=== PATIENT | female | born 1935 | race Caucasian/White ===

== ENCOUNTER → 2017-04-20 | Outpatient (CLI) | payer OTHER, BC ==
[~2017-04-20] MED LIST: ASPI-435 PO; BROM0.07 OPB; CALC500C70 PO; CHOL100027 PO; CYM/30 PO; DULO60CA44 PO; HYDR-5688 PO; IPRA0.06 NAE; LEVO75TA PO; LUTE15CA PO; LUTE20TA PO; MULT-506 PO; OMEG10007 PO; OMEGCAP2 PO; POLY335019 PO; PREG200C PO; PRM625 VAGRING; PRMVC; SIMV20TA5 PO; TAPE1TAB10 PO; TAPE50TA5 PO; ZOLP1TAB PO
--- NOTE | 2017-04-20 16:58 | DIAGNOSTIC IMAGING REPORT ---
SCOLIOSIS AP ONLY CLINICAL HISTORY: SCOLIOSIS COMPARISON STUDY: Lumbar spine 05/15/2016. FINDINGS: Greater than expected density within the right hilum. This could be positional. Posterior decompression and fusion with pedicle screws and rods at L4-S1. The hardware appears intact. L2 vertebroplasty is again noted. Severe levoscoliosis of the lower thoracic and lumbar spine with the apex at the L2-L3 disc space level. This demonstrates a Hernandez angle of approximately 56 degrees measured from the superior endplate of L1 through the super endplate of L5. IMPRESSION: 1. No change in the severe levoscoliosis of the lower thoracic and lumbar spine with a Hernandez angle of 56 degrees. No significant curvature within the majority of the thoracic spine. 2. Greater than expected density within the right hilum which could be positional. Recommend follow-up PA and lateral views the chest to exclude a hilar abnormality. Electronically signed by: Eulogio Nguyễn M.D. 04/20/2017 4:56 PM Dictated Date/Time: 04/20/2017 4:53 PM
== END | disposition home or self-care (01) ==
LOC: C.RADBC 16:23
PROVIDERS: ATTEND Neurological Surgery
DX: M41.9 Scoliosis, unspecified (principal)

== ENCOUNTER → 2017-06-10 | Day surgery (SDC) | payer OTHER, BC ==
[2017-06-05 11:36] VITALS: Ht 154.9 cm; Wt 59.1 kg
[~2017-06-10] VITALS: Ht 154.9 cm; Wt 59.1 kg
[~2017-06-10] MED LIST changes: +LIDOCAINE HCL 1% MPF 5 ML VIAL ONE; -LUTE15CA PO; -MULT-506 PO; -OMEGCAP2 PO; -POLY335019 PO; -PREG200C PO; -PRM625 VAGRING; +SODIUM CHLORIDE 0.9% INJ 10 ML VIAL ONE; -TAPE1TAB10 PO
--- NOTE | 2017-06-10 15:03 | History & Physical Bridge - SC ---
H&P Re-Evaluation Bridge Note: I have examined the patient, reviewed the History & Physical and in the interval since the performance of the History & Physical I have noted the following changes of clinical significance: No changes noted
[2017-06-10 15:31] VITALS: TEMP 36.9
--- NOTE | 2017-06-10 15:33 | Discharge Instructions ---
Discharge Instructions Date of Service Jun 10, 2017. Visit Reason for Visit: Lumbar Radiculopathy Discharge Discharge Diagnosis / Problem: left leg pain Discharge Goals Goal(s): Decrease discomfort, Improve function Activity Recommendations Activity Limitations: resume your previous activity Anesthesia . Post Anesthesia Instructions: If you have had General Anesthesia or IV Sedation: * Do not drive today. * Resume driving when surgeon permits. * Do not make important decisions or sign legal documents today. * Call surgeon for: 1. Temperature elevations greater than 101 degrees F. 2. Uncontrollable pain. 3. Excessive bleeding. 4. Persistent nausea and vomiting. 5. Medication intolerance (nausea, vomiting or rash). * For nausea and vomiting use only clear liquids such as: tea, soda, bouillon until nausea subsides, then gradually increase diet as tolerated. * If you have any concerns or questions, call your surgeon's office. If physician is unavailable and it is an emergency, call 911 or go to the nearest emergency room. . Diet Recommendations Recommended Home Diet: resume previous diet Procedures Procedures Performed: CAUDAL EPIDURAL STEROID INJECTION Pending Studies Studies pending at discharge: no Medical Emergencies . Who to Call and When: Medical Emergencies: If at any time you feel your situation is an emergency, please call 911 immediately. . Non-Emergent Contact Non-Emergency issues call your: Specialist . . "Provider Documentation" section prepared by Dao Borja. .
[2017-06-10 15:45] VITALS: BP 117/82; PULSE 65; O2SAT 98
--- NOTE | 2017-06-10 15:56 | OPERATIVE REPORT ---
DATE OF OPERATION: 06/10/2017 PREOPERATIVE DIAGNOSES: Severe scoliosis, history of fusion, post-laminectomy syndrome with a left L5 radiculopathy. POSTOPERATIVE DIAGNOSIS: Same. PROCEDURE: Caudal epidural steroid injection under fluoroscopic guidance. INDICATIONS: The patient is a 81-year-old white female who has radicular pain following a classic L5 dermatomal distribution, it has not responded to conservative measures, it has not responded to a surgery and the pain is chronic. She presents today for an epidural injection via caudal approach given her prior history of surgery to provide her with some relief of the radicular pain in L5. PHYSICAL EXAMINATION: GENERAL: Pleasant female seated comfortably. MUSCULOSKELETAL: Lumbar paraspinal muscles were palpated. She has decreased subjective sensation in the L5 dermatomal distribution. Negative seated straight leg raises. No focal weakness. CONSENT: Verbal and written consent was obtained from the patient. Risks and benefits were reviewed. Risks include but are not limited to epidural abscess, allergic reaction and dural puncture. The patient wishes to proceed. DESCRIPTION OF PROCEDURE: The patient was taken back into the [facility] special procedures room in which she was maintained in a prone position. Backside was cleansed with Betadine x3 and a dry sterile dressing was applied. Fluoroscope was used to identify the sacral hiatus and the overlying skin was anesthetized with 4 mL of lidocaine 1% with a 25 gauge 1.5-inch needle. A 25 gauge 3.5 inch spinal needle was then directed under lateral fluoroscopic guidance into the sacral canal. It was noted to be about 1 inch into the canal and then injected after negative aspiration with 40 mg of Depo-Medrol and 4 mL of preservative free sodium chloride. Injection was well tolerated. DISPOSITION: 1. The patient is taken out into the discharge recovery area where she will be discharged home once discharge criteria have been met. 2. Follow up in the [facility] office in 2-4 weeks. I attest to the content of the Intraoperative Record and any orders documented therein. Any exception s are noted below.
== END | disposition home or self-care (01) ==
LOC: X.SURG 14:24
PROVIDERS: ATTEND Physical Medicine & Rehabilitation
DX: M41.9 Scoliosis, unspecified (principal); Z98.1 Arthrodesis status; M96.1 Postlaminectomy syndrome, not elsewhere classified; M54.16 Radiculopathy, lumbar region

== ENCOUNTER → 2017-09-09 | Outpatient (CLI) | payer OTHER, BC ==
[~2017-09-09] MED LIST changes: +CARBIDOPA PO; -LIDOCAINE HCL 1% MPF 5 ML VIAL ONE; +PREG200C PO; -SODIUM CHLORIDE 0.9% INJ 10 ML VIAL ONE
--- NOTE | 2017-09-10 12:47 | MAMMOGRAPHY REPORT ---
BILATERAL DIGITAL SCREENING MAMMOGRAM TOMOSYNTHESIS WITH CAD: 09/09/2017 CLINICAL HISTORY: Asymptomatic. Personal history of breast cancer. TECHNIQUE: Breast tomosynthesis in addition to standard 2D mammography was performed. Current study was also evaluated with a Computer Aided Detection (CAD) system. COMPARISON: Comparison is made to exams dated: 02/07/2016 mammogram - [facility] and 12/28/2014 mammogram. BREAST COMPOSITION: There are scattered areas of fibroglandular density in both breasts. FINDINGS: No suspicious masses, calcifications, or areas of architectural distortion are noted in ei ther breast. There has been no significant interval change compared to prior exams. There are stable postsurgical changes in the left upper outer quadrant from prior lumpectomy, including coarse benign dystrophic calcifications at the lumpectomy bed. Other scattered bilateral benign-appearing calcifi cations are again noted. Note that the images are suboptimal due to difficulties with patient positi oning including limited range of motion of her right arm; note that the pectoralis muscles are not we ll visualized on the bilateral MLO views and there is mild motion artifact on the left MLO view. IMPRESSION: ACR BI-RADS CATEGORY 2: BENIGN Limited exam as described above. Within the limitations of the exam, there is no mammographic eviden ce of malignancy. A 1 year screening mammogram is recommended. The patient will receive written noti fication of the results. Approximately 10% of breast cancers are not detected with mammography. A negative mammographic report should not delay biopsy if a clinically suggestive mass is present. Gena Soler M.D. ah/:09/09/2017 15:03:54 Attending Technologist: Brenda Baker RT(R)(M), [facility] Curator Of Collections: Rina Alves RT(R)(M), [facility] letter sent: Normal 1/2 BI-RADS Code: ACR BI-RADS Category 2: Benign
== END | disposition home or self-care (01) ==
LOC: C.MAMM 13:58
PROVIDERS: ATTEND Family Medicine
DX: Z12.31 Encounter for screening mammogram for malignant neoplasm of breast (principal); Z85.3 Personal history of malignant neoplasm of breast; Z08 Encounter for follow-up examination after completed treatment for malignant neoplasm

== ENCOUNTER → 2017-09-28 | Outpatient (CLI) | payer OTHER, BC ==
[~2017-09-28] MED LIST changes: -CARBIDOPA PO; -PREG200C PO
[2017-09-28 14:49] LABS: BLOOD UREA NITROGEN 19 mg/dl (7-18); CALCIUM 9.9 mg/dl (8.5-10.1); CARBON DIOXIDE 29 mmol/L (21-32); CHOLESTEROL 155 mg/dl (0-200); GLUCOSE 90 mg/dl (70-99); SODIUM 137 mmol/L (136-145)
[2017-09-28 14:59] LABS: LDL CHOLESTEROL CALCULATED 54 mg/dl
== END | disposition home or self-care (01) ==
LOC: C.LAB1850 13:00
PROVIDERS: ATTEND Family Medicine
DX: E03.9 Hypothyroidism, unspecified (principal); E78.5 Hyperlipidemia, unspecified

== ENCOUNTER → 2017-10-26 | Outpatient (CLI) | payer OTHER, BC ==
--- NOTE | 2017-10-26 16:30 | DIAGNOSTIC IMAGING REPORT ---
CHEST 2 VIEWS ROUTINE HISTORY: CHEST CONGESTION COMPARISON: Chest 06/04/2016. FINDINGS: Severe levoscoliosis of the thoracolumbar spine. There are low lung volumes. No focal lung consolidations. No evidence for pulmonary edema. The heart remains enlarged. Old, healed right-sided rib fractures. Vertebroplasty at the thoracolumbar junction. Lumbar spine posterior fusion hardware is again noted. IMPRESSION: No acute process within the chest. Mild cardiomegaly, unchanged. Electronically signed by: Eulogio Nguyễn M.D. 10/26/2017 4:28 PM Dictated Date/Time: 10/26/2017 4:26 PM
== END | disposition home or self-care (01) ==
LOC: C.RAD1850 15:56
PROVIDERS: ATTEND Nurse Practitioner Adult Health
DX: R09.89 Other specified symptoms and signs involving the circulatory and respiratory systems (principal); I51.7 Cardiomegaly

== ENCOUNTER → 2018-04-30 | Outpatient (CLI) | payer OTHER, BC ==
[~2018-04-30] MED LIST changes: +CARBIDOPA PO; -CYM/30 PO; +PREG200C PO
[2018-04-30 17:49] LABS: CREATININE 0.59 mg/dl (0.60-1.20)
[2018-04-30 18:04] LABS: BLOOD UREA NITROGEN 21 mg/dl (7-18); CALCIUM 8.9 mg/dl (8.5-10.1); CARBON DIOXIDE 26 mmol/L (21-32); CHOLESTEROL 165 mg/dl (0-200); CREATININE 0.59 mg/dl (0.60-1.20); GLUCOSE 78 mg/dl (70-99); LDL CHOLESTEROL CALCULATED 64 mg/dl; POTASSIUM 4.1 mmol/L (3.5-5.1); SODIUM 137 mmol/L (136-145)
== END | disposition home or self-care (01) ==
LOC: C.LAB1850 16:07
PROVIDERS: ATTEND Physical Medicine & Rehabilitation
DX: E03.9 Hypothyroidism, unspecified (principal); E78.5 Hyperlipidemia, unspecified; M19.90 Unspecified osteoarthritis, unspecified site; M54.16 Radiculopathy, lumbar region

== ENCOUNTER 2020-09-02 20:29 | Inpatient (IN) ==
--- NOTE | 2020-09-02 20:55 | Emergency Department Note ---
History of Present Illness General Chief complaint: Food Bolus Stated complaint: CHOKING ON RICE - Time Seen by Provider: 09/02/20 20:40 Source: patient and family (Son who is at the bedside) Mode of arrival: ambulatory Limitations: no limitations History of Present Illness Maximum Pain Intensity: 2 This patient comes in after choking on some rice about an hour ago. She has a history of Parkinson was in usual state of health. She was eating rice and felt like it got stuck and she like she had saliva. She feels better now can swallow her saliva and is in no distress she had no shortness of breath. She said no recent illness. She has had nothing to suggest Covid recently. No chest pain shortness of breath or GI symptoms prior to all this happening. She had no fall or trauma except on Thursday she fell and hit her head when she was sleepwalking she had a CAT scan here which was negative. She is brought in by her son as they were concerned she could have aspirated. Home Medications Medication Instructions Recorded Confirmed Type aspirin 81 mg PO HS 06/21/18 09/02/20 History cholecalciferol (vitamin D3) 1,000 unit PO DAILY 06/21/18 09/02/20 History [Vitamin D3] levothyroxine 75 mcg tablet 75 mcg PO QAM #90 tab 02/15/20 09/02/20 Rx pregabalin 200 mg capsule 200 mg PO TID #42 cap 07/23/20 09/02/20 Rx simvastatin 20 mg tablet 20 mg PO HS #90 tab 07/24/20 09/02/20 Rx carbidopa-levodopa [Sinemet] 1.5 tab PO QID 08/15/20 09/02/20 History ipratropium bromide 2 sprays INTNAS BID 08/15/20 09/02/20 History lutein 20 mg PO Q2D 08/15/20 09/02/20 History multivitamin [Multiple Vitamins] 1 tab PO DAILY 08/15/20 09/02/20 History omega 2-jgr-hdj-fish oil [Fish Oil] 1 cap PO DAILY 08/15/20 09/02/20 History zolpidem 12.5 mg tablet,extended 12.5 mg PO HS #14 tab 08/16/20 09/02/20 Rx release,multiphase duloxetine 60 mg capsule,delayed 60 mg PO QAM #90 cap 08/28/20 09/02/20 Rx release polyethylene glycol 3350 [Miralax] 8.5 g PO DAILY PRN 08/30/20 09/02/20 History tapentadol [Nucynta ER] 50 mg PO BID 08/30/20 09/02/20 History Allergies Allergy/AdvReac Type Severity Reaction Status Date / Time nut - unspecified Allergy Severe Anaphylaxis Verified 08/30/20 05:42 Penicillins Allergy Intermediate HIVES Verified 08/30/20 05:42 Sulfa (Sulfonamide Allergy Intermediate "jaundiced Verified 08/30/20 05:42 Antibiotics) as child", HIVES codeine Allergy Mild GI SYMPTOMS Verified 08/30/20 05:42 soy Allergy Unknown Unknown Verified 08/30/20 05:42 cat dander AdvReac Severe SHORTNESS Verified 08/30/20 05:42 OF BREATH mold AdvReac Severe SHORTNESS Verified 08/30/20 05:42 OF BREATH Past Med/Surg History Medical History Anxiety Bilateral lumbar radiculopathy Cardiac murmur Chronic back pain Fibromyalgia Hearing deficit Hx of breast cancer RADIATION 2000 Hyperlipidemia Hypothyroidism Lumbar canal stenosis Risk for falls LAST EVENT ARPIL 2019 Scoliosis LUMBAR AND NERVE PAIN Spinal stenosis Surgical History History of colonoscopy History of dilation and curettage History of foot surgery LEFT History of tonsillectomy Hx of appendectomy Hx of bilateral breast reduction surgery DUE TO CANCER 2006 Hx of cataract surgery RIGHT AND LEFT Hx of kyphoplasty L2 Hx of lumpectomy WITH LYMPH NODE REMOVAL (LEFT) Hx of spinal fusion L4-S1 Hx of wisdom tooth extraction S/P epidural steroid injection Family History Sister Alzheimer disease Breast cancer Paget's disease Father Alzheimer disease Grandmother (Paternal) Alzheimer disease Mother Myocardial infarction Stroke syndrome Uncle Prostate cancer Denies family history of Ovarian cancer Adverse anesthesia outcome Bleeding disorder Colorectal cancer Social History Smoking Status: Former smoker Second Hand Exposure: No; Hx Alcohol Use: No Hx Substance Use: No Preferred Language: Estonian Communication Ability: Effective Visual Impairment: No Limitations Hearing Ability: Use of Hearing Aid Two Needle Machine Operator Required: No Beliefs That Will Affect Care: None marital status: Single Current Living Situation: Alone Current Living Situation Comment: [facility]) current occupational status: retired Feels Safe at Home: Yes Physical Activity Frequency: Does not Exercise Assistive Devices: Hearing Aid - Bilateral and Walker Review of Systems A total of 10 systems reviewed and were otherwise negative Physical Exam Vital Signs Vital Signs - 24 hr 09/02/20 20:31 09/02/20 21:24 09/02/20 23:00 Temperature 37.0 C Temperature Source Oral Pulse Rate 69 Pulse Rate [Apical] 66 Respiratory Rate 16 18 Respiratory Effort / Characteristics Non-Labored Respiratory Depth Normal Blood Pressure 127/57 L Blood Pressure [Right Arm] 140/71 Blood Pressure Mean 80 Blood Pressure Mean [Right Arm] 94 Pulse Oximetry 95 95 98 Oxygen Delivery Method Room Air Room Air Room Air Sepsis Recent Fever Within 48 Hours No Sepsis New/Unexplained Change in Mental Status No Sepsis Action Taken by Nursing No Action Required General: Well developed well nourished older female who appears in no acute distress, breathing comfortably on room air. Normal speech, swallowing without any difficulties. No drooling HEENT: Normal cephalic atraumatic with exception of a healing bruise in her forehead and face from a fall on Thursday. Pupils are equal round and reactive to light. Extraocular movements are intact. Oropharynx is pink with moist mucous membranes. No swelling of the mouth lips or tongue. Neck: Supple with a midline trachea. No meningeal signs or stiffness, no JVD or bruits. No Stridor. Chest: Clear to auscultation bilaterally. No wheezes or rhonchi. No increased work of breathing. Heart: Regular rate and rhythm without murmurs or gallops. Abdomen: Soft nontender, nondistended without rebound guarding or rigidity. Extremities: No cyanosis clubbing or edema. No calf tenderness or assymetry Spine/Back. Non tender to palpation. No CVA tenderness Skin: Good turgor without rashes. Neurologic exam: Cranial nerves two through 12 are intact. Motor and sensation are intact and symmetrical throughout. Course Administered Medications Discontinued Medications Hydrocodone Bitart/Acetaminophen (Hydrocodone/Acetamophen 5/325mg Tab) 1 tab PO NOW STA Stop: 09/02/20 22:23 Last Admin: 09/02/20 22:58 Dose: 1 tab Documented by: [id number] Carbidopa/Levodopa (Carbidopa/Levodopa 25/100mg Tab) 1.5 tab PO ONE STA Stop: 09/02/20 22:33 Last Admin: 09/02/20 22:59 Dose: 1.5 tab Documented by: [id number] Ioversol (Ioversol 100ml) 93 ml IV ONCE ONE Stop: 09/02/20 22:50 Last Admin: 09/02/20 22:49 Dose: 1 ml Documented by: [id number] Pregabalin (Pregabalin 100 Mg Cap) 100 mg PO ONE STA Stop: 09/02/20 22:33 Last Admin: 09/02/20 22:58 Dose: 100 mg Documented by: [id number] Medical Decision Making Differential Diagnosis Aspiration, cardiac disease, food bolus, pneumonia, sepsis, CHF, electrolyte or metabolic abdomen Medical Records Attestation: I reviewed the patient's medical records. Home Medications Current Medication List: was personally reviewed by me Laboratory Data Attestation: I reviewed the patient's lab results. Result diagrams: 09/02/20 21:44 09/02/20 21:44 Lab Results 09/02/20 09/02/20 09/02/20 Range/Units 21:44 21:44 21:44 WBC 6.28 (4.8-10.8) K/uL RBC 3.02 L (4.2-5.4) M/uL Hgb 7.5 L (12.0-16.0) g/dL Hct 23.5 L (37-47) % MCV 77.8 L (80-100) fL MCH 24.8 L (25-34) pg MCHC 31.9 L (32-36) g/dL RDW Std Deviation 42.3 (36.4-46.3) fL RDW Coeff of Arnaud 14.7 H (11.5-14.5) % Plt Count 218 (130-400) K/uL MPV 11.5 H (7.4-10.4) fL Immature Gran % (Auto) 0.2 % Neut % (Auto) 57.1 % Lymph % (Auto) 23.1 % [place] % (Auto) 13.4 % Eos % (Auto) 5.9 % Baso % (Auto) 0.3 % Neut # (Auto) 3.59 (1.4-6.5) K/uL Lymph # (Auto) 1.45 (1.2-3.4) K/uL [place] # (Auto) 0.84 H (0.11-0.59) K/uL Eos # (Auto) 0.37 (0-0.5) K/uL Baso # (Auto) 0.02 (0-0.2) K/uL Immature Gran # (Auto) 0.01 (0.00-0.02) K/uL Giant Platelets 1+ Hypochromasia Present Ovalocytes 1+ PT 10.9 (9.0-12.0) Seconds INR 1.0 (0.9-1.1) APTT 26.6 (21.0-31.0) Seconds PTT Ratio 1.0 Sodium 134 L (136-145) mmol/L Potassium 4.4 (3.5-5.1) mmol/L Chloride 101 (98-107) mmol/L Carbon Dioxide 27 (21-32) mmol/L Anion Gap 7.0 (3-11) BUN 20 H (7-18) mg/dl Creatinine 0.67 (0.6-1.2) mg/dl Est Cr Clr Drug Dosing 55.4 ml/min Est GFR ( Amer) 94.2 Est GFR (Non-Af Amer) 81.3 BUN/Creatinine Ratio 29.8 H (10-20) Glucose 115 H (70-99) mg/dl Calcium 8.7 (8.5-10.1) mg/dl Total Bilirubin 0.4 (0.2-1) mg/dl AST 29 (15-37) U/L ALT 11 L (12-78) U/L Alkaline Phosphatase 57 (45-117) U/L Troponin I < 0.015 (0-0.045) ng/ml Total Protein 6.6 (6.4-8.2) gm/dl Albumin 3.5 (3.4-5.0) gm/dl Globulin 3.1 (2.5-4.0) gm/dl Albumin/Globulin Ratio 1.1 (0.9-2) Lipase 89 (73-393) U/L SARS-CoV-2 Ag (Rapid) (Negative) Blood Type Antibody Screen 09/02/20 09/03/20 Range/Units 22:44 00:04 WBC (4.8-10.8) K/uL RBC (4.2-5.4) M/uL Hgb (12.0-16.0) g/dL Hct (37-47) % MCV (80-100) fL MCH (25-34) pg MCHC (32-36) g/dL RDW Std Deviation (36.4-46.3) fL RDW Coeff of Arnaud (11.5-14.5) % Plt Count (130-400) K/uL MPV (7.4-10.4) fL Immature Gran % (Auto) % Neut % (Auto) % Lymph % (Auto) % [place] % (Auto) % Eos % (Auto) % Baso % (Auto) % Neut # (Auto) (1.4-6.5) K/uL Lymph # (Auto) (1.2-3.4) K/uL [place] # (Auto) (0.11-0.59) K/uL Eos # (Auto) (0-0.5) K/uL Baso # (Auto) (0-0.2) K/uL Immature Gran # (Auto) (0.00-0.02) K/uL Giant Platelets Hypochromasia Ovalocytes PT (9.0-12.0) Seconds INR (0.9-1.1) APTT (21.0-31.0) Seconds PTT Ratio Sodium (136-145) mmol/L Potassium (3.5-5.1) mmol/L Chloride (98-107) mmol/L Carbon Dioxide (21-32) mmol/L Anion Gap (3-11) BUN (7-18) mg/dl Creatinine (0.6-1.2) mg/dl Est Cr Clr Drug Dosing ml/min Est GFR ( Amer) Est GFR (Non-Af Amer) BUN/Creatinine Ratio (10-20) Glucose (70-99) mg/dl Calcium (8.5-10.1) mg/dl Total Bilirubin (0.2-1) mg/dl AST (15-37) U/L ALT (12-78) U/L Alkaline Phosphatase (45-117) U/L Troponin I (0-0.045) ng/ml Total Protein (6.4-8.2) gm/dl Albumin (3.4-5.0) gm/dl Globulin (2.5-4.0) gm/dl Albumin/Globulin Ratio (0.9-2) Lipase (73-393) U/L SARS-CoV-2 Ag (Rapid) Negative (Negative) Blood Type A Negative Antibody Screen NEGATIVE Imaging Data My Impression: Chest x-ray: Cardiomegaly. No acute infiltrate, failure, pneumothorax. Mild increased interstitial markings Radiologist's Impression: CT chest with contrast7 cm hiatal hernia. There is gaseous distention of the mid upper esophagus. No foreign body. Calcified thoracic aorta there is no aneurysm or dissection. Heart is mildly enlarged. No pericardial effusion. No mediastinal axillary lymphadenopathy or mass. Lungs are well expanded with coarse interstitial markings throughout the lungs greatest centrally which may represent pulmonary edema versus mild interstitial scarring. No acute appearing airspace infiltrate, pneumothorax, pleural effusion identified. Severe degenerative changes in the right shoulder multilevel d egenerative changes throughout the cervical spine. No acute fracture or bony lesion identified. CT the abdomen pelvis7 cm hiatal hernia. Liver, gallbladder, spleen, pancreas, adrenal glands, kidneys appear unremarkable. Scattered gas fluid levels in nondilated small bowel, right and transverse colon suggest ileus. There is diverticulosis of the right lower proximal sigmoid colon. No acute inflammatory changes are seen involving the bowel. No peritoneal or free fluid. Severe degenerative changes of the lumbar spine. ECG Data Attestation: I personally reviewed and interpreted this ECG as follows: Indication: + SOB/dyspnea Rate (beats per minute): 61 Rhythm: + sinus with SA ECG Intervals/blocks: + Normal QRS, + Normal QT and + Normal RI ECG Danielson: + Normal ECG ST segments: + Normal ST segments ECG Findings: no PACs and no PVCs Comparison ECG Date: from (05/25/18) Change: the following changes noted (Rate has decreased.) MDM Narrative This patient comes in as described above. She was placed on a court recording monitor room B4. She had an episode where she had felt like she was choking on rice she is able to swallow now and looks well she is not hypoxemic. She is in no respiratory distress. She does have Parkinson's and I think likely does have some swallowing issues. IV asked established EKG chest x-ray multiple blood testing was obtained. She was reassessed frequently. Her hemoglobin so is surprisingly low at 7.5. I do not have an old one for comparison except from 2016 when it was 12. She adamantly denies any blood or black colors in her stool. She is fallen 3 times recently which has been attributed to her Parkinson's but it may be that she is also anemia is causing this. She has had some difficulty swallowing at times so it may also be she could have esophagitis or GI bleed. She did fall recently but has no abdominal or chest pain but I did add a CAT scan of the abdomen and pelvis to rule out any trauma and internal bleeding. I did order her meds that she missed. She was typed and screened. CAT scan show a hiatal hernia but no acute abnormalities otherwise. There is no blood seen. Given her low hemoglobin and frequent falls, I do think she needs to be admitted for further evaluation.with her swallowing issues it may be related to that she may have GI blood loss. I will consult Dr. Groves to see her in the ER for these measures. She was Covid tested and was negative. Continuous cardiac monitoring: An order was placed in the EMR for continuous cardiac monitoring. He has a normal sinus rhythm with a pulse of 70. Impression & Plan Dysphagia, Anemia, Falls frequently, Parkinson disease, Lab test negative for COVID-19 virus, Hernia, hiatal Discharge Plan Visit Data Chief Complaint: Food Bolus Stated Complaint: CHOKING ON RICE - ED Provider: Macario Riley Discharge Problem: Dysphagia, Anemia, Falls frequently, Parkinson disease, Lab test negative for COVID-19 virus, Hernia, hiatal Forms Stand Alone Forms: My [facility] Prescriptions Prescriptions: No Action levothyroxine [Synthroid] 75 mcg tablet 75 mcg PO QAM Qty: 90 RF: 1 pregabalin [Lyrica] 200 mg capsule 200 mg PO TID Qty: 42 RF: 0 simvastatin [Zocor] 20 mg tablet 20 mg PO HS Qty: 90 RF: 1 duloxetine [Cymbalta] 60 mg capsule,delayed release(DR/EC) 60 mg PO QAM Qty: 90 RF: 1 zolpidem 12.5 mg tablet,ext release multiphase 12.5 mg PO HS Qty: 14 RF: 0 aspirin 81 mg Tablet,Delayed Release (Dr/Ec) 81 mg PO HS RF: 0 cholecalciferol (vitamin D3) [Vitamin D3] 1,000 unit Capsule 1,000 unit PO DAILY RF: 0 ipratropium bromide 42 mcg (0.06 %) spray,non-aerosol 2 sprays INTNAS BID RF: 0 carbidopa-levodopa [Sinemet] 25-100 mg tablet 1.5 tab PO QID RF: 0 multivitamin [Multiple Vitamins] Tablet 1 tab PO DAILY RF: 0 omega 0-vco-bhu-fish oil [Fish Oil] 1,000 mg (120 mg-180 mg) Capsule 1 cap PO DAILY RF: 0 lutein 20 mg Tablet 20 mg PO Q2D RF: 0 Nucynta ER 50 mg tablet extended release 12 hr 50 mg PO BID RF: 0 polyethylene glycol 3350 [Miralax] 17 gram/dose Powder 8.5 g PO DAILY PRN (Reason: Constipation) RF: 0 Discharge Problem: Dysphagia Qualifiers: Dysphagia type: unspecified Qualified Code(s): R13.10 - Dysphagia, unspecified Anemia Qualifiers: Anemia type: unspecified type Qualified Code(s): D64.9 - Anemia, unspecified
[2020-09-02 21:59] LABS: Basophils # (auto) 0.02 K/uL (0-0.2); Basophils % (auto) 0.3 %; Eosinophils # (auto) 0.37 K/uL (0-0.5); Eosinophils % (auto) 5.9 %; Hematocrit (blood only) 23.5 % (37-47); Hemoglobin 7.5 g/dL (12.0-16.0); Immature Granulocytes # (auto) 0.01 K/uL (0.00-0.02); Immature Granulocytes % (auto) 0.2 %; Lymphocytes # (auto) 1.45 K/uL (1.2-3.4); Lymphocytes % (auto) 23.1 %; Mean Corpuscular Hemoglobin 24.8 pg (25-34); Mean Corpuscular Hgb Conc 31.9 g/dL (32-36); Mean Corpuscular Volume 77.8 fL (80-100); Mean Platelet Volume 11.5 fL (7.4-10.4); Monocytes # (auto) 0.84 K/uL (0.11-0.59); Monocytes % (auto) 13.4 %; Neutrophils # (auto) 3.59 K/uL (1.4-6.5); Neutrophils % (auto) 57.1 %; Platelet Count 218 K/uL (130-400); RDW Coefficient of Variation 14.7 % (11.5-14.5); RDW Standard Deviation 42.3 fL (36.4-46.3); Red Blood Count 3.02 M/uL (4.2-5.4); White Blood Count 6.28 K/uL (4.8-10.8)
[2020-09-02 22:11] LABS: Partial Thromboplastin Time 26.6 Seconds (21.0-31.0); Prothrombin Time 10.9 Seconds (9.0-12.0)
[2020-09-02 22:16] LABS: Giant Platelets 1+; Hypochromasia Present; Ovalocytes 1+
[2020-09-02 22:18] LABS: Alanine Aminotransferase 11 U/L (12-78); Albumin Level 3.5 gm/dl (3.4-5.0); Aspartate Aminotransferase 29 U/L (15-37); BUN Creatinine Ratio 29.8 (10-20); Blood Urea Nitrogen 20 mg/dl (7-18); Calcium 8.7 mg/dl (8.5-10.1); Carbon Dioxide 27 mmol/L (21-32); Chloride 101 mmol/L (98-107); Creatinine Clr Calc Pharmacy 55.4 ml/min; Est GFR (African American) 94.2; Est GFR (Non-African American) 81.3; Glucose 115 mg/dl (70-99); Lipase 89 U/L (73-393); Potassium 4.4 mmol/L (3.5-5.1); Sodium 134 mmol/L (136-145)
[2020-09-02] MEDS ORDERED: HYDROCODONE/ACETAMOPHEN 5/325MG TAB PO STA (22:22)
[2020-09-02 22:23] LABS: Albumin Globulin Ratio 1.1 (0.9-2); Alkaline Phosphatase 57 U/L (45-117); Bilirubin,Total 0.4 mg/dl (0.2-1); Globulin 3.1 gm/dl (2.5-4.0); Total Protein 6.6 gm/dl (6.4-8.2); Troponin I < 0.015 ng/ml (0-0.045)
[2020-09-02] MEDS ORDERED: CARBIDOPA/LEVODOPA 25/100MG TAB PO STA (22:32)
[2020-09-02] MEDS ORDERED: PREGABALIN 100 MG CAP PO STA (22:32)
[2020-09-02] MEDS ORDERED: IOVERSOL 100ml IV ONE (22:49)
--- NOTE | 2020-09-03 01:32 | History & Physical Report ---
Date of Service September 03, 2020 Assessment & Plan (1) Dysphagia: Kwame Falcon is an 85 year old woman with a past medical hsitory significant for Parkinson's who presents with a food bolus episode this evening found to have significant anemia in ED Food Bolus Patient appears to have completely cleared sticky rice she had struggle dwith earlier tonight but tells me this happens relatively frequently though never this bad CT chest and abdomen showing dilated proximal 2/3 of esophagus and large hiatal hernia Repeat symptoms and imaging raises possibility of stricture or mass in this area, given her age and co occuring anemia certainly concern over malignancy Will consult GI to further evaluate patient and will make patient NPO for possible endoscopy Anemia microcytic hypochromic anemia WIll get iron studies and hemoccult stools GI consulted for possible upper endoscopy concern for possible esophageal stricture/mass Will check Hemoglobin again in AM transfuse if <7 or symptomatic Given patient's lack of symptoms and no signs of blood loss this appears to be a gradual phenomenon Holding ASA Repeated mechanical falls Appears to be purely mechanical likely multifactorial Parkinsons is affecting her balance, but also her night time ambien and possible weakness from her anemia also playing a role Will hold ambien for now, primary care prescribed her a wheeled walker would encourage her to use this consistently Parkinsons COntinuing current home regimen of sinemet QID Hypothyroidism Levothyroxine 75 mcg daily Depression and Anxiety Continuing duloxetine 60 mg Hyperlipidemia Continuing home statin therapy Holding off on ASA at this time for possible GI losses DVT PPx: SCD's F/E/N: NPO pending GI evaluation tomorrow Dispo: Admit for further workup of anemia and possible endoscopy Full Code (2) Falls frequently: (3) Parkinson disease: (4) Hernia, hiatal: (5) Bilateral lumbar radiculopathy: (6) Forehead contusion: (7) Insomnia: History of Present Illness Chief Complaint: Inability to swallow food Primary Care Provider: [place] at [facility] Kwame Falcon is an 85 year old woman with a past medical history significant for parkinsons disease, hypertension, scoliosis, Chronic pain from her scoliosis lumbar stenosis and fibromyalgia, and breast cancer in remission who presents to the ED with food bolus tonight. She was eating sticky rice tonight and felt she could not swallow the rice. She choked and coughed and felt the food stuck in her espophagus. She produced a lot of saliva and felt that this saliva eventually started to go down her windpipe. She says that this happens to her from time to time particularly when she is stressed but usually she is able to clear it on her own. IN the ED her vitals were stable and she has returned to her normal state of health. Labwork was significant for anemia with a hemoglobin of 7.5. Patient had had three falls in the past few weeks at home thought to be secondary to imbalance from her parkinson's disease and CT scans of the chest and abdomen were ordered to look for possible internal bleeding. These did not show any bleeds but was significant for a dilated proximal and middle esophagus and a large hiatal hernia. Patient denies any other acute symptoms or changes in health, denies any hematochezia or melena. Tells me her falls have all been mechanical and that she has a hard time keeping her balance with the parkinsons and that ambien also makes her walk less steady. She denies fevers chills, sweats, weight loss, abdominal pain, nausea vomiting, chest pain, shortness of breath, cough, sick contacts, skin rashes or any other concerning symptoms besides the falls and the food bolus. Denies alcohol use, smoking in the last 55 years, drug use. Lives at the [facility], full code Allergies Allergy/AdvReac Type Severity Reaction Status Date / Time nut - unspecified Allergy Severe Anaphylaxis Verified 08/30/20 05:42 Penicillins Allergy Intermediate HIVES Verified 08/30/20 05:42 Sulfa (Sulfonamide Allergy Intermediate "jaundiced Verified 08/30/20 05:42 Antibiotics) as child", HIVES codeine Allergy Mild GI SYMPTOMS Verified 08/30/20 05:42 soy Allergy Unknown Unknown Verified 08/30/20 05:42 cat dander AdvReac Severe SHORTNESS Verified 08/30/20 05:42 OF BREATH mold AdvReac Severe SHORTNESS Verified 08/30/20 05:42 OF BREATH Home Medications Medication Instructions Recorded Confirmed Type aspirin 81 mg PO HS 06/21/18 09/02/20 History cholecalciferol (vitamin D3) 1,000 unit PO DAILY 06/21/18 09/02/20 History [Vitamin D3] levothyroxine 75 mcg tablet 75 mcg PO QAM #90 tab 02/15/20 09/02/20 Rx pregabalin 200 mg capsule 200 mg PO TID #42 cap 07/23/20 09/02/20 Rx simvastatin 20 mg tablet 20 mg PO HS #90 tab 07/24/20 09/02/20 Rx carbidopa-levodopa [Sinemet] 1.5 tab PO QID 08/15/20 09/02/20 History ipratropium bromide 2 sprays INTNAS BID 08/15/20 09/02/20 History lutein 20 mg PO Q2D 08/15/20 09/02/20 History multivitamin [Multiple Vitamins] 1 tab PO DAILY 08/15/20 09/02/20 History omega 9-ise-ntt-fish oil [Fish Oil] 1 cap PO DAILY 08/15/20 09/02/20 History zolpidem 12.5 mg tablet,extended 12.5 mg PO HS #14 tab 08/16/20 09/02/20 Rx release,multiphase duloxetine 60 mg capsule,delayed 60 mg PO QAM #90 cap 08/28/20 09/02/20 Rx release polyethylene glycol 3350 [Miralax] 8.5 g PO DAILY PRN 08/30/20 09/02/20 History tapentadol [Nucynta ER] 50 mg PO BID 08/30/20 09/02/20 History Past Med/Surg History Medical History Anxiety Bilateral lumbar radiculopathy Cardiac murmur Chronic back pain Fibromyalgia Hearing deficit Hx of breast cancer RADIATION 2000 Hyperlipidemia Hypothyroidism Lumbar canal stenosis Risk for falls LAST EVENT ARPIL 2019 Scoliosis LUMBAR AND NERVE PAIN Spinal stenosis Surgical History History of colonoscopy History of dilation and curettage History of foot surgery LEFT History of tonsillectomy Hx of appendectomy Hx of bilateral breast reduction surgery DUE TO CANCER 2006 Hx of cataract surgery RIGHT AND LEFT Hx of kyphoplasty L2 Hx of lumpectomy WITH LYMPH NODE REMOVAL (LEFT) Hx of spinal fusion L4-S1 Hx of wisdom tooth extraction S/P epidural steroid injection Family History Sister Alzheimer disease Breast cancer Paget's disease Father Alzheimer disease Grandmother (Paternal) Alzheimer disease Mother Myocardial infarction Stroke syndrome Uncle Prostate cancer Denies family history of Ovarian cancer Adverse anesthesia outcome Bleeding disorder Colorectal cancer Social History Smoking Status: Never smoker Second Hand Exposure: No; Hx Alcohol Use: No Hx Substance Use: No Preferred Language: Tajik Communication Ability: Effective Visual Impairment: No Limitations Hearing Ability: Use of Hearing Aid Foxer Required: No Beliefs That Will Affect Care: None marital status: / Current Living Situation: Alone Current Living Situation Comment: [facility]) current occupational status: retired Feels Safe at Home: Yes Safety Concerns: Feels Safe At This Time Physical Activity Frequency: Does not Exercise Assistive Devices: Walker Review of Systems Review of Systems: All systems reviewed & are unremarkable except as noted in HPI & below Physical Exam Constitutional: 85 year old woman lying in bed with clearly bruised forehead and right eye swollen shut. Evidence of small laceration on forehead and dried blood in her hair. Resting comfortably but speech is slow and deliberate in pace, content is appropriate and she tells delightful stories Eyes: PERRL, conjunctivae normal, anicteric sclerae Respiratory: normal respiratory effort, lungs clear to auscultation Cardiovascular: RRR, no murmur, no edema Gastrointestinal (Abdomen): Inspection/Auscultation: abdomen normal to inspection; abdomen not distended Percussion/Palpation: abdomen soft; abdomen nontender Skin: no rashes, warm and dry Neurologic: PERRL, EOMI, accommodation nl, no face palsy, no dysarthria normal touch/pain/proprioception and CN's II-XI intact bilaterally Results & Data Results & Data ([facility]) Vital Signs (Past 12 Hours) Vital Signs Temp Pulse Pulse Resp BP BP Pulse Ox 09/02/20 23:00 66 18 140/71 98 09/02/20 21:24 95 09/02/20 20:31 37.0 C 69 16 127/57 L 95 Supervising Physician Co-Signing Physician Notes Attending addendum: I have physically seen this patient, have supervised the medical residents activities, and agree with the H&P unless as otherwise noted. Assessment and Plan: Dysphagia- CT with 7 cm hiatal hernia and gaseous distention in the mid and upper esophagus. NPO NG tube to low intermittent suction Concern regarding mass causing obstruction. Famotidine 20 mg IV every 12 hours Consult gastroenterology Hypochromic microcytic anemia- Check iron TIBC and ferritin levels GI consult to assess for possible EGD Hold aspirin Remainder of orders and notations as noted Resident Activity Tracking Resident Involvement: Resident Care Provided Care Provided: Adult Hospital Medicine (1) Dysphagia Dysphagia type: unspecified Qualified Code(s): R13.10 - Dysphagia, unspecified (2) Forehead contusion Encounter type: initial encounter Qualified Code(s): S00.83XA - Contusion of other part of head, initial encounter
[2020-09-03] MEDS ORDERED: POLYETHYLENE (MIRALAX) 17 GM PACK PO PRN ×2 (02:38)
[2020-09-03] MEDS ORDERED: NON-FORMULARY MEDICATION (Lutein 20 mg Tablet) PO SCH (02:38)
[2020-09-03 02:46] LABS: Reticulocyte % 1.5 % (0.5-2.0); Reticulocytes # 0.05 10^6/uL (0.02-0.10)
[2020-09-03 03:04] LABS: Ferritin 8.1 ng/ml (8-388); Thyroid Stimulating Hormone 4.09 uIu/ml (0.300-4.500)
[2020-09-03] MEDS ORDERED: MELATONIN 3 MG TAB PO ONE (04:08)
[2020-09-03] MEDS: CARBIDOPA/LEVODOPA 25/100MG TAB PO SCH ×5 (04:09→20:24)
[2020-09-03] MEDS: LEVOTHYROXINE SODIUM 75 MCG TABLET PO SCH (06:16)
--- NOTE | 2020-09-03 07:23 | CT Scan Report ---
CHEST CT WITH CONTRAST; CT ABDOMEN AND PELVIS WITH IV CONTRAST ONLY CT DOSE: 680.69 mGy.cm HISTORY: Acute vomiting with globus sensation. Possible food bolus. Acute vomiting with chest pain e melinda for trauma TECHNIQUE: Multiaxial CT images of the chest, abdomen and pelvis were performed following the IV admi nistration of 94 cc of Optiray 320. A dose lowering technique was utilized adhering to the principl es of LEAH. COMPARISON: CT chest 10/18/2019 FINDINGS: CT CHEST: Peripherally calcified 1.2 cm right thyroid nodule. Moderate cardiomegaly. No pericardial effusion. N o thoracic aortic aneurysm or dissection. Mixed plaque of the thoracic aortic arch. Patency of the im aged great vessels. The opacified pulmonary artery is unremarkable. Linear calcified scar of the supe rior lateral left breast. No adenopathy. Trace pleural effusions. Mild subpleural reticular opacities of the lingula are suggestive of scarring. No pneumothorax. Respiratory motion artifact limits evalu ation of the lungs. Mild mosaic attenuation with intermixed groundglass densities. Decreased AP dimen xiomara of the trachea and bronchi suggestive of tracheobronchomalacia. There are no suspicious pulmonar y nodules or masses. Moderate gaseous distention of the esophagus with moderate sized hiatal hernia. Degenerative changes of the spine and shoulders. There is no acute fracture. Healed remote right-sided rib fractures. Mild superior endplate compression at T6 and T8 are unchanged. CT ABDOMEN/PELVIS: Respiratory motion artifact limits the study. There is no pneumatosis or pneumoperitoneum. The spleen , mildly atrophic pancreas, adrenal glands, gallbladder and liver appear unremarkable. Patency of the portal vein. Mild prominence of the common bile duct without obstructing stone or lesion identified. 3 mm calcification involves the superior pole left kidney. 7 mm hypodensity of the interpolar left k idney is too small to characterize, possibly reflective of a cyst. No ureteral calculi or obstructive uropathy. Unremarkable urinary bladder, uterus and adnexa. Phleboliths of the pelvis. Mixed plaque o f the abdominal aorta without aneurysm. No adenopathy. Moderate fecal retention. Colonic diverticulosis without acute diverticulitis. There are a few stool- filled loops of small bowel within the pelvis suggestive of decreased small bowel transit. The append ix is not seen and is reportedly surgically absent. Small fat filled periumbilical hernia. Degenerati ve changes of the spine, pelvis and hips. Remote L2 compression deformity with kyphoplasty. Levoscoli osis of the thoracolumbar spine. Posterior interbody zandra and screw fusion is noted at L4-S1 with disc ectomy changes at L4-L5. No evidence of hardware fracture or loosening. Laminectomy changes at L4-L5. IMPRESSION: 1. No acute posttraumatic intrathoracic, intra-abdominal or intrapelvic abnormality. 2. Moderate hiatal hernia with gaseous distention of the esophagus. 3. No bowel obstruction or bowel wall thickening. 4. Moderate fecal retention with a few stool-filled loops of ileum within the pelvis suggestive of de creased small bowel transit. 5. Colonic diverticulosis without acute diverticulitis. 6. Cardiomegaly with groundglass densities and mosaic attenuation suggestive of atelectasis with air trapping. Pulmonary edema or pneumonitis considered less likely. 7. Trace pleural effusions. 8. Additional findings as above. ACT 112: Negative or not required by law. Electronically signed by: Gen Huang M.D. 09/03/2020 7:22 AM
--- NOTE | 2020-09-03 07:44 | XRay Report ---
XR chest 1V portable HISTORY: Atypical Chest Pain COMPARISON: Chest 09/02/2020. FINDINGS: No pneumothorax. Heart remains mildly enlarged. There is a moderate hiatus hernia, unchange d. A few linear densities in the left lung base favor scarring or atelectasis. No new focal lung cons olidations to suggest pneumonia. No evidence for pulmonary edema. There are old, healed right-sided r ib fractures. IMPRESSION: No significant change compared to the prior study. No acute process. ACT 112: Negative or not required by law. Electronically signed by: Eulogio Nguyễn M.D. 09/03/2020 7:42 AM
[2020-09-03 08:35] LABS: Folate (Folic Acid) 14.9 ng/ml (>5.38)
[2020-09-03 08:54] LABS: Basophils # (auto) 0.02 K/uL (0-0.2); Basophils % (auto) 0.4 %; Eosinophils # (auto) 0.35 K/uL (0-0.5); Eosinophils % (auto) 6.8 %; Hematocrit (blood only) 21.9 % (37-47); Hemoglobin 7.1 g/dL (12.0-16.0); Immature Granulocytes # (auto) 0.01 K/uL (0.00-0.02); Immature Granulocytes % (auto) 0.2 %; Lymphocytes # (auto) 1.55 K/uL (1.2-3.4); Mean Corpuscular Hemoglobin 25.2 pg (25-34); Mean Corpuscular Hgb Conc 32.4 g/dL (32-36); Mean Corpuscular Volume 77.7 fL (80-100); Mean Platelet Volume 12.3 fL (7.4-10.4); Monocytes # (auto) 0.83 K/uL (0.11-0.59); Monocytes % (auto) 16.1 %; Neutrophils # (auto) 2.41 K/uL (1.4-6.5); Neutrophils % (auto) 46.5 %; Platelet Count 225 K/uL (130-400); RDW Coefficient of Variation 14.8 % (11.5-14.5); RDW Standard Deviation 42.7 fL (36.4-46.3); Red Blood Count 2.82 M/uL (4.2-5.4); White Blood Count 5.17 K/uL (4.8-10.8)
[2020-09-03 08:55] LABS: BUN Creatinine Ratio 26.7 (10-20); Calcium 8.9 mg/dl (8.5-10.1); Creatinine Clr Calc Pharmacy 66.1 ml/min; Est GFR (African American) 101.1; Est GFR (Non-African American) 87.3; Potassium 4.1 mmol/L (3.5-5.1)
[2020-09-03] MEDS: IPRATROPIUM BROMIDE NASAL SPRAY 0.06% 15ML SCH ×2 (09:01→22:07)
[2020-09-03] MEDS: OMEGA-3 (PURIFIED FISH OIL) 1 GM CAP PO SCH (09:02)
[2020-09-03] MEDS: MULTIVITAMIN TAB PO SCH (09:03)
[2020-09-03] MEDS: DULoxetine HCL 60 MG CAP PO SCH (09:03)
[2020-09-03] MEDS: PANTOprazole 40 MG in SYRINGE 0 ML IV SCH ×2 (09:03→20:24)
[2020-09-03] MEDS: CHOLECALCIFEROL 1,000 UNITS 25 MCG TAB PO SCH (09:03)
[2020-09-03] MEDS: PREGABALIN 100 MG CAP PO SCH ×3 (09:08→20:27)
[2020-09-03] MEDS: TAPENTADOL HCL ER 50 MG TABCR PO SCH ×2 (09:08→20:27)
[2020-09-03 09:20] LABS: Giant Platelets 3+; Ovalocytes 1+
[2020-09-03] MEDS ORDERED: IRON SUCROSE 200 MG in 0.9 % SODIUM CHLORIDE 100 ML IV ONE (11:00)
--- NOTE | 2020-09-03 11:05 | Gastrointestinal Consultation ---
Date of Consultation September 03, 2020 Assessment & Plan (1) Dysphagia: Patient refuses EGD at present. She reports she would like to leave the hospital as soon as possible. At the time of my visit, she is alert and oriented x 3. Would recommend Pantoprazole 40 mg daily on discharge along with safe swallowing strategies. Should she change her mind as an outpatient, we can facilitate an outpatient EGD. Supervising Physician Co-Signing Physician Notes I personally evaluated the patient and agree with the findings as documented by Brittaney Caldera, DELORIS Exam: abd: soft, nt, nd continue ppi daily, if patient changes her mind/should this recur then can perform EGD. History of Present Illness Reason for Consultation: Dysphagia, anemia Attending Physician: Celestino Graham MD History of Present Illness Patient is an 85 yo female who presents to the hospital with a PMH of Parkinsons Disease, HTN, breast cancer, scoliosis, lumbar stenosis, & fibromyalgia. She presented with complaints of a food bolus (rice). In the ED, her labs indicated anemia with a hemoglobin of 7.5. She reports a history of colonoscopy in 2012 and notes she believes she had an EGD 20 years ago, but cannot recall. She unfortunately has sustained frequent falls at home due to balance issues from her underlying neurologic condition. She did have a CT scan of the abdomen when admitted and that indicated a dilated proximal and middle esophagus and a large hiatal hernia. She reports she has no further issues and is not interested in endoscopic evaluation. She is alert and answers orientation questions x 3 appropriately during the time of my evaluation. Allergies Allergy/AdvReac Type Severity Reaction Status Date / Time nut - unspecified Allergy Severe Anaphylaxis Verified 08/30/20 05:42 Penicillins Allergy Intermediate HIVES Verified 08/30/20 05:42 Sulfa (Sulfonamide Allergy Intermediate "jaundiced Verified 08/30/20 05:42 Antibiotics) as child", HIVES codeine Allergy Mild GI SYMPTOMS Verified 08/30/20 05:42 soy Allergy Unknown Unknown Verified 08/30/20 05:42 cat dander AdvReac Severe SHORTNESS Verified 08/30/20 05:42 OF BREATH mold AdvReac Severe SHORTNESS Verified 08/30/20 05:42 OF BREATH Home Medications Medication Instructions Recorded Confirmed Type aspirin 81 mg PO HS 06/21/18 09/02/20 History cholecalciferol (vitamin D3) 1,000 unit PO DAILY 06/21/18 09/02/20 History [Vitamin D3] levothyroxine 75 mcg tablet 75 mcg PO QAM #90 tab 02/15/20 09/02/20 Rx pregabalin 200 mg capsule 200 mg PO TID #42 cap 07/23/20 09/02/20 Rx simvastatin 20 mg tablet 20 mg PO HS #90 tab 07/24/20 09/02/20 Rx carbidopa-levodopa [Sinemet] 1.5 tab PO QID 08/15/20 09/02/20 History ipratropium bromide 2 sprays INTNAS BID 08/15/20 09/02/20 History lutein 20 mg PO Q2D 08/15/20 09/02/20 History multivitamin [Multiple Vitamins] 1 tab PO DAILY 08/15/20 09/02/20 History omega 4-xkw-rtj-fish oil [Fish Oil] 1 cap PO DAILY 08/15/20 09/02/20 History zolpidem 12.5 mg tablet,extended 12.5 mg PO HS #14 tab 08/16/20 09/02/20 Rx release,multiphase duloxetine 60 mg capsule,delayed 60 mg PO QAM #90 cap 08/28/20 09/02/20 Rx release polyethylene glycol 3350 [Miralax] 8.5 g PO DAILY PRN 08/30/20 09/02/20 History tapentadol [Nucynta ER] 50 mg PO BID 08/30/20 09/02/20 History Patient History Medical History Anxiety Bilateral lumbar radiculopathy Cardiac murmur Chronic back pain Fibromyalgia Hearing deficit Hx of breast cancer RADIATION 2000 Hyperlipidemia Hypothyroidism Lumbar canal stenosis Risk for falls LAST EVENT ARPIL 2019 Scoliosis LUMBAR AND NERVE PAIN Spinal stenosis Surgical History History of colonoscopy History of dilation and curettage History of foot surgery LEFT History of tonsillectomy Hx of appendectomy Hx of bilateral breast reduction surgery DUE TO CANCER 2006 Hx of cataract surgery RIGHT AND LEFT Hx of kyphoplasty L2 Hx of lumpectomy WITH LYMPH NODE REMOVAL (LEFT) Hx of spinal fusion L4-S1 Hx of wisdom tooth extraction S/P epidural steroid injection Family History Sister Alzheimer disease Breast cancer Paget's disease Father Alzheimer disease Grandmother (Paternal) Alzheimer disease Mother Myocardial infarction Stroke syndrome Uncle Prostate cancer Denies family history of Ovarian cancer Adverse anesthesia outcome Bleeding disorder Colorectal cancer Social History Smoking Status: Never smoker Second Hand Exposure: No; Hx Alcohol Use: No Hx Substance Use: No Preferred Language: Polish Communication Ability: Effective Visual Impairment: No Limitations Hearing Ability: Use of Hearing Aid Still Cleaner Tube Required: No Beliefs That Will Affect Care: None marital status: Single Current Living Situation: Alone Current Living Situation Comment: [facility] ([facility]) current occupational status: retired Feels Safe at Home: Yes Safety Concerns: Feels Safe At This Time Physical Activity Frequency: Does not Exercise Assistive Devices: Hearing Aid - Bilateral and Walker Review of Systems Constitutional: no fever and no chills Respiratory: no cough and no dyspnea Cardiovascular: no chest pain Gastrointestinal: + dysphagia; no abdominal pain, no belching, no bloating, no nausea, no diarrhea/loose stools and no blood in stools Musculoskeletal: falls Integumentary: ecchymosis Neurologic: + falls Psychiatric: no problem reported Endocrine: no fatigue Physical Exam Constitutional: WD/WN, vitals as above Neck: normal visual inspection Respiratory: normal respiratory effort Cardiovascular: Extremities: no edema Gastrointestinal (Abdomen): Inspection/Auscultation: abdomen normal to inspection Musculoskeletal: Head/Neck/Chest: normocephalic Skin: no rashes, warm and dry Psychiatric: A+Ox3, euthymic affect Results & Data ([facility]) Vital Signs (Past 12 Hours) Vital Signs Temp Pulse Pulse Pulse Resp BP BP 09/03/20 08:17 36.4 C L 64 16 120/74 09/03/20 03:09 36.3 C L 73 16 161/68 H 09/03/20 02:00 60 18 122/59 L 09/03/20 01:52 60 16 122/59 L 09/02/20 23:00 66 18 140/71 Pulse Ox 09/03/20 08:17 95 09/03/20 03:09 94 09/03/20 02:00 96 09/03/20 01:52 96 09/02/20 23:00 98 (1) Dysphagia Dysphagia type: unspecified Qualified Code(s): R13.10 - Dysphagia, unspecified
--- NOTE | 2020-09-03 14:41 | History & Physical Bridge Note ---
Date of Service September 03, 2020 History & Physical Bridge Note I have examined the patient, reviewed the History & Physical and in the interval since the performance of the History & Physical I have noted the following changes of clinical significance: no changes noted Spoke with patient at length about her wanting to leave/not proceed with EGD/scope and discuss with her PCP. I personally contacted Dr. Bowman to review case and she also agreed inpatient EGD would be best. Discussed with patient that I spoke with Dr. Bowman and patient still requesting to hold off at this time. Evaluated by speech without issue. Slippery diet ordered. Placed on PPI (FOCB +) and ordered IV Venofer. Will repeat again tomorrow for low iron studies/iron deficiency anemia. Should have repeat transfusions/vs oral supplementation moving forward if she would like to hold off on IV transfusions. Will monitor CBC in AM and re-discuss need for possible scope. H/h 7.1 from 7.4 on admission. Unclear baseline and patient not sure what her usual hemoglobin has been. Denies lilliam blood in her stool or hematemesis. If she continues to remain adamant about d/c without intervention but CBC stays stable on PPI, would consider discharge with close outpatient follow-up.
[2020-09-03] MEDS: HYDROCODONE/ACETAMOPHEN 5/325MG TAB PO PRN ×2 (17:10→23:08)
--- NOTE | 2020-09-03 18:29 | Electrocardiogram Report ---
Test Reason : Blood Pressure : / mmHG Vent. Rate : 061 BPM Atrial Rate : 061 BPM P-R Int : 168 ms QRS Dur : 086 ms QT Int : 394 ms P-R-T Axes : 008 -20 -23 degrees QTc Int : 396 ms Normal sinus rhythm with sinus arrhythmia Nonspecific ST abnormality Abnormal ECG When compared with ECG of 04-JUN-2016 16:32, Vent. rate has decreased BY 34 BPM Confirmed by Howard Wyatt ([id number]) on 09/03/2020 6:28:54 PM Referred By: [facility] Confirmed By:Goran Wyatt
[2020-09-03] MEDS: SIMVASTATIN 20 MG TAB PO SCH (20:24)
[2020-09-04] MEDS: MELATONIN 3 MG TAB PO PRN (02:26)
[2020-09-04] MEDS: LEVOTHYROXINE SODIUM 75 MCG TABLET PO SCH (06:01)
[2020-09-04] MEDS ORDERED: IRON SUCROSE 200 MG in 0.9 % SODIUM CHLORIDE 100 ML IV ONE (07:00)
[2020-09-04 08:03] LABS: Hematocrit (blood only) 22.4 % (37-47); Hemoglobin 7.3 g/dL (12.0-16.0); Mean Corpuscular Hemoglobin 24.9 pg (25-34); Mean Corpuscular Hgb Conc 32.6 g/dL (32-36); Mean Corpuscular Volume 76.5 fL (80-100); Mean Platelet Volume 11.6 fL (7.4-10.4); Platelet Count 229 K/uL (130-400); RDW Coefficient of Variation 14.7 % (11.5-14.5); RDW Standard Deviation 42.3 fL (36.4-46.3); Red Blood Count 2.93 M/uL (4.2-5.4)
[2020-09-04 08:44] LABS: Albumin Globulin Ratio 1.2 (0.9-2); Albumin Level 3.3 gm/dl (3.4-5.0); BUN Creatinine Ratio 17.8 (10-20); Bilirubin,Total 0.5 mg/dl (0.2-1); Calcium 8.5 mg/dl (8.5-10.1); Creatinine Clr Calc Pharmacy 66.1 ml/min; Est GFR (African American) 101.1; Est GFR (Non-African American) 87.3; Globulin 2.8 gm/dl (2.5-4.0); Potassium 3.8 mmol/L (3.5-5.1); Total Protein 6.1 gm/dl (6.4-8.2)
[2020-09-04] MEDS: MULTIVITAMIN TAB PO SCH (09:53)
[2020-09-04] MEDS: IPRATROPIUM BROMIDE NASAL SPRAY 0.06% 15ML SCH ×2 (09:53→20:38)
[2020-09-04] MEDS: CARBIDOPA/LEVODOPA 25/100MG TAB PO SCH ×4 (09:54→20:38)
[2020-09-04] MEDS: OMEGA-3 (PURIFIED FISH OIL) 1 GM CAP PO SCH (09:54)
[2020-09-04] MEDS: CHOLECALCIFEROL 1,000 UNITS 25 MCG TAB PO SCH (09:54)
[2020-09-04] MEDS: DULoxetine HCL 60 MG CAP PO SCH (09:54)
[2020-09-04] MEDS: PANTOprazole 40 MG in SYRINGE 0 ML IV SCH ×2 (09:56→20:37)
[2020-09-04] MEDS: TAPENTADOL HCL ER 50 MG TABCR PO SCH ×2 (09:59→20:37)
[2020-09-04] MEDS: PREGABALIN 100 MG CAP PO SCH ×3 (09:59→20:37)
--- NOTE | 2020-09-04 10:19 | Hospitalist Progress Note ---
Date of Service September 04, 2020 Assessment & Plan (1) Dysphagia: 85 year old woman with a past medical history significant for Parkinson's who presents with a food bolus episode this evening found to have significant anemia in ED. Imaging concerning for malignancy causing dysphagia, but swallow study shows mod-marked esophageal dysmotility, likely from her parkinson's, but cannot be ruled out at this time. Food Bolus Patient appears to have completely cleared sticky rice she had struggle with and had difficulty swallowing. Happened with other food items in the past as well CT chest and abdomen showing dilated proximal 2/3 of esophagus and large hiatal hernia Repeat symptoms and imaging raises possibility of stricture or mass in this area, given her age and co occurring anemia certainly concern over malignancy GI consulted -- patient initially did not want EGD but after extensive conversation and ability to have Ms Falcon speak with her PCP Dr. Bowman, patient ultimately agreed to evaluation while inpatient. --I spoke with Dr. Hager who will plan for EGD tomorrow morning Patient did have eval by speech -- passed. Slippery diet ordered. Barium swallow showed mod-marked esophageal dysmotility -- likely secondary to her Parkinsons. May need to consider PEG tube in the future. Appreciate rec's from GI Continue PPI IV BID NPO after midnight for EGD Anemia microcytic hypochromic anemia -- iron studies obtained c/w iron deficiency anemia. + fecal occult blood. Does have family history of bleeding ulcers as well. Denies melena/hematochezia. GI on consult as above Transfused Venofer x 2 -- will order additional tomorrow. Patient had been on iron supplementations in the past and would prefer not to resume these as they causes constipation and worsening of her hemorrhoids. Will need outpt f/u and possible continued Venofer in the future Given patient's lack of symptoms and no signs of blood loss this appears to be a gradual phenomenon Holding ASA H/h 7.1 yesterday, stable at 7.3 CBC in AM EGD in AM for evaluation Repeated mechanical falls Appears to be purely mechanical likely multifactorial Parkinsons is affecting her balance, but also her night time Ambien and possible weakness from her anemia also playing a role Will hold Ambien for now, primary care prescribed her a wheeled walker would encourage her to use this consistently Parkinsons Continuing current home regimen of Sinemet QID Hypothyroidism TSH 4.09 Levothyroxine 75 mcg daily Depression and Anxiety Continuing duloxetine 60 mg Chronic Pain Nucynta BID, Oxycodone prn -- typically takes 1 in afternoon for symptoms and will continue prn Gabapentin 200mg TID Hyperlipidemia Continuing home simvastatin 20mg HS therapy Holding off on ASA at this time for possible GI losses DVT PPx: SCDs Chemoproph contraindicated with bleeding Dispo: Admit for further workup of anemia and possible endoscopy Admission and Anticipated Discharge Date Admission Date: September 03, 2020 Subjective Patient evaluated this morning. Awaiting her swallow study as she did eat today. Extensive conversation had multiple times regarding wanting to pursue EGD. She would like to speak with Dr. Bowman. I contacted and then Dr. Bowman spoke with patient and we will plan to evaluate with EGD tomorrow for bleeding/dysphagia. Discussed stable h/h for now -- she had father with bleeding ulcer and reports "he lost half his blood" before being taken to the ER. She has concerns about EGD possibly causing delay in discharge tomorrow but we discussed high possibility for d/c after EGD once we can evaluate for any possible ulcers/treat and send home after with appropriate treatment. She ate 100% of breakfast and tolerated without difficulty per her report. Will make NPO after midnight for EGD. Will need COVID test prior. No fever, chills, chest pain, shortness of breath, abdominal pain, nausea, vomiting, dysuria at this time. Review of Systems Review of Systems: All systems reviewed & are unremarkable except as noted in HPI & below Physical Exam Constitutional: well developed, well nourished, cooperative and comfortable; no acute distress Eyes: + anicteric sclerae and PERRL ENMT: Ears: + hearing impairment (b/l hearing aides) Neck: normal visual inspection and trachea midline Respiratory: normal respiratory effort, lungs clear to auscultation Cardiovascular: RRR, no murmur, no edema Gastrointestinal (Abdomen): normal bowel sounds, soft, nontender, no hepatosplenomegaly Musculoskeletal: ecchymosis to forehead from recent fall, healing, slightly tender to palpation strength equal throughout gait slow with walker and assistance Skin: cool, dry Neurologic: CN's II-XI intact bilaterally and deep tendon reflexes 2+ bilaterally Psychiatric: Orientation: alert and oriented x 3 Lymphatic: no cervical or axillary lymphadenopathy Results & Data Results & Data ([facility]) Vital Signs (Past 12 Hours) Vital Signs Temp Pulse Resp BP Pulse Ox 09/04/20 08:38 36.5 C 60 16 137/85 91 09/04/20 06:19 36.5 C 67 16 130/71 93 09/03/20 23:30 36.8 C 74 16 109/64 97 Laboratory Results 09/04/20 09/04/20 09/04/20 Range/Units 08:55 08:55 07:51 WBC (4.8-10.8) K/uL RBC (4.2-5.4) M/uL Hgb (12.0-16.0) g/dL Hct (37-47) % MCV (80-100) fL MCH (25-34) pg MCHC (32-36) g/dL RDW Std Deviation (36.4-46.3) fL RDW Coeff of Arnaud (11.5-14.5) % Plt Count (130-400) K/uL MPV (7.4-10.4) fL Sodium 134 L (136-145) mmol/L Potassium 3.8 (3.5-5.1) mmol/L Chloride 100 (98-107) mmol/L Carbon Dioxide 25 (21-32) mmol/L Anion Gap 9.0 (3-11) BUN 10 D (7-18) mg/dl Creatinine 0.54 L (0.6-1.2) mg/dl Est Cr Clr Drug Dosing 66.1 ml/min Est GFR ( Amer) 101.1 Est GFR (Non-Af Amer) 87.3 BUN/Creatinine Ratio 17.8 (10-20) Glucose 87 (70-99) mg/dl Calcium 8.5 (8.5-10.1) mg/dl Total Bilirubin 0.5 (0.2-1) mg/dl AST 21 (15-37) U/L ALT 12 (12-78) U/L Alkaline Phosphatase 50 (45-117) U/L Total Protein 6.1 L (6.4-8.2) gm/dl Albumin 3.3 L (3.4-5.0) gm/dl Globulin 2.8 (2.5-4.0) gm/dl Albumin/Globulin Ratio 1.2 (0.9-2) COVID-19 Eval [facility] SARS-CoV-2, RNA, NAAT NEGATIVE (NEGATIVE) 09/04/20 Range/Units 07:51 WBC 4.20 L (4.8-10.8) K/uL RBC 2.93 L (4.2-5.4) M/uL Hgb 7.3 L (12.0-16.0) g/dL Hct 22.4 L (37-47) % MCV 76.5 L (80-100) fL MCH 24.9 L (25-34) pg MCHC 32.6 (32-36) g/dL RDW Std Deviation 42.3 (36.4-46.3) fL RDW Coeff of Arnaud 14.7 H (11.5-14.5) % Plt Count 229 (130-400) K/uL MPV 11.6 H (7.4-10.4) fL Sodium (136-145) mmol/L Potassium (3.5-5.1) mmol/L Chloride (98-107) mmol/L Carbon Dioxide (21-32) mmol/L Anion Gap (3-11) BUN (7-18) mg/dl Creatinine (0.6-1.2) mg/dl Est Cr Clr Drug Dosing ml/min Est GFR ( Amer) Est GFR (Non-Af Amer) BUN/Creatinine Ratio (10-20) Glucose (70-99) mg/dl Calcium (8.5-10.1) mg/dl Total Bilirubin (0.2-1) mg/dl AST (15-37) U/L ALT (12-78) U/L Alkaline Phosphatase (45-117) U/L Total Protein (6.4-8.2) gm/dl Albumin (3.4-5.0) gm/dl Globulin (2.5-4.0) gm/dl Albumin/Globulin Ratio (0.9-2) COVID-19 Eval Order SARS-CoV-2, RNA, NAAT (NEGATIVE) Diagnostic Findings Barium Swallow IMPRESSION: 1. Technically compromised exam given difficulty positioning. 2. Moderate size sliding hiatal hernia. 3. No esophageal mass or stricture although sensitivity significantly diminished on this exam. 4. Moderate to marked esophageal dysmotility. PG Care Time/CCT Total # of Minutes Spent Total Time Spent with Patient: Total time spent is greater than 50% in coordination of care (as documented) at patient's floor/unit and/or counseling patient: 60 extra minutes spent coordinating care, contacting and coordinating call from PCP to patient regarding need for EGD, consultation with GI for need for add on EGD tomorrow Coding Level of Care Code 41360 Subseq Hosp Care Lvl 2 (25 - SIGNIFICANT, SEPARATELY IDENTIFIABLE ) Diagnoses Dysphagia R13.10
--- NOTE | 2020-09-04 14:11 | Fluoroscopy Report ---
FL barium swallow CLINICAL HISTORY: dysphagia COMPARISON STUDY: Chest CT September 02, 2020. Fluoroscopy time: 1.5 minutes. Number of fluoroscopic images: 11. FINDINGS: The exam is markedly compromised given difficulty positioning. A moderate sized sliding hia brandon hernia is noted. No esophageal mass or stricture is identified although sensitivity is significan tly diminished on this examination. Moderate to marked esophageal dysmotility is noted. No definite a spiration was identified. IMPRESSION: 1. Technically compromised exam given difficulty positioning. 2. Moderate size sliding hiatal hernia. 3. No esophageal mass or stricture although sensitivity significantly diminished on this exam. 4. Moderate to marked esophageal dysmotility. ACT 112: Negative or not required by law. Electronically signed by: Sergey Gunn M.D. 09/04/2020 2:10 PM
[2020-09-04] MEDS: SIMVASTATIN 20 MG TAB PO SCH (20:37)
[2020-09-05] MEDS: MELATONIN 3 MG TAB PO PRN (00:11)
[2020-09-05] MEDS: LEVOTHYROXINE SODIUM 75 MCG TABLET PO SCH (05:57)
[2020-09-05] MEDS ORDERED: IRON SUCROSE 200 MG in 0.9 % SODIUM CHLORIDE 100 ML IV ONE (07:00)
[2020-09-05 07:59] LABS: Hematocrit (blood only) 22.7 % (37-47); Hemoglobin 7.4 g/dL (12.0-16.0); Mean Corpuscular Hemoglobin 25.2 pg (25-34); Mean Corpuscular Hgb Conc 32.6 g/dL (32-36); Mean Corpuscular Volume 77.2 fL (80-100); Mean Platelet Volume 12.5 fL (7.4-10.4); Platelet Count 261 K/uL (130-400); RDW Coefficient of Variation 14.7 % (11.5-14.5); RDW Standard Deviation 41.9 fL (36.4-46.3); Red Blood Count 2.94 M/uL (4.2-5.4)
[2020-09-05 08:23] LABS: BUN Creatinine Ratio 15.2 (10-20); Creatinine Clr Calc Pharmacy 64.9 ml/min; Est GFR (African American) 100.5; Est GFR (Non-African American) 86.7; Potassium 3.7 mmol/L (3.5-5.1)
[2020-09-05] MEDS: IPRATROPIUM BROMIDE NASAL SPRAY 0.06% 15ML SCH (09:15)
[2020-09-05] MEDS: PANTOprazole 40 MG in SYRINGE 0 ML IV SCH (09:17)
[2020-09-05 09:27] LABS: Appearance Urine Cloudy (Clear); Bacteria Urine Automated 4+ (Negative); Bilirubin Urine Negative (Negative); Blood Urine Negative (Negative); Color Urine Yellow; Epithelial Cell Urine Auto 20-30 /lpf (0-5); Glucose Urine UA Negative (Negative); Ketones Urine Negative (Negative); Leukocyte Esterase Urine 2+ (Negative); Nitrite Urine Negative (Negative); Protein Urine Negative (Negative); RBC Urine Automated 0-4 /hpf (0-4); Specific Gravity Urine 1.013 (1.000-1.030); Urobilinogen Urine Negative (Negative)
[2020-09-05] MEDS ORDERED: SODIUM CHLORIDE 0.9% 500 ML IV SCH (09:30)
[2020-09-05] MEDS: MULTIVITAMIN TAB PO SCH (09:35)
[2020-09-05] MEDS: OMEGA-3 (PURIFIED FISH OIL) 1 GM CAP PO SCH (09:35)
[2020-09-05] MEDS: CARBIDOPA/LEVODOPA 25/100MG TAB PO SCH ×2 (09:35→13:32)
[2020-09-05] MEDS: CHOLECALCIFEROL 1,000 UNITS 25 MCG TAB PO SCH (09:36)
[2020-09-05] MEDS: TAPENTADOL HCL ER 50 MG TABCR PO SCH (09:36)
[2020-09-05] MEDS: PREGABALIN 100 MG CAP PO SCH ×2 (09:36→13:31)
[2020-09-05] MEDS: DULoxetine HCL 60 MG CAP PO SCH (09:36)
--- NOTE | 2020-09-05 10:11 | History & Physical Bridge Note ---
Date of Service September 05, 2020 History & Physical Bridge Note I have examined the patient and reviewed the History & Physical and in the interval since the performance of the History & Physical I have noted the following changes of clinical significance: no changes noted Patient is NPO. H/H is 7.4/22.7. Proceed with EGD today.
--- NOTE | 2020-09-05 10:46 | Anesthesiology Consultation ---
Date of Service September 05, 2020 Assessment & Plan (1) Encounter for pre-operative examination: Chart Review Chart Review: Acceptable Risk for Surgery and Patient NOT seen in Pre Admission Testing Consults Requested none Proposed Anesthesia Risk / Benefits Reviewed With: PT / POA / Parent / Guardian, Accepts Plan and Informed Consent Obtained History Surgery Operation Date: 09/03/20 17:45 Proposed Procedures p Esophagogastroduodenoscopy Dr. Madan Hager MD Operation Date: 09/05/20 11:00 Proposed Procedures p Esophagogastroduodenoscopy Dr. Madan Hager MD Height/Weight Height: 5 ft Weight: 64.4 kg Allergies Allergy/AdvReac Type Severity Reaction Status Date / Time nut - unspecified Allergy Severe Anaphylaxis Verified 08/30/20 05:42 Penicillins Allergy Intermediate HIVES Verified 08/30/20 05:42 Sulfa (Sulfonamide Allergy Intermediate "jaundiced Verified 08/30/20 05:42 Antibiotics) as child", HIVES codeine Allergy Mild GI SYMPTOMS Verified 08/30/20 05:42 soy Allergy Unknown Unknown Verified 08/30/20 05:42 cat dander AdvReac Severe SHORTNESS Verified 08/30/20 05:42 OF BREATH mold AdvReac Severe SHORTNESS Verified 08/30/20 05:42 OF BREATH Medications Home Medications Medication Instructions Recorded Confirmed Last Taken aspirin 81 mg PO HS 06/21/18 09/02/20 08/29/20 cholecalciferol (vitamin D3) 1,000 unit PO DAILY 06/21/18 09/02/20 08/29/20 [Vitamin D3] levothyroxine 75 mcg tablet 75 mcg PO QAM #90 tab 02/15/20 09/02/20 07/11/20 pregabalin 200 mg capsule 200 mg PO TID #42 cap 07/23/20 09/02/20 08/29/20 simvastatin 20 mg tablet 20 mg PO HS #90 tab 07/24/20 09/02/20 08/29/20 carbidopa-levodopa [Sinemet] 1.5 tab PO QID 08/15/20 09/02/20 Unknown ipratropium bromide 2 sprays INTNAS BID 08/15/20 09/02/20 08/29/20 lutein 20 mg PO Q2D 08/15/20 09/02/20 08/29/20 multivitamin [Multiple Vitamins] 1 tab PO DAILY 08/15/20 09/02/20 08/30/20 omega [id number]-[id number]-fish oil [Fish Oil] 1 cap PO DAILY 08/15/20 09/02/20 08/29/20 zolpidem 12.5 mg tablet,extended 12.5 mg PO HS #14 tab 08/16/20 09/02/20 08/29/20 release,multiphase duloxetine 60 mg capsule,delayed 60 mg PO QAM #90 cap 08/28/20 09/02/20 08/29/20 release polyethylene glycol 3350 [Miralax] 8.5 g PO DAILY PRN 08/30/20 09/02/20 Unknown tapentadol [Nucynta ER] 50 mg PO BID 08/30/20 09/02/20 08/29/20 Active Medications Generic Name Dose Route Start Last Admin Trade Name Freq PRN Reason Stop Dose Admin Hydrocodone Bitart/Acetaminophen 1 tab 09/03/20 12:53 09/03/20 23:08 Hydrocodone/Acetamophen 5/325mg Tab PO 09/17/20 12:52 1 tab Q6H PRN Administration Pain Carbidopa/Levodopa 1.5 tab 09/03/20 02:38 09/05/20 09:35 Carbidopa/Levodopa 25/100mg Tab PO 10/03/20 02:37 1.5 tab QID CHAYITO Administration Duloxetine HCl 60 mg 09/03/20 09:00 09/05/20 09:36 Duloxetine Hcl 60 Mg Cap PO 10/03/20 08:59 60 mg QAM CHAYITO Administration Fish Oil 1 gm 09/03/20 09:00 09/05/20 09:35 [place]-3 (Purified Fish Oil) 1 Gm Cap PO 10/03/20 08:59 1 gm DAILY CHAYITO Administration Pantoprazole Sodium 40 mg/ 10 mls @ 5 mls/min 09/03/20 09:00 09/05/20 09:17 Syringe IV 10/03/20 08:59 5 mls/min BID CHAYITO Administration Sodium Chloride 500 mls @ 80 mls/hr 09/05/20 09:30 09/05/20 09:40 Nss IV 09/05/20 15:44 80 mls/hr .Q6H15M CHAYITO Administration Ipratropium [place] 2 sprays 09/03/20 09:00 09/05/20 09:15 Ipratropium [place] Nasal [place] 0.06% 15ml NA 10/03/20 08:59 2 sprays BID CHAYITO Administration Levothyroxine Sodium 75 mcg 09/03/20 06:30 09/05/20 05:57 Levothyroxine Sodium 75 Mcg Tablet PO 10/03/20 06:29 75 mcg DAILYBB CHAYITO Administration Melatonin 3 mg 09/03/20 04:05 09/05/20 00:11 Melatonin 3 Mg Tab PO 10/03/20 04:04 3 mg HS PRN Administration Sleep Multivitamins 1 tab 09/03/20 09:00 09/05/20 09:35 Multivitamin Tab PO 10/03/20 08:59 1 tab DAILY CHAYITO Administration Pregabalin 200 mg 09/03/20 09:00 09/05/20 09:36 Pregabalin 100 Mg Cap PO 10/03/20 08:59 200 mg TID CHAYITO Administration Simvastatin 20 mg 09/03/20 21:00 09/04/20 20:37 Simvastatin 20 Mg Tab PO 10/03/20 20:59 20 mg HS CHAYITO Administration Tapentadol 50 mg 09/03/20 09:00 09/05/20 09:36 Tapentadol Hcl Er 50 Mg Tabcr PO 09/17/20 08:59 50 mg BID CHAYITO Administration Vitamin D 1,000 units 09/03/20 09:00 09/05/20 09:36 Cholecalciferol 1,000 Units 25 Mcg Tab PO 10/03/20 08:59 1,000 units DAILY CHAYITO Administration NPO Date Last Intake of Fluids: 09/04/20 Time Last Intake of Fluids: 23:59 Date Last Intake of Solids: 09/04/20 Time Last Intake of Solids: 23:59 Past Medical History Medical History Anxiety Bilateral lumbar radiculopathy Cardiac murmur Chronic back pain Fibromyalgia Hearing deficit Hx of breast cancer RADIATION 2000 Hyperlipidemia Hypothyroidism Lumbar canal stenosis Risk for falls LAST EVENT ARPIL 2019 Scoliosis LUMBAR AND NERVE PAIN Spinal stenosis Past Family History Family History Sister Alzheimer disease Breast cancer Paget's disease Father Alzheimer disease Grandmother (Paternal) Alzheimer disease Mother Myocardial infarction Stroke syndrome Uncle Prostate cancer Denies family history of Ovarian cancer Adverse anesthesia outcome Bleeding disorder Colorectal cancer Past Surgical History Surgical History History of colonoscopy History of dilation and curettage History of foot surgery LEFT History of tonsillectomy Hx of appendectomy Hx of bilateral breast reduction surgery DUE TO CANCER 2006 Hx of cataract surgery RIGHT AND LEFT Hx of kyphoplasty L2 Hx of lumpectomy WITH LYMPH NODE REMOVAL (LEFT) Hx of spinal fusion L4-S1 Hx of wisdom tooth extraction S/P epidural steroid injection Social History Smoking Status: Never smoker tobacco type: cigarettes Hx Alcohol Use: No Hx Substance Use: No substance use type: does not use Physical Exam Vital Signs Last Vital Signs Temp 36.7 C 09/05/20 07:22 Pulse 70 09/05/20 07:22 Resp 16 09/05/20 07:22 BP 138/75 09/05/20 07:22 Pulse Ox 94 09/05/20 07:22 Testing Laboratory Results 09/05/20 07:09 09/05/20 07:09 PT 10.9 Seconds (9.0-12.0) 09/02/20 21:44 INR 1.0 (0.9-1.1) 09/02/20 21:44 APTT 26.6 Seconds (21.0-31.0) 09/02/20 21:44 Urine Color Yellow 09/05/20 Unknown Urine Appearance Cloudy (Clear) A 09/05/20 Unknown Urine pH 7.0 (4.5-7.5) 09/05/20 Unknown Ur Specific [place] 1.013 (1.000-1.030) 09/05/20 Unknown Urine Protein Negative (Negative) 09/05/20 Unknown Urine Glucose (UA) Negative (Negative) 09/05/20 Unknown Urine Ketones Negative (Negative) 09/05/20 Unknown Urine Nitrite Negative (Negative) 09/05/20 Unknown Ur Leukocyte Esterase 2+ (Negative) H 09/05/20 Unknown Urine WBC (Auto) 10-30 /hpf (0-5) H 09/05/20 Unknown Urine RBC (Auto) 0-4 /hpf (0-4) 09/05/20 Unknown U Hyaline Cast (Auto) 1-5 /lpf (0-5) 09/05/20 Unknown U Epithel Cells (Auto) - /lpf (0-5) H 09/05/20 Unknown Urine Bacteria (Auto) 4+ (Negative) H 09/05/20 Unknown Blood Type A Negative 09/02/20 22:44 Antibody Screen NEGATIVE 09/02/20 22:44 COVID negative
--- NOTE | 2020-09-05 10:46 | Billing Data ---
Date of Service September 05, 2020 Coding Level of Care Code 50023 Initial Inpt Care Lvl 3
--- NOTE | 2020-09-05 12:33 | GI REPORT ---
Patient Name: Kwame Falcon Procedure Date: 09/05/2020 11:57 AM Date of : 1935 Admit Type: Inpatient Age: 85 Gender: Female Attending MD: Isaias Hager MD Procedure: Upper GI endoscopy Providers: Isaias Hager MD Referring MD: [facility] Indications: Dysphagia Medicines: Monitored Anesthesia Care Complications: No immediate complications. Estimated blood loss: None. Estimated Blood Loss: Estimated blood loss: none. Procedure: Pre-Anesthesia Assessment: - Prior Anticoagulants: The patient has taken no previous anticoagulant or antiplatelet agents. - ASA Grade Assessment: II - A patient with mild systemic disease. After obtaining informed consent, the endoscope was passed under direct vision. Throughout the procedure, the patient's blood pressure, pulse, and oxygen saturations were monitored continuously. The Endoscope was introduced through the mouth, and advanced to the second part of duodenum. The upper GI endoscopy was accomplished without difficulty. The patient tolerated the procedure well. Findings: The examined esophagus was moderately tortuous. A guidewire was placed and the scope was withdrawn. Dilation was performed with a Savary dilator with moderate resistance at 60 Fr. The dilation site was examined following endoscope reinsertion and showed moderate mucosal disruption. Estimated blood loss: none. A medium-sized hiatal hernia was present. Diffuse mild inflammation characterized by erythema was found in the stomach. Biopsies were taken with a cold forceps for Helicobacter pylori testing. Estimated blood loss: none. The duodenal bulb and second portion of the duodenum were normal. there was a medium sized growth on the palate incidentally found. Impression: - Tortuous esophagus. - Medium-sized hiatal hernia. - Gastritis. Biopsied. - Normal duodenal bulb and second portion of the duodenum. Recommendation: - Resume previous diet today. - Await pathology results. -ENT evaluation for growth on palate in the mouth - Return patient to hospital her for ongoing care. Isaias Hager MD 09/05/2020 12:33:06 PM This report has been signed electronically. Note Initiated On: 09/05/2020 11:57 AM Number of Addenda: 0 I attest to the content of the Intraoperative Record and orders documented therein, exceptions below {[id number]}
--- NOTE | 2020-09-05 12:46 | Procedure Note ---
Procedure Note Date of Service September 05, 2020 GI brief procedure note EGD: medium sized palatal growth in the mouth noted. tortuous esophagus and hiatal hernia present, dilated to 60 Fr with disruption. gastritis, biopsied. Recs: ENT consult for palatal growth diet as tolerated, start with clear liquids and advance as tolerated f/u path results Isaias Hager MD Gastroenterology Coding
[2020-09-05] MEDS ORDERED: PROPOFOL IV EMULSION 10 MG/ML 20 ML VIAL IV ONE (13:23)
[2020-09-05] MEDS ORDERED: LIDOCAINE HCL 2% 2 ML VIAL/AMP(20MG/ML) INFIL ONE (13:23)
[2020-09-05] MEDS: HYDROCODONE/ACETAMOPHEN 5/325MG TAB PO PRN (13:35)
--- NOTE | 2020-09-05 13:37 | Anesthesiology Progress Note ---
Date of Service September 05, 2020 Anesthesia Post Procedure Vital Signs Vital Signs: Temp Pulse Resp BP Pulse Ox 09/05/20 13:04 73 16 144/74 H 95 09/05/20 12:50 67 16 148/75 H 95 09/05/20 12:36 61 16 121/56 L 99 09/05/20 11:18 36.7 C 63 18 155/74 H 97 09/05/20 07:22 36.7 C 70 16 138/75 94 09/04/20 23:35 36.9 C 75 20 130/78 94 09/04/20 15:20 36.8 C 89 18 153/80 H 94 Pain Intensity Back: Pain Intensity: 6 Transfer of Care Handoff Completed per policy Notes Mental Status: alert / awake / arousable and participated in evaluation Nausea / Vomiting: adequately controlled Pain: adequately controlled Airway Patency, RR, SpO2: stable & adequate BP & HR: stable & adequate Hydration State: stable & adequate Anesthetic Complications: no major complications apparent and Pt Satisfied with anesthetic care
--- NOTE | 2020-09-05 13:54 | Discharge Summary ---
Date of Service September 05, 2020 Admission HPI Per Admitting Provider Kwame Falcon is an 85 year old woman with a past medical history significant for parkinsons disease, hypertension, scoliosis, Chronic pain from her scoliosis lumbar stenosis and fibromyalgia, and breast cancer in remission who presents to the ED with food bolus tonight. She was eating sticky rice tonight and felt she could not swallow the rice. She choked and coughed and felt the food stuck in her espophagus. She produced a lot of saliva and felt that this saliva eventually started to go down her windpipe. She says that this happens to her from time to time particularly when she is stressed but usually she is able to clear it on her own. IN the ED her vitals were stable and she has returned to her normal state of health. Labwork was significant for anemia with a hemoglobin of 7.5. Patient had had three falls in the past few weeks at home thought to be secondary to imbalance from her parkinson's disease and CT scans of the chest and abdomen were ordered to look for possible internal bleeding. These did not show any bleeds but was significant for a dilated proximal and middle esophagus and a large hiatal hernia. Patient denies any other acute symptoms or changes in health, denies any hematochezia or melena. Tells me her falls have all been mechanical and that she has a hard time keeping her balance with the parkinsons and that ambien also makes her walk less steady. She denies fevers chills, sweats, weight loss, abdominal pain, nausea vomiting, chest pain, shortness of breath, cough, sick contacts, skin rashes or any other concerning symptoms besides the falls and the food bolus. Denies alcohol use, smoking in the last 55 years, drug use. [facility] the [facility], full code Admission Exam Per Admitting Provider Constitutional: 85 year old woman lying in bed with clearly bruised forehead and right eye swollen shut. Evidence of small laceration on forehead and dried blood in her hair. Resting comfortably but speech is slow and deliberate in pace, content is appropriate and she tells delightful stories Eyes: PERRL, conjunctivae normal, anicteric sclerae Respiratory: normal respiratory effort, lungs clear to auscultation Cardiovascular: RRR, no murmur, no edema Gastrointestinal (Abdomen): Inspection/Auscultation: abdomen normal to inspection; abdomen not distended Percussion/Palpation: abdomen soft; abdomen nontender Skin: no rashes, warm and dry Neurologic: PERRL, EOMI, accommodation nl, no face palsy, no dysarthria normal touch/pain/proprioception and CN's II-XI intact bilaterally Principal Diagnosis Dysphagia, Anemia Discharge Exam Constitutional well developed, well nourished, cooperative and comfortable; no acute distress Eyes + anicteric sclerae and PERRL ecchymosis to right forehead, healing resting comfortably, speech slow but meaningful, appropriate ENMT Ears: + hearing impairment (b/l hearing aides) Neck normal visual inspection and trachea midline Respiratory normal respiratory effort, lungs clear to auscultation Cardiovascular RRR, no murmur, no edema Gastrointestinal (Abdomen) normal bowel sounds, soft, nontender, no hepatosplenomegaly Musculoskeletal no cyanosis or clubbing, extremities motor strength 5/5 Neurologic CN's II-XI intact bilaterally and deep tendon reflexes 2+ bilaterally Psychiatric Orientation: alert and oriented x 3 Lymphatic no cervical or axillary lymphadenopathy Discharge Data Allergies Allergy/AdvReac Type Severity Reaction Status Date / Time nut - unspecified Allergy Severe Anaphylaxis Verified 09/05/20 11:18 Penicillins Allergy Intermediate HIVES Verified 09/05/20 11:18 Sulfa (Sulfonamide Allergy Intermediate "jaundiced Verified 09/05/20 11:18 Antibiotics) as child", HIVES codeine Allergy Mild GI SYMPTOMS Verified 09/05/20 11:18 soy Allergy Unknown Unknown Verified 09/05/20 11:18 cat dander AdvReac Severe SHORTNESS Verified 09/05/20 11:18 OF BREATH mold AdvReac Severe SHORTNESS Verified 09/05/20 11:18 OF BREATH Consultations 09/02/20 23:44 ED Decision to Admit Stat 09/03/20 02:38 Consult Gastroenterology Routine 09/05/20 12:58 Consult Otolaryngology (Head and Neck) Routine Procedures Performed Operation Date: 09/03/20 17:45 <No data on this case meets the specified criteria> Operation Date: 09/05/20 11:00 Actual Procedures p EGD Biopsy Dilatation - Isaias Hager MD Ordered Studies 09/02/20 22:21 CT abd pelvis IV con only Urgent CT chest w con Urgent 09/04/20 07:00 FL barium swallow Routine 09/05 EGD Hospital Course (1) Dysphagia: 85 year old woman with a past medical history significant for Parkinson's who presents with a food bolus episode this evening found to have significant anemia in ED. Imaging concerning for malignancy causing dysphagia, but swallow study shows mod-marked esophageal dysmotility, likely from her parkinson's, but cannot be ruled out at this time. Food Bolus Patient appears to have completely cleared sticky rice she had struggle with and had difficulty swallowing. Happened with other food items in the past as well CT chest and abdomen showing dilated proximal 2/3 of esophagus and large hiatal hernia Repeat symptoms and imaging raises possibility of stricture or mass in this area, given her age and co occurring anemia certainly concern over malignancy GI consulted -- patient initially did not want EGD but after extensive conversation and ability to have Ms Falcon speak with her PCP Dr. Bowman, patient ultimately agreed to evaluation while inpatient. --I spoke with Dr. Hager who will plan for EGD tomorrow morning Patient did have eval by speech -- passed. Slippery diet ordered. Barium swallow showed mod-marked esophageal dysmotility -- likely secondary to her Parkinsons. May need to consider PEG tube in the future-- to be discussed in future with GI at later date if needed PPI BID and discharged on protonix daily at discharge s/p EGD dilation of tortuous esophagus, with inflammation. biopsies taken and pending at time of discharge for h. pylori. To have follow up on path and will send rx if shows positive. EGD also showed palatal mass -- rec ENT ref. Discussed with patient who states this is chronic and heriditary and her mother had the same. Also discussed with Dr. francis who if warranted would follow up outpatient. Nothing urgent at this time needed. Follow up with GI in 1-2 weeks for f/u Anemia microcytic hypochromic anemia -- iron studies obtained c/w iron deficiency anemia. + fecal occult blood. Does have family history of bleeding ulcers as well. Denies melena/hematochezia. GI on consult as above Transfused Venofer x 3 while inpatient. Patient had been on iron supplementations in the past and would prefer not to resume these as they causes constipation and worsening of her hemorrhoids. Will need outpt f/u and possible continued Venofer in the future Given patient's lack of symptoms and no signs of blood loss this appears to be a gradual phenomenon Holding ASA H/h stable at 7.4 CBC in 2 days pathology pending for possible h. pylori but suspect some blood loss from recent falls/bleeding Repeated mechanical falls Appears to be purely mechanical likely multifactorial Parkinsons is affecting her balance, but also her night time Ambien and possible weakness from her anemia also playing a role Will hold Ambien for now, primary care prescribed her a wheeled walker would encourage her to use this consistently Parkinsons Continued current home regimen of Sinemet QID Hypothyroidism TSH 4.09 Levothyroxine 75 mcg daily Depression and Anxiety Continued duloxetine 60 mg Chronic Pain Nucynta BID, Oxycodone prn -- typically takes 1 in afternoon for symptoms and continued prn Gabapentin 200mg TID Hyperlipidemia Continuing home simvastatin 20mg HS therapy Holding off on ASA at this time for possible GI losses, resumed at d/c but would be cautious with repeated falls DVT PPx: SCDs Chemoproph contraindicated with bleeding Discharged home to [facility]. To have follow up in 1 week with PCP for further iron transfusions and f/u on repeat CBC Will need f/u with GI Also sent with paper rx for possible UTI (which could also contribute to frequent falls although patient did not endorse urinary symptoms or weakness above baseline) Total Time Total Time Spent Total Time Spent (In Minutes): 60 Discharge Plan Discharge Items Patient Disposition: Personal Halfway Reason For Visit: ANEMIA, ESOPHAGEAL STRICTURE, FOOD BOLUS Discharge Diagnosis: Dysphagia, Anemia Goals: You have been hospitalized for an urgent problem which required surgery. During your stay at [facility], we have made an effort to correct the problem that brought you to the hospital while keeping you as comfortable as possible. Surgery and medications were used to bring your condition under control and your discharge instructions will include directions for any medications you should take after leaving the hospital. Please make sure to follow the advice of your surgeon regarding follow up with the surgeon and with your primary care provider. Activity: Resume your previous activity Non-emergency contact: Primary Care Provider Call non-emergency contact if: you have any medication questions Follow-up/Referrals: Kelly Bowman MD [Physician] - (1 week) Isaias Hager MD [Physician] - (2 weeks) Trina Francis MD [Physician] - 09/19/20 1:30 pm [facility] [Primary Care Provider] - Diet: Heart Healthy Diet Texture: Easy to Chew Ambulatory Orders: Complete Blood Count no Diff (Timed) Timeframe: 2 Days Location: Determined by Patient Ordered By: Lacie Rodríguez Attending Provider Instructions: You have been hospitalized with dysphagia (difficulty swallowing) after having rice. Swallowing study was performed which showed you do have some esophageal dysmotility likely also due to your Parkinson's. Concerns for malignancy causing dysphagia, prompted GI evaluation and you underwent EGD for evaluation and dilation was performed to narrowed areas. Biopsy was also performed due to inflammation shown for something called H. pylori as discussed, and if positive you will be called with results and sent in antibiotics. You will also need follow-up with Dr. Hager in the next 1-2 weeks to monitor your progress following EGD. If parkinson's progresses in the future, you may need to consider PEG tube placement if swallowing worsens over time but you can discuss this in the future. You are being sent home on Protonix which helps to calm down inflammation and prevent further bleeding. You will need to continue this medication daily. A mass of soft palate was appreciate, and as discussed you have had this for many years, however recommendations are to have follow up with ENT for monitoring. You were also found to have iron deficiency anemia which could be in part due to falls and bleeding, but you did have a positive occult stool sample, which could be from inflammation in your GI tract and is being treated with Protonix as above. You also received 3 iron transfusions during admission and as you had bad reactions with oral iron supplementation in the past, you should further discuss with Dr. Bowman about continued transfusions in the future to improve your blood counts. You are being provided a lab slip to have repeat blood counts in the next 2 days to ensure they are stable. Please follow up with your PCP, GI, and ENT as scheduled to monitor your progress. Please return to the emergency department with any worsening swallowing, shortness of breath, or for any other symptoms that are concerning for you. Urine has been collected last night, but not overly infected looking. If positive you will be called to start prescription for Cefdinir 300mg by mouth TWICE daily for 5 days. If sensitivities reveal not sensitive, will call in appropriate agent based on sensitivities. The antibiotic selection made currently is based on previous urinary tract infections and their sensitivities. It has been a pleasure being a part of the medical team providing for you while you have been in the hospital. Take care! Pending Studies at Discharge: Yes Studies:: Biopsy for h. pylori Urine culture pending Stand-Alone Forms: My [facility] Skilled Items Patient informed of condition?: Yes DNR: No Discharge Level of Care: Other Communicable Disease: No Discharge Prognosis: Stable Lines: None Urinary Catheter: No Medications and DC Order Prescriptions: New pantoprazole 40 mg tablet,delayed release (DR/EC) 40 mg PO DAILY 28 Days Qty: 28 RF: 0 cefdinir 300 mg capsule 300 mg PO BID 5 Days Qty: 10 RF: 0 Continued levothyroxine [Synthroid] 75 mcg tablet 75 mcg PO QAM Qty: 90 RF: 1 pregabalin [Lyrica] 200 mg capsule 200 mg PO TID Qty: 42 RF: 0 simvastatin [Zocor] 20 mg tablet 20 mg PO HS Qty: 90 RF: 1 duloxetine [Cymbalta] 60 mg capsule,delayed release(DR/EC) 60 mg PO QAM Qty: 90 RF: 1 zolpidem 12.5 mg tablet,ext release multiphase 12.5 mg PO HS Qty: 14 RF: 0 aspirin 81 mg Tablet,Delayed Release (Dr/Ec) 81 mg PO HS RF: 0 cholecalciferol (vitamin D3) [Vitamin D3] 1,000 unit Capsule 1,000 unit PO DAILY RF: 0 ipratropium bromide 42 mcg (0.06 %) spray,non-aerosol 2 sprays INTNAS BID RF: 0 carbidopa-levodopa [Sinemet] 25-100 mg tablet 1.5 tab PO QID RF: 0 multivitamin [Multiple Vitamins] Tablet 1 tab PO DAILY RF: 0 lutein 20 mg Tablet 20 mg PO Q2D RF: 0 Nucynta ER 50 mg tablet extended release 12 hr 50 mg PO BID RF: 0 polyethylene glycol 3350 [Miralax] 17 gram/dose Powder 8.5 g PO DAILY PRN (Reason: Constipation) RF: 0 Discontinued omega 8-bis-jmc-fish oil [Fish Oil] 1,000 mg (120 mg-180 mg) Capsule 1 cap PO DAILY RF: 0 Discharge Orders: Discharge Order (Routine); Ordered 09/05/20 Ordered By: Lacie Mcmahon Admission Data Admit Date/Time: 09/03/20 01:37 Attending Provider: Celestino Graham Admit Provider: Douglas Rai [facility] Other Providers: Rj Knutson ; Matt Brown ; Trina Francis How Other Interventions: Discharge Summary Assessment (RN) Last Done: 09/05/20 14:27 Coding Level of Care Code D/C Day Management >30 mins Diagnoses Dysphagia R13.10
--- NOTE | 2020-09-06 08:12 | ENT Consultation ---
Date of Consultation September 06, 2020 History of Present Illness Reason for Consultation: I did not see this patient in the hospital. She has been scheduled to see me in my office next week for a benign looking lesion of the palate. Attending Physician: Celestino Graham MD Allergies Allergy/AdvReac Type Severity Reaction Status Date / Time nut - unspecified Allergy Severe Anaphylaxis Verified 09/05/20 11:18 Penicillins Allergy Intermediate HIVES Verified 09/05/20 11:18 Sulfa (Sulfonamide Allergy Intermediate "jaundiced Verified 09/05/20 11:18 Antibiotics) as child", HIVES codeine Allergy Mild GI SYMPTOMS Verified 09/05/20 11:18 soy Allergy Unknown Unknown Verified 09/05/20 11:18 cat dander AdvReac Severe SHORTNESS Verified 09/05/20 11:18 OF BREATH mold AdvReac Severe SHORTNESS Verified 09/05/20 11:18 OF BREATH Home Medications Medication Instructions Recorded Confirmed Type aspirin 81 mg PO HS 06/21/18 09/02/20 History cholecalciferol (vitamin D3) 1,000 unit PO DAILY 06/21/18 09/02/20 History [Vitamin D3] levothyroxine 75 mcg tablet 75 mcg PO QAM #90 tab 02/15/20 09/02/20 Rx pregabalin 200 mg capsule 200 mg PO TID #42 cap 07/23/20 09/02/20 Rx simvastatin 20 mg tablet 20 mg PO HS #90 tab 07/24/20 09/02/20 Rx carbidopa-levodopa [Sinemet] 1.5 tab PO QID 08/15/20 09/02/20 History ipratropium bromide 2 sprays INTNAS BID 08/15/20 09/02/20 History lutein 20 mg PO Q2D 08/15/20 09/02/20 History multivitamin [Multiple Vitamins] 1 tab PO DAILY 08/15/20 09/02/20 History zolpidem 12.5 mg tablet,extended 12.5 mg PO HS #14 tab 08/16/20 09/02/20 Rx release,multiphase duloxetine 60 mg capsule,delayed 60 mg PO QAM #90 cap 08/28/20 09/02/20 Rx release Nucynta ER 50 mg PO BID 08/30/20 09/02/20 History polyethylene glycol 3350 [Miralax] 8.5 g PO DAILY PRN 08/30/20 09/02/20 History cefdinir 300 mg PO BID 5 Days #10 cap 09/05/20 Rx pantoprazole 40 mg PO DAILY 28 Days #28 tab 09/05/20 Rx Patient History Medical History Anxiety Bilateral lumbar radiculopathy Cardiac murmur Chronic back pain Fibromyalgia Hearing deficit Hx of breast cancer RADIATION 2000 Hyperlipidemia Hypothyroidism Lumbar canal stenosis Risk for falls LAST EVENT ARPIL 2019 Scoliosis LUMBAR AND NERVE PAIN Spinal stenosis Surgical History History of colonoscopy History of dilation and curettage History of foot surgery LEFT History of tonsillectomy Hx of appendectomy Hx of bilateral breast reduction surgery DUE TO CANCER 2006 Hx of cataract surgery RIGHT AND LEFT Hx of kyphoplasty L2 Hx of lumpectomy WITH LYMPH NODE REMOVAL (LEFT) Hx of spinal fusion L4-S1 Hx of wisdom tooth extraction S/P epidural steroid injection Family History Sister Alzheimer disease Breast cancer Paget's disease Father Alzheimer disease Grandmother (Paternal) Alzheimer disease Mother Myocardial infarction Stroke syndrome Uncle Prostate cancer Denies family history of Ovarian cancer Adverse anesthesia outcome Bleeding disorder Colorectal cancer Social History Smoking Status: Never smoker Second Hand Exposure: No; Hx Alcohol Use: No Hx Substance Use: No Preferred Language: Tristanian Communication Ability: Effective Visual Impairment: No Limitations Hearing Ability: Use of Hearing Aid [employer] Chief Clerk Required: No Beliefs That Will Affect Care: None marital status: / Current Living Situation: Alone Current Living Situation Comment: [facility]) current occupational status: retired Feels Safe at Home: Yes Physical Activity Frequency: Does not Exercise Assistive Devices: Walker
--- NOTE | 2020-09-07 10:45 | Communication Note ---
Date of Service: September 07, 2020 PAthology from EGD negative for H. pylori. Called patient to confirm e. coli urine culture and to fill rx for UTI.
== END 2020-09-05 16:50 | disposition home or self-care (01) | DRG 57 ==
LOC: ED 20:29 → EDINP 09-03 01:37 → SUATTDRO 09-03 01:37 → 3N 09-03 01:40

== ENCOUNTER 2022-01-30 18:00 | Inpatient (IN) ==
[2022-01-30] MEDS ORDERED: ONDANSETRON INJ 2 MG/ML 2 ML VIAL IV STA (18:06)
[2022-01-30] MEDS ORDERED: SODIUM CHLORIDE 0.9% 1000ML 500 ML IV ONE (18:07)
--- NOTE | 2022-01-30 18:09 | Emergency Department Note ---
Impression & Plan Multiple rib fractures, Fall, Multiple facial bone fractures, CHI (closed head injury), Forehead laceration ED Provider Note NAME: ABDIRAHMAN GALLAGHER AGE: 86 SEX: F : 1935 ARRIVES VIA: Ambulance INFORMANT: Patient, ED PROVIDER(S): Syd Alves MD Chief Complaint: Ground-level fall HPI: Patient was recently seen for a fall left rib fracture and contusion of the right shoulder. Patient presents today after fall that occurred maybe 30 minutes prior to arrival patient had been on the ground for about 15 minutes. EMS had arrived placed an IV and they were concerned that maybe the patient lost 1 unit of blood. The patient takes a baby aspirin but no other blood thinners and does reside at the [facility] at [facility]. The patient does complain of left head and scalp pain, right shoulder and left chest pain. The patient also has lower back discomfort and proximal hip pain. Patient did receive 50 fentanyl prior to arrival. Patient did receive a small fluid bolus in route. The patient otherwise had stable vital signs. ROS: See HPI for pertinent positives and negatives. A total of 10 systems were reviewed and otherwise negative. Past medical history: See below Surgical history: See below Social history: See below Physical Exam: GENERAL: Significant ecchymosis and swelling to the left face, c-collar in place. Awake and alert EYE EXAM: Right eye with no abnormality and good range of motion, left side of the face with significant periorbital swelling unable to open the left eye or fo rce the eyelids in order to view the eyeball. Head: Significant left-sided facial swelling, 3 cm left supraorbital laceration relatively hemostatic, matted blood over the left scalp. [OROPHARYNX: Moist mucus membranes. Grossly normal dentition. NECK: Supple, no adenopathy c-collar in place, trachea midline LUNGS: Bibasilar crackles noted. Normal chest wall mechanics. HEART: NSR, no MRG. ABDOMEN: Abdomen soft, non-tender, normo-active bowel sounds, no masses, no rebound or guarding. BACK: Mild upper midline lumbar discomfort. SKIN: No rashes and no bruising. UPPER EXTREMITIES: Mild discomfort to the right shoulder without obvious deformity neurovascular tact distally. LOWER EXTREMITIES: Mild discomfort to the proximal left hip without obvious deformity. NEURO EXAM: A&O x3, cranial nerves II-XII grossly intact, normal speech, moves all 4 extremities on command w/o issue. Differential diagnoses: Fracture, dislocation, contusion, intra-abdominal, pneumothorax, intrathoracic, intracranial, neurologic, compartment syndrome, rhabdomyolysis, as well as other pathologies. Course: Patient was seen and evaluated the bedside. Full history physical exam was performed. EKG interpreted by me Normal sinus rhythm, rate of 62, normal intervals, normal axis. Imaging Studies: See Below Cardiac monitoring: An order was placed for continuous cardiac monitoring. The monitor shows a rate of 68 with sinus rhythm. Procedures: Laceration repair performed by Dr. Alves Location: Left forehead Total length: 3 cm Complexity: Simple Verbal consent was obtained after the risks and benefits were explained, including but not limited to bleeding, scarring, infection, pain, and bone/joint/nerve damage. At this time, the risks of the procedure are less than the risks of NOT performing the procedure. A time out was taken and the correct patient and site identified. The skin was prepped with betadine. The target area was anesthetized with 3 ml of 1% lidocaine with epinephrine. Copious irrigation was performed using sterile saline small mount of Betadine. The skin was re- prepped with betadine and a sterile field set. The wound was explored for foreign bodies and none found. Examination revealed no injury to deep structures such as tendons, bone, or significant blood vessels. Debridement was not performed. The wound edges were approximated using 3, 4 -0 simple interrupted nylon sutures. Hemostasis and excellent approximation was achieved. Antibacterial ointment applied. Detailed wound care instructions and signs and symptoms of infection reviewed with the patient patient's family. No complications and the patient tolerated the procedure well. MDM: Patient was seen due to concern for ground-level fall with significant facial swelling and pain. Patient did have bladder completed along with CTs of the head neck chest abdomen pelvis lumbar and thoracic spine as well as the face. The patient has a white count of 11 with a hemoglobin 11. Platelet count is unremarkable. Kidney function no significant findings. The patient did receive some IV fluids. Hyponatremic. Patient's urinalysis not show evidence of obvious infection as there are numerous epithelial cells and negative for bacteria and nitrites. COVID-negative. Patient CTs do show facial fractures. No ICH CT of the cervical spine is negative. C-spine was cleared. CT of the chest abdomen pelvis lumbar and thoracic spine showed 2 new rib fractures without evidence of pneumothorax. I did speak with the on-call oral maxillofacial surgeon Dr. Orr who will be able to see the patient in the morning. I did speak with the on-call hospitalist Dr. Groves and the patient was admitted to the medicine service. Patient's laceration was repaired. The patient's tetanus is up-to-date. Past Med/Surg History Medical History Anxiety Bilateral lumbar radiculopathy Cardiac murmur Chronic back pain Fibromyalgia Hearing deficit Hx of breast cancer RADIATION 2000 Hyperlipidemia Hypothyroidism Lumbar canal stenosis Other abnormalities of gait and mobility Risk for falls LAST EVENT ARPIL 2019 Scoliosis LUMBAR AND NERVE PAIN Spinal stenosis Urinary frequency Surgical History History of colonoscopy History of dilation and curettage History of foot surgery LEFT History of tonsillectomy Hx of appendectomy Hx of bilateral breast reduction surgery DUE TO CANCER 2006 Hx of cataract surgery RIGHT AND LEFT Hx of kyphoplasty L2 Hx of lumpectomy WITH LYMPH NODE REMOVAL (LEFT) Hx of spinal fusion L4-S1 Hx of wisdom tooth extraction S/P epidural steroid injection Family History Sister Alzheimer disease Breast cancer Paget's disease Father Alzheimer disease Grandmother (Paternal) Alzheimer disease Mother Myocardial infarction Stroke syndrome Uncle Prostate cancer Denies family history of Ovarian cancer Adverse anesthesia outcome Bleeding disorder Colorectal cancer Social History Smoking Status: Never smoker Second Hand Exposure: No; Hx Alcohol Use: No Hx Substance Use: No Preferred Language: Kinyarwanda Communication Ability: Effective Visual Impairment: No Limitations Hearing Ability: Use of Hearing Aid 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 Beliefs That Will Affect Care: None marital status: / Current Living Situation: Alone Current Living Situation Comment: [facility]) current occupational status: retired How many Children do You have: 2 Feels Safe at Home: Yes Childhood Exposure to Second-Hand Smoke: No caffeine: Yes during the past year weight has: remained stable Dental Care, Regularly: Yes Physical Activity Frequency: Does not Exercise Seatbelt Use: always Sunscreen Use: Yes Assistive Devices: Hearing Aid - Bilateral and Walker Allergies Allergies Allergy/AdvReac Type Severity Reaction Status Date / Time nut - unspecified Allergy Severe Anaphylaxis Verified 01/30/22 19:29 Penicillins Allergy Intermediate HIVES Verified 01/30/22 19:29 Sulfa (Sulfonamide Allergy Intermediate "jaundiced Verified 01/30/22 19:29 Antibiotics) as child", HIVES codeine Allergy Mild GI SYMPTOMS Verified 01/30/22 19:29 soy Allergy Unknown Unknown Verified 01/30/22 19:29 cat dander AdvReac Severe SHORTNESS Verified 01/30/22 19:29 OF BREATH mold AdvReac Severe SHORTNESS Verified 01/30/22 19:29 OF BREATH Home Meds Home Medications Medication Instructions Recorded Confirmed cholecalciferol (vitamin D3) 25 1,000 unit PO DAILY 06/21/18 01/30/22 mcg (1,000 unit) capsule (Vitamin D3) aspirin 81 mg tablet,delayed 81 mg PO DAILY 01/30/22 01/30/22 release lutein 20 mg tablet 20 mg PO Q OTHER DAY 01/30/22 01/30/22 multivitamin 1 tab PO DAILY 01/30/22 01/30/22 omega 0-ikm-xwh-fish oil 1,000 mg 1 cap PO DAILY 01/30/22 01/30/22 (120 mg-180 mg) capsule (Fish Oil) zolpidem 6.25 mg tablet,extended 6.25 mg PO HS 01/30/22 01/30/22 release,multiphase Previous Rx's Medication Instructions Recorded ipratropium bromide 42 mcg (0.06 2 spray INTNAS BID #45 ml 09/19/20 %) nasal spray duloxetine 60 mg capsule,delayed 60 mg PO QAM 90 Days #90 cap 04/02/21 release (Cymbalta) benztropine 0.5 mg tablet 0.5 mg PO BID #180 tab 10/28/21 simvastatin 20 mg tablet (Zocor) 20 mg PO HS #90 tab 10/29/21 escitalopram oxalate 20 mg tablet 20 mg PO DAILY #90 tab 12/30/21 pantoprazole 40 mg tablet,delayed 40 mg PO BID 90 Days #180 tab 01/08/22 release pregabalin 200 mg capsule (Lyrica) 200 mg PO BID 90 Days #180 cap 01/14/22 carbidopa 25 mg-levodopa 100 mg 1 tab PO DAILY 90 Days #90 tab 01/16/22 tablet (Sinemet) levothyroxine 75 mcg tablet 75 mcg PO QAM #90 tab 01/20/22 (Synthroid) lidocaine 4 % topical patch 1 patch TOPICAL DAILY PRN #15 ea 01/25/22 hydrocodone 7.5 mg-acetaminophen 1 tab PO TID PRN #90 tab 01/27/22 325 mg tablet tapentadol 50 mg tablet,extended 50 mg PO BID #60 tab 01/27/22 release,12 hr (Nucynta ER) Results & Data (ED) Vital Signs Vital Signs - 24 hr 01/30/22 18:10 01/30/22 18:57 01/30/22 19:00 Temperature 36.7 C Temperature Source Oral Pulse Rate 70 60 Pulse Rate [Finger] 63 Respiratory Rate 18 22 22 Blood Pressure 148/71 H 134/68 137/64 Blood Pressure [Left Arm] 134/68 Blood Pressure Mean 96 90 88 Blood Pressure Mean [Left Arm] 90 Pulse Oximetry 94 93 93 Oxygen Delivery Method Room Air Room Air Room Air Sepsis Recent Fever Within 48 Hours No Sepsis New/Unexplained Change in Mental Status No Sepsis Action Taken by Nursing No Action Required 01/30/22 19:15 01/30/22 19:30 01/30/22 19:45 Temperature Temperature Source Pulse Rate 63 60 57 L Pulse Rate [Finger] Respiratory Rate 18 15 16 Blood Pressure 136/63 149/73 H 131/100 Blood Pressure [Left Arm] Blood Pressure Mean 87 98 110 Blood Pressure Mean [Left Arm] Pulse Oximetry 93 92 94 Oxygen Delivery Method Room Air Room Air Room Air Sepsis Recent Fever Within 48 Hours Sepsis New/Unexplained Change in Mental Status Sepsis Action Taken by [facility] Medications Current Medication List: was personally reviewed by me Laboratory Data Attestation: I reviewed the patient's lab results. Result diagrams: 01/30/22 18:10 01/30/22 20:04 Lab Results 01/30/22 01/30/22 01/30/22 Range/Units 18:00 18:10 18:10 WBC 11.34 H (4.8-10.8) K/uL RBC 3.76 L (4.2-5.4) M/uL Hgb 11.1 L (12.0-16.0) g/dL POC Hgb (12.0-16.0) g/dl Hct 33.2 L (37-47) % POC Hct (37-47) % MCV 88.3 (80-100) fL MCH 29.5 (25-34) pg MCHC 33.4 (32-36) g/dL RDW Std Deviation 46.7 H (36.4-46.3) fL RDW Coeff of Arnaud 14.3 (11.5-14.5) % Plt Count 225 (130-400) K/uL MPV 12.1 H (7.4-10.4) fL Immature Gran % (Auto) 0.3 % Neut % (Auto) 78.1 % Lymph % (Auto) 11.6 % [place] % (Auto) 8.6 % Eos % (Auto) 1.2 % Baso % (Auto) 0.2 % Neut # (Auto) 8.86 H (1.4-6.5) K/uL Lymph # (Auto) 1.32 (1.2-3.4) K/uL [place] # (Auto) 0.97 H (0.11-0.59) K/uL Eos # (Auto) 0.14 (0-0.5) K/uL Baso # (Auto) 0.02 (0-0.2) K/uL Immature Gran # (Auto) 0.03 H (0.00-0.02) K/uL POC Sodium (135-144) mmol/L Sodium 130 L (136-145) mmol/L POC Potassium (3.3-5.0) mmol/L Potassium (3.5-5.1) mmol/L POC Chloride (101-112) mmol/L Chloride 98 (98-107) mmol/L Carbon Dioxide 27 (21-32) mmol/L POC Total CO2 (24-31) mmol/L Anion Gap 5 (3-11) POC Anion Gap (16-25) mmol/L POC BUN (7-18) mg/dl BUN 17 (6-23) mg/dl Creatinine 0.59 L (0.6-1.2) mg/dl POC Creatinine (0.6-1.3) mg/dl Est Cr Clr Drug Dosing 64.4 ml/min Est GFR ( Amer) 97.5 ml/min Est GFR (Non-Af Amer) 84.2 ml/min BUN/Creatinine Ratio 28.8 H (10-20) Glucose 101 H (70-99(Fasting)) mg/dl POC Glucose (other) (70-99) mg/dl Calcium 9.1 (8.5-10.1) mg/dl POC Ioniz Calcium Kristie (1.12-1.32) mmol/l Total Bilirubin 0.7 (0.2-1.0) mg/dl AST (13-39) U/L ALT 12 (7-52) U/L Alkaline Phosphatase 51 (34-104) U/L Total Creatine Kinase 213 H (26-192) U/L Total Protein 6.4 (6.0-8.3) gm/dl Albumin 4.1 (3.4-5.0) gm/dl Globulin 2.3 L (2.5-4.0) gm/dl Albumin/Globulin Ratio 1.8 (0.9-2) Urine Color Urine Appearance (Clear) Urine pH (4.5-7.5) Ur Specific [place] (1.000-1.030) Urine Protein (Negative) Urine Glucose (UA) (Negative) Urine Ketones (Negative) Urine Blood (Negative) Urine Nitrite (Negative) Urine Bilirubin (Negative) Urine Urobilinogen (Negative) Ur Leukocyte Esterase (Negative) Urine WBC (Auto) (0-5) /hpf Urine RBC (Auto) (0-4) /hpf U Hyaline Cast (Auto) (0-5) /lpf U Epithel Cells (Auto) (0-5) /lpf Urine Bacteria (Auto) (Negative) SARS-CoV-2, RNA, NAAT NEGATIVE (NEGATIVE) 01/30/22 01/30/22 01/30/22 Range/Units 18:14 19:45 20:04 WBC (4.8-10.8) K/uL RBC (4.2-5.4) M/uL Hgb (12.0-16.0) g/dL POC Hgb 12.2 (12.0-16.0) g/dl Hct (37-47) % POC Hct 36 L (37-47) % MCV (80-100) fL MCH (25-34) pg MCHC (32-36) g/dL RDW Std Deviation (36.4-46.3) fL RDW Coeff of Arnaud (11.5-14.5) % Plt Count (130-400) K/uL MPV (7.4-10.4) fL Immature Gran % (Auto) % Neut % (Auto) % Lymph % (Auto) % [place] % (Auto) % Eos % (Auto) % Baso % (Auto) % Neut # (Auto) (1.4-6.5) K/uL Lymph # (Auto) (1.2-3.4) K/uL [place] # (Auto) (0.11-0.59) K/uL Eos # (Auto) (0-0.5) K/uL Baso # (Auto) (0-0.2) K/uL Immature Gran # (Auto) (0.00-0.02) K/uL POC Sodium 132 L (135-144) mmol/L Sodium (136-145) mmol/L POC Potassium 4.5 (3.3-5.0) mmol/L Potassium 4.3 (3.5-5.1) mmol/L POC Chloride 97 L (101-112) mmol/L Chloride (98-107) mmol/L Carbon Dioxide (21-32) mmol/L POC Total CO2 27 (24-31) mmol/L Anion Gap (3-11) POC Anion Gap 13.0 L (16-25) mmol/L POC BUN 19 H (7-18) mg/dl BUN (6-23) mg/dl Creatinine (0.6-1.2) mg/dl POC Creatinine 0.6 (0.6-1.3) mg/dl Est Cr Clr Drug Dosing ml/min Est GFR ( Amer) ml/min Est GFR (Non-Af Amer) ml/min BUN/Creatinine Ratio (10-20) Glucose (70-99(Fasting)) mg/dl POC Glucose (other) 108 H (70-99) mg/dl Calcium (8.5-10.1) mg/dl POC Ioniz Calcium Kristie 1.20 (1.12-1.32) mmol/l Total Bilirubin (0.2-1.0) mg/dl AST 29 (13-39) U/L ALT (7-52) U/L Alkaline Phosphatase (34-104) U/L Total Creatine Kinase (26-192) U/L Total Protein (6.0-8.3) gm/dl Albumin (3.4-5.0) gm/dl Globulin (2.5-4.0) gm/dl Albumin/Globulin Ratio (0.9-2) Urine Color Yellow Urine Appearance Clear (Clear) Urine pH 5.5 (4.5-7.5) Ur Specific [place] 1.022 (1.000-1.030) Urine Protein Negative (Negative) Urine Glucose (UA) Negative (Negative) Urine Ketones Negative (Negative) Urine Blood Negative (Negative) Urine Nitrite Negative (Negative) Urine Bilirubin Negative (Negative) Urine Urobilinogen Negative (Negative) Ur Leukocyte Esterase 1+ H (Negative) Urine WBC (Auto) 5-10 H (0-5) /hpf Urine RBC (Auto) 0-4 (0-4) /hpf U Hyaline Cast (Auto) 1-5 (0-5) /lpf U Epithel Cells (Auto) >30 H (0-5) /lpf Urine Bacteria (Auto) Negative (Negative) SARS-CoV-2, RNA, NAAT (NEGATIVE) Administered Medications Discontinued Medications Fentanyl Citrate (Fentanyl Citrate 100 Mcg/2 Ml Vial) 25 mcg IV NOW STA Stop: 01/30/22 19:04 Last Admin: 01/30/22 19:10 Dose: 25 mcg Documented by: [id number] Sodium Chloride (Nss 1000ml) 500 mls @ 999 mls/hr IV .Q31M ONE Stop: 01/30/22 18:37 Last Infusion: 01/30/22 19:15 Dose: 0 mls/hr Documented by: [id number] Admin: 01/30/22 18:19 Dose: 999 mls/hr Documented by: [id number] Clindamycin Phosphate 600 mg/ (Dextrose) 54 mls @ 100 mls/hr IV ONE ONE Stop: 01/30/22 20:15 Last Infusion: 01/30/22 21:50 Dose: 0 mls/hr Documented by: [id number] Admin: 01/30/22 20:51 Dose: 100 mls/hr Documented by: [id number] Ioversol (Optiray 320 125ml) 95 ml IV ONCE ONE Stop: 01/30/22 18:51 Last Admin: 01/30/22 18:52 Dose: 95 ml Documented by: [id number] Ioversol (Optiray 320 100ml) 95 ml IV ONCE ONE Stop: 01/30/22 18:59 Last Admin: 01/30/22 18:59 Dose: 95 ml Documented by: [id number] Lidocaine/Epinephrine (Lidocaine 1%/Epinephrine 1:100,000 50 Ml Vial) 50 ml INFIL NOW ONE Stop: 01/30/22 19:44 Last Admin: 01/31/22 00:02 Dose: 50 ml Documented by: [id number] Ondansetron HCl (Ondansetron Inj 2 Mg/Ml 2 Ml Vial) 4 mg IV NOW STA Stop: 01/30/22 18:07 Last Admin: 01/30/22 18:19 Dose: 4 mg Documented by: [id number] Imaging Data Radiologist's Impression: Abdomen/Pelvis CT 01/30/22 18:[address] WITH CONTRAST, ABDOMEN AND PELVIS CT WITH INTRAVENOUS CONTRAST CT DOSE: HISTORY: Fall. Trauma TECHNIQUE: Multiaxial CT images of the chest, abdomen, and pelvis were performed following the intravenous administration of contrast. A dose lowering technique was utilized adhering to the principles of ALARA. COMPARISON: Chest CT 11/23/[address] 11/23/2021. FINDINGS: Chest CT: There are acute left lateral 10th and 11th rib fractures. There are few old, healed bilateral rib fractures. Small focal indentations at the superior endplates of T6 and T8 remain unchanged. These may represent Schmorl's nodes or old compression deformities. Advanced degenerative changes again noted within the right shoulder. No pneumothorax. Chronic interstitial thickening wit hin the lungs persist. There are patchy groundglass densities within the lungs. This could be due to air-trapping, mild congestive change, or a low-grade pneumonitis. The central airways appear patent. There is mild respiratory motion artifact. Postoperative changes again noted within the left breast. There is a large hiatus hernia containing the majority of the stomach. There is a trace left pleural effusion. The heart remains mildly enlarged. No pericardial effusion. No mediastinal hematoma or lymphadenopathy. Normal caliber thoracic aorta with no evidence for dissection. The main pulmonary arteries are patent. Abdomen/pelvis CT: No pneumoperitoneum. No pneumatosis. L4-S1 posterior decompression and fusion with pedicle screws and rods. There is normal compression deformity and vertebroplasty at L2. Mild body wall edema. Mild motion artifact results in suboptimal evaluation. Tiny fat-containing umbilical hernia. The liver, gallbladder, pancreas, spleen, and adrenal glands appear unremarkable. No hydronephrosis. There are few small hypodense lesions within t he left kidney, unchanged. No retroperitoneal lymphadenopathy or hematoma. No pelvic free fluid. The bladder, uterus, and adnexa are unremarkable. Mild L4 collapse. Moderate well-formed stool seen within the colon. Colonic diverticulosis. No evidence for acute diverticulitis. No bowel wall thickening or obstruction. IMPRESSION: 1. Acute left lateral 10th and 11th rib fractures. No pneumothorax. 2. Trace left pleural effusion. 3. No acute traumatic process within the abdomen or pelvis. 4. Additional findings as described above. ACT 112: Negative or not required by law. Electronically signed by: Eulogio Nguyễn M.D. 01/30/2022 7:[address] 01/30/22 18:[address] DOSE: HISTORY: Facial injury. Trauma TECHNIQUE: Multiaxial CT images of the cervical spine were performed and reformatted in the sagittal and coronal plane without the use of contrast. A dose lowering technique was utilized adhering to the principles of ALARA. COMPARISON: None. FINDINGS: No fractures. No subluxation. Prevertebral soft tissues and the C1-C2 interval are intact. No pneumothorax. IMPRESSION: No fractures within the cervical spine. ACT 112: Negative or not required by law. Electronically signed by: Eulogio Nguyễn M.D. 01/30/2022 6:[address] 01/30/22 18:[address] WITH CONTRAST, ABDOMEN AND PELVIS CT WITH INTRAVENOUS CONTRAST CT DOSE: HISTORY: Fall. Trauma TECHNIQUE: Multiaxial CT images of the chest, abdomen, and pelvis were performed following the intravenous administration of contrast. A dose lowering technique was utilized adhering to the principles of ALARA. COMPARISON: Chest CT 11/23/[address] 11/23/2021. FINDINGS: Chest CT: There are acute left lateral 10th and 11th rib fractures. There are few old, healed bilateral rib fractures. Small focal indentations at the superior endplates of T6 and T8 remain unchanged. These may represent Schmorl's nodes or old compression deformities. Advanced degenerative changes again noted within the right shoulder. No pneumothorax. Chronic interstitial thickening wi thin the lungs persist. There are patchy groundglass densities within the lungs. This could be due to air-trapping, mild congestive change, or a low-grade pneumonitis. The central airways appear patent. There is mild respiratory motion artifact. Postoperative changes again noted within the left breast. There is a large hiatus hernia containing the majority of the stomach. There is a trace left pleural effusion. The heart remains mildly enlarged. No pericardial effusion. No mediastinal hematoma or lymphadenopathy. Normal caliber thoracic aorta with no evidence for dissection. The main pulmonary arteries are patent. Abdomen/pelvis CT: No pneumoperitoneum. No pneumatosis. L4-S1 posterior decompression and fusion with pedicle screws and rods. There is normal compressi on deformity and vertebroplasty at L2. Mild body wall edema. Mild motion artifact results in suboptimal evaluation. Tiny fat-containing umbilical hernia. The liver, gallbladder, pancreas, spleen, and adrenal glands appear unremarkable. No hydronephrosis. There are few small hypodense lesions within the left kidney, unchanged. No retroperitoneal lymphadenopathy or hematoma. No pelvic free fluid. The bladder, uterus, and adnexa are unremarkable. Mild L4 collapse. Moderate well-formed stool seen within the colon. Colonic diverticulosis. No evidence for acute diverticulitis. No bowel wall thickening or obstruction. IMPRESSION: 1. Acute left lateral 10th and 11th rib fractures. No pneumothorax. 2. Trace left pleural effusion. 3. No acute traumatic process within the abdomen or pelvis. 4. Additional findings as described above. ACT 112: Negative or not required by law. Electronically signed by: Eulogio Nguyễn M.D. 01/30/2022 7:[address] 01/30/22 18:[address] DOSE: 1003.82 mGy.cm HISTORY: Facial injury. Trauma TECHNIQUE: Multiaxial CT images of the maxillofacial region were performed and reformatted in the coronal plane without the use of contrast. A dose lowering technique was utilized adhering to the principles of ALARA. COMPARISON: None. FINDINGS: The visualized cervical spine, skull base, mandible, zygomatic arches, lamina papyracea, and pterygoid plates are intact. There are depressed/displaced bilateral nasal bone fractures. Hemorrhage within the maxillary sinuses. Depressed comminuted fractures involving the anterior wall of the left maxillary sinus. These demonstrate up to 7 mm of depression. Nondisplaced fracture within the posterior wall of the left maxillary sinus and medial wall the left maxillary sinus. Nondisplaced fracture within the left orbital floor with a djacent trace extraconal hemorrhage.. Left facial and periorbital soft tissue hematoma. The globes and retrobulbar fat are intact. Nondisplaced fracture within the medial wall the right maxillary sinus. IMPRESSION: 1. Left maxillary sinus fractures as described above. 2. Depressed/displaced bilateral nasal bone fractures. 3. Nondisplaced left orbital floor fracture. 4. Nondisplaced fracture within the medial wall of the right maxillary sinus. ACT 112: Negative or not required by law. Electronically signed by: Eulogio Nguyễn M.D. 01/30/2022 7:[address] 01/30/22 18:[address] DOSE: HISTORY: Fall. Trauma TECHNIQUE: Multiaxial CT images of the head were performed without the use of intravenous contrast. Automated exposure control was utilized for this study. A dose lowering technique was utilized adhering to the principles of ALARA. Comparison: Head CT 11/23/2021. Findings: Hemorrhage located within the paranasal sinuses due to the multiple facial fractures. This is better appreciated on the same day maxillofacial CT. There is a left periorbital soft tissue hematoma. The calvarium and skull base are intact. There is no mass, hematoma, midline shift, acute infarct. White matter hypodensity is nonspecific but suggestive of microvascular ischemic change. The ventricles and sulci demonstrate mild age-related involutional changes. Impression: 1. No acute intracranial abnormality. 2. Multiple facial fractures are better appreciated on the same day facial CT. ACT 112: Negative or not required by law. Electronically signed by: Eulogio Nguyễn M.D. 01/30/2022 6:[address] 01/30/22 18:07 CT thoracic spine w con, CT lumbar spine w con HISTORY: Back pain. trauma TECHNIQUE: Multiaxial CT images of the thoracic and lumbar spine were performed following the intravenous administration of contrast and reformatted in the sagittal and coronal planes. COMPARISON STUDY: None. FINDINGS: There are old, healed left posterior 11th and 12th rib fractures. No acute fracture or subluxation within the thoracic spine. Paravertebral soft tissues are unremarkable. No high-grade central canal stenosis by CT technique. A few small focal indentations within the superior endplate of the mid thoracic spine vertebral bodies favor Schmorl's nodes. Dextroscoliosis of the thoracic spine. Levoscoliosis of the lumbar spine. Posterior decompression and fusion from L4 through S1 with pedicle screws and rods. The hardware appears intact. There is an old moderate compression deformity at L2 with associated vertebroplasty. No acute fractures identified within the lumbar spine. The visualized sacrum appears intact. IMPRESSION: No acute fractures identified within the thoracic or lumbar spine. ACT 112: Negative or not required by law. Electronically signed by: Eulogio Nguyễn M.D. 01/30/2022 7:[address] 01/30/22 18:07 CT thoracic spine w con, CT lumbar spine w con HISTORY: Back pain. trauma TECHNIQUE: Multiaxial CT images of the thoracic and lumbar spine were performed following the intravenous administration of contrast and reformatted in the sagittal and coronal planes. COMPARISON STUDY: None. FINDINGS: There are old, healed left posterior 11th and 12th rib fractures. No acute fracture or subluxation within the thoracic spine. Paravertebral soft tissues are unremarkable. No high-grade central canal stenosis by CT technique. A few small focal indentations within the superior endplate of the mid thoracic spine vertebral bodies favor Schmorl's nodes. Dextroscoliosis of the thoracic spine. Levoscoliosis of the lumbar spine. Posterior decompression and fusion from L4 t hrough S1 with pedicle screws and rods. The hardware appears intact. There is an old moderate compression deformity at L2 with associated vertebroplasty. No acute fractures identified within the lumbar spine. The visualized sacrum appears intact. IMPRESSION: No acute fractures identified within the thoracic or lumbar spine. ACT 112: Negative or not required by law. Electronically signed by: Eulogio Nguyễn M.D. 01/30/2022 7:08 PM Hip X-Ray 01/30/22 18:17 XR hip LT min 2V CLINICAL HISTORY: Left hip pain following fall. COMPARISON: Pelvis radiograph January 25, 2022. FINDINGS: Incidental note is made of contrast within the bladder from recent contrast-enhanced CT. Postoperative findings within the lumbosacral spine are partially imaged. Alignment of the left hip is anatomic. No acute fracture. Mild joint space narrowing and moderate osteophytosis of the left hip is present. Irregularity of the left ischial tuberosity and greater trochanter left femur is chronic. IMPRESSION: No acute fracture within the left hip. ACT 112: Negative or not required by law. Electronically signed by: Sergey Gunn M.D. 01/30/2022 8:20 PM Shoulder X-Ray 01/30/22 18:17 XR shoulder RT min 2V routine CLINICAL HISTORY: Right shoulder pain following fall. COMPARISON: Right shoulder radiographs January 25, 2022. FINDINGS: Incidental note is made of several old right-sided rib fractures. Complete loss of the right glenohumeral joint space is again noted with extensive osteophytosis and subchondral sclerosis. Osteoarthritis of the right a cromioclavicular joint is noted. There is no acute fracture. Elevation of the humeral head suggests chronic rotator cuff tear. IMPRESSION: 1. No acute fracture or dislocation within the right shoulder. 2. Severe right glenohumeral joint osteoarthritis. ACT 112: Negative or not required by law. Electronically signed by: Sergey Gunn M.D. 01/30/2022 8:18 PM Discharge Plan Visit Data Chief Complaint: Fall ED Provider: Syd Alves Discharge Problem: Multiple rib fractures, Fall, Multiple facial bone fractures, CHI (closed head injury), Forehead laceration Patient Disposition: Admitted As Inpatient Discharge Instructions Interventions: ED Discharge Assessment Last Done: 01/31/22 00:54
[2022-01-30 18:26] LABS: iSTAT Creatinine 0.6 mg/dl (0.6-1.3); iSTAT Hemoglobin 12.2 g/dl (12.0-16.0); iSTAT Ionized Calcium 1.2 mmol/l (1.12-1.32); iSTAT Potassium 4.5 mmol/L (3.3-5.0)
[2022-01-30 18:45] LABS: Basophils # (auto) 0.02 K/uL (0-0.2); Basophils % (auto) 0.2 %; Eosinophils # (auto) 0.14 K/uL (0-0.5); Eosinophils % (auto) 1.2 %; Hematocrit (blood only) 33.2 % (37-47); Hemoglobin 11.1 g/dL (12.0-16.0); Immature Granulocytes # (auto) 0.03 K/uL (0.00-0.02); Immature Granulocytes % (auto) 0.3 %; Lymphocytes # (auto) 1.32 K/uL (1.2-3.4); Lymphocytes % (auto) 11.6 %; Mean Corpuscular Hemoglobin 29.5 pg (25-34); Mean Corpuscular Hgb Conc 33.4 g/dL (32-36); Mean Corpuscular Volume 88.3 fL (80-100); Mean Platelet Volume 12.1 fL (7.4-10.4); Monocytes # (auto) 0.97 K/uL (0.11-0.59); Monocytes % (auto) 8.6 %; Neutrophils # (auto) 8.86 K/uL (1.4-6.5); Neutrophils % (auto) 78.1 %; Platelet Count 225 K/uL (130-400); RDW Coefficient of Variation 14.3 % (11.5-14.5); RDW Standard Deviation 46.7 fL (36.4-46.3); Red Blood Count 3.76 M/uL (4.2-5.4); White Blood Count 11.34 K/uL (4.8-10.8)
[2022-01-30] MEDS ORDERED: OPTIRAY 320 125ml IV ONE (18:50)
--- NOTE | 2022-01-30 18:52 | CT Scan Report ---
HEAD CT NONCONTRAST CT DOSE: HISTORY: Fall. Trauma TECHNIQUE: Multiaxial CT images of the head were performed without the use of intravenous contrast. A utomated exposure control was utilized for this study. A dose lowering technique was utilized adheri ng to the principles of ALARA. Comparison: Head CT 11/23/2021. Findings: Hemorrhage located within the paranasal sinuses due to the multiple facial fractures. This is better appreciated on the same day maxillofacial CT. There is a left periorbital soft tissue hemat belen. The calvarium and skull base are intact. There is no mass, hematoma, midline shift, acute infarc t. White matter hypodensity is nonspecific but suggestive of microvascular ischemic change. The ventr icles and sulci demonstrate mild age-related involutional changes. Impression: 1. No acute intracranial abnormality. 2. Multiple facial fractures are better appreciated on the same day facial CT. ACT 112: Negative or not required by law. Electronically signed by: Eulogio Nguyễn M.D. 01/30/2022 6:51 PM
--- NOTE | 2022-01-30 18:57 | CT Scan Report ---
CERVICAL SPINE CT CT DOSE: HISTORY: Facial injury. Trauma TECHNIQUE: Multiaxial CT images of the cervical spine were performed and reformatted in the sagittal and coronal plane without the use of contrast. A dose lowering technique was utilized adhering to th e principles of ALARA. COMPARISON: None. FINDINGS: No fractures. No subluxation. Prevertebral soft tissues and the C1-C2 interval are intact. No pneumothorax. IMPRESSION: No fractures within the cervical spine. ACT 112: Negative or not required by law. Electronically signed by: Eulogio Nguyễn M.D. 01/30/2022 6:55 PM
[2022-01-30] MEDS ORDERED: OPTIRAY 320 100ml IV ONE (18:58)
[2022-01-30] MEDS ORDERED: fentaNYL citrate 100 MCG/2 ML VIAL IV STA (19:03)
--- NOTE | 2022-01-30 19:03 | CT Scan Report ---
MAXILLOFACIAL CT CT DOSE: 1003.82 mGy.cm HISTORY: Facial injury. Trauma TECHNIQUE: Multiaxial CT images of the maxillofacial region were performed and reformatted in the cor onal plane without the use of contrast. A dose lowering technique was utilized adhering to the princ iplKyra. COMPARISON: None. FINDINGS: The visualized cervical spine, skull base, mandible, zygomatic arches, lamina papyracea, an d pterygoid plates are intact. There are depressed/displaced bilateral nasal bone fractures. Hemorrha ge within the maxillary sinuses. Depressed comminuted fractures involving the anterior wall of the le ft maxillary sinus. These demonstrate up to 7 mm of depression. Nondisplaced fracture within the post erior wall of the left maxillary sinus and medial wall the left maxillary sinus. Nondisplaced fractur e within the left orbital floor with adjacent trace extraconal hemorrhage.. Left facial and periorbit al soft tissue hematoma. The globes and retrobulbar fat are intact. Nondisplaced fracture within the medial wall the right maxillary sinus. IMPRESSION: 1. Left maxillary sinus fractures as described above. 2. Depressed/displaced bilateral nasal bone fractures. 3. Nondisplaced left orbital floor fracture. 4. Nondisplaced fracture within the medial wall of the right maxillary sinus. ACT 112: Negative or not required by law. Electronically signed by: Eulogio Nguyễn M.D. 01/30/2022 7:00 PM
--- NOTE | 2022-01-30 19:10 | CT Scan Report ---
CT thoracic spine w con, CT lumbar spine w con HISTORY: Back pain. trauma TECHNIQUE: Multiaxial CT images of the thoracic and lumbar spine were performed following the intrave nous administration of contrast and reformatted in the sagittal and coronal planes. COMPARISON STUDY: None. FINDINGS: There are old, healed left posterior 11th and 12th rib fractures. No acute fracture or subl uxation within the thoracic spine. Paravertebral soft tissues are unremarkable. No high-grade central canal stenosis by CT technique. A few small focal indentations within the superior endplate of the m id thoracic spine vertebral bodies favor Schmorl's nodes. Dextroscoliosis of the thoracic spine. Levoscoliosis of the lumbar spine. Posterior decompression and fusion from L4 through S1 with pedicle screws and rods. The hardware appears intact. There is an old moderate compression deformity at L2 w ith associated vertebroplasty. No acute fractures identified within the lumbar spine. The visualized sacrum appears intact. IMPRESSION: No acute fractures identified within the thoracic or lumbar spine. ACT 112: Negative or not required by law. Electronically signed by: Eulogio Nguyễn M.D. 01/30/2022 7:08 PM
[2022-01-30 19:18] LABS: Albumin Globulin Ratio 1.8 (0.9-2); Albumin Level 4.1 gm/dl (3.4-5.0); BUN Creatinine Ratio 28.8 (10-20); Bilirubin,Total 0.7 mg/dl (0.2-1.0); Calcium 9.1 mg/dl (8.5-10.1); Creatinine Clr Calc Pharmacy 64.4 ml/min; Est GFR (African American) 97.5 ml/min; Est GFR (Non-African American) 84.2 ml/min; Globulin 2.3 gm/dl (2.5-4.0); Total Protein 6.4 gm/dl (6.0-8.3)
--- NOTE | 2022-01-30 19:35 | CT Scan Report ---
CHEST CT WITH CONTRAST, ABDOMEN AND PELVIS CT WITH INTRAVENOUS CONTRAST CT DOSE: HISTORY: Fall. Trauma TECHNIQUE: Multiaxial CT images of the chest, abdomen, and pelvis were performed following the intrav enous administration of contrast. A dose lowering technique was utilized adhering to the principles of ALARA. COMPARISON: Chest CT 11/23/[address] 11/23/2021. FINDINGS: Chest CT: There are acute left lateral 10th and 11th rib fractures. There are few old, healed bilater al rib fractures. Small focal indentations at the superior endplates of T6 and T8 remain unchanged. T hese may represent Schmorl's nodes or old compression deformities. Advanced degenerative changes agai n noted within the right shoulder. No pneumothorax. Chronic interstitial thickening within the lungs persist. There are patchy groundglass densities within the lungs. This could be due to air-trapping, mild congestive change, or a low-grade pneumonitis. The central airways appear patent. There is mild respiratory motion artifact. Postoperative changes again noted within the left breast. There is a lar ge hiatus hernia containing the majority of the stomach. There is a trace left pleural effusion. The heart remains mildly enlarged. No pericardial effusion. No mediastinal hematoma or lymphadenopathy. N ormal caliber thoracic aorta with no evidence for dissection. The main pulmonary arteries are patent. Abdomen/pelvis CT: No pneumoperitoneum. No pneumatosis. L4-S1 posterior decompression and fusion with pedicle screws and rods. There is normal compression deformity and vertebroplasty at L2. Mild body w all edema. Mild motion artifact results in suboptimal evaluation. Tiny fat-containing umbilical herni a. The liver, gallbladder, pancreas, spleen, and adrenal glands appear unremarkable. No hydronephrosi s. There are few small hypodense lesions within the left kidney, unchanged. No retroperitoneal lympha denopathy or hematoma. No pelvic free fluid. The bladder, uterus, and adnexa are unremarkable. Mild L 4 collapse. Moderate well-formed stool seen within the colon. Colonic diverticulosis. No evidence for acute diverticulitis. No bowel wall thickening or obstruction. IMPRESSION: 1. Acute left lateral 10th and 11th rib fractures. No pneumothorax. 2. Trace left pleural effusion. 3. No acute traumatic process within the abdomen or pelvis. 4. Additional findings as described above. ACT 112: Negative or not required by law. Electronically signed by: Eulogio Nguyễn M.D. 01/30/2022 7:33 PM
[2022-01-30] MEDS ORDERED: LIDOCAINE 1%/EPINEPHRINE 1:100,000 50 ML VIAL INFIL ONE (19:43)
[2022-01-30] MEDS ORDERED: CLINDAMYCIN 600 MG in DEXTROSE 5% 50 ML IV ONE (19:43)
--- NOTE | 2022-01-30 20:19 | XRay Report ---
XR shoulder RT min 2V routine CLINICAL HISTORY: Right shoulder pain following fall. COMPARISON: Right shoulder radiographs January 25, 2022. FINDINGS: Incidental note is made of several old right-sided rib fractures. Complete loss of the rig ht glenohumeral joint space is again noted with extensive osteophytosis and subchondral sclerosis. Os teoarthritis of the right acromioclavicular joint is noted. There is no acute fracture. Elevation of the humeral head suggests chronic rotator cuff tear. IMPRESSION: 1. No acute fracture or dislocation within the right shoulder. 2. Severe right glenohumeral joint osteoarthritis. ACT 112: Negative or not required by law. Electronically signed by: Sergey Gunn M.D. 01/30/2022 8:18 PM
--- NOTE | 2022-01-30 20:21 | XRay Report ---
XR hip LT min 2V CLINICAL HISTORY: Left hip pain following fall. COMPARISON: Pelvis radiograph January 25, 2022. FINDINGS: Incidental note is made of contrast within the bladder from recent contrast-enhanced CT. P ostoperative findings within the lumbosacral spine are partially imaged. Alignment of the left hip is anatomic. No acute fracture. Mild joint space narrowing and moderate osteophytosis of the left hip i s present. Irregularity of the left ischial tuberosity and greater trochanter left femur is chronic. IMPRESSION: No acute fracture within the left hip. ACT 112: Negative or not required by law. Electronically signed by: Sergey Gunn M.D. 01/30/2022 8:20 PM
[2022-01-30 20:25] LABS: Appearance Urine Clear (Clear); Bacteria Urine Automated Negative (Negative); Bilirubin Urine Negative (Negative); Blood Urine Negative (Negative); Color Urine Yellow; Epithelial Cell Urine Auto >30 /lpf (0-5); Glucose Urine UA Negative (Negative); Ketones Urine Negative (Negative); Leukocyte Esterase Urine 1+ (Negative); Nitrite Urine Negative (Negative); Protein Urine Negative (Negative); RBC Urine Automated 0-4 /hpf (0-4); Specific Gravity Urine 1.022 (1.000-1.030); Urobilinogen Urine Negative (Negative); pH Urine 5.5 (4.5-7.5)
[2022-01-30 20:38] LABS: Potassium 4.3 mmol/L (3.5-5.1)
--- NOTE | 2022-01-30 22:30 | History & Physical Report ---
Date of Service January 30, 2022 Assessment & Plan (1) Fall: (2) PSP (progressive supranuclear palsy): (3) GERD (gastroesophageal reflux disease): (4) Falls frequently: (5) Depression: (6) Hypothyroidism: (7) Lumbar canal stenosis: (8) Hyperlipidemia: (9) Poor balance: Plan: Kwame is an 86 year old female w/ PmHx of Progressive Supranuclear Palsy, poor balance, frequent falls, GERD, HLD, Fibromyalgia, lumbar canal stenosis admitted for fall w/ multiple facial fractures. Fall: -CT Face: L maxillary sinus fracture, nondisplaced fracture w/in medial wall of R maxillary sinus, displaced bilateral nasal bone fractures, nondisplaced L orbital floor fracture. -CT Head w/o acute intracranial abnormality. CT cervical, thoracic, lumbar spine w/o acute changes. -XR R shoulder w/o acute fracture or dislocation. XR left hip w/o acute fracture. -Ordered X-ray right hand for potential fracture of R third digit. -Most likely fall due to balance issues related to PSP. -Placed on Telemetry for heart monitoring in event this was due to underlying arrhythmia. -Consulted ENT. -Given Clindamycin in ED. Continued Clindamycin 600mg IV Q8h for meningitis prophylaxis due to sinus fractures. -MRSA swab ordered, can de-escalate if negative. Will also appreciate ENT recs. -Holding baby ASA, however patient unsure of last time she took or if stopped altogether. -Continue to monitor for signs of worsening eye pain, inability to move L eye, changes in vision. -Fall precautions in place. Frequent falls: -May require further assistance/watch at home for frequent falls. -PT/OT evaluation while in hospital. PSP: -Continue home Sinemet. Depression: -Continue home Duloxetine and escitalopram. GERD: -continue home pantoprazole 40mg BID. Hypothyroidism: -Continue home levothyroxine. HLD: -Continue home simvastatin. Lumbar Canal Stenosis: DVT Prophylaxis: Holding in setting of bleed. F/E/N/GI: NPO until ENT eval, sips of water w/ medications Code Status: DNR - intubation if necessary. Dispo: Med/Surg w/ Tele History of Present Illness Chief Complaint: Fall, multiple facial fractures Primary Care Provider: Kelly Bowman MD Kwame is an 86 year old female w/ PmHx of Progressive Supranuclear Palsy, poor balance, frequent falls, GERD, HLD, Fibromyalgia, lumbar canal stenosis who presented to the ED with a fall earlier today. [facility] and was in her apartment earlier today when she says she fell onto the hardwood floor. She did not have any dizziness or lightheadedness before the fall and says she did not lose consciousness either. She hit her left knee and fell ontop of her middle finger on her right hand as well as hitting her left face. She was on the floor for what she thinks was 30 minutes before a provider arrived to the room and called EMS who brought her to the hospital. Patient currently has mild pain at the left face as well as the right shoulder, left ribs where she fell onto last time, as well as at her right third digit at the PIP. She is unable to open her L eye due to swelling but does not complain of any pain at the eye at rest or while moving it. Patient states she has had multiple falls over the past year, thinking it to be around once every month. Patient endorses she does see PT at her facility but it is once a week. She denies any shortness of breath, issues with swallowing, changes in vision in her right eye, dizziness, lightheadedness, fevers, chills. Allergies Allergy/AdvReac Type Severity Reaction Status Date / Time nut - unspecified Allergy Severe Anaphylaxis Verified 01/30/22 19:29 Penicillins Allergy Intermediate HIVES Verified 01/30/22 19:29 Sulfa (Sulfonamide Allergy Intermediate "jaundiced Verified 01/30/22 19:29 Antibiotics) as child", HIVES codeine Allergy Mild GI SYMPTOMS Verified 01/30/22 19:29 soy Allergy Unknown Unknown Verified 01/30/22 19:29 cat dander AdvReac Severe SHORTNESS Verified 01/30/22 19:29 OF BREATH mold AdvReac Severe SHORTNESS Verified 01/30/22 19:29 OF BREATH Home Medications Medication Instructions Recorded Confirmed Type cholecalciferol (vitamin D3) 25 1,000 unit PO DAILY 06/21/18 01/30/22 History mcg (1,000 unit) capsule (Vitamin D3) ipratropium bromide 42 mcg (0.06 2 spray INTNAS BID #45 ml 09/19/20 01/30/22 Rx %) nasal spray duloxetine 60 mg capsule,delayed 60 mg PO QAM 90 Days #90 cap 04/02/21 01/30/22 Rx release (Cymbalta) benztropine 0.5 mg tablet 0.5 mg PO BID #180 tab 10/28/21 01/30/22 Rx simvastatin 20 mg tablet (Zocor) 20 mg PO HS #90 tab 10/29/21 01/30/22 Rx escitalopram oxalate 20 mg tablet 20 mg PO DAILY #90 tab 12/30/21 01/30/22 Rx pantoprazole 40 mg tablet,delayed 40 mg PO BID 90 Days #180 tab 01/08/22 01/30/22 Rx release pregabalin 200 mg capsule (Lyrica) 200 mg PO BID 90 Days #180 cap 01/14/22 01/30/22 Rx carbidopa 25 mg-levodopa 100 mg 1 tab PO DAILY 90 Days #90 tab 01/16/22 01/30/22 Rx tablet (Sinemet) levothyroxine 75 mcg tablet 75 mcg PO QAM #90 tab 01/20/22 01/30/22 Rx (Synthroid) lidocaine 4 % topical patch 1 patch TOPICAL DAILY PRN #15 ea 01/25/22 01/30/22 Rx hydrocodone 7.5 mg-acetaminophen 1 tab PO TID PRN #90 tab 01/27/22 01/30/22 Rx 325 mg tablet tapentadol 50 mg tablet,extended 50 mg PO BID #60 tab 01/27/22 01/30/22 Rx release,12 hr (Nucynta ER) aspirin 81 mg tablet,delayed 81 mg PO DAILY 01/30/22 01/30/22 History release lutein 20 mg tablet 20 mg PO Q OTHER DAY 01/30/22 01/30/22 History multivitamin 1 tab PO DAILY 01/30/22 01/30/22 History omega 9-zhi-vmp-fish oil 1,000 mg 1 cap PO DAILY 01/30/22 01/30/22 History (120 mg-180 mg) capsule (Fish Oil) zolpidem 6.25 mg tablet,extended 6.25 mg PO HS 01/30/22 01/30/22 History release,multiphase Past Med/Surg History Medical History Anxiety Bilateral lumbar radiculopathy Cardiac murmur Chronic back pain Fibromyalgia Hearing deficit Hx of breast cancer RADIATION 2000 Hyperlipidemia Hypothyroidism Lumbar canal stenosis Other abnormalities of gait and mobility Risk for falls LAST EVENT PIL 2019 Scoliosis LUMBAR AND NERVE PAIN Spinal stenosis Urinary frequency Surgical History History of colonoscopy History of dilation and curettage History of foot surgery LEFT History of tonsillectomy Hx of appendectomy Hx of bilateral breast reduction surgery DUE TO CANCER 2006 Hx of cataract surgery RIGHT AND LEFT Hx of kyphoplasty L2 Hx of lumpectomy WITH LYMPH NODE REMOVAL (LEFT) Hx of spinal fusion L4-S1 Hx of wisdom tooth extraction S/P epidural steroid injection Family History Sister Alzheimer disease Breast cancer Paget's disease Father Alzheimer disease Grandmother (Paternal) Alzheimer disease Mother Myocardial infarction Stroke syndrome Uncle Prostate cancer Denies family history of Ovarian cancer Adverse anesthesia outcome Bleeding disorder Colorectal cancer Social History Smoking Status: Never smoker Second Hand Exposure: No; Hx Alcohol Use: No Hx Substance Use: No Preferred Language: Taiwanese Communication Ability: Effective Visual Impairment: No Limitations Hearing Ability: Use of Hearing Aid Ui Engineer Required: No Beliefs That Will Affect Care: None marital status: / Current Living Situation: Alone and Personal Care Facility Current Living Situation Comment: [facility] ([facility]) current occupational status: retired How many Children do You have: 2 Feels Safe at Home: Yes Safety Concerns: Feels Safe At This Time Childhood Exposure to Second-Hand Smoke: No caffeine: Yes during the past year weight has: remained stable Dental Care, Regularly: Yes Physical Activity Frequency: Does not Exercise Seatbelt Use: always Sunscreen Use: Yes Assistive Devices: Walker Review of Systems Constitutional: as per Subjective / HPI Physical Exam Constitutional: WD/WN, vitals as above Eyes: R eye with good motion in all directions, without swelling or erythema. L eye with orbital swelling and 2-3cm linear abrasion above eyebrow. Difficult/unable to open L eye due to swelling, however mild pain with palpation of eyelids. ENMT: Left face with mild erythema and swelling. Respiratory: normal respiratory effort, lungs clear to auscultation Cardiovascular: RRR, no murmur, no edema Gastrointestinal (Abdomen): normal bowel sounds, soft, nontender, no hepatosplenomegaly Musculoskeletal: Tender to palpation at R shoulder, L knee, PIP of R third digit. Skin: ecchymosis at left lateral lower rib w/ lidocaine patch covering. Psychiatric: A+Ox3, euthymic affect Results & Data Results & Data ([facility]) Vital Signs (Past 12 Hours) Vital Signs Temp Pulse Pulse Resp BP BP Pulse Ox 01/30/22 19:45 57 L 16 131/100 94 01/30/22 19:30 60 15 149/73 H 92 01/30/22 19:15 63 18 136/63 93 01/30/22 19:00 60 22 137/64 93 01/30/22 18:57 63 22 134/68 134/68 93 01/30/22 18:10 36.7 C 70 18 148/71 H 94 Code Status & VTE Plan VTE Prophylaxis Plan VTE Prophylaxis will be ordered: Yes Supervising Physician Co-Signing Physician Notes Attending addendum: I have physically seen this patient, have supervised the medical residents activities, and agree with the H&P unless as otherwise noted. Assessment and Plan: Multiple facial fractures status post fall- As noted on CT of face CT head negative for intracranial injury. CT cervical, thoracic and lumbar spine without acute changes History of progressive supranuclear palsy and previous falls Maxillofacial surgery Dr. Orr to assess in a.m. Received clindamycin 600 mg IV from the ED, will continue every 8 hours. Of note, patient is allergic to penicillins causing hives Admit to monitored bed with neurochecks Patient will need PT/OT assessment Left lateral 10th/11th rib fractures- Acetaminophen 650 mg p.o. every 6 hours as needed mild pain or fever Add lidocaine patch if pain persistent Parkinson's/progressive supranuclear palsy/depression- Continue duloxetine, escitalopram, benztropine, tapentadol, pregabalin and carbidopa levodopa Remaining orders and notations as noted Resident Activity Tracking Resident Involvement: Resident Care Provided Care Provided: Adult [facility] (1) Fall Encounter type: initial encounter Qualified Code(s): W19.XXXA - Unspecified fall, initial encounter
[2022-01-31] MEDS ORDERED: ACETAMINOPHEN 325 MG TAB PO PRN (00:59)
[2022-01-31] MEDS ORDERED: LIDOCAINE 5% 1 PATCH TD PRN (01:18)
[2022-01-31] MEDS: HYDROCODONE/ACETAMINOPHEN 7.5/325MG TAB PO PRN ×3 (02:37→20:14)
[2022-01-31] MEDS: CLINDAMYCIN 600 MG in DEXTROSE 5% 50 ML IV SCH ×2 (06:09→14:13)
[2022-01-31] MEDS: LEVOTHYROXINE SODIUM 75 MCG TABLET PO SCH (06:10)
--- NOTE | 2022-01-31 08:27 | XRay Report ---
XR hand RT min 3V routine CLINICAL HISTORY: Fall on R 3rd digit, pain at PIP COMPARISON STUDY: None. FINDINGS: Soft tissue swelling at the PIP joint of the right middle finger. The lateral view demonstr ates a subtle nondisplaced fracture at the volar base of the middle phalanx of the right middle finge r. No dislocation. Mild to moderate osteoarthritis within the DIP and PIP joints. There is moderate t o severe osteoarthritis within the right wrist with associated chondrocalcinosis. IMPRESSION: There is a small nondisplaced fracture at the volar base of the right middle finger midd le phalanx. ACT 112: Negative or not required by law. Electronically signed by: Eulogio Nguyễn M.D. 01/31/2022 8:25 AM
[2022-01-31 09:00] LABS: Basophils # (auto) 0.02 K/uL (0-0.2); Basophils % (auto) 0.3 %; Eosinophils # (auto) 0.19 K/uL (0-0.5); Eosinophils % (auto) 3.2 %; Hematocrit (blood only) 27.5 % (37-47); Hemoglobin 9.3 g/dL (12.0-16.0); Immature Granulocytes # (auto) 0.01 K/uL (0.00-0.02); Immature Granulocytes % (auto) 0.2 %; Lymphocytes % (auto) 21.7 %; Mean Corpuscular Hemoglobin 29.9 pg (25-34); Mean Corpuscular Hgb Conc 33.8 g/dL (32-36); Mean Corpuscular Volume 88.4 fL (80-100); Mean Platelet Volume 11.5 fL (7.4-10.4); Monocytes # (auto) 1.07 K/uL (0.11-0.59); Monocytes % (auto) 17.8 %; Neutrophils # (auto) 3.41 K/uL (1.4-6.5); Neutrophils % (auto) 56.8 %; Platelet Count 184 K/uL (130-400); RDW Coefficient of Variation 14.3 % (11.5-14.5); RDW Standard Deviation 46.8 fL (36.4-46.3); Red Blood Count 3.11 M/uL (4.2-5.4)
[2022-01-31] MEDS: ESCITALOPRAM OXALATE 20 MG TAB PO SCH (09:02)
[2022-01-31] MEDS: CARBIDOPA/LEVODOPA 25/100MG TAB PO SCH (09:02)
[2022-01-31] MEDS: PANTOprazole 40 MG TAB PO SCH ×2 (09:02→20:14)
[2022-01-31] MEDS: DULoxetine HCL 60 MG CAP PO SCH (09:02)
[2022-01-31] MEDS: BENZTROPINE MESYLATE 0.5 MG TAB PO SCH ×2 (09:02→20:13)
[2022-01-31] MEDS: PREGABALIN 100 MG CAP PO SCH ×2 (09:04→20:16)
[2022-01-31] MEDS: TAPENTADOL HCL ER 50 MG TABCR PO SCH ×2 (09:04→20:14)
[2022-01-31 10:06] LABS: BUN Creatinine Ratio 21.4 (10-20); Calcium 8.7 mg/dl (8.5-10.1); Creatinine Clr Calc Pharmacy 60.9 ml/min; Est GFR (African American) 99.2 ml/min; Est GFR (Non-African American) 85.6 ml/min
--- NOTE | 2022-01-31 10:37 | Hospitalist Progress Note ---
Date of Service January 31, 2022 Assessment & Plan (1) Fall: Plan: Kwame is an 86 year old female w/ PmHx of Progressive Supranuclear Palsy, poor balance, frequent falls, GERD, HLD, Fibromyalgia, lumbar canal stenosis admitted for fall w/ multiple facial fractures. Fall: -CT Face: L maxillary sinus fracture, nondisplaced fracture w/in medial wall of R maxillary sinus, displaced bilateral nasal bone fractures, nondisplaced L orbital floor fracture. -CT Head w/o acute intracranial abnormality. CT cervical, thoracic, lumbar spine w/o acute changes. -XR R shoulder w/o acute fracture or dislocation. XR left hip w/o acute fracture. -Ordered X-ray right hand for potential fracture of R third digit. -Most likely fall due to balance issues related to PSP. -Placed on Telemetry for heart monitoring in event this was due to underlying arrhythmia. -Consulted ENT. -Given Clindamycin in ED. Continued Clindamycin 600mg IV Q8h for meningitis prophylaxis due to sinus fractures. -MRSA swab ordered, can de-escalate if negative. Will also appreciate ENT recs. -Holding baby ASA, however patient unsure of last time she took or if stopped altogether. -Continue to monitor for signs of worsening eye pain, inability to move L eye, changes in vision. -Fall precautions in place. Frequent falls: -May require further assistance/watch at home for frequent falls. -PT/OT evaluation while in hospital. PSP: -Continue home Sinemet. Depression: -Continue home Duloxetine and escitalopram. GERD: -continue home pantoprazole 40mg BID. Hypothyroidism: -Continue home levothyroxine. HLD: -Continue home simvastatin. Lumbar Canal Stenosis: DVT Prophylaxis: Holding in setting of bleed. F/E/N/GI: NPO until ENT eval, sips of water w/ medications Code Status: DNR - intubation if necessary. Dispo: Med/Surg w/ Tele (2) PSP (progressive supranuclear palsy): (3) GERD (gastroesophageal reflux disease): (4) Falls frequently: (5) Depression: (6) Hypothyroidism: (7) Lumbar canal stenosis: (8) Hyperlipidemia: (9) Poor balance: Admission and Anticipated Discharge Date Admission Date: January 30, 2022 Supervising Physician Co-Signing Physician Notes I personally examined the patient and verified all garcia points of history and exam, discussed case, and agree with decision making with Dr Chavez son present at bedside as well. pain reasonable. son already has pt set up for [facility] for after discharge. vitals noted nad face diffusely bruised, L eye swollen but to the best i can tell EOMI. no facial erythema or open wounds. PSP, weakness, fall, possible age related osteoporosis w current traumatic and possibly pathological fractures of multiple sites including facial bones, nondisplaced closed fracture of middle phalanx of right middle finger, multiple fractures of ribs - left side- ribs 06/17, as well as laceration of left forehead (approximated with simple suturing) - pain control, maxillofacial eval, time. agree w son re SNF after discharge for more therapy and safer environment otherwise as above Subjective Patient is resting in bed, awake. She corroborates the majority of the HPI from admission, save for her level of consciousness. Patient states that she cannot recall now if she remained conscious the entire time or if she did lose consciousness for a period. Currently, she reports some fatigue, and some dizziness worsened by head turning. Otherwise, she denies headache, pain with eye movement, diplopia, or dental or jaw pain. Review of Systems Review of Systems: All systems reviewed & are unremarkable except as noted in HPI & below Physical Exam Physical Exam: General: Patient is AAO x3 and in no acute distress. HEENT: Face is diffusely bruised and severely swollen, left >right. Left eye swollen shut. Right eye open, no scleral or conjunctival injection. Right eye round and reactive to light. EOM intact on the right. Unable to open left eye to assess. Swollen philtrum. Patient has loose premolar/molar in the upper row on the right. CV: Regular rate and rhythm. Normal S1 and S2. No murmurs gallops or rubs. No pedal edema. Pulmonary: Lungs are clear to auscultation bilaterally. No crackles, rhonchi, or wheezes. Abdomen: Soft, nondistended abdomen. No bruits heard on auscultation. No tenderness to deep palpation. No guarding or rebound. MSK: Full ROM at all joints. Equal 5/5 strength bilaterally. Neuro: Cranial nerves V and VII intact. Normal kehcsh-mm-liwy test. Normal gait. No motor or sensory deficits. Psych: Congruent mood and affect. Results & Data Results & Data ([facility]) Vital Signs (Past 12 Hours) Vital Signs Temp Pulse Pulse Resp BP Pulse Ox Pulse Ox 01/31/22 08:27 73 01/31/22 07:16 36.9 C 69 16 101/65 90 01/31/22 02:02 58 L 01/31/22 00:59 36.4 C L 59 L 16 134/77 96 96 01/31/22 00:54 18 96 Resident Activity Tracking Resident Involvement: Resident Care Provided Care Provided: Adult Hospital Medicine (1) Fall Encounter type: initial encounter Qualified Code(s): W19.XXXA - Unspecified fall, initial encounter
--- NOTE | 2022-01-31 15:39 | Electrocardiogram Report ---
Test Reason : Blood Pressure : / mmHG Vent. Rate : 062 BPM Atrial Rate : 062 BPM P-R Int : 146 ms QRS Dur : 086 ms QT Int : 416 ms P-R-T Axes : 033 -16 -14 degrees QTc Int : 422 ms Poor data quality, interpretation may be adversely affected Normal sinus rhythm Poor R wave progression, consider anterior NM vs. lead placement vs. LVH Abnormal ECG When compared with ECG of 08-SEP-2021 15:11, No significant change was found Confirmed by Dave Tom ([id number]) on 01/31/2022 3:38:42 PM Referred By: REFERRED SELF Confirmed By:Dave Tom
--- NOTE | 2022-01-31 17:26 | Orthopedic Consultation ---
Date of Consultation January 31, 2022 Assessment & Plan (1) Avulsion fracture of middle phalanx of finger: X-rays reviewed. Patient has a very tiny avulsion fracture of the middle phalanx of her right third finger. No surgical intervention at this time. Plan for immobilization with markos taping the finger to her fourth finger. 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 She states that she used to get injections of the right shoulder by Dr. Samayoa that used to last for some time. With talking to the patient and her son, she has been advised likely not to have surgery for replacement on the shoulder. She follows with Dr. Borja with the [facility] group. She will continue to follow with him for her shoulder needs as an outpatient. She can have ice to the right hand to help with the discomfort of her finger. Pain management as per medicine service. If she would like, she can follow-up with Dr. Gee or Dr Saavedra for any further trouble with her finger arises. No further treatment necessary at this time. Thank you for this consult. History of Present Illness Reason for Consultation: Right third middle phalanx avulsion fracture Attending Physician: Félix Gonzalez, DO History of Present Illness Patient is a 86 year old female w/ PmHx of Progressive Supranuclear Palsy, poor balance, frequent falls, GERD, HLD, Fibromyalgia, lumbar canal stenosis who presented to the ED after a fall at her residence at the [facility]. Patient has a history of frequent falls and at times can have lightheadedness and dizziness causing them. She apparently was not having any lightheadedness or dizziness at the time however she did fall onto her hardwood floor. She landed on her knee and her outstretched hand as well as also onto her face. She apparently had been on the floor for approximate 30 minutes before a care provider came in to see her. Found her and called EMS. She was brought to the hospital and admitted for further care. She had multiple x-rays and a an x-ray of the right hand did reveal a small avulsion fracture of the middle phalanx of the right third finger. No other fractures were identified and we were asked to see her for her avulsion fracture. Currently she is lying in bed awake and alert. She states that the finger feels a little bit better but she continues to have some discomfort. Allergies Allergy/AdvReac Type Severity Reaction Status Date / Time nut - unspecified Allergy Severe Anaphylaxis Verified 01/30/22 19:29 Penicillins Allergy Intermediate HIVES Verified 01/30/22 19:29 Sulfa (Sulfonamide Allergy Intermediate "jaundiced Verified 01/30/22 19:29 Antibiotics) as child", HIVES codeine Allergy Mild GI SYMPTOMS Verified 01/30/22 19:29 soy Allergy Unknown Unknown Verified 01/30/22 19:29 cat dander AdvReac Severe SHORTNESS Verified 01/30/22 19:29 OF BREATH mold AdvReac Severe SHORTNESS Verified 01/30/22 19:29 OF BREATH Home Medications Medication Instructions Recorded Confirmed Type cholecalciferol (vitamin D3) 25 1,000 unit PO DAILY 06/21/18 01/30/22 History mcg (1,000 unit) capsule (Vitamin D3) ipratropium bromide 42 mcg (0.06 2 spray INTNAS BID #45 ml 09/19/20 01/30/22 Rx %) nasal spray duloxetine 60 mg capsule,delayed 60 mg PO QAM 90 Days #90 cap 04/02/21 01/30/22 Rx release (Cymbalta) benztropine 0.5 mg tablet 0.5 mg PO BID #180 tab 10/28/21 01/30/22 Rx simvastatin 20 mg tablet (Zocor) 20 mg PO HS #90 tab 10/29/21 01/30/22 Rx escitalopram oxalate 20 mg tablet 20 mg PO DAILY #90 tab 12/30/21 01/30/22 Rx pantoprazole 40 mg tablet,delayed 40 mg PO BID 90 Days #180 tab 01/08/22 01/30/22 Rx release pregabalin 200 mg capsule (Lyrica) 200 mg PO BID 90 Days #180 cap 01/14/22 01/30/22 Rx carbidopa 25 mg-levodopa 100 mg 1 tab PO DAILY 90 Days #90 tab 01/16/22 01/30/22 Rx tablet (Sinemet) levothyroxine 75 mcg tablet 75 mcg PO QAM #90 tab 01/20/22 01/30/22 Rx (Synthroid) lidocaine 4 % topical patch 1 patch TOPICAL DAILY PRN #15 ea 01/25/22 01/30/22 Rx hydrocodone 7.5 mg-acetaminophen 1 tab PO TID PRN #90 tab 01/27/22 01/30/22 Rx 325 mg tablet tapentadol 50 mg tablet,extended 50 mg PO BID #60 tab 01/27/22 01/30/22 Rx release,12 hr (Nucynta ER) aspirin 81 mg tablet,delayed 81 mg PO DAILY 01/30/22 01/30/22 History release lutein 20 mg tablet 20 mg PO Q OTHER DAY 01/30/22 01/30/22 History multivitamin 1 tab PO DAILY 01/30/22 01/30/22 History omega 7-hvf-ioi-fish oil 1,000 mg 1 cap PO DAILY 01/30/22 01/30/22 History (120 mg-180 mg) capsule (Fish Oil) zolpidem 6.25 mg tablet,extended 6.25 mg PO HS 01/30/22 01/30/22 History release,multiphase Patient History Medical History Anxiety Bilateral lumbar radiculopathy Cardiac murmur Chronic back pain Fibromyalgia Hearing deficit Hx of breast cancer RADIATION 2000 Hyperlipidemia Hypothyroidism Lumbar canal stenosis Other abnormalities of gait and mobility Risk for falls LAST EVENT ARPIL 2019 Scoliosis LUMBAR AND NERVE PAIN Spinal stenosis Urinary frequency Surgical History History of colonoscopy History of dilation and curettage History of foot surgery LEFT History of tonsillectomy Hx of appendectomy Hx of bilateral breast reduction surgery DUE TO CANCER 2006 Hx of cataract surgery RIGHT AND LEFT Hx of kyphoplasty L2 Hx of lumpectomy WITH LYMPH NODE REMOVAL (LEFT) Hx of spinal fusion L4-S1 Hx of wisdom tooth extraction S/P epidural steroid injection Family History Sister Alzheimer disease Breast cancer Paget's disease Father Alzheimer disease Grandmother (Paternal) Alzheimer disease Mother Myocardial infarction Stroke syndrome Uncle Prostate cancer Denies family history of Ovarian cancer Adverse anesthesia outcome Bleeding disorder Colorectal cancer Social History Smoking Status: Never smoker Second Hand Exposure: No; Hx Alcohol Use: No Hx Substance Use: No Preferred Language: Romanian Communication Ability: Effective Visual Impairment: No Limitations Hearing Ability: Use of Hearing Aid Safety Deposit Clerk Required: No Beliefs That Will Affect Care: None marital status: / Current Living Situation: Alone and Personal Care Facility Current Living Situation Comment: [facility] current occupational status: retired How many Children do You have: 2 Feels Safe at Home: Yes Safety Concerns: Feels Safe At This Time Childhood Exposure to Second-Hand Smoke: No caffeine: Yes during the past year weight has: remained stable Dental Care, Regularly: Yes Physical Activity Frequency: Does not Exercise Seatbelt Use: always Sunscreen Use: Yes Assistive Devices: Walker Physical Exam Physical Exam: On examination of her right hand, she has some mild swelling of the right middle finger compared to the other fingers. She is able to take her middle finger through gentle range of motion with mild discomfort. She has most of her pain on palpation over the volar aspect of the middle phalanx at the PIP joint. I cannot appreciate any crepitus at this time. She denies any numbness or tingling in the fingers and cap refill is less than 2 seconds. She was having some mild wrist discomfort however she is able to take her wrist through range of motion without difficulty with only mild discomfort at this time. No overt swelling or erythema noted at this time. Results & Data ([facility]) Vital Signs (Past 12 Hours) Vital Signs Temp Pulse Pulse Resp BP Pulse Ox 01/31/22 16:28 60 01/31/22 15:20 36.9 C 70 18 102/63 93 01/31/22 08:27 73 01/31/22 07:16 36.9 C 69 16 101/65 90 Diagnostic Findings Patient:ABDIRAHMAN GALLAGHER Admit Date:01/30/22 MR#:[id number] Address1:[address] [place] [address] [id number] Acct ID:[id number] Address2:[facility] Date:1935 [facility] Zip:[place] [address] Age:86 Location:2N Sex:F Room/Bed:N287-2 Att Phy:Félix Gonzalez D.O. Diagnosis:FALL Chana Phy:Kelly Bowman MD Service Date:01/31/22 Fam Phy: Interpreting [facility] Phy:Stevan Burnette DO Ordering Phy:Stevan Burnette DO cc: ~ XR hand RT min 3V routine CLINICAL HISTORY: Fall on R 3rd digit, pain at PIP COMPARISON STUDY: None. FINDINGS: Soft tissue swelling at the PIP joint of the right middle finger. The lateral view demonstrates a subtle nondisplaced fracture at the volar base of the middle phalanx of the right middle finger. No dislocation. Mild to moderate osteoarthritis within the DIP and PIP joints. 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 IMPRESSION: There is a small nondisplaced fracture at the volar base of the right middle finger middle phalanx.
--- NOTE | 2022-01-31 17:41 | Billing Data ---
Date of Service January 31, 2022 Coding Level of Care Code 21688 Subseq Hosp Care Lvl 3
[2022-01-31] MEDS ORDERED: NON-FORMULARY MEDICATION (Lutein 20 mg Tablet) PO SCH (18:03)
[2022-01-31] MEDS: SIMVASTATIN 20 MG TAB PO SCH (20:13)
[2022-01-31] MEDS: ZOLPIDEM TARTRATE 5 MG TAB PO SCH (20:21)
--- NOTE | 2022-01-31 21:28 | Oral/Maxillofacial Consult ---
Date of Consultation January 31, 2022 Assessment & Plan (1) Fall: (2) Multiple facial bone fractures: (3) Poor balance: (4) Nasal bone fracture: (5) Maxillary sinus fracture: History of Present Illness Reason for Consultation: facial fractures Attending Physician: Félix Gonzalez DO History of Present Illness ORAL MAXILLOFACIAL EMERGENCY EXAM Assessment & Plan (1) Fall: (2) PSP (progressive supranuclear palsy): (3) GERD (gastroesophageal reflux disease): (4) Falls frequently: (5) Depression: (6) Hypothyroidism: (7) Lumbar canal stenosis: (8) Hyperlipidemia: (9) Poor balance: Plan: Kwame is an 86 year old female w/ Hx of Progressive Supranuclear Palsy, poor balance, frequent falls, GERD, HLD, Fibromyalgia, lumbar canal stenosis admitted for fall w/ multiple facial fractures. Fall: -CT Face: L maxillary sinus fracture, nondisplaced fracture w/in medial wall of R maxillary sinus, displaced bilateral nasal bone fractures, nondisplaced L orbital floor fracture. -CT Head w/o acute intracranial abnormality. CT cervical, thoracic, lumbar spine w/o acute changes. -XR R shoulder w/o acute fracture or dislocation. XR left hip w/o acute fracture. -Ordered X-ray right hand for potential fracture of R third digit. -Most likely fall due to balance issues related to PSP. -Placed on Telemetry for heart monitoring in event this was due to underlying arrhythmia. -Consulted ENT. -Given Clindamycin in ED. Continued Clindamycin 600mg IV Q8h for meningitis prophylaxis due to sinus fractures. -MRSA swab ordered, can de-escalate if negative. Will also appreciate ENT recs. -Holding baby ASA, however patient unsure of last time she took or if stopped altogether. -Continue to monitor for signs of worsening eye pain, inability to move L eye, changes in vision. -Fall precautions in place. Frequent falls: -May require further assistance/watch at home for frequent falls. -PT/OT evaluation while in hospital. PSP: -Continue home Sinemet. Depression: -Continue home Duloxetine and escitalopram. GERD: -continue home pantoprazole 40mg BID. Hypothyroidism: -Continue home levothyroxine. HLD: -Continue home simvastatin. Lumbar Canal Stenosis: DVT Prophylaxis: Holding in setting of bleed. F/E/N/GI: NPO until ENT eval, sips of water w/ medications Code Status: DNR - intubation if necessary. Dispo: Med/Surg w/ Tele History of Present Illness Chief Complaint: Fall, multiple facial fractures Primary Care Provider: Kelly Bowman MD Kwame is an 86 year old female w/ PmHx of Progressive Supranuclear Palsy, poor balance, frequent falls, GERD, HLD, Fibromyalgia, lumbar canal stenosis who presented to the ED with a fall earlier today. Patient lives at the [facility] and was in her apartment earlier today when she says she fell onto the hardwood floor. She did not have any dizziness or lightheadedness before the fall and says she did not lose consciousness either. She hit her left knee and fell on top of her middle finger on her right hand as well as hitting her left face. She was on the floor for what she thinks was 30 minutes before a provider arrived to the room and called EMS who brought her to the hospital. Patient currently has mild pain at the left face as well as the right shoulder, left ribs where she fell onto last time, as well as at her right third digit at the PIP. She is unable to open her L eye due to swelling but does not complain of any pain at the eye at rest or while moving it. Patient states she has had multiple falls over the past year, thinking it to be around once every month. Patient endorses she does see PT at her facility but it is once a week. She denies any shortness of breath, issues with swallowing, changes in vision in her right eye, dizziness, lightheadedness, fevers, chills. HISTORY: Facial injury. Trauma TECHNIQUE: Multiaxial CT images of the maxillofacial region were performed and reformatted in the coronal plane without the use of contrast. A dose lowering technique was utilized adhering to the principles of ALARA. COMPARISON: None. FINDINGS: The visualized cervical spine, skull base, mandible, zygomatic arches, lamina papyracea, and pterygoid plates are intact. There are depressed/displaced bilateral nasal bone fractures. Hemorrhage within the maxillary sinuses. Depressed comminuted fractures involving the anterior wall of the left maxillary sinus. These demonstrate up to 7 mm of depression. Nondisplaced fracture within the posterior wall of the left maxillary sinus and medial wall the left m axillary sinus. Nondisplaced fracture within the left orbital floor with adjacent trace extraconal hemorrhage.. Left facial and periorbital soft tissue hematoma. The globes and retrobulbar fat are intact. Nondisplaced fracture within the medial wall the right maxillary sinus. IMPRESSION: 1. Left maxillary sinus fractures as described above. insignificant No treatment needed 2. Depressed/displaced bilateral nasal bone fractures. may be old in nature from nasal fx 7 years ago. 3. Nondisplaced left orbital floor fractur e. no entrapment, I will finalize this once swelling goes down 4. Nondisplaced fracture within the medial wall of the right maxillary sinus-------should not require any treatment . Patient was referred for evaluation of nasal trauma, sinus trauma resulting in nasal and sinus fractures.. The injury happened on ---January 31 AM in her apartment CC--left facial swelling, ecchymosis of the left eye, bruising of the cheek, nose area. All the fractures are insignificant and will heal on there own w/o any surgical intervention. In questioning Kwame she and her son informed me that she fractured her nose about 5-7 years ago and never sought treatment. Never had any nasal congestion or problems with her nose. The nasal fracture that are present can indeed be old fractures. Nasal exam-septum midline, minimal hyperemic mucosa, minimal congestion, good air flow, no bleeding, The right side is out while left side depressed=cosmetic deformity--could be old from last nasal fracture. Plan May have diet as tolerated. May D/C once deemed medically stable to be transferred. The sinus, infraorbital floor fracture are non displaced and no treatment needed. The nasal fracture may very well be an old fracture--best to allow swelling to go down and evaluate on the follow up visit which is 4 PM on February 06. May be transferred back to her facility or a higher level of care as per hospital medicine and family. Hopefully once the swelling subsides I will see no function problems just cosmetic changes due to recent trauma. The family already informed me if just cosmetic w/o any functional issues they are requesting no surgical treatment. I will finalize my treatment plan based on patient needs and family requests. I will get a much better idea of the effects of the fall once the swelling decreases. I explained this with her son and understanding was expressed. OFFICE FOLLOW UP Thursday at 4 pm RTC as needed Allergies Allergy/AdvReac Type Severity Reaction Status Date / Time nut - unspecified Allergy Severe Anaphylaxis Verified 01/30/22 19:29 Penicillins Allergy Intermediate HIVES Verified 01/30/22 19:29 Sulfa (Sulfonamide Allergy Intermediate "jaundiced Verified 01/30/22 19:29 Antibiotics) as child", HIVES codeine Allergy Mild GI SYMPTOMS Verified 01/30/22 19:29 soy Allergy Unknown Unknown Verified 01/30/22 19:29 cat dander AdvReac Severe SHORTNESS Verified 01/30/22 19:29 OF BREATH mold AdvReac Severe SHORTNESS Verified 01/30/22 19:29 OF BREATH Home Medications Medication Instructions Recorded Confirmed Type cholecalciferol (vitamin D3) 25 1,000 unit PO DAILY 06/21/18 01/30/22 History mcg (1,000 unit) capsule (Vitamin D3) ipratropium bromide 42 mcg (0.06 2 spray INTNAS BID #45 ml 09/19/20 01/30/22 Rx %) nasal spray duloxetine 60 mg capsule,delayed 60 mg PO QAM 90 Days #90 cap 04/02/21 01/30/22 Rx release (Cymbalta) benztropine 0.5 mg tablet 0.5 mg PO BID #180 tab 10/28/21 01/30/22 Rx simvastatin 20 mg tablet (Zocor) 20 mg PO HS #90 tab 10/29/21 01/30/22 Rx escitalopram oxalate 20 mg tablet 20 mg PO DAILY #90 tab 12/30/21 01/30/22 Rx pantoprazole 40 mg tablet,delayed 40 mg PO BID 90 Days #180 tab 01/08/22 01/30/22 Rx release pregabalin 200 mg capsule (Lyrica) 200 mg PO BID 90 Days #180 cap 01/14/22 01/30/22 Rx carbidopa 25 mg-levodopa 100 mg 1 tab PO DAILY 90 Days #90 tab 01/16/22 01/30/22 Rx tablet (Sinemet) levothyroxine 75 mcg tablet 75 mcg PO QAM #90 tab 01/20/22 01/30/22 Rx (Synthroid) lidocaine 4 % topical patch 1 patch TOPICAL DAILY PRN #15 ea 01/25/22 01/30/22 Rx hydrocodone 7.5 mg-acetaminophen 1 tab PO TID PRN #90 tab 01/27/22 01/30/22 Rx 325 mg tablet tapentadol 50 mg tablet,extended 50 mg PO BID #60 tab 01/27/22 01/30/22 Rx release,12 hr (Nucynta ER) aspirin 81 mg tablet,delayed 81 mg PO DAILY 01/30/22 01/30/22 History release lutein 20 mg tablet 20 mg PO Q OTHER DAY 01/30/22 01/30/22 History multivitamin 1 tab PO DAILY 01/30/22 01/30/22 History omega 1-cnr-pmw-fish oil 1,000 mg 1 cap PO DAILY 01/30/22 01/30/22 History (120 mg-180 mg) capsule (Fish Oil) zolpidem 6.25 mg tablet,extended 6.25 mg PO HS 01/30/22 01/30/22 History release,multiphase Patient History Medical History Anxiety Bilateral lumbar radiculopathy Cardiac murmur Chronic back pain Fibromyalgia Hearing deficit Hx of breast cancer RADIATION 2000 Hyperlipidemia Hypothyroidism Lumbar canal stenosis Other abnormalities of gait and mobility Risk for falls LAST EVENT ARPIL 2019 Scoliosis LUMBAR AND NERVE PAIN Spinal stenosis Urinary frequency Surgical History History of colonoscopy History of dilation and curettage History of foot surgery LEFT History of tonsillectomy Hx of appendectomy Hx of bilateral breast reduction surgery DUE TO CANCER 2006 Hx of cataract surgery RIGHT AND LEFT Hx of kyphoplasty L2 Hx of lumpectomy WITH LYMPH NODE REMOVAL (LEFT) Hx of spinal fusion L4-S1 Hx of wisdom tooth extraction S/P epidural steroid injection Family History Sister Alzheimer disease Breast cancer Paget's disease Father Alzheimer disease Grandmother (Paternal) Alzheimer disease Mother Myocardial infarction Stroke syndrome Uncle Prostate cancer Denies family history of Ovarian cancer Adverse anesthesia outcome Bleeding disorder Colorectal cancer Social History Smoking Status: Never smoker Second Hand Exposure: No; Hx Alcohol Use: No Hx Substance Use: No Preferred Language: Cuban Communication Ability: Effective Visual Impairment: No Limitations Hearing Ability: Use of Hearing Aid Podiatric Medicine Doctor Required: No Beliefs That Will Affect Care: None marital status: / Current Living Situation: Alone and Personal Care Facility Current Living Situation Comment: [facility] current occupational status: retired How many Children do You have: 2 Feels Safe at Home: Yes Safety Concerns: Feels Safe At This Time Childhood Exposure to Second-Hand Smoke: No caffeine: Yes during the past year weight has: remained stable Dental Care, Regularly: Yes Physical Activity Frequency: Does not Exercise Seatbelt Use: always Sunscreen Use: Yes Assistive Devices: Walker Results & Data ([facility]) Vital Signs (Past 12 Hours) Vital Signs Temp Pulse Pulse Resp BP Pulse Ox 01/31/22 18:26 36.9 C 64 18 104/54 L 95 01/31/22 16:28 60 01/31/22 15:20 36.9 C 70 18 102/63 93 PG Care Time/CCT Total # of Minutes Spent Total Time Spent with Patient: Total time spent is greater than 50% in coordination of care (as documented) at patient's floor/unit and/or counseling patient: Coding Level of Care Code 34692 Initial Inpt Care Lvl 3 Diagnoses Fall W19.XXXA Encounter type: initial encounter Multiple facial bone fractures S02.92XA Encounter type: initial encounter Poor balance R26.89 Nasal bone fracture S02.2XXA Maxillary sinus fracture S02.401A (1) Fall Encounter type: initial encounter Qualified Code(s): W19.XXXA - Unspecified fall, initial encounter (2) Multiple facial bone fractures Encounter type: initial encounter
--- NOTE | 2022-01-31 23:54 | Billing Data ---
Date of Service January 31, 2022 Coding Level of Care Code 79643 Initial Inpt Care Lvl 3
[2022-02-01] MEDS: LEVOTHYROXINE SODIUM 75 MCG TABLET PO SCH (04:54)
--- NOTE | 2022-02-01 07:32 | Hospitalist Progress Note ---
Date of Service February 01, 2022 Assessment & Plan (1) Fall: Plan: Kwame is an 86 year old female w/ PmHx of Progressive Supranuclear Palsy, poor balance, frequent falls, GERD, HLD, Fibromyalgia, lumbar canal stenosis admitted for fall w/ multiple facial fractures. Fall: -CT Face: L maxillary sinus fracture, nondisplaced fracture w/in medial wall of R maxillary sinus, displaced bilateral nasal bone fractures, nondisplaced L orbital floor fracture. -CT Head w/o acute intracranial abnormality. CT cervical, thoracic, lumbar spine w/o acute changes. -XR R shoulder w/o acute fracture or dislocation. XR left hip w/o acute fracture. -Ortho consulted for fall on R middle finger - markos taped. -Most likely fall due to balance issues related to PSP. -Placed on Telemetry for heart monitoring in event this was due to underlying arrhythmia. -Consulted ENT. -Can follow up outpatient for re-evaluation of nasal fracture to allow for swelling to go down. Patient has appointment February 06 at 4PM. -Given Clindamycin in ED and day 1 of admission. Stopped due to low risk for infection given closed fractures. -Holding baby ASA, however patient unsure of last time she took or if stopped altogether. -Continue to monitor for signs of worsening eye pain, inability to move L eye, changes in vision. -Fall precautions in place. Frequent falls: -May require further assistance/watch at home for frequent falls. -PT/OT recommend inpatient rehab at [facility] (patient live sat [facility]). PSP: -Continue home Sinemet. Depression: -Continue home Duloxetine and escitalopram. GERD: -continue home pantoprazole 40mg BID. Hypothyroidism: -Continue home levothyroxine. HLD: -Continue home simvastatin. DVT Prophylaxis: Holding in setting of bleed. F/E/N/GI: Full liquid diet. Code Status: DNR - intubation if necessary. Dispo: Med/Surg w/ Tele. Ultimately d/c to [facility] for inpatient rehab. (2) PSP (progressive supranuclear palsy): (3) GERD (gastroesophageal reflux disease): (4) Falls frequently: (5) Depression: (6) Hypothyroidism: (7) Lumbar canal stenosis: (8) Hyperlipidemia: (9) Poor balance: Admission and Anticipated Discharge Date Admission Date: January 30, 2022 Supervising Physician Co-Signing Physician Notes I personally examined the patient and verified all garcia points of history and exam, discussed case, and agree with decision making with Dr Vasile garcia reasonable. would [facility]. eating ok. vitals noted nad face diffusely bruised, L eye swollen but to the best i can tell EOMI. no facial erythema or open wounds. PSP, weakness, fall, possible age related osteoporosis w current traumatic and possibly pathological fractures of multiple sites including facial bones, nondisplaced closed fracture of middle phalanx of right middle finger, multiple fractures of ribs - left side- ribs 06/17, as well as laceration of left forehead (approximated with simple suturing) - pain control, maxillofacial eval, time. snf once they are able to accept her. otherwise as above Subjective No overnight events for patient. Patient feeling well this morning and eating without issue. Denies any fevers, chills, shortness of breath, chest pain. Discussed course with patient and need for inpatient rehab along with follow up with ENT for nasal fracture. Review of Systems Constitutional: as per Subjective / HPI Physical Exam Constitutional: WD/WN, vitals as above Eyes: L eye with decreased swelling compared to admission. Patient able to open L eye enough for pupil to be visible. L eye without any movement defects or palsy noted. R eye without issue. Respiratory: normal respiratory effort, lungs clear to auscultation Cardiovascular: RRR, no murmur, no edema Gastrointestinal (Abdomen): normal bowel sounds, soft, nontender, no hepatosplenomegaly Skin: Ecchymosis surrounding L eye, mild facial swelling on the left, decreased in size since admission. Abrasion above L eyebrow healed, not bleeding. Psychiatric: A+Ox3, euthymic affect Results & Data Results & Data ([facility]) Vital Signs (Past 12 Hours) Vital Signs Temp Pulse Resp BP Pulse Ox 01/31/22 22:46 36.5 C 66 20 102/55 L 91 Resident Activity Tracking Resident Involvement: Resident Care Provided Care Provided: Adult Hospital Medicine (1) Fall Encounter type: initial encounter Qualified Code(s): W19.XXXA - Unspecified fall, initial encounter
[2022-02-01] MEDS: PREGABALIN 100 MG CAP PO SCH ×2 (08:14→20:25)
[2022-02-01] MEDS: TAPENTADOL HCL ER 50 MG TABCR PO SCH ×2 (08:14→20:26)
[2022-02-01] MEDS: DULoxetine HCL 60 MG CAP PO SCH (08:15)
[2022-02-01] MEDS: MULTIVITAMIN TAB PO SCH (08:15)
[2022-02-01] MEDS: CHOLECALCIFEROL 1,000 UNITS 25 MCG TAB PO SCH (08:15)
[2022-02-01] MEDS: CARBIDOPA/LEVODOPA 25/100MG TAB PO SCH (08:15)
[2022-02-01] MEDS: OMEGA-3 (PURIFIED FISH OIL) 1 GM CAP PO SCH (08:15)
[2022-02-01] MEDS: ESCITALOPRAM OXALATE 20 MG TAB PO SCH (08:15)
[2022-02-01] MEDS: PANTOprazole 40 MG TAB PO SCH ×2 (08:15→20:25)
[2022-02-01] MEDS: BENZTROPINE MESYLATE 0.5 MG TAB PO SCH ×2 (08:15→20:25)
[2022-02-01 10:26] LABS: Basophils # (auto) 0.03 K/uL (0-0.2); Basophils % (auto) 0.3 %; Eosinophils # (auto) 0.11 K/uL (0-0.5); Eosinophils % (auto) 1.1 %; Hemoglobin 10.1 g/dL (12.0-16.0); Immature Granulocytes # (auto) 0.02 K/uL (0.00-0.02); Immature Granulocytes % (auto) 0.2 %; Lymphocytes # (auto) 0.88 K/uL (1.2-3.4); Lymphocytes % (auto) 8.8 %; Mean Corpuscular Hemoglobin 29.5 pg (25-34); Mean Corpuscular Hgb Conc 33.7 g/dL (32-36); Mean Corpuscular Volume 87.7 fL (80-100); Mean Platelet Volume 11.2 fL (7.4-10.4); Monocytes # (auto) 0.87 K/uL (0.11-0.59); Monocytes % (auto) 8.7 %; Neutrophils # (auto) 8.09 K/uL (1.4-6.5); Neutrophils % (auto) 80.9 %; Platelet Count 209 K/uL (130-400); RDW Coefficient of Variation 14.2 % (11.5-14.5); RDW Standard Deviation 45.7 fL (36.4-46.3); Red Blood Count 3.42 M/uL (4.2-5.4)
[2022-02-01 10:45] LABS: BUN Creatinine Ratio 15.7 (10-20); Calcium 9.1 mg/dl (8.5-10.1); Creatinine Clr Calc Pharmacy 67.3 ml/min; Est GFR (African American) 102.3 ml/min; Est GFR (Non-African American) 88.3 ml/min
--- NOTE | 2022-02-01 17:04 | Billing Data ---
Date of Service February 01, 2022 Coding Level of Care Code 25420 Subseq Hosp Care Lvl 2
[2022-02-01] MEDS: HYDROCODONE/ACETAMINOPHEN 7.5/325MG TAB PO PRN (20:26)
[2022-02-01] MEDS: SIMVASTATIN 20 MG TAB PO SCH (20:26)
[2022-02-01] MEDS: ZOLPIDEM TARTRATE 5 MG TAB PO SCH (23:00)
[2022-02-02] MEDS: LEVOTHYROXINE SODIUM 75 MCG TABLET PO SCH (05:44)
[2022-02-02 06:14] LABS: Basophils # (auto) 0.02 K/uL (0-0.2); Basophils % (auto) 0.3 %; Eosinophils # (auto) 0.42 K/uL (0-0.5); Eosinophils % (auto) 6.8 %; Hematocrit (blood only) 28.9 % (37-47); Hemoglobin 9.6 g/dL (12.0-16.0); Immature Granulocytes # (auto) 0.02 K/uL (0.00-0.02); Immature Granulocytes % (auto) 0.3 %; Lymphocytes # (auto) 2.15 K/uL (1.2-3.4); Lymphocytes % (auto) 34.7 %; Mean Corpuscular Hemoglobin 29.4 pg (25-34); Mean Corpuscular Hgb Conc 33.2 g/dL (32-36); Mean Corpuscular Volume 88.4 fL (80-100); Monocytes # (auto) 0.91 K/uL (0.11-0.59); Monocytes % (auto) 14.7 %; Neutrophils # (auto) 2.67 K/uL (1.4-6.5); Neutrophils % (auto) 43.2 %; Platelet Count 202 K/uL (130-400); RDW Coefficient of Variation 14.2 % (11.5-14.5); RDW Standard Deviation 46.2 fL (36.4-46.3); Red Blood Count 3.27 M/uL (4.2-5.4); White Blood Count 6.19 K/uL (4.8-10.8)
[2022-02-02 06:33] LABS: BUN Creatinine Ratio 15.4 (10-20); Calcium 8.9 mg/dl (8.5-10.1); Est GFR (African American) 101.7 ml/min; Est GFR (Non-African American) 87.7 ml/min
[2022-02-02] MEDS: PANTOprazole 40 MG TAB PO SCH (08:13)
[2022-02-02] MEDS: TAPENTADOL HCL ER 50 MG TABCR PO SCH (08:13)
[2022-02-02] MEDS: BENZTROPINE MESYLATE 0.5 MG TAB PO SCH (08:13)
[2022-02-02] MEDS: PREGABALIN 100 MG CAP PO SCH (08:13)
[2022-02-02] MEDS: CHOLECALCIFEROL 1,000 UNITS 25 MCG TAB PO SCH (08:13)
[2022-02-02] MEDS: MULTIVITAMIN TAB PO SCH (08:14)
[2022-02-02] MEDS: CARBIDOPA/LEVODOPA 25/100MG TAB PO SCH (08:14)
[2022-02-02] MEDS: ESCITALOPRAM OXALATE 20 MG TAB PO SCH (08:14)
[2022-02-02] MEDS: DULoxetine HCL 60 MG CAP PO SCH (08:14)
[2022-02-02] MEDS: OMEGA-3 (PURIFIED FISH OIL) 1 GM CAP PO SCH (08:14)
--- NOTE | 2022-02-02 10:14 | Discharge Summary ---
Date of Service February 02, 2022 Admission HPI Per Admitting Provider Kwame is an 86 year old female w/ PmHx of Progressive Supranuclear Palsy, poor balance, frequent falls, GERD, HLD, Fibromyalgia, lumbar canal stenosis who presented to the ED with a fall earlier today. Patient lives at the [facility] and was in her apartment earlier today when she says she fell onto the hardwood floor. She did not have any dizziness or lightheadedness before the fall and says she did not lose consciousness either. She hit her left knee and fell ontop of her middle finger on her right hand as well as hitting her left face. She was on the floor for what she thinks was 30 minutes before a provider arrived to the room and called EMS who brought her to the hospital. Patient currently has mild pain at the left face as well as the right shoulder, left ribs where she fell onto last time, as well as at her right third digit at the PIP. She is unable to open her L eye due to swelling but does not complain of any pain at the eye at rest or while moving it. Patient states she has had multiple falls over the past year, thinking it to be around once every month. Patient endorses she does see PT at her facility but it is once a week. She denies any shortness of breath, issues with swallowing, changes in vision in her right eye, dizziness, lightheadedness, fevers, chills. Admission Exam Per Admitting Provider Constitutional: WD/WN, vitals as above Eyes: R eye with good motion in all directions, without swelling or erythema. L eye with orbital swelling and 2-3cm linear abrasion above eyebrow. Difficult/unable to open L eye due to swelling, however mild pain with palpation of eyelids. ENMT: Left face with mild erythema and swelling. Respiratory: normal respiratory effort, lungs clear to auscultation Cardiovascular: RRR, no murmur, no edema Gastrointestinal (Abdomen): normal bowel sounds, soft, nontender, no hepatosplenomegaly Musculoskeletal: Tender to palpation at R shoulder, L knee, PIP of R third digit. Skin: ecchymosis at left lateral lower rib w/ lidocaine patch covering. Psychiatric: A+Ox3, euthymic affect Principal Diagnosis Fall, multiple facial fractures Discharge Exam Constitutional WD/WN, vitals as above Eyes L eye with decreased swelling compared to admission. Patient able to open L eye enough for pupil to be visible, able to move eye w/o issue. L eye without any movement defects or palsy noted. R eye without issue. Respiratory normal respiratory effort, lungs clear to auscultation Cardiovascular RRR, no murmur, no edema Gastrointestinal (Abdomen) normal bowel sounds, soft, nontender, no hepatosplenomegaly Skin Ecchymosis surrounding L eye, mild facial swelling on the left, decreased in size since admission. Abrasion above L eyebrow healed, not bleeding. Psychiatric A+Ox3, euthymic affect Discharge Data Allergies Allergy/AdvReac Type Severity Reaction Status Date / Time nut - unspecified Allergy Severe Anaphylaxis Verified 01/30/22 19:29 Penicillins Allergy Intermediate HIVES Verified 01/30/22 19:29 Sulfa (Sulfonamide Allergy Intermediate "jaundiced Verified 01/30/22 19:29 Antibiotics) as child", HIVES codeine Allergy Mild GI SYMPTOMS Verified 01/30/22 19:29 soy Allergy Unknown Unknown Verified 01/30/22 19:29 cat dander AdvReac Severe SHORTNESS Verified 01/30/22 19:29 OF BREATH mold AdvReac Severe SHORTNESS Verified 01/30/22 19:29 OF BREATH Consultations 01/30/22 19:43 ED Decision to Admit Stat 01/31/22 09:12 Consult Oromaxillofacial Surgery Routine 01/31/22 09:14 Consult Orthopedic Surgery Routine Ordered Studies 01/30/22 18:06 CT abd pelvis IV con only Stat IMPRESSION: 1. Acute left lateral 10th and 11th rib fractures. No pneumothorax. 2. Trace left pleural effusion. 3. No acute traumatic process within the abdomen or pelvis. 4. Additional findings as described above. CT cervical spine wo con Stat IMPRESSION: No fractures within the cervical spine. CT chest diagnostic w con Stat IMPRESSION: 1. Acute left lateral 10th and 11th rib fractures. No pneumothorax. 2. Trace left pleural effusion. 3. No acute traumatic process within the abdomen or pelvis. 4. Additional findings as described above. CT facial bones wo con Stat IMPRESSION: 1. Left maxillary sinus fractures as described above. 2. Depressed/displaced bilateral nasal bone fractures. 3. Nondisplaced left orbital floor fracture. 4. Nondisplaced fracture within the medial wall of the right maxillary sinus. CT head/brain wo con Stat Impression: 1. No acute intracranial abnormality. 2. Multiple facial fractures are better appreciated on the same day facial CT. 01/30/22 18:07 CT lumbar spine w con Stat IMPRESSION: No acute fractures identified within the thoracic or lumbar spine. CT thoracic spine w con Stat Hand XR: IMPRESSION: There is a small nondisplaced fracture at the volar base of the right middle finger middle phalanx. Shoulder XR: IMPRESSION: 1. No acute fracture or dislocation within the right shoulder. 2. Severe right glenohumeral joint osteoarthritis. Hip XR: IMPRESSION: No acute fracture within the left hip. Hospital Course (1) Fall: Kwame is an 86 year old female w/ PmHx of Progressive Supranuclear Palsy, poor balance, frequent falls, GERD, HLD, Fibromyalgia, lumbar canal stenosis admitted for fall w/ multiple facial fractures. Fall: -CT Face: L maxillary sinus fracture, nondisplaced fracture w/in medial wall of R maxillary sinus, displaced bilateral nasal bone fractures, nondisplaced L orbital floor fracture. -CT Head w/o acute intracranial abnormality. CT cervical, thoracic, lumbar spine w/o acute changes. -XR R shoulder w/o acute fracture or dislocation. XR left hip w/o acute fracture. -Ortho consulted for fall on R middle finger - markos taped. -Most likely fall due to balance issues related to PSP. -Consulted ENT. -Can follow up outpatient with Dr. Ervin Orr for re-evaluation of nasal fracture to allow for swelling to go down. Patient has appointment February 06 at 4PM. -Given Clindamycin in ED and on day 1 of admission. Stopped due to low risk for infection given closed fractures. -Holding baby ASA, however patient unsure of last time she took or if stopped altogether. Questionable if she's still on it at home. Frequent falls: -May require further assistance/watch at home for frequent falls. -PT/OT recommend inpatient rehab at [facility] (patient live sat [facility]). (2) PSP (progressive supranuclear palsy): (3) GERD (gastroesophageal reflux disease): (4) Falls frequently: (5) Depression: (6) Hypothyroidism: (7) Lumbar canal stenosis: (8) Hyperlipidemia: (9) Poor balance: Total Time Total Time Spent Total Time Spent (In Minutes): Please see attending attestation. Discharge Plan Discharge Items Patient Disposition: Transfer [facility] Fac Reason For Visit: FALL Discharge Diagnosis: Fall Activity: Per Instructions section Non-emergency contact: Primary Care Provider Call non-emergency contact if: your symptoms worsen, your pain is worsening, your temperature is above 101 and your wound has increased drainage Follow-up/Referrals: Kelly Bowman MD [Primary Care Provider] - Diet: Regular Addtl Attending Provider Instructions: Kwame is an 86 year old female w/ PmHx of Progressive Supranuclear Palsy, poor balance, frequent falls, GERD, HLD, Fibromyalgia, lumbar canal stenosis admitted for fall w/ multiple facial fractures. Fall: -CT Face: L maxillary sinus fracture, nondisplaced fracture w/in medial wall of R maxillary sinus, displaced bilateral nasal bone fractures, nondisplaced L orbital floor fracture. -CT Head w/o acute intracranial abnormality. CT cervical, thoracic, lumbar spine w/o acute changes. -XR R shoulder w/o acute fracture or dislocation. XR left hip w/o acute fracture. -Ortho consulted for fall on R middle finger - markos taped. -Most likely fall due to balance issues related to PSP. -Consulted ENT. -Can follow up outpatient with Dr. Ervin Orr for re-evaluation of nasal fracture to allow for swelling to go down. Patient has appointment February 06 at 4PM. -Given Clindamycin in ED and on day 1 of admission. Stopped due to low risk for infection given closed fractures. -Holding baby ASA, however patient unsure of last time she took or if stopped altogether. Questionable if she's still on it at home. Frequent falls: -May require further assistance/watch at home for frequent falls. -PT/OT recommend inpatient rehab at [facility] (patient live sat [facility]). Pending Studies at Discharge: No Stand-Alone Forms: My [facility] Skilled Items Patient informed of condition?: Yes DNR: Yes (DNR but would want intubation in case of worsening respiratory distress) Discharge Level of Care: Skilled Communicable Disease: No Discharge Prognosis: Stable Lines: Peripheral IV Urinary Catheter: No Medications and DC Order Prescriptions: Continued ipratropium bromide 42 mcg (0.06 %) spray,non-aerosol 2 spray INTNAS BID Qty: 45 RF: 1 duloxetine [Cymbalta] 60 mg capsule,delayed release(DR/EC) 60 mg PO QAM 90 Days Qty: 90 RF: 1 benztropine 0.5 mg tablet 0.5 mg PO BID Qty: 180 RF: 1 escitalopram oxalate 20 mg tablet 20 mg PO DAILY Qty: 90 RF: 0 pantoprazole 40 mg tablet,delayed release (DR/EC) 40 mg PO BID 90 Days Qty: 180 RF: 1 pregabalin [Lyrica] 200 mg capsule 200 mg PO BID 90 Days Qty: 180 RF: 0 carbidopa-levodopa [Sinemet] 25-100 mg tablet 1 tab PO DAILY 90 Days Qty: 90 RF: 1 levothyroxine [Synthroid] 75 mcg tablet 75 mcg PO QAM Qty: 90 RF: 1 hydrocodone-acetaminophen 7.5-325 mg tablet 1 tab PO TID PRN (Reason: pain) Qty: 90 RF: 0 Nucynta ER 50 mg tablet extended release 12 hr 50 mg PO BID Qty: 60 RF: 0 simvastatin [Zocor] 20 mg tablet 20 mg PO HS Qty: 90 RF: 1 cholecalciferol (vitamin D3) [Vitamin D3] 1,000 unit Capsule 1,000 unit PO DAILY RF: 0 lidocaine 4 % adhesive patch,medicated 1 patch topical DAILY PRN (Reason: pain) Qty: 15 RF: 0 multivitamin Tablet 1 tab PO DAILY RF: 0 omega [id number] oil [Fish Oil] 1,000 mg (120 mg-180 mg) Capsule 1 cap PO DAILY RF: 0 lutein 20 mg Tablet 20 mg PO Q OTHER DAY RF: 0 Discontinued zolpidem 6.25 mg tablet,ext release multiphase 6.25 mg PO HS RF: 0 aspirin [Aspir-Low] 81 mg Tablet,Delayed Release (Dr/Ec) 81 mg PO DAILY RF: 0 Discharge Orders: Discharge Order (Routine); Ordered 02/02/22 Ordered By: Stevan Burnette Admission Data Admit Date/Time: 01/30/22 22:00 Attending Provider: Félix Gonzalez Admit Provider: Stevan Burnette Primary Care Provider: Kelly Bowman [facility] ; Rj Knutson ; Ervin Orr ; Karan Avitia Other Interventions: Discharge Summary Assessment (RN) Last Done: 02/02/22 11:14 Supervising Physician Co-Signing Physician Notes I personally examined the patient and verified all garcia points of history and exam, discussed case, and agree with decision making with Dr Burnette set up for the [facility]. no new problems have arisen today. pt appreciative of care. vitals noted nad face diffusely bruised, L eye less swollen and EOMI. no facial erythema or open wounds. PSP, weakness, fall, possible age related osteoporosis w current traumatic and possibly pathological fractures of multiple sites including facial bones, nondisplaced closed fracture of middle phalanx of right middle finger, multiple fractures of ribs - left side- ribs 06/17, as well as laceration of left forehead (approximated with simple suturing) - pain control, maxillofacial eval appreciated - to be seen as outpt this coming week as well, time. snf today otherwise as above Resident Activity Tracking Resident Involvement: Resident Care Provided Care Provided: Adult Hospital Medicine
--- NOTE | 2022-02-02 17:50 | Billing Data ---
Date of Service February 02, 2022 Coding Level of Care Code D/C DAY MANAGEMENT <30 MINS
== END 2022-02-02 13:06 | DRG 543 ==
LOC: ED 18:00 → SUATTDRO 22:00 → 2N 22:00

== ENCOUNTER 2022-07-06 13:47 | Inpatient (IN) ==
[2022-07-06] MEDS ORDERED: SODIUM CHLORIDE 0.9% 1000ML 500 ML IV ONE (14:08)
--- NOTE | 2022-07-06 14:08 | Emergency Department Note ---
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 Patient had another fall last evening landing on her left hip and right ribs. She did laying in bed unable to get out of bed since then. On examination she has a shortened and mildly internally rotated left leg. Pulses intact good sensation. No evidence of neurovascular compromise or compartment syndrome. She does have some mild tenderness of the right ribs but has no difficulty breathing. Her oxygen is mildly low though she admits she took narcotic pain pill prior to arrival. She is not in any distress. She has no evidence of head injury, headache, neck pain or neurologic deficits I do not feel CTA/CT head is necessary at this time given the injury was now over 12 hours ago. She is not on any blood thinners either. Chest x-ray is unremarkable with some old fractures noted. There is no evidence of pneumonia or sepsis at this time. No clear infectious etiology. I feel the fall is secondary to her chronic disability and was mechanical in nature as well. Her x-ray of the left hip reveals a subcapital mildly displaced hip fracture. I reviewed this with orthopedics to make them aware and they requested patient remain n.p.o. at midnight. Hospitalist consulted for further management. Prior Medical Record and Triage/Nursing Notes reviewed by Me Additional history obtained from chart, son, EMS Differentials:Fracture, subluxation, dislocation, contusion, ligamentous injury, neurovascular, compartment syndrome, rhabdomyolysis, as well as other pathologies. Vital Signs: reviewed and remarkable for mild hypoxia on room air Interventions: Dilaudid 0.5 mg IV Labs:Reviewed and remarkable for no significant abnormalities Imaging:X-ray of the chest unremarkable per radiology, x-ray of the left hip and pelvis reveals subcapital mildly displaced fracture Consults: Dr. Avitia of [facility] orthopedics. Dr Garay of the [facility] hospitalist team Plan: Disposition:Hospitalization. Condition: Good History of Present Illness:86-year-old female arrives for evaluation of fall. Patient with a long history of falls secondary to his supranuclear palsy. She was here few weeks ago for similar fall. She states today she is here because her left hip is hurting. She tripped and fell last night landing on her left hip. She may have injured her right ribs but states they are not currently hurting her. She notes her son helped her into bed last night but she has been unable to walk since she fell. She says she got some sort of medicine at home for the pain but does not recall what it was. She has no headache, neck pain, syncope. She states she tripped and fell. There is no blood thinner use per patient. She denies any other injuries. Denies any recent chest pain, shortness of breath, headache, neck pain, anna marie pain, nausea, vomiting, urinary/bowel symptoms, leg swelling or other concerning signs or symptoms. And a trying to walk on the leg makes it worse and rest makes better. ROS: See above HPI for pertinent positives & negatives. A total of 10 systems reviewed and were otherwise negative. Past Medical History:See Below Past Surgical History:See Below Family History:See Below Social History:See Below Home Medications:See Below Allergies:See Below Vitals:Blood Pressure: 123/75, Pulse 76, RR 16, O2 87% on RA Physical Exam: GENERAL: Patient is mildly uncomfortable appearing and in minimal distress. Dehydrated/dry appearing EYES: No scleral icterus, unremarkable pupils. ENT: Mucous membranes dry, no nasal congestion. NECK: No masses appreciated, nomeningismus, trachea is midline. RESPIRATORY: No dyspnea. Clear to auscultation and equal bilaterally. No wheeze, no rhonchi. CARDIOVASCULAR: Regular rate and rhythm.No murmurs, rubs, gallops appreciated. GASTROINTESTINAL: Abdomen soft, non-tender, no peritonitis.Bowel sounds positive.No masses appreciated. BACK: No midline tenderness, no CVA tenderness EXTREMITIES: Shortened externally rotated left leg with significant pain to palpation of the left hip and pain on range of motion of the left hip. Distal pulses sensation intact. Otherwise, Normal motion all extremities, no cyanosis, no edema. NEUROLOGIC: Alert and oriented, no acute motor or sensory deficits, no focal weakness, cranial nerves grossly intact. SKIN: No rash, no jaundice, no diaphoresis. PSYCH: Appropriate GCS: 15 ED Course: Times/Reassessments: Patient comfortable throughout her after x-rays requested some further pain medications given the movement of her hip. He is in no distress otherwise comfortable agreeable to hospitalization Ned Montez MD Past Med/Surg History Medical History (Updated 07/06/22 @ 18:50 by Ned Montez MD) Anxiety Avulsion fracture of middle phalanx of finger Bilateral lumbar radiculopathy Cardiac murmur CHI (closed head injury) Chronic back pain Falls frequently Fibromyalgia Forehead laceration Hearing deficit Hx of breast cancer RADIATION 2000 Hyperlipidemia Hyperlipidemia Hypothyroidism Lumbar canal stenosis Maxillary sinus fracture Multiple facial bone fractures Multiple rib fractures Other abnormalities of gait and mobility Poor balance PSP (progressive supranuclear palsy) Risk for falls LAST EVENT ARPIL 2019 Scoliosis LUMBAR AND NERVE PAIN Spinal stenosis Surgical History History of colonoscopy History of dilation and curettage History of foot surgery LEFT History of tonsillectomy Hx of appendectomy Hx of bilateral breast reduction surgery DUE TO CANCER 2006 Hx of cataract surgery RIGHT AND LEFT Hx of kyphoplasty L2 Hx of lumpectomy WITH LYMPH NODE REMOVAL (LEFT) Hx of spinal fusion L4-S1 Hx of wisdom tooth extraction S/P epidural steroid injection Family History Sister Alzheimer disease Breast cancer Paget's disease Father Alzheimer disease Grandmother (Paternal) Alzheimer disease Mother Myocardial infarction Stroke syndrome Uncle Prostate cancer Denies family history of Ovarian cancer Adverse anesthesia outcome Bleeding disorder Colorectal cancer Social History Smoking Status: Never smoker Second Hand Exposure: No; Hx Alcohol Use: No Hx Substance Use: No Preferred Language: Spanish Communication Ability: Effective Visual Impairment: No Limitations Hearing Ability: Use of Hearing Aid Electroless Plater Required: No Beliefs That Will Affect Care: None marital status: / Current Living Situation: Alone and Personal Care Facility Current Living Situation Comment: [facility] current occupational status: retired How many Children do You have: 2 Feels Safe at Home: Yes Childhood Exposure to Second-Hand Smoke: No caffeine: Yes during the past year weight has: remained stable Dental Care, Regularly: Yes Physical Activity Frequency: Does not Exercise Seatbelt Use: always Sunscreen Use: Yes Assistive Devices: Walker Allergies Allergies Allergy/AdvReac Type Severity Reaction Status Date / Time cat dander Allergy Severe SHORTNESS Verified 07/06/22 15:54 OF BREATH mold Allergy Severe SHORTNESS Verified 07/06/22 15:54 OF BREATH nut - unspecified Allergy Severe Anaphylaxis Verified 07/06/22 15:54 peanut Allergy Severe Anaphylaxis Verified 07/06/22 15:54 pecan nut Allergy Severe Anaphylaxis Verified 07/06/22 15:54 walnut Allergy Severe Anaphylaxis Verified 07/06/22 15:54 Penicillins Allergy Intermediate HIVES Verified 07/06/22 15:54 Sulfa (Sulfonamide Allergy Intermediate "jaundiced Verified 07/06/22 15:54 Antibiotics) as child", HIVES codeine Allergy Mild GI SYMPTOMS Verified 07/06/22 15:54 soy Allergy Unknown Unknown Verified 07/06/22 15:54 Home Meds Home Medications Medication Instructions Recorded Confirmed cholecalciferol (vitamin D3) 25 1,000 unit PO DAILY 06/21/18 07/06/22 mcg (1,000 unit) capsule (Vitamin D3) conjugated estrogens 0.625 mg 0.625 mg PO DIRECTED PRN 07/06/22 07/06/22 tablet (Premarin) NEEDED PER MED LIST ferrous sulfate 143 mg (45 mg 143 mg PO DAILY 07/06/22 07/06/22 iron) tablet,extended release (Slow Release Iron) melatonin 10 mg tablet 10 mg PO HS 07/06/22 07/06/22 polyethylene glycol 3350 17 8.5 g PO DAILY 07/06/22 07/06/22 gram/dose oral powder (Miralax) pregabalin 200 mg capsule (Lyrica) 200 mg PO AMHS 07/06/22 07/06/22 sennosides 8.6 mg tablet (Senokot) 17.2 mg PO BID 07/06/22 07/06/22 tapentadol 50 mg tablet,extended 50 mg PO AMHS 07/06/22 07/06/22 release,12 hr (Nucynta ER) zolpidem 6.25 mg tablet,extended 6.25 mg PO HS 07/06/22 07/06/22 release,multiphase Previous Rx's Medication Instructions Recorded benztropine 0.5 mg tablet 0.5 mg PO BID #180 tabs 10/28/21 simvastatin 20 mg tablet (Zocor) 20 mg PO HS #90 tabs 10/29/21 pantoprazole 40 mg tablet,delayed 40 mg PO BID gastritis 90 days 01/08/22 release #180 tabs levothyroxine 75 mcg tablet 75 mcg PO QAM #90 tabs 01/20/22 (Synthroid) duloxetine 60 mg capsule,delayed 60 mg PO QAM 90 days #90 caps 04/28/22 release (Cymbalta) escitalopram oxalate 20 mg tablet 20 mg PO DAILY #90 tabs 05/16/22 carbidopa 25 mg-levodopa 100 mg 1 tab PO QID 90 days #360 tabs 06/10/22 tablet (Sinemet) hydrocodone 7.5 mg-acetaminophen 1 tab PO TID PRN pain #90 tabs 07/02/22 325 mg tablet Results & Data (ED) Vital Signs Vital Signs - 24 hr 07/06/22 13:56 07/06/22 15:25 07/06/22 17:58 Pulse Rate 80 Pulse Rate [Right Finger] 65 76 Respiratory Rate 22 16 16 Blood Pressure 122/62 Blood Pressure [Left Arm] 125/61 123/75 Blood Pressure Mean 82 Blood Pressure Mean [Left Arm] 82 91 Pulse Oximetry 88 L 91 91 Oxygen Delivery Method Room Air Sepsis Recent Fever Within 48 Hours No Sepsis New/Unexplained Change in Mental Status N/A Sepsis Action Taken by Nursing No Action Required Laboratory Data Result diagrams: 07/06/22 14:15 07/06/22 14:15 Lab Results 07/06/22 07/06/22 07/06/22 Range/Units 14:13 14:15 14:15 WBC 8.36 (4.8-10.8) K/ul RBC 3.60 L (3.93-5.22) M/uL Hgb 10.8 L (12.0-16.0) g/dl Hct 32.5 L (34.1-44.9) % MCV 90.3 (80.0-100.0) fL MCH 30.0 (25.0-34.0) pg MCHC 33.2 (32.0-36.0) g/dL RDW Std Deviation 46.9 H (36.4-46.3) fL RDW Coeff of Arnaud 14.2 (11.5-14.5) % Plt Count 205 (130-400) K/uL MPV 11.5 (9.4-12.3) fL Immature Gran % (Auto) 0.2 % Neut % (Auto) 73.4 % Lymph % (Auto) 9.7 % [place] % (Auto) 10.3 % Eos % (Auto) 5.7 % Baso % (Auto) 0.7 % Neut # (Auto) 6.13 (1.4-6.5) K/uL Lymph # (Auto) 0.81 L (1.2-3.4) K/uL [place] # (Auto) 0.86 H (0.24-0.82) K/uL Eos # (Auto) 0.48 (0-0.50) K/uL Baso # (Auto) 0.06 (0-0.2) K/uL Immature Gran # (Auto) 0.02 (0.00-0.02) K/uL PT (9.0-12.0) Seconds INR (0.9-1.1) Sodium 135 L (136-145) mmol/L Potassium 3.7 (3.5-5.1) mmol/L Chloride 100 (98-107) mmol/L Carbon Dioxide 28 (21-32) mmol/L Anion Gap 7 (3-11) BUN 15 (6-23) mg/dl Creatinine 0.59 L (0.6-1.2) mg/dl Est Cr Clr Drug Dosing 60.7 ml/min Est GFR ( Amer) 97.5 ml/min Est GFR (Non-Af Amer) 84.2 ml/min BUN/Creatinine Ratio 25.4 H (10-20) Glucose 103 H (70-99(Fasting)) mg/dl Calcium 9.2 (8.5-10.1) mg/dl Magnesium 1.6 L (1.7-2.4) mg/dl Total Creatine Kinase 154 (26-192) U/L Troponin I High Sens 5.3 (0-14) pg/ml SARS-CoV-2 (PCR) NEGATIVE (Negative) Influenza Type A (PCR) Negative (Neg) Influenza Type B (PCR) Negative (Neg) RSV (RT-PCR) Negative (Neg) 07/06/22 Range/Units 14:15 WBC (4.8-10.8) K/ul RBC (3.93-5.22) M/uL Hgb (12.0-16.0) g/dl Hct (34.1-44.9) % MCV (80.0-100.0) fL MCH (25.0-34.0) pg MCHC (32.0-36.0) g/dL RDW Std Deviation (36.4-46.3) fL RDW Coeff of Arnaud (11.5-14.5) % Plt Count (130-400) K/uL MPV (9.4-12.3) fL Immature Gran % (Auto) % Neut % (Auto) % Lymph % (Auto) % [place] % (Auto) % Eos % (Auto) % Baso % (Auto) % Neut # (Auto) (1.4-6.5) K/uL Lymph # (Auto) (1.2-3.4) K/uL [place] # (Auto) (0.24-0.82) K/uL Eos # (Auto) (0-0.50) K/uL Baso # (Auto) (0-0.2) K/uL Immature Gran # (Auto) (0.00-0.02) K/uL PT 10.6 (9.0-12.0) Seconds INR 1.0 (0.9-1.1) Sodium (136-145) mmol/L Potassium (3.5-5.1) mmol/L Chloride (98-107) mmol/L Carbon Dioxide (21-32) mmol/L Anion Gap (3-11) BUN (6-23) mg/dl Creatinine (0.6-1.2) mg/dl Est Cr Clr Drug Dosing ml/min Est GFR ( Amer) ml/min Est GFR (Non-Af Amer) ml/min BUN/Creatinine Ratio (10-20) Glucose (70-99(Fasting)) mg/dl Calcium (8.5-10.1) mg/dl Magnesium (1.7-2.4) mg/dl Total Creatine Kinase (26-192) U/L Troponin I High Sens (0-14) pg/ml SARS-CoV-2 (PCR) (Negative) Influenza Type A (PCR) (Neg) Influenza Type B (PCR) (Neg) RSV (RT-PCR) (Neg) Administered Medications Discontinued Medications Hydromorphone HCl (Hydromorphone Inj 0.5 Mg/0.5 Ml Syr) 0.5 mg IV NOW STA Stop: 07/06/22 15:48 Last Admin: 07/06/22 16:35 Dose: 0.5 mg Documented By: ASW Sodium Chloride (Nss 1000ml) 500 mls @ 999 mls/hr IV .Q31M ONE Stop: 07/06/22 14:38 Last Infusion: 07/06/22 14:43 Dose: 0 mls/hr Documented By: Admin: 07/06/22 14:11 Dose: 999 mls/hr Documented By: ES Imaging Data Radiologist's Impression: Chest X-Ray 07/06/22 14:04 XR chest 1V portable CLINICAL HISTORY: fall, hypoxia, weakness COMPARISON STUDY: Chest CT January 30, 2022. Chest radiograph June 17, 2022. FINDINGS: Severe degenerative changes of the right shoulder are noted. There is no pneumothorax. There may be trace bilateral pleural effusions. Pulmonary vascular congestion is present. Cardiomegaly is unchanged. A hiatal hernia is again noted. There are multiple old right rib fractures. Lumbar spine vertebroplasty is incidentally noted. IMPRESSION: 1. No pneumothorax. Trace bilateral pleural effusions. 2. Cardiomegaly with pulmonary vascular congestion. ACT 112: Negative or not required by law. Electronically signed by: Sergey Gunn M.D. 07/06/2022 3:47 PM Hip/Pelvis X-Ray 07/06/22 14:04 XR hip LT 2V w pelvis CLINICAL HISTORY: Left hip pain following fall. COMPARISON: Left hip radiographs January 30, 2022. FINDINGS: Postoperative findings within the lumbosacral spine are partially imaged. Sacroiliac joints and symphysis pubis are intact. Note is made of an acute subcapital left femoral fracture. Fracture is displaced approximately 5 mm. No additional fractures are identified within the pelvis or hips. IMPRESSION: Acute displaced subcapital left femoral fracture. ACT 112: Negative or not required by law. Electronically signed by: Sergey Gunn M.D. 07/06/2022 3:32 PM Elbow X-Ray 07/06/22 16:08 XR elbow RT min 3V routine CLINICAL HISTORY: fall, elbow swelling COMPARISON: None FINDINGS: Irregularity of the lateral condyle is chronic. No acute fracture. There is no evidence for a joint effusion. Soft tissue swelling overlying the olecranon is noted. IMPRESSION: 1. No acute fracture or evidence for a right elbow joint effusion. 2. Significant soft tissue swelling overlying the olecranon. This favors a contusion however olecranon bursitis could appear similar. ACT 112: Negative or not required by law. Electronically signed by: Sergey Gunn M.D. 07/06/2022 5:[address] 07/06/22 17:07 CT hip LT wo con CLINICAL HISTORY: Left femoral neck fracture. COMPARISON STUDY: Pelvis and left hip radiographs performed earlier today. CT of the abdomen and pelvis January 30, 2022. TECHNIQUE: Axial images of the left hip were obtained without IV contrast. Sagittal and coronal reconstructions were viewed. Automated exposure control was utilized for the study. A dose lowering technique was utilized adhering to the principles of ALARA. FINDINGS: There is an acute impacted mildly displaced subcapital left femoral neck fracture. Fracture is displaced approximately 5 mm. No additional acute fractures are identified on this examination. Alignment of left hip is otherwise anatomic. There is subcutaneous stranding of the posterior and lateral left thigh. No large hematoma is identified. No suspicious osseous lesions are present. Moderate left hip osteophytosis present. IMPRESSION: Acute impacted mildly displaced subcapital left femoral neck fracture. ACT 112: Negative or not required by law. Electronically signed by: Sergey Gunn M.D. 07/06/2022 6:28 PM Discharge Plan Visit Data Chief Complaint: Fall Stated Complaint: HIP & RIB PAIN ED Provider: Ned Montez Discharge Problem: Fracture of femoral neck, left, closed, Recurrent falls, Hypoxia Patient Disposition: Admitted As Inpatient Discharge Instructions Interventions: ED Discharge Assessment Last Done: 07/06/22 18:28 Forms Stand Alone Forms: [facility] [place] Prescriptions Prescriptions: No Action benztropine 0.5 mg tablet 0.5 mg PO BID Qty: 180 1RF pantoprazole 40 mg tablet,delayed release (DR/EC) 40 mg PO BID 90 Days Qty: 180 1RF Rx Instructions: 1 HR PRIOR TO [facility]UNCH [facility] D[facility]NER levothyroxine [Synthroid] 75 mcg tablet 75 mcg PO QAM Qty: 90 1RF duloxetine [Cymbalta] 60 mg capsule,delayed release(DR/EC) 60 mg PO QAM 90 Days Qty: 90 1RF escitalopram oxalate 20 mg tablet 20 mg PO DAILY Qty: 90 0RF carbidopa-levodopa [Sinemet] 25-100 mg tablet 1 tab PO QID 90 Days Qty: 360 1RF Rx Instructions: 4 HRS BETWEEN DOSES. hydrocodone-acetaminophen 7.5-325 mg tablet 1 tab PO TID PRN (Reason: pain) Qty: 90 0RF simvastatin [Zocor] 20 mg tablet 20 mg PO HS Qty: 90 1RF cholecalciferol (vitamin D3) [Vitamin D3] 1,000 unit Capsule 1,000 unit PO DAILY sennosides [Senokot] 8.6 mg Tablet 17.2 mg PO BID Rx Instructions: TAKE PRIOR TO [facility]UN[facility] DIN[facility] Premarin 0.625 mg tablet 0.625 mg PO DIRECTED PRN (Reason: NEEDED PER MED LIST) polyethylene glycol 3350 [Miralax] 17 gram/dose Powder 8.5 g PO DAILY zolpidem 6.25 mg Tablet,Ext Release Multiphase 6.25 mg PO HS Slow Release Iron 143 mg (45 mg iron) Tablet Extended Release 143 mg PO DAILY Nucynta ER 50 mg tablet extended release 12 hr 50 mg PO AMHS melatonin 10 mg Tablet 10 mg PO HS Rx Instructions: TAKE 1 HR PRIOR TO HS. pregabalin [Lyrica] 200 mg capsule 200 mg PO AMHS Referrals Referrals: Kelly Bowman MD [Primary Care Provider] - : Fracture of femoral neck, left, closed Qualifiers: Encounter type: initial encounter Qualified Code(s): S72.002A - Fracture of unspecified part of neck of left femur, initial encounter for closed fracture
[2022-07-06 14:30] LABS: Basophils # (auto) 0.06 K/uL (0-0.2); Basophils % (auto) 0.7 %; Eosinophils # (auto) 0.48 K/uL (0-0.50); Eosinophils % (auto) 5.7 %; Hematocrit (blood only) 32.5 % (34.1-44.9); Hemoglobin 10.8 g/dl (12.0-16.0); Immature Granulocytes # (auto) 0.02 K/uL (0.00-0.02); Immature Granulocytes % (auto) 0.2 %; Lymphocytes # (auto) 0.81 K/uL (1.2-3.4); Lymphocytes % (auto) 9.7 %; Mean Corpuscular Hgb Conc 33.2 g/dL (32.0-36.0); Mean Corpuscular Volume 90.3 fL (80.0-100.0); Mean Platelet Volume 11.5 fL (9.4-12.3); Monocytes # (auto) 0.86 K/uL (0.24-0.82); Monocytes % (auto) 10.3 %; Neutrophils # (auto) 6.13 K/uL (1.4-6.5); Neutrophils % (auto) 73.4 %; Platelet Count 205 K/uL (130-400); RDW Coefficient of Variation 14.2 % (11.5-14.5); RDW Standard Deviation 46.9 fL (36.4-46.3); White Blood Count 8.36 K/ul (4.8-10.8)
[2022-07-06 14:40] LABS: Prothrombin Time 10.6 Seconds (9.0-12.0)
[2022-07-06 14:52] LABS: BUN Creatinine Ratio 25.4 (10-20); Calcium 9.2 mg/dl (8.5-10.1); Creatinine Clr Calc Pharmacy 60.7 ml/min; Est GFR (African American) 97.5 ml/min; Est GFR (Non-African American) 84.2 ml/min; Magnesium 1.6 mg/dl (1.7-2.4); Potassium 3.7 mmol/L (3.5-5.1)
[2022-07-06 14:59] LABS: Troponin I High Sensitivity 5.3 pg/ml (0-14)
[2022-07-06 15:05] LABS: Influenza A virus by PCR Negative (Neg); Influenza B virus by PCR Negative (Neg); RSV by PCR Negative (Neg); SARS CoV2 RNA(COVID-19)Cepheid NEGATIVE (Negative)
--- NOTE | 2022-07-06 15:33 | XRay Report ---
XR hip LT 2V w pelvis CLINICAL HISTORY: Left hip pain following fall. COMPARISON: Left hip radiographs January 30, 2022. FINDINGS: Postoperative findings within the lumbosacral spine are partially imaged. Sacroiliac joint s and symphysis pubis are intact. Note is made of an acute subcapital left femoral fracture. Fracture is displaced approximately 5 mm. No additional fractures are identified within the pelvis or hips. IMPRESSION: Acute displaced subcapital left femoral fracture. ACT 112: Negative or not required by law. Electronically signed by: Sergey Gunn M.D. 07/06/2022 3:32 PM
[2022-07-06] MEDS ORDERED: HYDROmorphone INJ 0.5 MG/0.5 ML SYR IV STA (15:47)
--- NOTE | 2022-07-06 15:49 | XRay Report ---
XR chest 1V portable CLINICAL HISTORY: fall, hypoxia, weakness COMPARISON STUDY: Chest CT January 30, 2022. Chest radiograph June 17, 2022. FINDINGS: Severe degenerative changes of the right shoulder are noted. There is no pneumothorax. Ther e may be trace bilateral pleural effusions. Pulmonary vascular congestion is present. Cardiomegaly is unchanged. A hiatal hernia is again noted. There are multiple old right rib fractures. Lumbar spine vertebroplasty is incidentally noted. IMPRESSION: 1. No pneumothorax. Trace bilateral pleural effusions. 2. Cardiomegaly with pulmonary vascular congestion. ACT 112: Negative or not required by law. Electronically signed by: Sergey Gunn M.D. 07/06/2022 3:47 PM
--- NOTE | 2022-07-06 15:57 | History & Physical Report ---
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 Patient is mentating normally with no neck pain, head pain, or facial contusions. Left hip is tender to palpation but patient is comfortable at bed while not moving. Left hip fracture XR: Acute displaced subcapital left femoral fracture, 5 mm displacement No head/neck injury, no tenderness, did not strike head or lose consciousness at any point Ortho consulted. Strict bedrest Mcgee ordered Scaled analgesia ordered, received 0.5 mg hydromorphone in ER. Chronic pain medications as below No history of cardiac disease, renal impairment, or diabetes with insulin. - EKG: nsr Progressive super nuclear palsy Uses a Rollator at home, no acute intervention for this Follows as outpatient with neurology. Continue Sinemet. PT/OT after Ortho consult/intervention for fracture Have discussed potential for need for custodial care due to recurrent falls prior to this. Case management consulted - Sinemet [id number] 4 times daily Depression Continue Lexapro 20 mg daily Hypothyroidism Continue Synthroid 75 mcg daily GERD Continue PPI twice daily Fibromyalgia - Pregabalin 200 mg p.o. twice daily - Tapentadol 50 mg p.o. twice daily Tylenol as needed Continue above multimodal pain control, low-dose hydromorphone added for breakthrough pain DVT prophylaxis: Heparin subcu, hold morning of surgery Diet: N.p.o. at midnight, clears Disposition: Medical surgical CODE STATUS: DNR/DNI, discussed with patient (2) PSP (progressive supranuclear palsy): (3) Laryngopharyngeal reflux: (4) Fibromyalgia: (5) Anemia: History of Present Illness Primary Care Provider: Kelly Bowman MD Kwame Falcon is an 86-year-old female with a past medical history of dysphagia, cortical basal syndrome, fibromyalgia, carotid stenosis, and recurrent falls due to supranuclear palsy who presents to the ER after a fall with subsequent pain to her left hip. Reports that she tripped and fell the previous evening and landed when she fell on her hip. Does not use blood thinners. No chest pain/chest pressure/syncope/presyncope. X-ray of the hip and pelvis shows an acute displaced subcapital left femoral fracture 5 mm of displacement. Fell last night due to SNP. Takes hydrocodone-APAP 2x per day at home. Takes nucynta ER BID. Took hydrocodone at 11pm, slight hypoxia after. Pregabalin 200mg BID. Fibromyalgia. Benztropine for psyloria No heart problems. Uses nordictrak 4-5 days per week with no cp/sob No kidney problems No history of insulin use. No nausea/vomiting/diarrhea. No bleeding problems. Seen Dr. Borja in the past for back/lumbar stenosis and shoulder pain rotator cuff issues. No recent surgies. Medical History: Reviewed Medications: Reviewed Surgical History: Reviewed Allergies: Reviewed Social History: No tobacco use, no alcohol use, no substance Code Status: DNR/DNI discussed with son and patient at bedside Allergies Allergy/AdvReac Type Severity Reaction Status Date / Time cat dander Allergy Severe SHORTNESS Verified 07/06/22 15:54 OF BREATH mold Allergy Severe SHORTNESS Verified 07/06/22 15:54 OF BREATH nut - unspecified Allergy Severe Anaphylaxis Verified 07/06/22 15:54 peanut Allergy Severe Anaphylaxis Verified 07/06/22 15:54 pecan nut Allergy Severe Anaphylaxis Verified 07/06/22 15:54 walnut Allergy Severe Anaphylaxis Verified 07/06/22 15:54 Penicillins Allergy Intermediate HIVES Verified 07/06/22 15:54 Sulfa (Sulfonamide Allergy Intermediate "jaundiced Verified 07/06/22 15:54 Antibiotics) as child", HIVES codeine Allergy Mild GI SYMPTOMS Verified 07/06/22 15:54 soy Allergy Unknown Unknown Verified 07/06/22 15:54 Home Medications Medication Instructions Recorded Confirmed Type cholecalciferol (vitamin D3) 25 1,000 unit PO DAILY 06/21/18 06/06/22 History mcg (1,000 unit) capsule (Vitamin D3) benztropine 0.5 mg tablet 0.5 mg PO BID #180 tabs 10/28/21 06/06/22 Rx simvastatin 20 mg tablet (Zocor) 20 mg PO HS #90 tabs 10/29/21 06/06/22 Rx pantoprazole 40 mg tablet,delayed 40 mg PO BID gastritis 90 days 01/08/22 06/06/22 Rx release #180 tabs levothyroxine 75 mcg tablet 75 mcg PO QAM #90 tabs 01/20/22 06/06/22 Rx (Synthroid) duloxetine 60 mg capsule,delayed 60 mg PO QAM 90 days #90 caps 04/28/22 06/06/22 Rx release (Cymbalta) escitalopram oxalate 20 mg tablet 20 mg PO DAILY #90 tabs 05/16/22 06/06/22 Rx carbidopa 25 mg-levodopa 100 mg 1 tab PO QID 90 days #360 tabs 06/10/22 Rx tablet (Sinemet) hydrocodone 7.5 mg-acetaminophen 1 tab PO TID PRN pain #90 tabs 07/02/22 Rx 325 mg tablet conjugated estrogens 0.625 mg 0.625 mg PO DIRECTED PRN 07/06/22 07/06/22 History tablet (Premarin) NEEDED PER MED LIST ferrous sulfate 143 mg (45 mg 143 mg PO DAILY 07/06/22 07/06/22 History iron) tablet,extended release (Slow Release Iron) melatonin 10 mg tablet 10 mg PO HS 07/06/22 07/06/22 History polyethylene glycol 3350 17 8.5 g PO DAILY 07/06/22 07/06/22 History gram/dose oral powder (Miralax) pregabalin 200 mg capsule (Lyrica) 200 mg PO AMHS 07/06/22 07/06/22 History sennosides 8.6 mg tablet (Senokot) 17.2 mg PO BID 07/06/22 07/06/22 History tapentadol 50 mg tablet,extended 50 mg PO AMHS 07/06/22 07/06/22 History release,12 hr (Nucynta ER) zolpidem 6.25 mg tablet,extended 6.25 mg PO HS 07/06/22 07/06/22 History release,multiphase Past Med/Surg History Medical History (Updated 07/06/22 @ 16:19 by Saleem Garay MD) Anxiety Avulsion fracture of middle phalanx of finger Bilateral lumbar radiculopathy Cardiac murmur CHI (closed head injury) Chronic back pain Falls frequently Fibromyalgia Forehead laceration Hearing deficit Hx of breast cancer RADIATION 2000 Hyperlipidemia Hyperlipidemia Hypothyroidism Lumbar canal stenosis Maxillary sinus fracture Multiple facial bone fractures Multiple rib fractures Other abnormalities of gait and mobility Poor balance PSP (progressive supranuclear palsy) Risk for falls LAST EVENT ARPIL 2019 Scoliosis LUMBAR AND NERVE PAIN Spinal stenosis Surgical History History of colonoscopy History of dilation and curettage History of foot surgery LEFT History of tonsillectomy Hx of appendectomy Hx of bilateral breast reduction surgery DUE TO CANCER 2006 Hx of cataract surgery RIGHT AND LEFT Hx of kyphoplasty L2 Hx of lumpectomy WITH LYMPH NODE REMOVAL (LEFT) Hx of spinal fusion L4-S1 Hx of wisdom tooth extraction S/P epidural steroid injection Family History Sister Alzheimer disease Breast cancer Paget's disease Father Alzheimer disease Grandmother (Paternal) Alzheimer disease Mother Myocardial infarction Stroke syndrome Uncle Prostate cancer Denies family history of Ovarian cancer Adverse anesthesia outcome Bleeding disorder Colorectal cancer Social History Smoking Status: Never smoker Second Hand Exposure: No; Hx Alcohol Use: No Hx Substance Use: No Preferred Language: Turkish Communication Ability: Effective Visual Impairment: No Limitations Hearing Ability: Use of Hearing Aid Informatics Analyst Required: No Beliefs That Will Affect Care: None marital status: / Current Living Situation: Alone and Personal Care Facility Current Living Situation Comment: [facility]) current occupational status: retired How many Children do You have: 2 Feels Safe at Home: Yes Childhood Exposure to Second-Hand Smoke: No caffeine: Yes during the past year weight has: remained stable Dental Care, Regularly: Yes Physical Activity Frequency: Does not Exercise Seatbelt Use: always Sunscreen Use: Yes Assistive Devices: Walker Review of Systems Review of Systems: All systems reviewed & are unremarkable except as noted in HPI & below Physical Exam Physical Exam: General: A&Ox3. NAD. Cooperative. HEENT: Atraumatic, normocephalic. Vision and hearing grossly intact. Poor dentition. Pulm: CTAB A&P. -wheezes, -rales, -rhonchi. Symmetrical chest rise. No increase in work of breathing. No respiratory distress. Cardiac: RRR, systolic murmur present. Radial pulses intact and symmetrical. Abdominal: Nontender, nondistended, soft. BS present. Extremities: Left hip tender to palpation from the greater trochanter to mid thigh. Able to wiggle toes without difficulty, sensation of soft touch intact in toes bilaterally. Cap refill in hallux brisk bibasilarly, PT intact bilaterally. Leg is resting slightly shortened but not externally rotated on exam. Results & Data Results & Data ([facility]) Vital Signs (Past 12 Hours) Vital Signs Pulse Pulse Resp BP BP Pulse Ox O2 Del Method 07/06/22 15:25 65 16 125/61 91 07/06/22 13:56 80 22 122/62 88 L Room Air PG Care Time/CCT Total # of Minutes Spent Total Time Spent with Patient: Total time spent is greater than 50% in coordination of care (as documented) at patient's floor/unit and/or counseling patient: Coding Level of Care Code 00847 Initial Inpt Care Lvl 2 Diagnoses Closed left hip fracture S72.002A PSP (progressive supranuclear palsy) G23.1 Laryngopharyngeal reflux K21.9 Fibromyalgia M79.7 Anemia D64.9
--- NOTE | 2022-07-06 17:08 | XRay Report ---
XR elbow RT min 3V routine CLINICAL HISTORY: fall, elbow swelling COMPARISON: None FINDINGS: Irregularity of the lateral condyle is chronic. No acute fracture. There is no evidence fo r a joint effusion. Soft tissue swelling overlying the olecranon is noted. IMPRESSION: 1. No acute fracture or evidence for a right elbow joint effusion. 2. Significant soft tissue swelling overlying the olecranon. This favors a contusion however olecrano n bursitis could appear similar. ACT 112: Negative or not required by law. Electronically signed by: Sergey Gunn M.D. 07/06/2022 5:06 PM
--- NOTE | 2022-07-06 18:30 | CT Scan Report ---
CT hip LT wo con CLINICAL HISTORY: Left femoral neck fracture. COMPARISON STUDY: Pelvis and left hip radiographs performed earlier today. CT of the abdomen and pel vis January 30, 2022. TECHNIQUE: Axial images of the left hip were obtained without IV contrast. Sagittal and coronal recon structions were viewed. Automated exposure control was utilized for the study. A dose lowering techn ique was utilized adhering to the principles of ALARA. FINDINGS: There is an acute impacted mildly displaced subcapital left femoral neck fracture. Fracture is displaced approximately 5 mm. No additional acute fractures are identified on this examination. A lignment of left hip is otherwise anatomic. There is subcutaneous stranding of the posterior and late ral left thigh. No large hematoma is identified. No suspicious osseous lesions are present. Moderate left hip osteophytosis present. IMPRESSION: Acute impacted mildly displaced subcapital left femoral neck fracture. ACT 112: Negative or not required by law. Electronically signed by: Sergey Gunn M.D. 07/06/2022 6:28 PM
[2022-07-06] MEDS ORDERED: ONDANSETRON INJ 2 MG/ML 2 ML VIAL IV PRN (19:38)
[2022-07-06] MEDS: HEPARIN SOD 5,000 UNIT/0.5 ML VIAL SQ SCH (20:53)
[2022-07-06] MEDS: SENNA 8.6 MG TAB PO SCH (20:53)
[2022-07-06] MEDS: PANTOprazole 40 MG TAB PO SCH (20:53)
[2022-07-06] MEDS: SIMVASTATIN 20 MG TAB PO SCH (20:53)
[2022-07-06] MEDS: CARBIDOPA/LEVODOPA 25/100MG TAB PO SCH (20:53)
[2022-07-06] MEDS: BENZTROPINE MESYLATE 0.5 MG TAB PO SCH (20:53)
[2022-07-06] MEDS: PREGABALIN 100 MG CAP PO SCH (20:55)
--- NOTE | 2022-07-06 21:16 | Anesthesiology Consultation ---
Date of Service July 07, 2022 Assessment & Plan Consults Requested none ASA ASA3 Proposed Anesthesia Anesthesia Type: Spinal (with mild to moderate sedation) Risk / Benefits Reviewed With: PT / POA / Parent / Guardian, Accepts Plan (see below notes) and Informed Consent Obtained Additional Notes While GETA is an acceptable course of action, spinal may be, although not definitively, a better option for Ms Falcon's hip surgery. Case reports suggest it is a safe and effective for hip surgery in PSP. These patients are at slightly increased risk for aspiration and with cervical spine limitations airway management may be difficult. In this case, she has an MP 2 but does have some cervical movement limitations (moderate) and Ms. 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 Also, her medications may make direct acting agonists (vs indirect) for blood pressure preferable. Suggested plan is spinal anesthetic with sedation as tolerated. Please note she has a holosystolic like cardiac murmur(? vs AR) Careful monitoring of BP during spinal initiation is advised. There is no ECHO on the chart and epidural may be preferable if significant is confirmed. It is of note that she has a DNR/DNI status on her chart. This was NOT discussed with her at the consultation. Both spinal and GETA were discussed with patient. Consent was signed and placed in paper chart. History Height/Weight Height: 5 ft 2 in Weight: 60.2 kg Allergies Allergy/AdvReac Type Severity Reaction Status Date / Time cat dander Allergy Severe SHORTNESS Verified 07/06/22 15:54 OF BREATH mold Allergy Severe SHORTNESS Verified 07/06/22 15:54 OF BREATH nut - unspecified Allergy Severe Anaphylaxis Verified 07/06/22 15:54 peanut Allergy Severe Anaphylaxis Verified 07/06/22 15:54 pecan nut Allergy Severe Anaphylaxis Verified 07/06/22 15:54 walnut Allergy Severe Anaphylaxis Verified 07/06/22 15:54 Penicillins Allergy Intermediate HIVES Verified 07/06/22 15:54 Sulfa (Sulfonamide Allergy Intermediate "jaundiced Verified 07/06/22 15:54 Antibiotics) as child", HIVES codeine Allergy Mild GI SYMPTOMS Verified 07/06/22 15:54 soy Allergy Unknown Unknown Verified 07/06/22 15:54 Medications Home Medications Medication Instructions Recorded Confirmed Last Taken cholecalciferol (vitamin D3) 25 1,000 unit PO DAILY 06/21/18 07/06/22 07/06/22 mcg (1,000 unit) capsule (Vitamin D3) benztropine 0.5 mg tablet 0.5 mg PO BID #180 tabs 10/28/21 07/06/22 07/06/22 07:00 simvastatin 20 mg tablet (Zocor) 20 mg PO HS #90 tabs 10/29/21 07/06/22 07/05/22 pantoprazole 40 mg tablet,delayed 40 mg PO BID gastritis 90 days 01/08/22 07/06/22 07/06/22 09:00 release #180 tabs levothyroxine 75 mcg tablet 75 mcg PO QAM #90 tabs 01/20/22 07/06/22 07/06/22 (Synthroid) duloxetine 60 mg capsule,delayed 60 mg PO QAM 90 days #90 caps 04/28/22 07/06/22 07/06/22 release (Cymbalta) escitalopram oxalate 20 mg tablet 20 mg PO DAILY #90 tabs 05/16/22 07/06/22 07/06/22 carbidopa 25 mg-levodopa 100 mg 1 tab PO QID 90 days #360 tabs 06/10/22 07/06/22 07/06/22 tablet (Sinemet) hydrocodone 7.5 mg-acetaminophen 1 tab PO TID PRN pain #90 tabs 07/02/22 07/06/22 Unknown 325 mg tablet conjugated estrogens 0.625 mg 0.625 mg PO DIRECTED PRN 07/06/22 07/06/22 Unknown tablet (Premarin) NEEDED PER MED LIST ferrous sulfate 143 mg (45 mg 143 mg PO DAILY 07/06/22 07/06/22 07/06/22 iron) tablet,extended release (Slow Release Iron) melatonin 10 mg tablet 10 mg PO HS 07/06/22 07/06/22 07/05/22 polyethylene glycol 3350 17 8.5 g PO DAILY 07/06/22 07/06/22 07/06/22 gram/dose oral powder (Miralax) pregabalin 200 mg capsule (Lyrica) 200 mg PO AMHS 07/06/22 07/06/22 07/06/22 07:00 sennosides 8.6 mg tablet (Senokot) 17.2 mg PO BID 07/06/22 07/06/22 07/06/22 09:00 tapentadol 50 mg tablet,extended 50 mg PO AMHS 07/06/22 07/06/22 07/06/22 07:00 release,12 hr (Nucynta ER) zolpidem 6.25 mg tablet,extended 6.25 mg PO HS 07/06/22 07/06/22 07/05/22 release,multiphase Active Medications Generic Name Dose Route Start Last Admin Trade Name Freq PRN Reason Stop Dose Admin Benztropine Mesylate 0.5 mg 07/06/22 21:00 07/06/22 20:53 Benztropine Mesylate 0.5 Mg Tab PO 08/05/22 20:59 0.5 mg BID CHAYITO Administration Carbidopa/Levodopa 1 tab 07/06/22 21:00 07/06/22 20:53 Carbidopa/Levodopa 25/100mg Tab PO 08/05/22 20:59 1 tab QID CHAYITO Administration Heparin Sodium (Porcine) 5,000 units 07/06/22 21:00 07/06/22 20:53 Heparin Sod 5,000 Unit/0.5 Ml Vial SQ 08/05/22 20:59 5,000 units Q12 CHAYITO Administration Pantoprazole Sodium 40 mg 07/06/22 21:00 07/06/22 20:53 Pantoprazole 40 Mg Tab PO 08/05/22 20:59 40 mg BID CHAYTIO Administration Pregabalin 200 mg 07/06/22 21:00 07/06/22 20:55 Pregabalin 100 Mg Cap PO 08/05/22 20:59 200 mg AMHS CHAYITO Administration Sennosides 17.2 mg 07/06/22 21:00 07/06/22 20:53 Senna 8.6 Mg Tab PO 08/05/22 20:59 17.2 mg BID CHAYITO Administration Simvastatin 20 mg 07/06/22 21:00 07/06/22 20:53 Simvastatin 20 Mg Tab PO 08/05/22 20:59 20 mg HS CHAYITO Administration Tapentadol 50 mg 07/06/22 21:00 07/06/22 21:17 Tapentadol Hcl Er 50 Mg Tabcr PO 07/20/22 20:59 50 mg AMHS CHAYITO Administration Past Medical History Medical History (Updated 07/06/22 @ 18:50 by Ned Montez MD) Anxiety Avulsion fracture of middle phalanx of finger Bilateral lumbar radiculopathy Cardiac murmur CHI (closed head injury) Chronic back pain Falls frequently Fibromyalgia Forehead laceration Hearing deficit Hx of breast cancer RADIATION 2000 Hyperlipidemia Hyperlipidemia Hypothyroidism Lumbar canal stenosis Maxillary sinus fracture Multiple facial bone fractures Multiple rib fractures Other abnormalities of gait and mobility Poor balance PSP (progressive supranuclear palsy) Risk for falls LAST EVENT ARPIL 2019 Scoliosis LUMBAR AND NERVE PAIN Spinal stenosis Past Family History Family History Sister Alzheimer disease Breast cancer Paget's disease Father Alzheimer disease Grandmother (Paternal) Alzheimer disease Mother Myocardial infarction Stroke syndrome Uncle Prostate cancer Denies family history of Ovarian cancer Adverse anesthesia outcome Bleeding disorder Colorectal cancer Past Surgical History Surgical History History of colonoscopy History of dilation and curettage History of foot surgery LEFT History of tonsillectomy Hx of appendectomy Hx of bilateral breast reduction surgery DUE TO CANCER 2006 Hx of cataract surgery RIGHT AND LEFT Hx of kyphoplasty L2 Hx of lumpectomy WITH LYMPH NODE REMOVAL (LEFT) Hx of spinal fusion L4-S1 Hx of wisdom tooth extraction S/P epidural steroid injection Social History Smoking Status: Never smoker tobacco type: cigarettes Hx Alcohol Use: No Hx Substance Use: No substance use type: does not use Review of Systems Constitutional: as per Subjective / HPI slightly hypertonic movements slow eye opening Ear, Nose, Mouth, Throat: + dry mouth large palatal torus in midline Respiratory: + wheezing Additional Comments: ?systolic ejection murmur Gastrointestinal: as per Subjective / HPI Genitourinary (Female): as per Subjective / HPI Musculoskeletal: + back pain hip pain secondary to Fx Integumentary: as per Subjective / HPI Neurologic: as per Subjective / HPI, + lack of coordination and + tremor(s) Hx of PSP (progressive nuclear palsy) Psychiatric: as per Subjective / HPI Endocrine: as per Subjective / HPI Hematologic / Lymphatic: as per Subjective / HPI Allergy / Immunological: as per Subjective / HPI Physical Exam Vital Signs Last Vital Signs Pulse 76 07/06/22 17:58 Resp 16 07/06/22 17:58 BP 123/75 07/06/22 17:58 Pulse Ox 91 07/06/22 17:58 O2 Del Method 07/06/22 13:56 Constitutional lying in bed. Slightly hypertonic movements of arms/hands with slight tremors ENMT Mouth: + dentition abnormality (missing teeth) Mallampati Class: II large palatal torus obvious in midline Neck normal visual inspection and + limited neck extension Respiratory + audible wheezes Cardiovascular Rate/Rhythm: regular rate and regular rhythm Heart Sounds: + murmur (NAI vs holosytolic ) Musculoskeletal Spine: normal cervical ROM Extremities: + limited ROM of extremities Psychiatric Orientation: alert and oriented x 3 speaks and moves slowly with mild tremors Testing Laboratory Results 07/06/22 14:15 07/06/22 14:15 PT 10.6 Seconds (9.0-12.0) 07/06/22 14:15 INR 1.0 (0.9-1.1) 07/06/22 14:15
[2022-07-06] MEDS: TAPENTADOL HCL ER 50 MG TABCR PO SCH (21:17)
[2022-07-06] MEDS: LACTATED RINGER'S 1,000 ML IV SCH (23:57)
[2022-07-07 04:04] LABS: Appearance Urine Clear (Clear); Bilirubin Urine Negative (Negative); Blood Urine Negative (Negative); Color Urine Yellow; Glucose Urine UA Negative (Negative); Ketones Urine Trace (Negative); Leukocyte Esterase Urine Negative (Negative); Nitrite Urine Negative (Negative); Protein Urine Negative (Negative); Specific Gravity Urine 1.015 (1.000-1.030); Urobilinogen Urine Negative (Negative); pH Urine 5.5 (4.5-7.5)
--- NOTE | 2022-07-07 07:01 | Orthopedic Consultation ---
Date of Consultation July 07, 2022 Assessment & Plan (1) Fracture of femoral neck, left, closed: Left displaced subcapital hip fracture. I have discussed the case with Dr. Avitia. X-rays have been reviewed. It is felt the patient will require a left hemiarthroplasty of the left hip. I have discussed the case with the patient's son who is in agreement. Patient was a household ambulator with a Rollator walker of which she states she did very well. Dr. Avitia has scheduled the patient for a left hemiarthroplasty this afternoon. Supervising Physician Co-Signing Physician Notes I met with the patient and her son this afternoon. Patient has a displaced left femoral neck fracture. I had a lengthy discussion with him regarding recommended treatment of a left hip hemiarthroplasty for her displaced left subcapital femoral neck fracture. While in the room the patients son called Dr Borja a safety equipment tester affiliated with [facility] questioning the decision of hemiarthroplasty has the optimal surgery for her femoral neck fracture. Patient's son has expressed that they would like to be treated by [facility]. Given that they are requesting [facility] we will sign off. 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 Patient states that she was trying to sit down into her recliner. She ended up losing her balance and falling onto her left side. She had immediate pain in her left hip and was having difficulty ambulating. She denies hitting her head. There was no loss of consciousness. There was no shortness of breath, chest pain, lightheadedness prior to or after the fall. She was brought to the emergency room where she was seen by the staff. X-rays were taken and found that she had a displaced left subcapital hip fracture. She was admitted by the hospitalist service. We have been consulted for her left hip fracture. Allergies Allergy/AdvReac Type Severity Reaction Status Date / Time cat dander Allergy Severe SHORTNESS Verified 07/06/22 15:54 OF BREATH mold Allergy Severe SHORTNESS Verified 07/06/22 15:54 OF BREATH nut - unspecified Allergy Severe Anaphylaxis Verified 07/06/22 15:54 peanut Allergy Severe Anaphylaxis Verified 07/06/22 15:54 pecan nut Allergy Severe Anaphylaxis Verified 07/06/22 15:54 walnut Allergy Severe Anaphylaxis Verified 07/06/22 15:54 Penicillins Allergy Intermediate HIVES Verified 07/06/22 15:54 Sulfa (Sulfonamide Allergy Intermediate "jaundiced Verified 07/06/22 15:54 Antibiotics) as child", HIVES codeine Allergy Mild GI SYMPTOMS Verified 07/06/22 15:54 soy Allergy Unknown Unknown Verified 07/06/22 15:54 Home Medications Medication Instructions Recorded Confirmed Type cholecalciferol (vitamin D3) 25 1,000 unit PO DAILY 06/21/18 07/06/22 History mcg (1,000 unit) capsule (Vitamin D3) benztropine 0.5 mg tablet 0.5 mg PO BID #180 tabs 10/28/21 07/06/22 Rx simvastatin 20 mg tablet (Zocor) 20 mg PO HS #90 tabs 10/29/21 07/06/22 Rx pantoprazole 40 mg tablet,delayed 40 mg PO BID gastritis 90 days 01/08/22 07/06/22 Rx release #180 tabs levothyroxine 75 mcg tablet 75 mcg PO QAM #90 tabs 01/20/22 07/06/22 Rx (Synthroid) duloxetine 60 mg capsule,delayed 60 mg PO QAM 90 days #90 caps 04/28/22 07/06/22 Rx release (Cymbalta) escitalopram oxalate 20 mg tablet 20 mg PO DAILY #90 tabs 05/16/22 07/06/22 Rx carbidopa 25 mg-levodopa 100 mg 1 tab PO QID 90 days #360 tabs 06/10/22 07/06/22 Rx tablet (Sinemet) hydrocodone 7.5 mg-acetaminophen 1 tab PO TID PRN pain #90 tabs 07/02/22 07/06/22 Rx 325 mg tablet conjugated estrogens 0.625 mg 0.625 mg PO DIRECTED PRN 07/06/22 07/06/22 History tablet (Premarin) NEEDED PER MED LIST ferrous sulfate 143 mg (45 mg 143 mg PO DAILY 07/06/22 07/06/22 History iron) tablet,extended release (Slow Release Iron) melatonin 10 mg tablet 10 mg PO HS 07/06/22 07/06/22 History polyethylene glycol 3350 17 8.5 g PO DAILY 07/06/22 07/06/22 History gram/dose oral powder (Miralax) pregabalin 200 mg capsule (Lyrica) 200 mg PO AMHS 07/06/22 07/06/22 History sennosides 8.6 mg tablet (Senokot) 17.2 mg PO BID 07/06/22 07/06/22 History tapentadol 50 mg tablet,extended 50 mg PO AMHS 07/06/22 07/06/22 History release,12 hr (Nucynta ER) zolpidem 6.25 mg tablet,extended 6.25 mg PO HS 07/06/22 07/06/22 History release,multiphase Patient History Medical History Anxiety Avulsion fracture of middle phalanx of finger Bilateral lumbar radiculopathy Cardiac murmur CHI (closed head injury) Chronic back pain Falls frequently Fibromyalgia Forehead laceration Hearing deficit Hx of breast cancer RADIATION 2000 Hyperlipidemia Hyperlipidemia Hypothyroidism Lumbar canal stenosis Maxillary sinus fracture Multiple facial bone fractures Multiple rib fractures Other abnormalities of gait and mobility Poor balance PSP (progressive supranuclear palsy) Risk for falls LAST EVENT ARPIL 2019 Scoliosis LUMBAR AND NERVE PAIN Spinal stenosis Surgical History History of colonoscopy History of dilation and curettage History of foot surgery LEFT History of tonsillectomy Hx of appendectomy Hx of bilateral breast reduction surgery DUE TO CANCER 2006 Hx of cataract surgery RIGHT AND LEFT Hx of kyphoplasty L2 Hx of lumpectomy WITH LYMPH NODE REMOVAL (LEFT) Hx of spinal fusion L4-S1 Hx of wisdom tooth extraction S/P epidural steroid injection Family History Sister Alzheimer disease Breast cancer Paget's disease Father Alzheimer disease Grandmother (Paternal) Alzheimer disease Mother Myocardial infarction Stroke syndrome Uncle Prostate cancer Denies family history of Ovarian cancer Adverse anesthesia outcome Bleeding disorder Colorectal cancer Social History Smoking Status: Never smoker Second Hand Exposure: No; Hx Alcohol Use: No Hx Substance Use: No Preferred Language: [place] Verdean Communication Ability: Effective Visual Impairment: No Limitations Hearing Ability: Use of Hearing Aid Sanitary Napkin Machine Tender Required: No Beliefs That Will Affect Care: None marital status: / Current Living Situation: Personal Care Facility Current Living Situation Comment: resides at [facility] current occupational status: retired How many Children do You have: 2 Other Information That Helps Us Care for You: No Feels Safe at Home: Yes Safety Concerns: Feels Safe At This Time Childhood Exposure to Second-Hand Smoke: No caffeine: Yes during the past year weight has: remained stable Dental Care, Regularly: Yes Physical Activity Frequency: Does not Exercise Seatbelt Use: always Sunscreen Use: Yes Assistive Devices: Walker Assistive Devices Comment: rollator walker Physical Exam Physical Exam: Patient is an 86-year-old white female. She is oriented to person and place. No acute distress. Pleasant and cooperative. On examination of her left lower extremity she has some slight leg length discrepancy compared to the right. She is able to move the left hip actively however does cause her discomfort. She has minimal discomfort with internal and external rotation. She does have pain with flexion and a little bit with extension. She also has some pain with abduction and adduction. She denies any pain in the right lower extremity and has range of motion within normal limits of the hip, knee, ankle. Upper extremities do not appear to be greatly affected. Mild right elbow swelling compared to left elbow without discomfort. She has some chronic pain in her right shoulder from rotator cuff arthropathy but otherwise she is able to take her through gentle range of motion without much in way of discomfort of the shoulders, elbows, and wrists. There is no gross motor or sensory loss seen at this time. Results & Data ([facility]) Vital Signs (Past 12 Hours) Vital Signs Temp Pulse Resp BP Pulse Ox O2 Del Method O2 Flow Rate 07/07/22 03:00 36.8 C 71 18 130/75 100 Nasal Cannula 2 07/06/22 23:38 36.8 C 68 18 126/72 100 Nasal Cannula 2 07/06/22 19:20 Nasal Cannula 2 07/06/22 19:20 37.2 C 82 18 144/76 H 100 Nasal Cannula 2 Laboratory Results Laboratory Results WBC 8.36 K/ul (4.8-10.8) 07/06/22 14:15 RBC 3.60 M/uL (3.93-5.22) L 07/06/22 14:15 Hgb 10.8 g/dl (12.0-16.0) L 07/06/22 14:15 Hct 32.5 % (34.1-44.9) L 07/06/22 14:15 MCV 90.3 fL (80.0-100.0) 07/06/22 14:15 MCH 30.0 pg (25.0-34.0) 07/06/22 14:15 MCHC 33.2 g/dL (32.0-36.0) 07/06/22 14:15 RDW Std Deviation 46.9 fL (36.4-46.3) H 07/06/22 14:15 RDW Coeff of Arnaud 14.2 % (11.5-14.5) 07/06/22 14:15 Plt Count 205 K/uL (130-400) 07/06/22 14:15 MPV 11.5 fL (9.4-12.3) 07/06/22 14:15 Immature Gran % (Auto) 0.2 % 07/06/22 14:15 Neut % (Auto) 73.4 % 07/06/22 14:15 Lymph % (Auto) 9.7 % 07/06/22 14:15 Kane % (Auto) 10.3 % 07/06/22 14:15 Eos % (Auto) 5.7 % 07/06/22 14:15 Baso % (Auto) 0.7 % 07/06/22 14:15 Neut # (Auto) 6.13 K/uL (1.4-6.5) 07/06/22 14:15 Lymph # (Auto) 0.81 K/uL (1.2-3.4) L 07/06/22 14:15 Kane # (Auto) 0.86 K/uL (0.24-0.82) H 07/06/22 14:15 Eos # (Auto) 0.48 K/uL (0-0.50) 07/06/22 14:15 Baso # (Auto) 0.06 K/uL (0-0.2) 07/06/22 14:15 Immature Gran # (Auto) 0.02 K/uL (0.00-0.02) 07/06/22 14:15 PT 10.6 Seconds (9.0-12.0) 07/06/22 14:15 INR 1.0 (0.9-1.1) 07/06/22 14:15 Sodium 135 mmol/L (136-145) L 07/06/22 14:15 Potassium 3.7 mmol/L (3.5-5.1) 07/06/22 14:15 Chloride 100 mmol/L (98-107) 07/06/22 14:15 Carbon Dioxide 28 mmol/L (21-32) 07/06/22 14:15 Anion Gap 7 (3-11) 07/06/22 14:15 BUN 15 mg/dl (6-23) 07/06/22 14:15 Creatinine 0.59 mg/dl (0.6-1.2) L 07/06/22 14:15 Est Cr Clr Drug Dosing 60.7 ml/min 07/06/22 14:15 Est GFR ( Amer) 97.5 ml/min 07/06/22 14:15 Est GFR (Non-Af Amer) 84.2 ml/min 07/06/22 14:15 BUN/Creatinine Ratio 25.4 (10-20) H 07/06/22 14:15 Glucose 103 mg/dl (70-99(Fasting)) H 07/06/22 14:15 Calcium 9.2 mg/dl (8.5-10.1) 07/06/22 14:15 Magnesium 1.6 mg/dl (1.7-2.4) L 07/06/22 14:15 Total Creatine Kinase 154 U/L (26-192) 07/06/22 14:15 Troponin I High Sens 5.3 pg/ml (0-14) 07/06/22 14:15 Urine Color Yellow 07/07/22 03:45 Urine Appearance Clear (Clear) 07/07/22 03:45 Urine pH 5.5 (4.5-7.5) 07/07/22 03:45 Ur Specific [place] 1.015 (1.000-1.030) 07/07/22 03:45 Urine Protein Negative (Negative) 07/07/22 03:45 Urine Glucose (UA) Negative (Negative) 07/07/22 03:45 Urine Ketones Trace (Negative) H 07/07/22 03:45 Urine Blood Negative (Negative) 07/07/22 03:45 Urine Nitrite Negative (Negative) 07/07/22 03:45 Urine Bilirubin Negative (Negative) 07/07/22 03:45 Urine Urobilinogen Negative (Negative) 07/07/22 03:45 Ur Leukocyte Esterase Negative (Negative) 07/07/22 03:45 SARS-CoV-2 (PCR) NEGATIVE (Negative) 07/06/22 14:13 Influenza Type A (PCR) Negative (Neg) 07/06/22 14:13 Influenza Type B (PCR) Negative (Neg) 07/06/22 14:13 RSV (RT-PCR) Negative (Neg) 07/06/22 14:13 Impressions Chest X-Ray 07/06/22 14:04 XR chest 1V portable CLINICAL HISTORY: fall, hypoxia, weakness COMPARISON STUDY: Chest CT January 30, 2022. Chest radiograph June 17, 2022. FINDINGS: Severe degenerative changes of the right shoulder are noted. There is no pneumothorax. There may be trace bilateral pleural effusions. Pulmonary vascular congestion is present. Cardiomegaly is unchanged. A hiatal hernia is again noted. There are multiple old right rib fractures. Lumbar spine vertebroplasty is incidentally noted. IMPRESSION: 1. No pneumothorax. Trace bilateral pleural effusions. 2. Cardiomegaly with pulmonary vascular congestion. ACT 112: Negative or not required by law. Electronically signed by: Sergey Gunn M.D. 07/06/2022 3:47 PM Hip/Pelvis X-Ray 07/06/22 14:04 XR hip LT 2V w pelvis CLINICAL HISTORY: Left hip pain following fall. COMPARISON: Left hip radiographs January 30, 2022. FINDINGS: Postoperative findings within the lumbosacral spine are partially imaged. Sacroiliac joints and symphysis pubis are intact. Note is made of an acute subcapital left femoral fracture. Fracture is displaced approximately 5 mm. No additional fractures are identified within the pelvis or hips. IMPRESSION: Acute displaced subcapital left femoral fracture. ACT 112: Negative or not required by law. Electronically signed by: Sergey Gunn M.D. 07/06/2022 3:32 PM Elbow X-Ray 07/06/22 16:08 XR elbow RT min 3V routine CLINICAL HISTORY: fall, elbow swelling COMPARISON: None FINDINGS: Irregularity of the lateral condyle is chronic. No acute fracture. There is no evidence for a joint effusion. Soft tissue swelling overlying the olecranon is noted. IMPRESSION: 1. No acute fracture or evidence for a right elbow joint effusion. 2. Significant soft tissue swelling overlying the olecranon. This favors a contusion however olecranon bursitis could appear similar. ACT 112: Negative or not required by law. Electronically signed by: Sergey Gunn M.D. 07/06/2022 5:[address] 07/06/22 17:07 CT hip LT wo con CLINICAL HISTORY: Left femoral neck fracture. COMPARISON STUDY: Pelvis and left hip radiographs performed earlier today. CT of the abdomen and pelvis January 30, 2022. TECHNIQUE: Axial images of the left hip were obtained without IV contrast. Sagittal and coronal reconstructions were viewed. Automated exposure control was utilized for the study. A dose lowering technique was utilized adhering to the principles of ALARA. FINDINGS: There is an acute impacted mildly displaced subcapital left femoral neck fracture. Fracture is displaced approximately 5 mm. No additional acute fractures are identified on this examination. Alignment of left hip is otherwise anatomic. There is subcutaneous stranding of the posterior and lateral left thigh. No large hematoma is identified. No suspicious osseous lesions are present. Moderate left hip osteophytosis present. IMPRESSION: Acute impacted mildly displaced subcapital left femoral neck fracture. ACT 112: Negative or not required by law. Electronically signed by: Sergey Gunn M.D. 07/06/2022 6:28 PM (1) Fracture of femoral neck, left, closed Encounter type: initial encounter Qualified Code(s): S72.002A - Fracture of unspecified part of neck of left femur, initial encounter for closed fracture
[2022-07-07 07:44] LABS: Basophils # (auto) 0.04 K/uL (0-0.2); Basophils % (auto) 0.6 %; Eosinophils # (auto) 0.46 K/uL (0-0.50); Eosinophils % (auto) 6.4 %; Hematocrit (blood only) 28.8 % (34.1-44.9); Hemoglobin 9.6 g/dl (12.0-16.0); Immature Granulocytes # (auto) 0.02 K/uL (0.00-0.02); Immature Granulocytes % (auto) 0.3 %; Lymphocytes # (auto) 0.75 K/uL (1.2-3.4); Lymphocytes % (auto) 10.4 %; Mean Corpuscular Hemoglobin 29.6 pg (25.0-34.0); Mean Corpuscular Hgb Conc 33.3 g/dL (32.0-36.0); Mean Corpuscular Volume 88.9 fL (80.0-100.0); Mean Platelet Volume 11.5 fL (9.4-12.3); Monocytes # (auto) 0.66 K/uL (0.24-0.82); Monocytes % (auto) 9.2 %; Neutrophils # (auto) 5.26 K/uL (1.4-6.5); Neutrophils % (auto) 73.1 %; Platelet Count 167 K/uL (130-400); RDW Coefficient of Variation 14.2 % (11.5-14.5); RDW Standard Deviation 45.8 fL (36.4-46.3); Red Blood Count 3.24 M/uL (3.93-5.22); White Blood Count 7.19 K/ul (4.8-10.8)
[2022-07-07 07:53] LABS: Prothrombin Time 10.9 Seconds (9.0-12.0)
[2022-07-07 08:27] LABS: BUN Creatinine Ratio 20.8 (10-20); Calcium 8.7 mg/dl (8.5-10.1); Creatinine Clr Calc Pharmacy 74.6 ml/min; Est GFR (African American) 104.4 ml/min; Est GFR (Non-African American) 90.1 ml/min; Potassium 3.9 mmol/L (3.5-5.1)
[2022-07-07] MEDS ORDERED: LEVOTHYROXINE SODIUM 75 MCG TABLET PO SCH (09:00)
[2022-07-07] MEDS ORDERED: CHOLECALCIFEROL 1,000 UNITS 25 MCG TAB PO SCH (09:00)
[2022-07-07] MEDS: SENNA 8.6 MG TAB PO SCH ×2 (09:23→21:06)
[2022-07-07] MEDS: DULoxetine HCL 60 MG CAP PO SCH (09:23)
[2022-07-07] MEDS: POLYETHYLENE (MIRALAX) 17 GM PACK PO SCH (09:23)
[2022-07-07] MEDS: ESCITALOPRAM OXALATE 20 MG TAB PO SCH (09:24)
[2022-07-07] MEDS: CARBIDOPA/LEVODOPA 25/100MG TAB PO SCH ×4 (09:24→21:07)
[2022-07-07] MEDS: PANTOprazole 40 MG TAB PO SCH ×2 (09:24→21:07)
[2022-07-07] MEDS: BENZTROPINE MESYLATE 0.5 MG TAB PO SCH ×2 (09:24→21:06)
[2022-07-07] MEDS: PREGABALIN 100 MG CAP PO SCH ×2 (09:28→21:06)
[2022-07-07] MEDS: TAPENTADOL HCL ER 50 MG TABCR PO SCH ×2 (09:29→21:06)
[2022-07-07] MEDS: ACETAMINOPHEN 325 MG TAB PO PRN ×2 (09:29→17:29)
--- NOTE | 2022-07-07 10:55 | Electrocardiogram Report ---
Test Reason : Blood Pressure : / mmHG Vent. Rate : 086 BPM Atrial Rate : 086 BPM P-R Int : 152 ms QRS Dur : 084 ms QT Int : 352 ms P-R-T Axes : -18 -20 018 degrees QTc Int : 421 ms Poor data quality, interpretation may be adversely affected Normal sinus rhythm Minimal voltage criteria for LVH, may be normal variant Nonspecific T wave abnormality Abnormal ECG When compared with ECG of 30-JAN-2022 18:10, No significant change was found Confirmed by Howard Wyatt ([id number]) on 07/07/2022 10:54:57 AM Referred By: REFERRED SELF Confirmed By:Goran Wyatt
[2022-07-07] MEDS: LACTATED RINGER'S 1,000 ML IV SCH (11:27)
--- NOTE | 2022-07-07 12:25 | Hospitalist Progress Note ---
Date of Service July 07, 2022 Assessment & Plan (1) Closed left hip fracture: Plan: Kwame is an 86-year-old female with a past medical history of gait instability and frequent falls due to progressive supranuclear palsy who comes in following a fall yesterday and he was found to have a left hip fracture on imaging. Patient is mentating normally with no neck pain, head pain, or facial contusions. Left hip is tender to palpation but patient is comfortable at bed while not moving. Left hip fracture XR: Acute displaced subcapital left femoral fracture, 5 mm displacement No head/neck injury, no tenderness, did not strike head or lose consciousness at any point Strict bedrest Mcgee ordered Scaled analgesia ordered, received 0.5 mg hydromorphone in ER. Chronic pain medications as below No history of cardiac disease, renal impairment, or diabetes with insulin. - EKG: nsr -Revised cardiac risk: 0, 3.9% 30-day risk of , [place] or cardiac arrest -She is medically optimized for surgery at this time. (2) PSP (progressive supranuclear palsy): Plan: Uses a Rollator at home, no acute intervention for this Follows as outpatient with neurology. Continue Sinemet throughout p erioperative period PT/OT after Ortho consult/intervention for fracture Have discussed potential for need for long-term care due to recurrent falls prior to this. Case management consulted - Sinemet [id number] 4 times daily (3) Laryngopharyngeal reflux: Plan: Continue pantoprazole 40 mg p.o. twice daily (4) Fibromyalgia: Plan: - Pregabalin 200 mg p.o. twice daily - Tapentadol 50 mg p.o. twice daily Tylenol as needed Continue above multimodal pain control, low-dose hydromorphone added for breakthrough pain (5) Anemia: Plan: B12, folate, iron studies with a.m. labs Repeat CBC in a.m. Suspect mild drop from admission is due to IV fluids overnight. (6) Cardiac murmur: Plan: TTE - this is mainly to guide postoperative fluids and management. She does not need this result prior to her operation. (7) Depression: Plan: Continue Lexapro 20 mg daily (8) Hypothyroidism: Plan: TSH within normal limits in April 2021. We will repeat with a.m. labs. Continue Synthroid 75 mcg daily Plan DVT prophylaxis: Restart heparin 5000 units SQ twice daily, hold on morning of surgery, will defer to orthopedics regarding discharge VTE prophylaxis Diet: N.p.o. at midnight, regular easy to chew diet today Disposition: Medical surgical CODE STATUS: DNR/DNI, discussed with patient on admission Admission and Anticipated Discharge Date Admission Date: July 06, 2022 Subjective Patient reports already significant improvement in her pain with the pain medication since admission. Initially planned on surgery this afternoon however this was subsequently canceled as on discussion with her son they wish to change surgery groups. I personally discussed this with her son, Yovani. We discussed the urgency of such an operation this is not an elective procedure. He questioned whether she was a surgical candidate and I reassured him the outcomes are much worse with her not having surgery and she is currently medically optimized for the surgery. They elected to switch orthopedic surgeons to the [facility] physician group. I discussed this with Kyle Sales PA-C of the [facility] orthopedic group and they will see the patient tomorrow with the plan on doing surgery tomorrow if able. Review of Systems Review of Systems: All systems reviewed & are unremarkable except as noted in Subjective Physical Exam Constitutional: well developed and + frail appearing; no acute distress Respiratory: normal respiratory effort, lungs clear to auscultation Cardiovascular: Rate/Rhythm: regular rate and regular rhythm Heart Sounds: + murmur (Systolic, 4/6, LUSB) Extremities: normal capillary refill; no calf tenderness and no pedal edema Gastrointestinal (Abdomen): normal bowel sounds, soft, nontender, no hepatosplenomegaly Musculoskeletal: Shortened and externally rotated left leg although she is able to move this and is painful with any movement. Posterior tibial and dorsalis pedis pulses are intact. Normal sensation in her left foot. Dorsi and plantarflexion of her first toe is normal. Skin: no rashes, warm and dry Neurologic: moves all extremities and awake; not confused Psychiatric: A+Ox3, euthymic affect Results & Data Results & Data ([facility]) Vital Signs (Past 12 Hours) Vital Signs Temp Pulse Resp BP Pulse Ox O2 Del Method O2 Flow Rate 07/07/22 07:45 Nasal Cannula 2 07/07/22 08:01 37.1 C 81 16 121/71 96 Room Air 07/07/22 03:00 36.8 C 71 18 130/75 100 Nasal Cannula 2 PG Care Time/CCT Total # of Minutes Spent Total Time Spent: 80 Total Time Spent with Patient: Total time spent is greater than 50% in coordination of care (as documented) at patient's floor/unit and/or counseling patient: Coding Level of Care Code 22096 Subseq Hosp Care Lvl 3 Diagnoses Closed left hip fracture S72.002A PSP (progressive supranuclear palsy) G23.1 Laryngopharyngeal reflux K21.9 Fibromyalgia M79.7 Anemia D64.9 Cardiac murmur R01.1 Depression F32.A Hypothyroidism E03.9
[2022-07-07] MEDS: SIMVASTATIN 20 MG TAB PO SCH (21:06)
[2022-07-07] MEDS: HEPARIN SOD 5,000 UNIT/0.5 ML VIAL SQ SCH (22:23)
[2022-07-08] MEDS: LACTATED RINGER'S 1,000 ML IV SCH ×2 (00:02→18:23)
[2022-07-08] MEDS ORDERED: MELATONIN 3 MG TAB PO PRN (00:21)
[2022-07-08] MEDS: ACETAMINOPHEN 325 MG TAB PO PRN ×2 (01:02→18:25)
[2022-07-08] MEDS: HYDROmorphone INJ 0.5 MG/0.5 ML SYR IV PRN ×2 (03:07→07:55)
[2022-07-08] MEDS: LEVOTHYROXINE SODIUM 75 MCG TABLET PO SCH (05:50)
[2022-07-08 06:59] LABS: Basophils # (auto) 0.05 K/uL (0-0.2); Basophils % (auto) 0.7 %; Eosinophils # (auto) 0.55 K/uL (0-0.50); Eosinophils % (auto) 7.7 %; Hemoglobin 10.3 g/dl (12.0-16.0); Immature Granulocytes # (auto) 0.02 K/uL (0.00-0.02); Immature Granulocytes % (auto) 0.3 %; Lymphocytes # (auto) 1.23 K/uL (1.2-3.4); Lymphocytes % (auto) 17.2 %; Mean Corpuscular Hemoglobin 29.9 pg (25.0-34.0); Mean Corpuscular Hgb Conc 33.2 g/dL (32.0-36.0); Mean Corpuscular Volume 90.1 fL (80.0-100.0); Mean Platelet Volume 11.2 fL (9.4-12.3); Monocytes # (auto) 0.88 K/uL (0.24-0.82); Monocytes % (auto) 12.3 %; Neutrophils # (auto) 4.42 K/uL (1.4-6.5); Neutrophils % (auto) 61.8 %; Platelet Count 182 K/uL (130-400); RDW Coefficient of Variation 13.9 % (11.5-14.5); RDW Standard Deviation 45.9 fL (36.4-46.3); Red Blood Count 3.44 M/uL (3.93-5.22); White Blood Count 7.15 K/ul (4.8-10.8)
[2022-07-08 07:21] LABS: Iron 15 mcg/dl (35-150); Total Iron Binding Cap Calc 246 mcg/dl (250-450); Transferrin (FE) Percent Satur 6 % (15-50); Unsaturated Iron Binding Cap 231 mcg/dl (155-355)
[2022-07-08 07:22] LABS: Calcium 9.3 mg/dl (8.5-10.1); Creatinine Clr Calc Pharmacy 60.7 ml/min; Est GFR (African American) 97.5 ml/min; Est GFR (Non-African American) 84.2 ml/min; Magnesium 1.7 mg/dl (1.7-2.4); Potassium 3.9 mmol/L (3.5-5.1)
[2022-07-08] MEDS: CARBIDOPA/LEVODOPA 25/100MG TAB PO SCH ×5 (07:56→21:53)
[2022-07-08] MEDS: BENZTROPINE MESYLATE 0.5 MG TAB PO SCH ×2 (07:56→21:53)
[2022-07-08] MEDS: PANTOprazole 40 MG TAB PO SCH ×2 (07:56→21:53)
[2022-07-08] MEDS: CHOLECALCIFEROL 1,000 UNITS 25 MCG TAB PO SCH (07:57)
[2022-07-08] MEDS: ESCITALOPRAM OXALATE 20 MG TAB PO SCH (07:57)
[2022-07-08] MEDS: DULoxetine HCL 60 MG CAP PO SCH (07:57)
[2022-07-08] MEDS: SENNA 8.6 MG TAB PO SCH ×2 (07:57→21:53)
[2022-07-08] MEDS: POLYETHYLENE (MIRALAX) 17 GM PACK PO SCH (07:59)
[2022-07-08] MEDS: PREGABALIN 100 MG CAP PO SCH ×2 (09:19→21:53)
--- NOTE | 2022-07-08 09:19 | Orthopedic Consultation ---
Date of Service July 08, 2022 Assessment & Plan (1) Fracture of femoral neck, left, closed: She was educated on this fracture and I discussed treatment, specifically hemiarthroplasty. She is npo. We will plan on doing this today. It will be either Dr. Martinez, Dr. Oseguera, or Dr. Cortes doing her surgery. We will make her son aware as well. I discussed her mental status with her nurse and this may be due to the dilaudid. They will continue to assess her. History of Present Illness Reason for Consultation: . Requesting Physician: . Attending Physician: Osmani Shaw MD .Kwame is a 86 year old patient admitted 2 days ago with a left displaced femoral neck fracture. She was initially [place] [facility] then cancelled as the patients family was requesting [facility] [place]. She denies any hip pain prior to this fall. Just prior to seeing her this morning she apparently was given some dilaudid and appears drowsy. Per the earth science technician performing an echo, there was a definite change in her after receiving the dilaudid. Allergies Allergy/AdvReac Type Severity Reaction Status Date / Time cat dander Allergy Severe SHORTNESS Verified 07/06/22 15:54 OF BREATH mold Allergy Severe SHORTNESS Verified 07/06/22 15:54 OF BREATH nut - unspecified Allergy Severe Anaphylaxis Verified 07/06/22 15:54 peanut Allergy Severe Anaphylaxis Verified 07/06/22 15:54 pecan nut Allergy Severe Anaphylaxis Verified 07/06/22 15:54 walnut Allergy Severe Anaphylaxis Verified 07/06/22 15:54 Penicillins Allergy Intermediate HIVES Verified 07/06/22 15:54 Sulfa (Sulfonamide Allergy Intermediate "jaundiced Verified 07/06/22 15:54 Antibiotics) as child", HIVES codeine Allergy Mild GI SYMPTOMS Verified 07/06/22 15:54 soy Allergy Unknown Unknown Verified 07/06/22 15:54 Home Medications Medication Instructions Recorded Confirmed Type cholecalciferol (vitamin D3) 25 1,000 unit PO DAILY 06/21/18 07/06/22 History mcg (1,000 unit) capsule (Vitamin D3) benztropine 0.5 mg tablet 0.5 mg PO BID #180 tabs 10/28/21 07/06/22 Rx simvastatin 20 mg tablet (Zocor) 20 mg PO HS #90 tabs 10/29/21 07/06/22 Rx pantoprazole 40 mg tablet,delayed 40 mg PO BID gastritis 90 days 01/08/22 07/06/22 Rx release #180 tabs levothyroxine 75 mcg tablet 75 mcg PO QAM #90 tabs 01/20/22 07/06/22 Rx (Synthroid) duloxetine 60 mg capsule,delayed 60 mg PO QAM 90 days #90 caps 04/28/22 07/06/22 Rx release (Cymbalta) escitalopram oxalate 20 mg tablet 20 mg PO DAILY #90 tabs 05/16/22 07/06/22 Rx carbidopa 25 mg-levodopa 100 mg 1 tab PO QID 90 days #360 tabs 06/10/22 07/06/22 Rx tablet (Sinemet) hydrocodone 7.5 mg-acetaminophen 1 tab PO TID PRN pain #90 tabs 07/02/22 07/06/22 Rx 325 mg tablet conjugated estrogens 0.625 mg 0.625 mg PO DIRECTED PRN 07/06/22 07/06/22 History tablet (Premarin) NEEDED PER MED LIST ferrous sulfate 143 mg (45 mg 143 mg PO DAILY 07/06/22 07/06/22 History iron) tablet,extended release (Slow Release Iron) melatonin 10 mg tablet 10 mg PO HS 07/06/22 07/06/22 History polyethylene glycol 3350 17 8.5 g PO DAILY 07/06/22 07/06/22 History gram/dose oral powder (Miralax) pregabalin 200 mg capsule (Lyrica) 200 mg PO AMHS 07/06/22 07/06/22 History sennosides 8.6 mg tablet (Senokot) 17.2 mg PO BID 07/06/22 07/06/22 History tapentadol 50 mg tablet,extended 50 mg PO AMHS 07/06/22 07/06/22 History release,12 hr (Nucynta ER) zolpidem 6.25 mg tablet,extended 6.25 mg PO HS 07/06/22 07/06/22 History release,multiphase Past Med/Surg History Medical History Anxiety Avulsion fracture of middle phalanx of finger Bilateral lumbar radiculopathy Cardiac murmur CHI (closed head injury) Chronic back pain Falls frequently Fibromyalgia Forehead laceration Hearing deficit Hx of breast cancer RADIATION 2000 Hyperlipidemia Hyperlipidemia Hypothyroidism Lumbar canal stenosis Maxillary sinus fracture Multiple facial bone fractures Multiple rib fractures Other abnormalities of gait and mobility Poor balance PSP (progressive supranuclear palsy) Risk for falls LAST EVENT L 2019 Scoliosis LUMBAR AND NERVE PAIN Spinal stenosis Surgical History History of colonoscopy History of dilation and curettage History of foot surgery LEFT History of tonsillectomy Hx of appendectomy Hx of bilateral breast reduction surgery DUE TO CANCER 2006 Hx of cataract surgery RIGHT AND LEFT Hx of kyphoplasty L2 Hx of lumpectomy WITH LYMPH NODE REMOVAL (LEFT) Hx of spinal fusion L4-S1 Hx of wisdom tooth extraction S/P epidural steroid injection Family History Sister Alzheimer disease Breast cancer Paget's disease Father Alzheimer disease Grandmother (Paternal) Alzheimer disease Mother Myocardial infarction Stroke syndrome Uncle Prostate cancer Denies family history of Ovarian cancer Adverse anesthesia outcome Bleeding disorder Colorectal cancer Social History Smoking Status: Never smoker Second Hand Exposure: No; Hx Alcohol Use: No Hx Substance Use: No Preferred Language: Kyrgyz Communication Ability: Effective Visual Impairment: No Limitations Hearing Ability: Use of Hearing Aid Mimeograph Operator Required: No Beliefs That Will Affect Care: None marital status: / Current Living Situation: Personal Care Facility Current Living Situation Comment: resides at the [facility] current occupational status: retired How many Children do You have: 2 Other Information That Helps Us Care for You: No Feels Safe at Home: Yes Safety Concerns: Feels Safe At This Time Childhood Exposure to Second-Hand Smoke: No caffeine: Yes during the past year weight has: remained stable Dental Care, Regularly: Yes Physical Activity Frequency: Does not Exercise Seatbelt Use: always Sunscreen Use: Yes Assistive Devices: Walker Assistive Devices Comment: rollator walker Review of Systems All systems reviewed & are unremarkable except as noted in HPI & below. Physical Exam .She is alert, drowsy, appears confused some. She was only opening her left eye while talking with me initially but then began to open both eyes on command. Left leg: ecchymosis around lateral hip area. Skin intact around lateral hip. NVI. Able to dorsiflex and plantarflex. Results & Data Results & Data Laboratory Results . Diagnostic Findings .xrays show a displaced left femoral neck fracture PG Care Time/CCT Total # of Minutes Spent Total Time Spent with Patient: Total time spent is greater than 50% in coordination of care (as documented) at patient's floor/unit and/or counseling patient: Coding Level of Care Code 25372 Inpt Consult Level 4 Diagnoses Fracture of femoral neck, left, closed S72.002A Encounter type: initial encounter (1) Fracture of femoral neck, left, closed Encounter type: initial encounter Qualified Code(s): S72.002A - Fracture of unspecified part of neck of left femur, initial encounter for closed fracture
--- NOTE | 2022-07-08 10:12 | Hospitalist Progress Note ---
Date of Service July 08, 2022 Assessment & Plan (1) Closed left hip fracture: Plan: - To OR today 07/08 for repair. NPO since midnight, morning SQ Heparin held. - XR: Acute displaced subcapital left femoral fracture, 5 mm displacement - No head/neck injury, no tenderness, did not strike head or lose consciousness at any point - Strict bedrest - Mcgee ordered - Scaled analgesia ordered, received 0.5 mg hydromorphone in ER. Chronic pain medications as below - No history of cardiac disease, renal impairment, or diabetes with insulin. - EKG: nsr - Revised cardiac risk: 0, 3.9% 30-day risk of , GA or cardiac arrest - She is medically optimized for surgery at this time. (2) PSP (progressive supranuclear palsy): Plan: - Uses a Rollator at home, no acute intervention for this - Follows as outpatient with neurology. Continue Sinemet throughout perioperative period - PT/OT after Ortho consult/intervention for fracture - Have discussed potential for need for [facility] care due to recurrent falls prior to this. Case management consulted - Sinemet 64332 4 times daily (3) Laryngopharyngeal reflux: Plan: Continue pantoprazole 40 mg p.o. twice daily (4) Fibromyalgia: Plan: - Pregabalin 200 mg p.o. twice daily - Tapentadol 50 mg p.o. twice daily - Tylenol as needed - Continue above multimodal pain control, low-dose hydromorphone added for breakthrough pain (5) Anemia: Plan: - Iron 15 (L), TIBC 246 (L), unsat 213, transferrin % 6 (L) - B12 178 (L), folate wnl. - Hgb stable this AM 07/08 - Repeat CBC tomorrow post op. - Started on IM vit B12 injection while inpatient, transition to oral on d/c (6) Cardiac murmur: Plan: - TTE pending- this is mainly to guide postoperative fluids and management. She does not need this result prior to her operation. - 07/08: Patient LRs 80 cc/hr overnight while NPO, this AM with wheezes an crackles reported by nursing staff. - Fluids stopped, echo ordered. - Consider adding on Lasix. (7) Depression: Plan: - Continue Lexapro 20 mg daily. (8) Hypothyroidism: Plan: - TSH within normal limits in April 2021. - TSH 07/08: 4.1 - Continue Synthroid 75 mcg daily Plan DVT prophylaxis: Restart heparin 5000 units SQ twice daily, hold on morning of surgery, will defer to orthopedics regarding discharge VTE prophylaxis Diet: N.p.o. at midnight, regular easy to chew diet post-op Disposition: Medical surgical CODE STATUS: DNR/DNI, discussed with patient on admission Admission and Anticipated Discharge Date Admission Date: July 06, 2022 Subjective Met with patient and son at bedside. Patient is to go to the OR today for left hip repair. She is without complaints. Nursing reported crackles and wheezes on exam this morning. Not reporting any shortness of breath or trouble breathing. Patient has had LRs at 80 cc/hr overnight while NPO. Fluids stopped. Echo pending. Pulmonary vascular congestion noted on CXR from day admission. Review of Systems Review of Systems: Constitutional: No fever/chills, weakness, fatigue, myalgias, anorexia, night sweats Eyes: No diplopia, no worsening or blurred vision ENT: normal hearing, no trouble swallowing Respiratory: No cough, sputum, dyspnea at rest or on exertion Cardiovascular: No chest pain, tightness or palpitations Abdomen: No pain, nausea, vomiting, diarrhea or constipation : Denies dysuria, hematuria, increased urgency/frequency, urinary retention Musculoskeletal: No joint pain, calf pain, swelling Neurologic: No weakness, numbness/tingling, or balance problems Psychiatric: No anxiety or depression Skin: No rash or itch Physical Exam Physical Exam: General: awake, alert, no apparent distress, on room air Head: Normocephalic, atraumatic ENT: PERRL, EOMI, no pharyngeal exudate, mucous membranes moist Chest: Crackles heard in lower lung rodrigues bilaterally; Cardiac: Regular rate and rhythm, no murmur, no JVD, normal peripheral pulses, good capillary refill Abdominal: NABS x 4 quadrants, soft, nontender to palpation, no rebound, guarding or tenderness Extremities: Normal inspection, no peripheral edema or erythema, calfs nontender to palpation Psych: Normal mood and affect Neuro: AAO x 3, strength intact bilaterally and rated 5/5, no motor deficits, speech is clear, no peripheral sensory deficits Skin: no rash or erythema Results & Data Results & Data ([facility]) Vital Signs (Past 12 Hours) Vital Signs Temp Pulse Resp BP Pulse Ox O2 Del Method 07/08/22 07:35 37.0 C 90 20 144/80 H 94 Room Air Laboratory Results Abnormal lab results 07/08/22 07/08/22 07/08/22 Range/Units 06:37 06:37 06:37 RBC 3.44 L (3.93-5.22) M/uL Hgb 10.3 L (12.0-16.0) g/dl Hct 31.0 L (34.1-44.9) % [place] # (Auto) 0.88 H (0.24-0.82) K/uL Eos # (Auto) 0.55 H (0-0.50) K/uL Sodium 134 L (136-145) mmol/L Creatinine 0.59 L (0.6-1.2) mg/dl BUN/Creatinine Ratio 22.0 H (10-20) Iron 15 L (35-150) mcg/dl TIBC 246 L (250-450) mcg/dl Transferrin % Sat 6 L (15-50) % Vitamin B12 (180-914) pg/ml 07/08/22 Range/Units 06:37 RBC (3.93-5.22) M/uL Hgb (12.0-16.0) g/dl Hct (34.1-44.9) % [place] # (Auto) (0.24-0.82) K/uL Eos # (Auto) (0-0.50) K/uL Sodium (136-145) mmol/L Creatinine (0.6-1.2) mg/dl BUN/Creatinine Ratio (10-20) Iron (35-150) mcg/dl TIBC (250-450) mcg/dl Transferrin % Sat (15-50) % Vitamin B12 178 L (180-914) pg/ml Diagnostic Findings Chest X-Ray 07/06/22 14:04 XR chest 1V portable CLINICAL HISTORY: fall, hypoxia, weakness COMPARISON STUDY: Chest CT January 30, 2022. Chest radiograph June 17, 2022. FINDINGS: Severe degenerative changes of the right shoulder are noted. There is no pneumothorax. There may be trace bilateral pleural effusions. Pulmonary vascular congestion is present. Cardiomegaly is unchanged. A hiatal hernia is again noted. There are multiple old right rib fractures. Lumbar spine vertebroplasty is incidentally noted. IMPRESSION: 1. No pneumothorax. Trace bilateral pleural effusions. 2. Cardiomegaly with pulmonary vascular congestion. ACT 112: Negative or not required by law. Electronically signed by: Sergey Gunn M.D. 07/06/2022 3:47 PM Hip/Pelvis X-Ray 07/06/22 14:04 XR hip LT 2V w pelvis CLINICAL HISTORY: Left hip pain following fall. COMPARISON: Left hip radiographs January 30, 2022. FINDINGS: Postoperative findings within the lumbosacral spine are partially imaged. Sacroiliac joints and symphysis pubis are intact. Note is made of an acute subcapital left femoral fracture. Fracture is displaced approximately 5 mm. No additional fractures are identified within the pelvis or hips. IMPRESSION: Acute displaced subcapital left femoral fracture. ACT 112: Negative or not required by law. Electronically signed by: Sergey Gunn M.D. 07/06/2022 3:32 PM Elbow X-Ray 07/06/22 16:08 XR elbow RT min 3V routine CLINICAL HISTORY: fall, elbow swelling COMPARISON: None FINDINGS: Irregularity of the lateral condyle is chronic. No acute fracture. There is no evidence for a joint effusion. Soft tissue swelling overlying the olecranon is noted. IMPRESSION: 1. No acute fracture or evidence for a right elbow joint effusion. 2. Significant soft tissue swelling overlying the olecranon. This favors a contusion however olecranon bursitis could appear similar. ACT 112: Negative or not required by law. Electronically signed by: Sergey Gunn M.D. 07/06/2022 5:[address] 07/06/22 17:07 CT hip LT wo con CLINICAL HISTORY: Left femoral neck fracture. COMPARISON STUDY: Pelvis and left hip radiographs performed earlier today. CT of the abdomen and pelvis January 30, 2022. TECHNIQUE: Axial images of the left hip were obtained without IV contrast. Sagittal and coronal reconstructions were viewed. Automated exposure control was utilized for the study. A dose lowering technique was utilized adhering to the principles of ALARA. FINDINGS: There is an acute impacted mildly displaced subcapital left femoral neck fracture. Fracture is displaced approximately 5 mm. No additional acute fractures are identified on this examination. Alignment of left hip is otherwise anatomic. There is subcutaneous stranding of the posterior and lateral left thigh. No large hematoma is identified. No suspicious osseous lesions are present. Moderate left hip osteophytosis present. IMPRESSION: Acute impacted mildly displaced subcapital left femoral neck fracture. ACT 112: Negative or not required by law. Electronically signed by: Sergey Gunn M.D. 07/06/2022 6:28 PM PG Care Time/CCT Total # of Minutes Spent Total Time Spent with Patient: Total time spent is greater than 50% in coordination of care (as documented) at patient's floor/unit and/or counseling patient: Coding Level of Care Code 79032 Subseq Hosp Care Lvl 2 Diagnoses Closed left hip fracture S72.002A PSP (progressive supranuclear palsy) G23.1 Laryngopharyngeal reflux K21.9 Fibromyalgia M79.7 Anemia D64.9 Cardiac murmur R01.1 Depression F32.A Hypothyroidism E03.9
--- NOTE | 2022-07-08 11:42 | History & Physical Bridge Note ---
Date of Service July 08, 2022 History & Physical Bridge Note I have examined the patient, reviewed the History & Physical and in the interval since the performance of the History & Physical I have noted the following changes of clinical significance: no changes noted
[2022-07-08] MEDS: TAPENTADOL HCL ER 50 MG TABCR PO SCH ×2 (11:55→21:53)
[2022-07-08] MEDS ORDERED: PROPOFOL IV EMULSION 10 MG/ML 20 ML VIAL IV ONE (13:33)
[2022-07-08] MEDS ORDERED: fentaNYL citrate 100 MCG/2 ML VIAL ONE (14:02)
[2022-07-08] MEDS ORDERED: EPINEPHrine INJ 1 MG/ML AMP ONE (14:07)
[2022-07-08] MEDS ORDERED: BUPIVACAINE 0.5 % 5 MG/1 ML MPF 30ML VIAL ONE (14:07)
[2022-07-08] MEDS ORDERED: KETAMINE 50 MG/5 ML SYRINGE ONE (14:36)
[2022-07-08] MEDS ORDERED: fentaNYL citrate 100 MCG/2 ML VIAL IV PRN (14:45)
[2022-07-08] MEDS ORDERED: ONDANSETRON INJ 2 MG/ML 2 ML VIAL IV PRN (14:45)
[2022-07-08] MEDS ORDERED: ATROPINE SULFATE 0.1 MG/ML 10ML SYR IV PRN (14:45)
[2022-07-08] MEDS ORDERED: ePHEDrine sulfate 50 MG/ML AMP IV PRN (14:45)
[2022-07-08] MEDS ORDERED: ceFAZolin 2000MG 2,000 MG/15 ML SYR IV ONE (14:57)
--- NOTE | 2022-07-08 16:26 | Operative Report ---
PG Post Operative Report Pre & Post Diagnosis Operation Date: 07/07/22 07:00 <No data on this case meets the specified criteria> Operation Date: 07/08/22 08:30 Pre-Op Diagnosis: Left displaced subcapital femoral neck/hip Fracture Post-Op Diagnosis: Left displaced subcapital femoral neck/hip Fracture I identified the patient and participated in the time-out.: Yes Procedure Operation Date: 07/07/22 07:00 <No data on this case meets the specified criteria> Operation Date: 07/08/22 08:30 Actual Procedures p Left Hip Hemiarthroplasty, Cemented(Left) - Chavo Martinez MD Surgeon Chavo Martinez MD Lead Manufacturing Engineer Alcon Arriaga PA-C Estimated Blood Loss 300 Findings Consistent with Post-Op Diagnosis Fluids 1000 cc Specimens Left femoral head sent for pathology Anesthesia Type General Complications none Disposition Accompanied Patient To Recovery: No Indications The patient is a 86-year-old female with multiple medical comorbidities with an underlying neurological disorder but a walker ambulator who sustained a fall several days ago. She been unable to walk since that. She brought to emergency room where x-rays revealed a displaced femoral neck fracture. She has been admitted by the medicine service, medically optimized indicated for surgical repair. Description of Procedure Operative implants consisted of: 1. Geeta size 11 LD/fracture hip fracture femoral stem. 2. 9 mm distal centralizer. 3. +0/22 mm metal articular ball with a 41 mm bipolar shell and liner. The patient was taken the operating, identified, placed on the operating table supine position protectors were properly padded. IV antibiotics tried by anesthesia team. A spinal anesthetic was employed by anesthesia team. The patient was then placed in the right lateral decubitus position. The left lower extremity was then scrubbed with Hibiclens, prepped with ChloraPrep and draped in usual sterile fashion. A posterior lateral approach of the left hip was then performed through a curvilinear incision centered over the greater trochanter. Upon making the incision, the patient was clearly still feeling this and moving her leg. A general laryngeal mask anesthetic was then implemented. Surgery was resumed. Sharp dissection was got through subcutaneous tissue down to level the IT band g luteal fascia the IT band gluteal fascia were incised longitudinally in line with skin incision. The underlying greater bursa was excised. The piriformis and external rotators were released from the posterior aspect of the hip joint. A posterior capsulotomy was then performed in a T-type fashion to allow for repair. The hip was internally rotated. Femoral neck osteotomy cut was made about a centimeter above the lesser trochanter. The femoral neck was removed. The femoral head was removed. I then sized the acetabulum to a size 41. Attention drawn the femur. The proximal femur was entered with a cookie cutter followed by canal finder and lateralizing reamer. Broached beginning with a size 10 broach. I I tried to get the 11 down but it was just too tight and I did not want to force this. Therefore we had no trial option available so we elected to place the stem and then trial once it was affixed. All implants were removed. I irrigated extensively. I did try to place a ceme nt restrictor distally but the canal was too narrow to do this so we elected not to place a cement restrictor. A double batch Pal[place]os G cement was mixed. I injected this down the canal. A size 11 LD/fracture femoral stem was implanted with a 9 centralizer. I tried to maximize anteversion due to her underlying nonneurological spasticity. Once the cement hardened I did release on the iliopsoas to in order to avoid extreme flexion. I then trialed the hip and the +0 articular ball seem to recreate appropriate soft tissue tension. The hip was fully stable full extension and external rotation flexion to 9 degrees internal Tatian over 70 degrees. Leg length seemed appropriate. I elect to place as this implant. A a 0/22 mm articular ball was placed with a 41 mm bipolar shell and liner. Hip was located. The posterior capsule was then repaired with #2 Tycron suture. The IT band gluteal fascia then closed in 1 PDS suture running fashion. Subcutaneous tissues then closed with 2 layers with a deep layer #1 Vicryl suture in the subcutaneous tissue with 2-0 Dexon suture in a buried interrupted fashion and skin was closed with skin rosie. Leg was then cleaned and dried a sterile dressing was Xeroform, 4 x 4's, ABD pad, foam tape was applied. Patient was then brought out of general anesthesia and transferred to the recovery room in stable condition. Patient tolerated procedure well and there were no complications. Alcon Arriaga, my physician college sports assistant, was present for the entire procedure. His assistance was essential and required for appropriate patient positioning, pre pping and draping, surgical exposure, performing the technical details of the operation, placement the implants, closure of the wound, and placement of the sterile bandage. I attest to the content of the Intraoperative Record and any orders documented therein. Any exceptions are noted below.
--- NOTE | 2022-07-08 16:46 | Anesthesiology Progress Note ---
Date of Service July 08, 2022 Anesthesia Post Procedure Vital Signs Vital Signs: Temp Pulse Pulse Resp BP BP Pulse Ox 07/08/22 16:40 73 23 106/63 93 07/08/22 16:30 70 22 115/66 96 07/08/22 16:21 36.9 C 65 17 107/59 L 98 07/08/22 12:48 96 07/08/22 12:48 88 L 07/08/22 12:30 37 C 79 20 144/69 H 95 07/08/22 11:30 36.4 C L 77 20 126/81 90 07/08/22 10:43 07/08/22 07:35 37.0 C 90 20 144/80 H 94 07/07/22 20:00 07/07/22 21:12 36.4 C L 74 16 130/80 94 O2 Del Method O2 Flow Rate 07/08/22 16:40 Nasal Cannula 2 07/08/22 16:30 Nasal Cannula 2 07/08/22 16:21 Nasal Cannula 2 07/08/22 12:48 Nasal Cannula 4 07/08/22 12:48 Room Air 07/08/22 12:30 Room Air 07/08/22 11:30 Room Air 07/08/22 10:43 Room Air 07/08/22 07:35 Room Air 07/07/22 20:00 Nasal Cannula 2 07/07/22 21:12 Room Air Pain Intensity Left Hip: Pain Intensity: 7 Right Ribs: Pain Intensity: 7 Transfer of Care Handoff Completed per policy Notes Mental Status: alert / awake / arousable and participated in evaluation Patient Amnestic to Procedure: Yes Nausea / Vomiting: adequately controlled Pain: adequately controlled Airway Patency, RR, SpO2: stable & adequate BP & HR: stable & adequate Hydration State: stable & adequate Anesthetic Complications: no major complications apparent and Pt Satisfied with anesthetic care
--- NOTE | 2022-07-08 17:17 | XCELERA ---
[id number] \\[id number]
--- NOTE | 2022-07-08 17:56 | XRay Report ---
XR hip LT min 2V CLINICAL HISTORY: Post-Operative implant position TECHNIQUE: 2 views of the left hip were obtained. Comparison: Comparison is made to left hip radiograph 07/06/2022 FINDINGS: Patient is status post total hip arthroplasty with expected postsurgical changes including soft tissu e swelling and subcutaneous emphysema. IMPRESSION: Expected postoperative appearance status post placement of total hip arthroplasty. ACT 112: Negative or not required by law. Electronically signed by: Eric Coleman M.D. 07/08/2022 5:55 PM
[2022-07-08] MEDS: ACETAMINOPHEN 1,000 MG/100 ML VIAL IV PRN (19:53)
[2022-07-08] MEDS: SIMVASTATIN 20 MG TAB PO SCH (21:53)
[2022-07-09] MEDS: ACETAMINOPHEN 1,000 MG/100 ML VIAL IV PRN ×2 (04:08→22:11)
[2022-07-09] MEDS: LEVOTHYROXINE SODIUM 75 MCG TABLET PO SCH (05:44)
[2022-07-09] MEDS: LACTATED RINGER'S 1,000 ML IV SCH ×2 (07:46→16:21)
[2022-07-09] MEDS ORDERED: IRON SUCROSE 200 MG in 0.9 % SODIUM CHLORIDE 100 ML IV ONE ×2 (09:00→11:00)
[2022-07-09 10:24] LABS: Hematocrit (blood only) 22.9 % (34.1-44.9); Hemoglobin 7.8 g/dl (12.0-16.0); Mean Corpuscular Hemoglobin 29.9 pg (25.0-34.0); Mean Corpuscular Hgb Conc 34.1 g/dL (32.0-36.0); Mean Corpuscular Volume 87.7 fL (80.0-100.0); Platelet Count 130 K/uL (130-400); RDW Coefficient of Variation 13.5 % (11.5-14.5); RDW Standard Deviation 43.6 fL (36.4-46.3); Red Blood Count 2.61 M/uL (3.93-5.22); White Blood Count 9.57 K/ul (4.8-10.8)
[2022-07-09] MEDS: DULoxetine HCL 60 MG CAP PO SCH (10:24)
[2022-07-09] MEDS: CYANOCOBALAMIN 1000 MCG/ML VIAL IM SCH (10:24)
[2022-07-09] MEDS: CARBIDOPA/LEVODOPA 25/100MG TAB PO SCH ×4 (10:24→21:30)
[2022-07-09] MEDS: POLYETHYLENE (MIRALAX) 17 GM PACK PO SCH (10:25)
[2022-07-09 10:26] LABS: Basophils # (auto) 0.03 K/uL (0-0.2); Basophils % (auto) 0.3 %; Eosinophils # (auto) 0.01 K/uL (0-0.50); Eosinophils % (auto) 0.1 %; Immature Granulocytes # (auto) 0.03 K/uL (0.00-0.02); Immature Granulocytes % (auto) 0.3 %; Lymphocytes # (auto) 0.59 K/uL (1.2-3.4); Lymphocytes % (auto) 6.2 %; Monocytes # (auto) 0.66 K/uL (0.24-0.82); Monocytes % (auto) 6.9 %; Neutrophils # (auto) 8.25 K/uL (1.4-6.5); Neutrophils % (auto) 86.2 %; RBC Morphology Unremarkable
[2022-07-09] MEDS: PANTOprazole 40 MG TAB PO SCH ×2 (10:26→21:30)
[2022-07-09] MEDS: BENZTROPINE MESYLATE 0.5 MG TAB PO SCH ×2 (10:26→21:30)
[2022-07-09] MEDS: CHOLECALCIFEROL 1,000 UNITS 25 MCG TAB PO SCH (10:26)
--- NOTE | 2022-07-09 10:38 | Hospitalist Progress Note ---
Date of Service July 09, 2022 Assessment & Plan (1) Closed left hip fracture: Plan: POD# 1 s/p Left Hip Hemiarthroplasty, Cemented(Left) - Chavo Martinez MD. EBL 300cc Bailey ordered -- patient removed this morning, monitor for issues voiding. Obtain UA if possible Ordered IVF post-operatively -- CXR pre-op w/ pulmonary congestion. again congested today, IVF stopped Ordered lasix PO w/ PO potassium supplementation, however patient with issues with increased solmnelence this afternoon and will order IV Iron studies w/ iron deficiency anemia -- Venofer x 1, additional in AM Pain control * -- on nucynta 50mg BID, hydrocodone-APAP 1 tablet TID prn pain and Lyrica 200mg AM/HS * Prior ER visit earlier in June with reported increased use of opiates at home * Given increased somnolence, will place lyrica on hold, changed nucynta to PRN for this evening but would like to hold off further and ordered PO hydrocodone to be utilized prn * *Of note, got 2 doses of dilaudid prior to OR 07/08 as well as her usual medications and then had anesthesia Bowel regimen -- +BM 07/09, monitor Supplemental O2 titration to maintain sats --> lasix and venofer as above given hgb 7.8 on am labs however suspect combination of acute blood loss anemia and some dilutional from IVF/volume overload PT/OT consulted Cm following Monitor labs in AM (2) Anemia: Plan: Iron 15 (L), TIBC 246 (L), unsat 213, transferrin % 6 (L) B12 178 (L), folate wnl. Hgb 10.3 pre-op, ?lab error given hgb 9.6 on admission --> hgb dropped to 7.8 post-op -- EBL reported 300cc and patient also on continuous IVF/suspect some aspect of dilutional Venofer 200mg x1 today, repeat in AM Continue B12 IM while inpatient, change to PO at discharge Also giving dose of lasix as above, additional this evening with magnesium re placement to prevent overload Transfuse pending am hgb -- no CP/SOb reported despite O2 requirement CBC in AM (3) Cardiac murmur: Plan: ECHO ordered -- LV systolic function is normal. Mild concentric LVH. Aortic valve sclerosis mild, without significant aortic valvular stenosis. RVSP elevated at 40-50mmHg IVF ordered by orthopedics post-operatively, remains congested and requiring supplemental O2 IVF discontinued Lasix x 1, monitor response -- additional dosing as needed. may need to consider daily dosing 20mg given prior lab values always w/ hyponatremia and suspect related to volume overload status HR recorded in the 90s this morning, regular Regular rhythm on exam, but will check EKG to ensure no afib (no history of such) (4) Hypothyroidism: Plan: TSH within normal limits in April 2021, repeated and upper end of normal at 4.1 Rec repeating outpatient in 4-6 weeks to ensure stable Continue Synthroid 75mcg daily (5) Hypomagnesemia: Plan: checked given O2 requirement/volume overload and prior low magnesium on admission at 1.6 MAG LOW 1.4 --> 4gm IV ordered, additional lasix this evening with replacement of such to prevent worsening overload Check mag in AM (6) PSP (progressive supranuclear palsy): Plan: Uses a Rollator at home, no acute intervention for this Follows as outpatient with neurology. Continue Sinemet throughout perioperative period Have discussed potential for need for residential care due to recurrent falls prior to this. Case management consulted Sinemet [id number] times daily PT/OT after Ortho consult/intervention for fracture (7) Laryngopharyngeal reflux: Plan: Continue pantoprazole 40 mg p.o. twice daily Prior speech eval during inpatient hospitalization for August 2020 for food bolus w/ sticky rice and struggle with difficulty swallowing and underwent EGD which showed torturous esophagus. bx w/ chronic gastritis aspiration precautions ordered diet changed to minced/moist, slippery monitor intake (8) Fibromyalgia: Plan: Pregabalin 200 mg p.o. twice daily -- placed on hold due to increased somnolence as well as her nucynta changed to PRN for now and added PO hydrocodone to use as needed for breakthrough as uses at home Tylenol prn Pain reported controlled (9) Depression: Plan: Continue Lexapro 20 mg daily. Plan continued inpatient stay PT/OT consulted Venofer/mag replacement, lasix for volume overload supplemental O2 titration to maintain saturations Admission and Anticipated Discharge Date Admission Date: July 06, 2022 Supervising Physician Co-Signing Physician Notes PA Supervision Note: I did not personally see or examine the patient today, but I verified all garcia points of CARLOS Mcmahon's assessment and plan with the following exceptions/additions: None Subjective Evaluated this morning, had removed her bailey catheter overnight. Had been made NPO last evening for some increased confusion, appears to be resolving and taking pills this morning, albeit slowly, without issue. Had gotten back from OR around 5/6pm last evening per nursing. Given diluadid x 2 ye morning for pain control along with her scheduled nucynta and lyrica, along with anesthesia could have been contributing. Discontinued the diluadid and added prn hydrocodone-APAP as takes at home as needed. Improving this morning, patient endorsing being hungry; she would like some roast beef. Will order diet, respecting prior speech recommendations given admission for food bolus 2 years ago. On 3L supplemental O2 but denies any shortness of breath. Hgb dropped to 7.8, bleeding from nailing of hip, no bleeding reported. Given Venofer IV x 1 this morning, IM B12 and will order additional dosing for tomorrow. LARGE BM overnight into this morning, no evidence of any blood per nursing. Patient denies any fever/chills, chest pain, shortness of breath, abdominal pain, nausea or vomiting. She is hopeful her daughter and 2 granddaughters will be visiting tomorrow, aged 15/17. Questions/concerns addressed at this time. Physical Exam Physical Exam: General: WD elderly female sitting up in chair, NAD, taking her morning pills HEENT: head normocephalic, atraumatic, mmm, +JVD, trachea midline Resp: diminished in the bases with expiratory wheezing, no crackles, on 3L NC CV: RRR, +SYSTOLIC MURMUR, no pitting edema/calf tenderness GI: +BS, distended, soft/NT : NO BAILEY MSK/Neuro: dressing to LEFT hip c/d/i, dorsiflexion/plantar flexion intact, tender to palpation along this LEFT hip, NVI, able to wiggle toes, cap refill wnl no facial droop/slurred speech. somewhat slow to respond at times but answering questions appropriately Skin: cool, dry Psych: alert, oriented to person/knows in hospital, not oriented to year, cooperative Results & Data Results & Data ([place]) Vital Signs (Past 12 Hours) Vital Signs Temp Pulse Resp BP Pulse Ox O2 Del Method O2 Flow Rate 07/09/22 07:00 Nasal Cannula 3 07/09/22 07:49 37.0 C 96 H 16 160/85 H 95 Nasal Cannula 3 07/09/22 03:37 37 C 97 H 20 166/86 H 100 Nasal Cannula 3 Laboratory Results 07/09/22 07/09/22 07/09/22 Range/Units 09:08 09:08 09:08 WBC (4.8-10.8) K/ul RBC (3.93-5.22) M/uL Hgb (12.0-16.0) g/dl Hct (34.1-44.9) % MCV (80.0-100.0) fL MCH (25.0-34.0) pg MCHC (32.0-36.0) g/dL RDW Std Deviation (36.4-46.3) fL RDW Coeff of Arnaud (11.5-14.5) % Plt Count (130-400) K/uL MPV (9.4-12.3) fL Immature Gran % (Auto) % Neut % (Auto) % Lymph % (Auto) % Ramsey % (Auto) % Eos % (Auto) % Baso % (Auto) % Neut # (Auto) (1.4-6.5) K/uL Lymph # (Auto) (1.2-3.4) K/uL Ramsey # (Auto) (0.24-0.82) K/uL Eos # (Auto) (0-0.50) K/uL Baso # (Auto) (0-0.2) K/uL Immature Gran # (Auto) (0.00-0.02) K/uL RBC Morphology Sodium 134 L (136-145) mmol/L Potassium 3.6 (3.5-5.1) mmol/L Chloride 99 (98-107) mmol/L Carbon Dioxide 26 (21-32) mmol/L Anion Gap 9 (3-11) BUN 11 (6-23) mg/dl Creatinine 0.47 L (0.6-1.2) mg/dl Est Cr Clr Drug Dosing 76.2 ml/min Est GFR ( Amer) 105.1 ml/min Est GFR (Non-Af Amer) 90.7 ml/min BUN/Creatinine Ratio 23.4 H (10-20) Glucose 129 H (70-99(Fasting)) mg/dl Calcium 8.9 (8.5-10.1) mg/dl Magnesium 1.4 L (1.7-2.4) mg/dl 25-OH Vitamin D Total 56.3 (30-100) ng/ml 07/09/22 Range/Units 09:08 WBC 9.57 (4.8-10.8) K/ul RBC 2.61 L (3.93-5.22) M/uL Hgb 7.8 L (12.0-16.0) g/dl Hct 22.9 L (34.1-44.9) % MCV 87.7 (80.0-100.0) fL MCH 29.9 (25.0-34.0) pg MCHC 34.1 (32.0-36.0) g/dL RDW Std Deviation 43.6 (36.4-46.3) fL RDW Coeff of Arnaud 13.5 (11.5-14.5) % Plt Count 130 (130-400) K/uL MPV 12.0 (9.4-12.3) fL Immature Gran % (Auto) 0.3 % Neut % (Auto) 86.2 % Lymph % (Auto) 6.2 % Ramsey % (Auto) 6.9 % Eos % (Auto) 0.1 % Baso % (Auto) 0.3 % Neut # (Auto) 8.25 H (1.4-6.5) K/uL Lymph # (Auto) 0.59 L (1.2-3.4) K/uL Ramsey # (Auto) 0.66 (0.24-0.82) K/uL Eos # (Auto) 0.01 (0-0.50) K/uL Baso # (Auto) 0.03 (0-0.2) K/uL Immature Gran # (Auto) 0.03 H (0.00-0.02) K/uL RBC Morphology Unremarkable Sodium (136-145) mmol/L Potassium (3.5-5.1) mmol/L Chloride (98-107) mmol/L Carbon Dioxide (21-32) mmol/L Anion Gap (3-11) BUN (6-23) mg/dl Creatinine (0.6-1.2) mg/dl Est Cr Clr Drug Dosing ml/min Est GFR ( Amer) ml/min Est GFR (Non-Af Amer) ml/min BUN/Creatinine Ratio (10-20) Glucose (70-99(Fasting)) mg/dl Calcium (8.5-10.1) mg/dl Magnesium (1.7-2.4) mg/dl 25-OH Vitamin D Total (30-100) ng/ml PG Care Time/CCT Total # of Minutes Spent Total Time Spent with Patient: Total time spent is greater than 50% in coordination of care (as documented) at patient's floor/unit and/or counseling patient: Coding Level of Care Code 78465 Subseq Hosp Care Lvl 3 Diagnoses Closed left hip fracture S72.002A Anemia D64.9 Cardiac murmur R01.1 Hypothyroidism E03.9 Hypomagnesemia E83.42 PSP (progressive supranuclear palsy) G23.1 Laryngopharyngeal reflux K21.9 Fibromyalgia M79.7 Depression F32.A
[2022-07-09] MEDS ORDERED: oxyCODONE/ACETAMINOPHEN 5mg/325mg TAB PO PRN (10:39)
[2022-07-09 10:43] LABS: BUN Creatinine Ratio 23.4 (10-20); Calcium 8.9 mg/dl (8.5-10.1); Creatinine Clr Calc Pharmacy 76.2 ml/min; Est GFR (African American) 105.1 ml/min; Est GFR (Non-African American) 90.7 ml/min; Potassium 3.6 mmol/L (3.5-5.1)
[2022-07-09] MEDS: ESCITALOPRAM OXALATE 20 MG TAB PO SCH (10:57)
[2022-07-09] MEDS: PREGABALIN 100 MG CAP PO SCH (10:57)
[2022-07-09] MEDS: TAPENTADOL HCL ER 50 MG TABCR PO SCH (10:58)
[2022-07-09] MEDS: SENNA 8.6 MG TAB PO SCH ×2 (10:58→21:30)
--- NOTE | 2022-07-09 13:50 | Progress Notes ---
DATE OF SERVICE: 07/09/2022 SUBJECTIVE: An 86-year-old female, now postoperative day 1 from a left cemented bipolar hip arthropla sty for fracture. She is doing pretty well. She has got a little bit of pain, but very manageable. No other complaints. OBJECTIVE: VITAL SIGNS: Temperature 36.6. Vital signs are stable. GENERAL: Shows a pleasant, elderly female. She is sitting up in her bedside chair, looks pretty com fortable. EXTREMITIES: Examination of the left hip and leg reveals the dressing to be in place. She can dorsi flex and plantarflex her foot appropriately. She is neurologically intact. LABORATORY DATA: Hemoglobin 7.8. Hematocrit 22.9. Electrolytes are stable. ASSESSMENT: An 86-year-old female with multiple medical comorbidities, now postoperative day 1 from a left cemented bipolar hip arthroplasty for fracture. Orthopedically, she is doing pretty well. She is currently anemic, but not having symptoms. PLAN: 1. DVT prophylaxis includes thigh-high TEDs, SCDs and we would recommend a baby aspirin twice a day for 6 weeks. 2. PT/OT. She can weightbear as tolerated. Does need to obey hip precautions if possible. 3. Pain control, doing okay with current pain regimen. 4. Medical management as per the medicine service. 5. Disposition: She is orthopedically okay for discharge any time. I need to see her back two to t hree weeks out from the surgery date. Any orthopedic questions can be directed to me at [phone] . Job ID: [id number]
--- NOTE | 2022-07-09 14:48 | XRay Report ---
XR chest 1V portable CLINICAL HISTORY: hypoxia, eval chf/fluid overload COMPARISON STUDY: Chest CT January 30, 2022. Chest radiograph July 06, 2022. FINDINGS: Severe right shoulder osteoarthritis is incidentally noted. There are multiple old right-si ded rib fractures. No pneumothorax or pleural effusion is present. Cardiomegaly is unchanged. There i s a hiatal hernia. Pulmonary vascular congestion persists. No consolidation is identified to suggest pneumonia. IMPRESSION: Cardiomegaly with pulmonary vascular congestion, similar to prior exam. ACT 112: Negative or not required by law. Electronically signed by: Sergey Gunn M.D. 07/09/2022 2:46 PM
[2022-07-09] MEDS: NYSTATIN POWDER 15GM BTL EXT PRN (16:48)
[2022-07-09] MEDS ORDERED: POTASSIUM CHLORIDE 20 MEQ/15 ML UDC PO STA (17:03)
[2022-07-09] MEDS ORDERED: FUROSEMIDE 20 MG TAB PO ONE (17:15)
[2022-07-09] MEDS ORDERED: TAPENTADOL HCL ER 50 MG TABCR PO PRN (17:28)
[2022-07-09] MEDS ORDERED: POTASSIUM CHLORIDE / WTR 10 MEQ/100 ML PLCT IV ONE (17:30)
[2022-07-09] MEDS ORDERED: FUROSEMIDE INJ 20 MG/2 ML VIAL IV ONE ×2 (17:30→23:59)
[2022-07-09] MEDS: MAGNESIUM SULFATE / D5W 1 GM/100 ML BAG IV SCH ×3 (18:35→22:20)
[2022-07-09 19:31] LABS: Appearance Urine Clear (Clear); Bacteria Urine Automated Negative (Negative); Blood Urine 2+ (Negative); Color Urine Dark Yellow; Epithelial Cell Urine Auto >30 /lpf (0-5); Glucose Urine UA Negative (Negative); Ketones Urine 2+ (Negative); Leukocyte Esterase Urine 1+ (Negative); Nitrite Urine Negative (Negative); Protein Urine 1+ (Negative); Urobilinogen Urine Negative (Negative)
[2022-07-09 19:33] LABS: Bilirubin Urine 1+ (Negative)
[2022-07-09] MEDS: SIMVASTATIN 20 MG TAB PO SCH (21:30)
[2022-07-10] MEDS: MAGNESIUM SULFATE / D5W 1 GM/100 ML BAG IV SCH (00:11)
[2022-07-10] MEDS: NYSTATIN POWDER 15GM BTL EXT PRN (05:43)
[2022-07-10] MEDS: LEVOTHYROXINE SODIUM 75 MCG TABLET PO SCH (06:06)
[2022-07-10] MEDS: ACETAMINOPHEN 1,000 MG/100 ML VIAL IV PRN (06:27)
--- NOTE | 2022-07-10 08:26 | Hospitalist Progress Note ---
Date of Service July 10, 2022 Assessment & Plan (1) Closed left hip fracture: Plan: POD# 2 s/p Left Hip Hemiarthroplasty, Cemented(Left) - Chavo Martinez MD. EBL 300cc WBC 10.5k Low grade temp 37.6C overnight -- Tylenol prn fever suspect related to atelectasis from volume overload Hgb 9-10 pre-op --> 7.8 --> 7.3 --> acute blood loss anemia in patient with chronic anemia per son. No bleeding. --> Given Venofer 07/09, repeat 07/10. --> Titrated from 3L --> 1L. CXR still with congestion --> Lasix given last evening, no further IVF --> additional 20mg IV lasix this morning for continued congestion/PO/IV KCL (got 4gm IV mag for mag 1.4 on 07/09) Hgb 7.3 likely some aspect of dilution from IVF previously, however will transfuse 1u PRBC for hgb <8, additional Lasix with blood to be given with blood Supplemental O2 as needed Everardo ordered -- patient removed AM 07/09, had been waiting to void but then did start urinating last evening prior to need for straight cath. UA w/o evidence for infection/monitor cx +BM 07/10 PT/OT consulted -- looking into SNF rehab CM following DVT prophylaxis --> ASA recommended 81mg BID per orthopedics, but appears was not ordered post-operatively--> started 81mg BID for tonight 07/10. monitor for any DVT Increased somnolence 07/09 Had placed Nucynta/Lyrica on hold for over sedation with anesthesia as well. Got 2 doses of Dilaudid prior to OR as well as her usual medications Better today, son at bedside reported cognition back to baseline but lengthy discussion regarding her chronic pain medications regimen: --> His mother is a "night owl", takes her Nucynta Q12, at 11am and 11pm. Take Hydrocodone as needed, typically around 1-130pm and then around 6-7 and typically doesn't need a third dose Scheduled melatonin 6mg HS (didn't get dose 07/09) Resumed Nucynta, changed schedule to 11am/11pm. Hydrocodone available as needed Monitor labs in AM (2) Anemia: Plan: Iron 15 (L), TIBC 246 (L), unsaturated IBC 213, transferrin % 6 (L) B12 178 (L), folate wnl. Hgb 10.3 pre-op, ?lab error given hgb 9.6 on admission -> hgb dropped to 7.8 post-op #1, further decreased to 7.3 on am labs -> EBL reported 300cc and patient also had been on continuous IVF through afternoon 07/09/suspect some aspect of dilutional Venofer 200mg x1, repeated today Continue B12 IM while inpatient, change to PO at discharge Transfuse pending am hgb -> Hgb 7.3, but again did get continuous IVF/4gm IV mag for hypomagnesemia 07/09 Lasix 10mg IV given 07/09, Lasix 20mg IV this morning and additional dose this afternoon with 1u PRBC this afternoon for hgb <8 No CP/SOB reported Monitor CBC (3) Cardiac murmur: Plan: ECHO ordered -- LV systolic function is normal. Mild concentric LVH. Aortic valve sclerosis mild, without significant aortic valvular stenosis. RVSP elevated at 40-50mmHg --> suspect murmur exacerbated by acute on chronic anemia IVF ordered by orthopedics post-operatively, remains congested and requiring supplemental O2 IVF discontinued Lasix as outlined above, may require additional doses HR in 90s AM 07/09 -- checked EKG to ensure no afib w/ hypomagnesemia (denied palpitations/etc) EKG unchanged, no afib RRR on exam (4) Hypothyroidism: Plan: TSH within normal limits in April 2021, repeated and upper end of normal at 4.1 Continue Synthroid 75mcg daily Rec repeating outpatient in 4-6 weeks to ensure stable (5) Hypomagnesemia: Plan: checked given O2 requirement/volume overload and prior low magnesium on admission at 1.6 MAG LOW 1.4 07/09 - 4gm IV ordered, additional lasix - mag 2.2 on repeat, monitor in AM (6) PSP (progressive supranuclear palsy): Plan: Uses a Rollator at home, no acute intervention for this --> son brought them in 07/10 Follows as outpatient with neurology. Continue Sinemet throughout periopera tive period Have discussed potential for need for half-way care due to recurrent falls prior to this. Case management consulted Sinemet [id number] 4 times daily PT/OT consulted as above (7) Laryngopharyngeal reflux: Plan: Continue pantoprazole 40 mg p.o. twice daily Prior speech eval during inpatient hospitalization for August 2020 for food bolus w/ sticky rice and struggle with difficulty swallowing and underwent EGD which showed torturous esophagus. bx w/ chronic gastritis aspiration precautions ordered diet changed to minced/moist, slippery monitor intake -- son at bedside also encouraging nutrition, helping to get her peaches today (8) Fibromyalgia: Plan: Pregabalin 200 mg p.o. twice daily -- placed on hold due to increased somnolence as well as her nucynta changed to PRN for now and added PO hydrocodone to use as needed for breakthrough as uses at home --> resumed and resumed her nucynta but changed schedule of dosing Tylenol prn Pain reported controlled, worse with movements (9) Depression: Plan: Continue Lexapro 20 mg daily. (10) B12 deficiency: Plan: low 178 -- placed on IM supplementation inpatient, continue PO at discharge (11) Hypoxia: Plan: had been up to 3-4L post op, volume overloaded on imaging, anemia, low mag 1.4 denied SOB upon encounter Venofer x2 provided ,giving 1 U PRBC for hgb <8 Also lasix for volume overload Supplemental O2 as needed to maintain sats Monitor CXR in AM -- hx food bolus/aspiration. no choking/issues with pills reported. Plan continued inpatient stay transfuse Venofer/1u PRBC, lasix started ASA 81mg BID PT/OT consulted -- CM following Admission and Anticipated Discharge Date Admission Date: July 06, 2022 Supervising Physician Co-Signing Physician Notes CARLOS Supervision Note: I did not personally see or examine the patient today, but I verified all garcia points of CARLOS Mcmahon's assessment and plan with the following exceptions/additions: None Subjective eval w/ son Yovani at bedside states night/day since yesterday as far as cognition believes meds from surgery lingering w/ her chronic pain (from scoliosis and R shoulder chronic pain) Reviewed home pain regimen schedule as patient son reports she is a night owl and not getting good sleep. 11am Nucynta 2hr after gets the hydrocodone ~1-130 next hydrocodone 5-7 hours after as needed then takes her evening Nucynta at 11pm typically doesn't need TID dosing of the hydrocodone Pain reported 04/16 to her left hip, discussed resuming nucynta but will schedule for 11am/11pm. also takes melatonin, only ordered PRN. will change to scheduled as she did not get a dose last evening. Previously on Ambien but made her loopy. Denies any SOB, titrated to 1L NC, getting Venofer currently. Lasix this morning. Moved her bowels, large BM reported and feeling better.. Had to have help cleaning up.. Son brought her walkers, special w/ her PSP. he states that even playing bridge for patient sitting in a chair takes everything out of her and that may also be playing a role. Review of Systems Review of Systems: All systems reviewed & are unremarkable except as noted in HPI & below Physical Exam Physical Exam: General: WD elderly female sitting up in bed, eating peaches, NAD HEENT: head normocephalic, atraumatic, mmm, +JVD, trachea midline Resp: diminished in the bases with expiratory wheezing (decreased), no crackles, on1L NC CV: RRR, +SYSTOLIC MURMUR, no pitting edema/calf tenderness GI: +BS, soft/NT : NO BAILEY MSK/Neuro: scoliosis dressing to LEFT hip c/d/i, tenderness to palpation along the femur, ice pack in place, dorsiflexion intact, amble to wiggle toes (reported standing up with therapy), pulses palpable, no calf edema no facial droop/slurred speech. somewhat slow to respond at times but answering questions appropriately Skin: cool, dry Psych: alert, oriented to person/knows in hospital, year 2021, cooperative and pleasant Results & Data Results & Data ([facility]) Vital Signs (Past 12 Hours) Vital Signs Temp Pulse Resp BP BP Pulse Ox O2 Del Method 07/10/22 07:48 37.6 C H 87 20 144/80 H 96 Nasal Cannula 07/10/22 05:38 37.6 C H 07/09/22 21:30 Nasal Cannula 07/09/22 21:15 37.6 C H 87 18 118/74 98 Nasal Cannula O2 Flow Rate 07/10/22 07:48 1 07/10/22 05:38 07/09/22 21:30 1 07/09/22 21:15 1 Laboratory Results Chest X-Ray 07/09/22 08:45 XR chest 1V portable CLINICAL HISTORY: hypoxia, eval chf/fluid overload COMPARISON STUDY: Chest CT January 30, 2022. Chest radiograph July 06, 2022. FINDINGS: Severe right shoulder osteoarthritis is incidentally noted. There are multiple old right-sided rib fractures. No pneumothorax or pleural effusion is present. Cardiomegaly is unchanged. There is a hiatal hernia. Pulmonary vascular congestion persists. No consolidation is identified to suggest pneumonia. IMPRESSION: Cardiomegaly with pulmonary vascular congestion, similar to prior exam. ACT 112: Negative or not required by law. Electronically signed by: Sergey Gunn M.D. 07/09/2022 2:46 PM Chest X-Ray 07/10/22 06:00 XR chest 1V portable HISTORY: Shortness of breath. follow up congestion COMPARISON: Chest 07/09/2022. FINDINGS: No pneumothorax. No pleural effusions. There are low lung volumes. Slightly rotated study. Old, healed right-sided rib fractures again noted. No new focal lung consolidations. The heart remains mildly enlarged. Mild central pulmonary vascular congestion again noted. This is similar to the prior study. Advanced degenerative changes within the right shoulder. IMPRESSION: No significant change in the cardiomegaly and mild central pulmonary vascular congestion without overt edema. ACT 112: Negative or not required by law. Electronically signed by: Eulogio Nguyễn M.D. 07/10/2022 9:23 AM PG Care Time/CCT Total # of Minutes Spent Total Time Spent with Patient: Total time spent is greater than 50% in coordination of care (as documented) at patient's floor/unit and/or counseling patient: Coding Level of Care Code 05605 Subseq Hosp Care Lvl 3 Diagnoses Closed left hip fracture S72.002A Anemia D64.9 Cardiac murmur R01.1 Hypothyroidism E03.9 Hypomagnesemia E83.42 PSP (progressive supranuclear palsy) G23.1 Laryngopharyngeal reflux K21.9 Fibromyalgia M79.7 Depression F32.A B12 deficiency E53.8 Hypoxia R09.02
[2022-07-10] MEDS ORDERED: POTASSIUM CHLORIDE / WTR 10 MEQ/100 ML PLCT IV ONE (08:45)
[2022-07-10] MEDS ORDERED: FUROSEMIDE INJ 20 MG/2 ML VIAL IV ONE ×2 (08:45→14:25)
--- NOTE | 2022-07-10 09:24 | XRay Report ---
XR chest 1V portable HISTORY: Shortness of breath. follow up congestion COMPARISON: Chest 07/09/2022. FINDINGS: No pneumothorax. No pleural effusions. There are low lung volumes. Slightly rotated study. Old, healed right-sided rib fractures again noted. No new focal lung consolidations. The heart remain s mildly enlarged. Mild central pulmonary vascular congestion again noted. This is similar to the rin or study. Advanced degenerative changes within the right shoulder. IMPRESSION: No significant change in the cardiomegaly and mild central pulmonary vascular congestion without over t edema. ACT 112: Negative or not required by law. Electronically signed by: Eulogio Nguyễn M.D. 07/10/2022 9:23 AM
[2022-07-10] MEDS: PANTOprazole 40 MG TAB PO SCH ×2 (09:42→21:30)
[2022-07-10] MEDS: ESCITALOPRAM OXALATE 20 MG TAB PO SCH (09:42)
[2022-07-10] MEDS: DULoxetine HCL 60 MG CAP PO SCH (09:42)
[2022-07-10] MEDS: BENZTROPINE MESYLATE 0.5 MG TAB PO SCH ×2 (09:42→21:28)
[2022-07-10] MEDS: CHOLECALCIFEROL 1,000 UNITS 25 MCG TAB PO SCH (09:42)
[2022-07-10] MEDS: CARBIDOPA/LEVODOPA 25/100MG TAB PO SCH ×4 (09:42→21:29)
[2022-07-10] MEDS: SENNA 8.6 MG TAB PO SCH ×2 (09:43→21:30)
[2022-07-10 10:07] LABS: BUN Creatinine Ratio 23.6 (10-20); Calcium 8.9 mg/dl (8.5-10.1); Creatinine Clr Calc Pharmacy 65.1 ml/min; Est GFR (African American) 99.8 ml/min; Est GFR (Non-African American) 86.1 ml/min; Magnesium 2.2 mg/dl (1.7-2.4); Potassium 3.5 mmol/L (3.5-5.1)
[2022-07-10] MEDS: CYANOCOBALAMIN 1000 MCG/ML VIAL IM SCH (10:08)
[2022-07-10 10:12] LABS: Basophils # (auto) 0.06 K/uL (0-0.2); Basophils % (auto) 0.6 %; Eosinophils # (auto) 0.18 K/uL (0-0.50); Eosinophils % (auto) 1.7 %; Hematocrit (blood only) 21.3 % (34.1-44.9); Hemoglobin 7.3 g/dl (12.0-16.0); Immature Granulocytes # (auto) 0.06 K/uL (0.00-0.02); Immature Granulocytes % (auto) 0.6 %; Lymphocytes # (auto) 0.69 K/uL (1.2-3.4); Lymphocytes % (auto) 6.6 %; Mean Corpuscular Hemoglobin 29.7 pg (25.0-34.0); Mean Corpuscular Hgb Conc 34.3 g/dL (32.0-36.0); Mean Corpuscular Volume 86.6 fL (80.0-100.0); Mean Platelet Volume 12.2 fL (9.4-12.3); Monocytes % (auto) 8.5 %; Neutrophils # (auto) 8.64 K/uL (1.4-6.5); Ovalocytes 1+; Platelet Count 132 K/uL (130-400); Polychromasia 1+; RDW Coefficient of Variation 13.9 % (11.5-14.5); RDW Standard Deviation 43.4 fL (36.4-46.3); Red Blood Count 2.46 M/uL (3.93-5.22); White Blood Count 10.53 K/ul (4.8-10.8)
[2022-07-10] MEDS: POLYETHYLENE (MIRALAX) 17 GM PACK PO SCH ×3 (11:47→21:31)
--- NOTE | 2022-07-10 11:59 | Electrocardiogram Report ---
Test Reason : Blood Pressure : / mmHG Vent. Rate : 089 BPM Atrial Rate : 089 BPM P-R Int : 150 ms QRS Dur : 090 ms QT Int : 400 ms P-R-T Axes : 022 -14 -34 degrees QTc Int : 486 ms Normal sinus rhythm Nonspecific ST and T wave abnormality Incomplete right bundle branch block Abnormal ECG When compared with ECG of 09-JUL-2022 18:11, (unconfirmed) No significant change was found Confirmed by Howard Wyatt ([id number]) on 07/10/2022 11:58:57 AM Referred By: REFERRED SELF Confirmed By:Goran Wyatt
[2022-07-10] MEDS: HYDROCODONE/ACETAMINOPHEN 7.5/325MG TAB PO PRN ×2 (12:00→21:35)
[2022-07-10] MEDS: IRON SUCROSE 200 MG in 0.9 % SODIUM CHLORIDE 100 ML IV SCH (12:05)
[2022-07-10] MEDS ORDERED: SODIUM CHLORIDE 0.9% 250 ML IV PRN (14:24)
[2022-07-10] MEDS ORDERED: POTASSIUM CHLORIDE 20 MEQ/15 ML UDC PO STA (14:30)
[2022-07-10] MEDS ORDERED: ENOXAPARIN INJ 30 MG/0.3 ML SYR SQ ONE ×2 (15:00→17:15)
[2022-07-10] MEDS: TAPENTADOL HCL ER 50 MG TABCR PO SCH ×2 (15:08→22:55)
[2022-07-10] MEDS ORDERED: ASPIRIN 81 MG ECTAB PO SCH (21:00)
[2022-07-10] MEDS: ASPIRIN 81 MG ECTAB PO SCH (21:28)
[2022-07-10] MEDS: MELATONIN 3 MG TAB PO SCH (21:29)
[2022-07-10] MEDS: SIMVASTATIN 20 MG TAB PO SCH (21:30)
[2022-07-10] MEDS: PREGABALIN 100 MG CAP PO SCH (21:36)
[2022-07-11] MEDS: POLYETHYLENE (MIRALAX) 17 GM PACK PO SCH ×5 (06:11→23:11)
[2022-07-11] MEDS: LEVOTHYROXINE SODIUM 75 MCG TABLET PO SCH (06:12)
--- NOTE | 2022-07-11 08:14 | Hospitalist Progress Note ---
Date of Service July 11, 2022 Assessment & Plan (1) Closed left hip fracture: Plan: POD# 3 s/p Left Hip Hemiarthroplasty, Cemented(Left) - Chavo Martinez MD. EBL 300cc WBC 10.5k Low grade temp 37.6C overnight 11 -- Tylenol prn fever suspect related to atelectasis from volume overload Hgb 9-10 pre-op s/p 1u PRBC 11/3 for hgb drop to 7.3, had been given Venofer IV day prior , continued-- acute blood loss anemia from surgery/volume overload --> Lasix 20mg IV this morning, additional dose this afternoon for continued pulmonary congestion -- suspect this had been worsened by IVF post-op as well as 4gm IV magnesium, IV K supplementation and venofer Additional 20mg IV lasix evening 07/11 ordered with PO Kcl (given 20mg IV AM 07/10, 10mg IV in PM w/ 1u PRBC) Likely to continue lasix daily, possible increase dose to 40mg IV x 1 for AM pending response vs 20mg IV BID for tomorrow. Na 133--> 134 WBC now wnl Low grade temps 37.6C likely from compressive atelectasis, difficulty using incentive spirometer due to her PSP Moving her bowels, reported pain controlled --> back to baseline cognition 07/10 and changed her Nucynta to 11am/11pm per discussion with son, hydrocodone prn --> he states frustration with patient having to wait/not ask about pain as she is always in chronic pain and doesn't ask. Discussed available and will have RN check on pain levels more frequently --> reporting pain to her back (chronic), improvement in pain to her hip --> better sleep with scheduled melatonin 6mg HS PT/OT consulted -- looking into SNF rehab CM following DVT prophylaxis --> given Lovenox SQ x 1, started ASA 81mg BID (2) Anemia: Plan: Iron 15 (L), TIBC 246 (L), unsaturated IBC 213, transferrin % 6 (L) B12 178 (L), folate wnl Hgb 10.3 pre-op, ? lab error given hgb 9.6 on admission -> hgb dropped to 7.8 post-op #1, further decreased to 7.3 on am labs -> EBL reported 300cc and patient also had been on continuous IVF through afternoon 07/09/suspect some aspect of dilutional Venofer 200mg x3 doses, 3rd 07/11 1u PRBC 07/10 for hgb 7.3 Hgb 8.2 on AM labs Continue B12 IM while inpatient, change to PO at discharge Monitor CBC in AM w/ increased lasix this evening (3) Cardiac murmur: Plan: ECHO ordered -- LV systolic function is normal. Mild concentric LVH. Aortic valve sclerosis mild, without significant aortic valvular stenosis. RVSP elevated at 40-50mmHg --> suspect murmur exacerbated by acute on chronic anemia IVF ordered by orthopedics post-operatively, remains congested and requiring supplemental O2 IVF discontinued Lasix as outlined above, may require additional doses HR in 90s AM 07/09 -- checked EKG to ensure no afib w/ hypomagnesemia (denied palpitations/etc) EKG unchanged, no afib RRR on exam (4) Hypothyroidism: Plan: TSH within normal limits in April 2021, repeated and upper end of normal at 4.1 Continue Synthroid 75mcg daily Rec repeating outpatient in 4-6 weeks to ensure stable (5) Hypomagnesemia: Plan: checked given O2 requirement/volume overload and prior low magnesium on admission at 1.6 MAG LOW 1.4 11/2 - 4gm IV ordered, additional lasix 10mg IV ordered Mag 1.8 on AM labs, monitor in AM (6) PSP (progressive supranuclear palsy): Plan: Uses a Rollator at home, no acute intervention for this --> son brought them in 07/10 Follows as outpatient with neurology. Continue Sinemet throughout perioperative period Have discussed potential for need for custodial care due to recurrent falls prior to this. Case management consulted Sinemet [id number] 4 times daily PT/OT consulted as above (7) Laryngopharyngeal reflux: Plan: Continue pantoprazole 40 mg p.o. twice daily Prior speech eval during inpatient hospitalization for August 2020 for food bolus w/ sticky rice and struggle with difficulty swallowing and underwent EGD which showed torturous esophagus. bx w/ chronic gastritis aspiration precautions ordered diet changed to minced/moist, slippery monitor intake -- son at bedside also encouraging nutrition (8) Fibromyalgia: Plan: Pregabalin 200 mg p.o. twice daily -- placed on hold due to increased somnolence as well as her nucynta changed to PRN for now and added PO hydrocodone to use as needed for breakthrough as uses at home --> resumed and resumed her nucynta but changed schedule of dosing Pain reported controlled, worse with movements (9) Depression: Plan: Continue Lexapro 20 mg daily. (10) B12 deficiency: Plan: low 178 -- placed on IM supplementation inpatient, continue PO at discharge (11) Hypoxia: Plan: had been up to 3-4L post op, volume overloaded on imaging, anemia, low mag 1.4 denied SOB upon encounter Venofer x2 provided ,giving 1 U PRBC for hgb <8 additional lasix this morning/evening CXR w/ progressive congestion, likely from blood given yesterday without enough additional diuretics Remains on 2L this morning, now 100% on 2L NC and titrate O2 to maintain sats Monitor CXR in AM Plan continued inpatient stay lasix 20mg IV BID for today, additional in AM pending response needing rehab, likely inpatient until Thursday but will monitor response. CM following Admission and Anticipated Discharge Date Admission Date: July 06, 2022 Supervising Physician Co-Signing Physician Notes PA Supervision Note: I did not personally see or examine the patient today, but I verified all garcia points of CARLOS Mcmahon's assessment and plan with the following exceptions/additions: None Subjective eval this morning still on supplemental O2, additional lasix ordered intermittent confusion at times but pleasant/cooperative for me son at bedside, states she seems ok but had some pain this morning and frustrations about having the hydrocodone prn as patient with chronic pain and forgets to ask. Discussed increased lethargy and RN judgement to not worsen confusion but will address with staff. Discussed additional lasix for this evening and continued monitoring/O2 titration. Moving her bowels, Pain to hip controlled, looks good on exam. Hgb improved with 1u PRBC , will continue Venofer as ordered for now. Continued inpatient stay, possible d/c to [facility] over the weekend. Alerted CM, possibly Thursday. Questions/concerns addressed at this time. Physical Exam Physical Exam: General: WD elderly female sitting up in bed, eating peaches, NAD HEENT: head normocephalic, atraumatic, mmm, +JVD, trachea midline Resp: diminished in the bases with expiratory wheezing (decreased), bilateral rales, no crackles, on2L NC CV: RRR, +SYSTOLIC MURMUR, no pitting edema/calf tenderness GI: +BS, soft/NT : NO BAILEY MSK/Neuro: scoliosis dressing to LEFT hip c/d/i, tenderness to palpation along the femur, ice pack in place, dorsiflexion intact, amble to wiggle toes (reported standing up with therapy), pulses palpable, no calf edema no facial droop/slurred speech. somewhat slow to respond at times but answering questions appropriately Skin: cool, dry Psych: alert, oriented to person/knows in hospital, year 2021, cooperative and pleasant Results & Data Results & Data ([facility]) Vital Signs (Past 12 Hours) Vital Signs Temp Pulse Resp BP Pulse Ox O2 Del Method O2 Flow Rate 07/11/22 00:56 Nasal Cannula 1 07/10/22 22:55 37.2 C 96 H 20 126/75 95 1 07/10/22 21:54 37.0 C 96 H 20 139/76 07/10/22 20:54 37.0 C 94 H 18 118/71 07/10/22 22:00 Nasal Cannula 1 07/10/22 20:17 37 C 94 H 18 118/71 97 1 Laboratory Results 07/11/22 07/11/22 07/10/22 Range/Units 10:46 10:46 14:43 WBC 9.03 (4.8-10.8) K/ul RBC 2.85 L (3.93-5.22) M/uL Hgb 8.2 L (12.0-16.0) g/dl Hct 25.2 L (34.1-44.9) % MCV 88.4 (80.0-100.0) fL MCH 28.8 (25.0-34.0) pg MCHC 32.5 (32.0-36.0) g/dL RDW Std Deviation 48.3 H (36.4-46.3) fL RDW Coeff of Arnaud 15.0 H (11.5-14.5) % Plt Count 127 L (130-400) K/uL MPV 12.0 (9.4-12.3) fL Immature Gran % (Auto) 0.6 % Neut % (Auto) 71.6 % Lymph % (Auto) 9.3 % [place] % (Auto) 12.6 % Eos % (Auto) 5.5 % Baso % (Auto) 0.4 % Neut # (Auto) 6.46 (1.4-6.5) K/uL Lymph # (Auto) 0.84 L (1.2-3.4) K/uL [place] # (Auto) 1.14 H (0.24-0.82) K/uL Eos # (Auto) 0.50 (0-0.50) K/uL Baso # (Auto) 0.04 (0-0.2) K/uL Immature Gran # (Auto) 0.05 H (0.00-0.02) K/uL Sodium 134 L (136-145) mmol/L Potassium 3.6 (3.5-5.1) mmol/L Chloride 97 L (98-107) mmol/L Carbon Dioxide 30 (21-32) mmol/L Anion Gap 7 (3-11) BUN 13 (6-23) mg/dl Creatinine 0.50 L (0.6-1.2) mg/dl Est Cr Clr Drug Dosing 71.6 ml/min Est GFR ( Amer) 103.0 ml/min Est GFR (Non-Af Amer) 88.9 ml/min BUN/Creatinine Ratio 26.0 H (10-20) Glucose 102 H (70-99(Fasting)) mg/dl Calcium 8.8 (8.5-10.1) mg/dl Magnesium 1.8 (1.7-2.4) mg/dl Crossmatch See Detail Diagnostic Findings Chest X-Ray 07/11/22 08:00 XR chest 2V PA/lateral HISTORY: Shortness of breath. follow up congestion COMPARISON: Chest 07/10/2022. FINDINGS: No pneumothorax. No pleural effusions. The heart remains enlarged. Rotated study. Advanced degenerative changes within the right shoulder again noted. There is progressive interstitial/vascular thickening consistent with mild pulmonary edema. No new focal lung consolidations identified. Postoperative changes within the lower lumbar spine. There is a moderate to large hiatus hernia again noted. IMPRESSION: Cardiomegaly with progression of the mild interstitial pulmonary edema. ACT 112: Negative or not required by law. Electronically signed by: Eulogio Nguyễn M.D. 07/11/2022 8:55 AM PG Care Time/CCT Total # of Minutes Spent Total Time Spent with Patient: Total time spent is greater than 50% in coordination of care (as documented) at patient's floor/unit and/or counseling patient: Coding Level of Care Code 06483 Subseq Hosp Care Lvl 3 Diagnoses Closed left hip fracture S72.002A Anemia D64.9 Cardiac murmur R01.1 Hypothyroidism E03.9 Hypomagnesemia E83.42 PSP (progressive supranuclear palsy) G23.1 Laryngopharyngeal reflux K21.9 Fibromyalgia M79.7 Depression F32.A B12 deficiency E53.8 Hypoxia R09.02
[2022-07-11] MEDS: PANTOprazole 40 MG TAB PO SCH ×2 (08:54→16:58)
[2022-07-11] MEDS: CHOLECALCIFEROL 1,000 UNITS 25 MCG TAB PO SCH (08:55)
[2022-07-11] MEDS: PREGABALIN 100 MG CAP PO SCH ×2 (08:55→20:50)
[2022-07-11] MEDS: ASPIRIN 81 MG ECTAB PO SCH ×2 (08:55→20:50)
[2022-07-11] MEDS: ESCITALOPRAM OXALATE 20 MG TAB PO SCH (08:56)
[2022-07-11] MEDS: CARBIDOPA/LEVODOPA 25/100MG TAB PO SCH ×4 (08:56→20:50)
[2022-07-11] MEDS: BENZTROPINE MESYLATE 0.5 MG TAB PO SCH ×2 (08:56→20:50)
--- NOTE | 2022-07-11 08:56 | XRay Report ---
XR chest 2V PA/lateral HISTORY: Shortness of breath. follow up congestion COMPARISON: Chest 07/10/2022. FINDINGS: No pneumothorax. No pleural effusions. The heart remains enlarged. Rotated study. Advanced degenerative changes within the right shoulder again noted. There is progressive interstitial/vascula r thickening consistent with mild pulmonary edema. No new focal lung consolidations identified. Posto perative changes within the lower lumbar spine. There is a moderate to large hiatus hernia again note d. IMPRESSION: Cardiomegaly with progression of the mild interstitial pulmonary edema. ACT 112: Negative or not required by law. Electronically signed by: Eulogio Nguyễn M.D. 07/11/2022 8:55 AM
[2022-07-11] MEDS: SENNA 8.6 MG TAB PO SCH ×2 (08:57→20:51)
[2022-07-11] MEDS: DULoxetine HCL 60 MG CAP PO SCH (08:57)
[2022-07-11] MEDS: CYANOCOBALAMIN 1000 MCG/ML VIAL IM SCH (09:06)
[2022-07-11] MEDS: TAPENTADOL HCL ER 50 MG TABCR PO SCH ×2 (10:39→22:25)
[2022-07-11] MEDS ORDERED: POTASSIUM CHLORIDE 20 MEQ/15 ML UDC PO STA (10:44)
[2022-07-11] MEDS ORDERED: FUROSEMIDE INJ 20 MG/2 ML VIAL IV ONE ×2 (10:44→17:00)
[2022-07-11] MEDS: IRON SUCROSE 200 MG in 0.9 % SODIUM CHLORIDE 100 ML IV SCH (10:48)
[2022-07-11 11:08] LABS: Basophils # (auto) 0.04 K/uL (0-0.2); Basophils % (auto) 0.4 %; Eosinophils % (auto) 5.5 %; Hematocrit (blood only) 25.2 % (34.1-44.9); Hemoglobin 8.2 g/dl (12.0-16.0); Immature Granulocytes # (auto) 0.05 K/uL (0.00-0.02); Immature Granulocytes % (auto) 0.6 %; Lymphocytes # (auto) 0.84 K/uL (1.2-3.4); Lymphocytes % (auto) 9.3 %; Mean Corpuscular Hemoglobin 28.8 pg (25.0-34.0); Mean Corpuscular Hgb Conc 32.5 g/dL (32.0-36.0); Mean Corpuscular Volume 88.4 fL (80.0-100.0); Monocytes # (auto) 1.14 K/uL (0.24-0.82); Monocytes % (auto) 12.6 %; Neutrophils # (auto) 6.46 K/uL (1.4-6.5); Neutrophils % (auto) 71.6 %; Platelet Count 127 K/uL (130-400); RDW Standard Deviation 48.3 fL (36.4-46.3); Red Blood Count 2.85 M/uL (3.93-5.22); White Blood Count 9.03 K/ul (4.8-10.8)
[2022-07-11 11:27] LABS: Calcium 8.8 mg/dl (8.5-10.1); Creatinine Clr Calc Pharmacy 71.6 ml/min; Est GFR (Non-African American) 88.9 ml/min; Magnesium 1.8 mg/dl (1.7-2.4); Potassium 3.6 mmol/L (3.5-5.1)
[2022-07-11] MEDS ORDERED: POTASSIUM CHLORIDE 20 MEQ/15 ML UDC PO ONE (17:00)
--- NOTE | 2022-07-11 18:03 | Progress Notes ---
SUBJECTIVE: An 86-year-old female postoperative day #3 from a left cemented arthroplasty for fractur e. She seems to be doing pretty well. Having some moderate pain, but not anything out of the ordina ry. No other complaints. OBJECTIVE: VITAL SIGNS: Temperature is 37.6. Vital signs are stable. GENERAL: Shows a frail, elderly female. She is sitting up in her bedside with the physical therapis t when I visited her today. EXTREMITIES: Examination of her hip reveals the dressing to be clean, dry and intact. No significan t drainage. Leg lengths appear equal. She is neurologically intact. LABORATORY DATA: Hemoglobin 8.2. Hematocrit 25.2. Electrolytes are stable. ASSESSMENT: An 86-year-old female postoperative day #3 from a left cemented bipolar hip arthroplasty , doing okay. PLAN: 1. DVT prophylaxis includes thigh-high TEDs, SCDs and we would recommend a baby aspirin twice a day for 6 weeks. 2. PT/OT. She can fully weightbear as tolerated. She does need to obey hip precautions. 3. Pain control, seems to be doing okay with current pain regimen. 4. Disposition: She is orthopedically okay for discharge any time medically stable. I need to see her back two to three weeks out from surgery date. Any orthopedic questions can be directed to me at [phone]. Job ID: [id number]
[2022-07-11] MEDS: HYDROCODONE/ACETAMINOPHEN 7.5/325MG TAB PO PRN (19:10)
[2022-07-11] MEDS: SIMVASTATIN 20 MG TAB PO SCH (20:50)
[2022-07-11] MEDS: MELATONIN 3 MG TAB PO SCH (20:50)
[2022-07-12] MEDS: LEVOTHYROXINE SODIUM 75 MCG TABLET PO SCH (05:48)
[2022-07-12] MEDS: POLYETHYLENE (MIRALAX) 17 GM PACK PO SCH ×3 (05:48→13:35)
[2022-07-12 07:49] LABS: Basophils # (auto) 0.06 K/uL (0-0.2); Basophils % (auto) 0.8 %; Eosinophils # (auto) 0.74 K/uL (0-0.50); Eosinophils % (auto) 9.9 %; Hematocrit (blood only) 24.1 % (34.1-44.9); Hemoglobin 8.1 g/dl (12.0-16.0); Immature Granulocytes # (auto) 0.09 K/uL (0.00-0.02); Immature Granulocytes % (auto) 1.2 %; Lymphocytes # (auto) 1.44 K/uL (1.2-3.4); Lymphocytes % (auto) 19.2 %; Mean Corpuscular Hemoglobin 28.9 pg (25.0-34.0); Mean Corpuscular Hgb Conc 33.6 g/dL (32.0-36.0); Mean Corpuscular Volume 86.1 fL (80.0-100.0); Mean Platelet Volume 11.6 fL (9.4-12.3); Monocytes # (auto) 1.02 K/uL (0.24-0.82); Monocytes % (auto) 13.6 %; Neutrophils # (auto) 4.14 K/uL (1.4-6.5); Neutrophils % (auto) 55.3 %; Platelet Count 152 K/uL (130-400); RDW Coefficient of Variation 14.7 % (11.5-14.5); RDW Standard Deviation 45.9 fL (36.4-46.3); White Blood Count 7.49 K/ul (4.8-10.8)
--- NOTE | 2022-07-12 08:33 | Hospitalist Progress Note ---
Date of Service July 12, 2022 Assessment & Plan (1) Closed left hip fracture: Plan: POD# 3 s/p Left Hip Hemiarthroplasty, Cemented(Left) - Chavo Martinez MD. EBL 300cc WBC 10.5k Low grade temp 37.6C overnight 07/09 -- Tylenol prn fever suspect related to atelectasis from volume overload Hgb 9-10 pre-op s/p 1u PRBC 07/10 for hgb drop to 7.3, had been given Venofer IV day prior , continued-- acute blood loss anemia from surgery/volume overload --> Lasix 20mg IV this morning, additional dose this afternoon for continued pulmonary congestion -- suspect this had been worsened by IVF post-op as well as 4gm IV magnesium, IV K supplementation and venofer Additional 20mg IV lasix evening 07/11 ordered with PO Kcl (given 20mg IV AM 07/10, 10mg IV in PM w/ 1u PRBC) Likely to continue lasix daily, possible increase dose to 40mg IV x 1 for AM pending response vs 20mg IV BID for tomorrow. Na 133--> 134 WBC now wnl Low grade temps 37.6C likely from compressive atelectasis, difficulty using incentive spirometer due to her PSP Moving her bowels, reported pain controlled --> back to baseline cognition 07/10 and changed her Nucynta to 11am/11pm per discussion with son, hydrocodone prn --> he states frustration with patient having to wait/not ask about pain as she is always in chronic pain and doesn't ask. Discussed available and will have RN check on pain levels more frequently --> reporting pain to her back (chronic), improvement in pain to her hip --> better sleep with scheduled melatonin 6mg HS PT/OT consulted -- looking into SNF rehab CM following DVT prophylaxis --> given Lovenox SQ x 1, started ASA 81mg BID 07/12 Pain reported improved remains on 2L NC, mag again low 1.6 and additional 2gm IV ordered given lasix 40mg IV x1 this morning given continued progressive edema on CXR, additional dose for this evening with PO Kcl supplementation SNF when able, possibly tomorrow on supplemental O2 and continued lasix/monitoring of labs, however will need to discuss with son prior to making these arrangements as he would like her to be off the oxygen during prior conversations (2) Anemia: Plan: Iron 15 (L), TIBC 246 (L), unsaturated IBC 213, transferrin % 6 (L) B12 178 (L), folate wnl Hgb 10.3 pre-op, ? lab error given hgb 9.6 on admission -> hgb dropped to 7.8 post-op #1, further decreased to 7.3 on am labs -> EBL reported 300cc and patient also had been on continuous IVF through afternoon 07/09/suspect some aspect of dilutional Venofer 200mg x3 doses, 3rd 07/11 1u PRBC 07/10 for hgb 7.3 Hgb 8.2 on AM labs Continue B12 IM while inpatient, change to PO at discharge hgb 8.1 --> 2nd to volume overload --> lasix IV 40mg x 1 AM 07/12, additional dose this evening with mag IV (3) Cardiac murmur: Plan: ECHO ordered -- LV systolic function is normal. Mild concentric LVH. Aortic valve sclerosis mild, without significant aortic valvular stenosis. RVSP elevated at 40-50mmHg --> suspect murmur exacerbated by acute on chronic anemia HR in 90s AM 07/09 -- checked EKG to ensure no afib w/ hypomagnesemia (denied palpitations/etc) EKG unchanged, no afib RRR on exam (4) Hypothyroidism: Plan: TSH within normal limits in April 2021, repeated and upper end of normal at 4.1 Continue Synthroid 75mcg daily Rec repeating outpatient in 4-6 weeks to ensure stable (5) Hypomagnesemia: Plan: checked given O2 requirement/volume overload and prior low magnesium on admission at 1.6 MAG LOW 1.4 07/09 - 4gm IV ordered, additional lasix 10mg IV ordered Mag 1.8 on AM labs prior, repeat again low at 1.6 and additional PO ordered. --> Start PO supplementation, likely 2nd to PPI use (6) PSP (progressive supranuclear palsy): Plan: Uses a Rollator at home, no acute intervention for this --> son brought them in 07/10 Follows as outpatient with neurology. Continue Sinemet throughout perioperative period Have discussed potential for need for [facility] care due to recurrent falls prior to this. Case management consulted Sinemet [id number] 4 times daily PT/OT consulted as above (7) Laryngopharyngeal reflux: Plan: Continue pantoprazole 40 mg p.o. twice daily Prior speech eval during inpatient hospitalization for August 2020 for food bolus w/ sticky rice and struggle with difficulty swallowing and underwent EGD which showed torturous esophagus. bx w/ chronic gastritis aspiration precautions ordered diet changed to minced/moist, slippery monitor intake -- son at bedside also encouraging nutrition (8) Fibromyalgia: Plan: Pregabalin 200 mg p.o. twice daily -- placed on hold due to increased somnolence as well as her nucynta changed to PRN for now and added PO hydrocodone to use as needed for breakthrough as uses at home --> resumed and resumed her nucynta but changed schedule of dosing Pain reported controlled, worse with movements IMPROVEMENT IN PAIN CONTROL 07/12 (9) Depression: Plan: Continue Lexapro 20 mg daily. (10) B12 deficiency: Plan: low 178 -- placed on IM supplementation inpatient, continue PO at discharge (11) Hypoxia: Plan: had been up to 3-4L post op, volume overloaded on imaging, anemia, low mag 1.4 denied SOB upon encounter Venofer x2 provided , 1 U PRBC for hgb <8 as above CXR continued congestion, low mag IV mag, IV lasix ordered Monitor response, consider CT imaging Of note, patient with PSP and not good effort with incentive spirometer Plan continued inpatient stay Admission and Anticipated Discharge Date Admission Date: July 06, 2022 Supervising Physician Co-Signing Physician Notes PA Supervision Note: I did not personally see or examine the patient today, but I verified all garcia points of CARLOS Mcmahon's assessment and plan with the following exceptions/additions: None Subjective patient evaluated this morning reported the pain in the hip is improved today still on O2 but given lasix this morning, mag again low and replacement ordered states making lots of urine but is embarrassing needing help getting cleaned up. no fever/chills, chest pain reported. Denies SOB despite being on supplemental oxygen. Moving her bowels. Anticipating rehab on thursday if able to titrate off the oxygen/CXR improved. Questions/concerns addressed at this time. Review of Systems Review of Systems: All systems reviewed & are unremarkable except as noted in HPI & below Physical Exam Physical Exam: General: WD elderly female sitting up in recliner, eating, NAD HEENT: head normocephalic, atraumatic, mmm, +JVD, trachea midline Resp: diminished in the bases with expiratory wheezing (decreased), bilateral rales, no crackles, on2L NC, no distress noted, poor inspiratory effort CV: RRR, +SYSTOLIC MURMUR, no pitting edema/calf tenderness GI: +BS, soft/NT : NO BAILEY MSK/Neuro: scoliosis dressing to LEFT hip c/d/i, tenderness to palpation along the femur, ice pack in place, dorsiflexion intact, amble to wiggle toes (reported standing up with therapy), pulses palpable, no calf edema no facial droop/slurred speech. somewhat slow to respond at times but answering questions appropriately Skin: cool, dry Psych: alert, oriented to person/knows in hospital, year 2021, cooperative and pleasant Results & Data Results & Data ([facility]) Vital Signs (Past 12 Hours) Vital Signs Temp Pulse Pulse Resp BP BP Pulse Ox 07/12/22 07:17 36.4 C L 84 16 112/69 97 07/11/22 23:10 84 97 07/11/22 22:25 37.6 C H 98 H 20 121/73 94 07/11/22 21:42 O2 Del Method O2 Flow Rate 07/12/22 07:17 Nasal Cannula 1 07/11/22 23:10 Nasal Cannula 1 07/11/22 22:25 Nasal Cannula 2 07/11/22 21:42 Nasal Cannula 2 Laboratory Results 07/12/22 07/12/22 Range/Units 07:18 07:18 WBC 7.49 (4.8-10.8) K/ul RBC 2.80 L (3.93-5.22) M/uL Hgb 8.1 L (12.0-16.0) g/dl Hct 24.1 L (34.1-44.9) % MCV 86.1 (80.0-100.0) fL MCH 28.9 (25.0-34.0) pg MCHC 33.6 (32.0-36.0) g/dL RDW Std Deviation 45.9 (36.4-46.3) fL RDW Coeff of Arnaud 14.7 H (11.5-14.5) % Plt Count 152 (130-400) K/uL MPV 11.6 (9.4-12.3) fL Immature Gran % (Auto) 1.2 % Neut % (Auto) 55.3 % Lymph % (Auto) 19.2 % [place] % (Auto) 13.6 % Eos % (Auto) 9.9 % Baso % (Auto) 0.8 % Neut # (Auto) 4.14 (1.4-6.5) K/uL Lymph # (Auto) 1.44 (1.2-3.4) K/uL [place] # (Auto) 1.02 H (0.24-0.82) K/uL Eos # (Auto) 0.74 H (0-0.50) K/uL Baso # (Auto) 0.06 (0-0.2) K/uL Immature Gran # (Auto) 0.09 H (0.00-0.02) K/uL Sodium 135 L (136-145) mmol/L Potassium 3.9 (3.5-5.1) mmol/L Chloride 97 L (98-107) mmol/L Carbon Dioxide 33 H (21-32) mmol/L Anion Gap 5 (3-11) BUN 14 (6-23) mg/dl Creatinine 0.49 L (0.6-1.2) mg/dl Est Cr Clr Drug Dosing 73.0 ml/min Est GFR ( Amer) 103.7 ml/min Est GFR (Non-Af Amer) 89.5 ml/min BUN/Creatinine Ratio 28.6 H (10-20) Glucose 95 (70-99(Fasting)) mg/dl Calcium 8.6 (8.5-10.1) mg/dl Magnesium 1.6 L (1.7-2.4) mg/dl PG Care Time/CCT Total # of Minutes Spent Total Time Spent with Patient: Total time spent is greater than 50% in coordination of care (as documented) at patient's floor/unit and/or counseling patient: Coding Level of Care Code 80836 Subseq Hosp Care Lvl 3 Diagnoses Closed left hip fracture S72.002A Anemia D64.9 Cardiac murmur R01.1 Hypothyroidism E03.9 Hypomagnesemia E83.42 PSP (progressive supranuclear palsy) G23.1 Laryngopharyngeal reflux K21.9 Fibromyalgia M79.7 Depression F32.A B12 deficiency E53.8 Hypoxia R09.02
[2022-07-12 08:34] LABS: BUN Creatinine Ratio 28.6 (10-20); Calcium 8.6 mg/dl (8.5-10.1); Est GFR (African American) 103.7 ml/min; Est GFR (Non-African American) 89.5 ml/min; Magnesium 1.6 mg/dl (1.7-2.4); Potassium 3.9 mmol/L (3.5-5.1)
[2022-07-12] MEDS: HYDROCODONE/ACETAMINOPHEN 7.5/325MG TAB PO PRN ×2 (09:02→19:59)
[2022-07-12] MEDS: ASPIRIN 81 MG ECTAB PO SCH ×2 (09:03→20:01)
[2022-07-12] MEDS: CARBIDOPA/LEVODOPA 25/100MG TAB PO SCH ×4 (09:03→20:00)
[2022-07-12] MEDS: CHOLECALCIFEROL 1,000 UNITS 25 MCG TAB PO SCH (09:04)
[2022-07-12] MEDS: BENZTROPINE MESYLATE 0.5 MG TAB PO SCH ×2 (09:04→20:00)
[2022-07-12] MEDS: ESCITALOPRAM OXALATE 20 MG TAB PO SCH (09:04)
[2022-07-12] MEDS: DULoxetine HCL 60 MG CAP PO SCH (09:04)
[2022-07-12] MEDS: SENNA 8.6 MG TAB PO SCH ×2 (09:04→20:00)
[2022-07-12] MEDS: PREGABALIN 100 MG CAP PO SCH ×2 (09:05→20:00)
[2022-07-12] MEDS: CYANOCOBALAMIN 1000 MCG/ML VIAL IM SCH (09:06)
[2022-07-12] MEDS ORDERED: FUROSEMIDE 40 MG/4 ML VIAL IV ONE ×2 (09:54→19:29)
[2022-07-12] MEDS: IRON SUCROSE 200 MG in 0.9 % SODIUM CHLORIDE 100 ML IV SCH (11:14)
[2022-07-12] MEDS: MAGNESIUM SULFATE / D5W 1 GM/100 ML BAG IV SCH ×2 (11:44→13:32)
--- NOTE | 2022-07-12 11:58 | Progress Notes ---
SUBJECTIVE: An 86-year-old female now postop day 4 from a left cemented hip arthroplasty for fractur e. She is doing okay. Complaining of some mild pain. No other complaints. OBJECTIVE: VITAL SIGNS: Temperature is 36.4. Vital signs are stable. GENERAL: Shows a frail, elderly female. She is lying in bed, looks pretty comfortable this morning. EXTREMITIES: Examination of the left hip reveals the dressing to be clean, dry, and intact. No sign ificant drainage on it. Leg lengths were equal. NEUROLOGIC: She is neurologically intact. LABORATORY DATA: Hemoglobin 8.1. Hematocrit 24.1. Electrolytes are stable. ASSESSMENT: An 86-year-old female postoperative day #4 from A left cemented bipolar hip arthroplasty for fracture. She is orthopedically stable. Hemoglobin looks stable. PLAN: 1. DVT prophylaxis includes thigh-high TEDs, SCDs, and recommend a baby aspirin twice a day for 6 we eks. 2. PT/OT. She can fully weightbear as tolerated. She does need to obey hip precautions. 3. Pain control, doing okay with current pain regimen. 4. Disposition: She is orthopedically okay for discharge any time medically stable. I need to see her back in two to three weeks out from surgery date. Any orthopedic questions can be directed to me at [phone]. Job ID: [id number]
[2022-07-12] MEDS: TAPENTADOL HCL ER 50 MG TABCR PO SCH ×2 (12:14→23:04)
[2022-07-12] MEDS: PANTOprazole 40 MG TAB PO SCH ×2 (13:34→17:45)
[2022-07-12] MEDS ORDERED: POTASSIUM CHLORIDE 20 MEQ/15 ML UDC PO STA (19:30)
[2022-07-12] MEDS: MELATONIN 3 MG TAB PO SCH (20:01)
[2022-07-12] MEDS: SIMVASTATIN 20 MG TAB PO SCH (20:01)
--- NOTE | 2022-07-13 00:02 | XRay Report ---
XR chest 2V PA/lateral CLINICAL HISTORY: f/u congestion TECHNIQUE: 2 views of the chest were obtained. Comparison: Comparison is made to chest radiograph 07/11/2022 FINDINGS: No lines and tubes are seen. Cardiomegaly is noted. Prominence and cephalization of the vasculature i s seen. No evidence of pleural effusion or pneumothorax. A hiatal hernia is seen. Degenerative change s are seen in the right shoulder joint. Old healed rib fractures are seen. IMPRESSION: Mild pulmonary edema is again seen similar to prior exam. Cardiomegaly is noted. ACT 112: Negative or not required by law. Electronically signed by: Eric Coleman M.D. 07/13/2022 12:03 AM
[2022-07-13] MEDS: LEVOTHYROXINE SODIUM 75 MCG TABLET PO SCH (05:28)
[2022-07-13 06:15] LABS: Hematocrit (blood only) 27.5 % (34.1-44.9); Mean Corpuscular Hemoglobin 29.1 pg (25.0-34.0); Mean Corpuscular Hgb Conc 32.7 g/dL (32.0-36.0); Mean Platelet Volume 11.6 fL (9.4-12.3); Platelet Count 183 K/uL (130-400); RDW Coefficient of Variation 14.6 % (11.5-14.5); RDW Standard Deviation 46.5 fL (36.4-46.3); Red Blood Count 3.09 M/uL (3.93-5.22); White Blood Count 8.44 K/ul (4.8-10.8)
[2022-07-13 06:37] LABS: BUN Creatinine Ratio 33.3 (10-20); Calcium 8.8 mg/dl (8.5-10.1); Creatinine Clr Calc Pharmacy 66.3 ml/min; Est GFR (African American) 100.4 ml/min; Est GFR (Non-African American) 86.7 ml/min; Magnesium 1.8 mg/dl (1.7-2.4); Potassium 3.9 mmol/L (3.5-5.1)
--- NOTE | 2022-07-13 07:54 | Hospitalist Progress Note ---
Date of Service July 13, 2022 Assessment & Plan (1) Closed left hip fracture: Plan: POD# 5 s/p Left Hip Hemiarthroplasty, Cemented(Left) - Chavo Martinez MD. EBL 300cc WBC 8.4k. Afebrile (low grade temp 37.6C on 11, likely from volume overload/atelectasis) Hgb 9.0 -- acute blood loss anemia from surgery, but also dilutional in days past from signifcant volume overload have been giving diuresis, s/p Venofer IV inpatient. Improved from hgb 7.3 Lasix 40mg IV this morning for continued congestion. Mag now wnl --> titrated to ROOM AIR this afternoon, 95% when sleeping with forehead probe, occasional drops but rebounds Pain control -- see below Antiemetics prn. Bowel regimen -- continues to move bowels, +BM 07/13 DVT proph ASA 81mg BID PT/OT -- [facility] arranged, hopefully tomorrow F/u ortho outpatient 2 weeks Cognition --> patient son visited this morning, told RN that he was pleased with her pain control/administration times. At baseline. She was resting soundly on my encounter, however any attempts to limit pain control have been met with discussions from son regarding chronic pain control and specific regimen at home. --> Therefore, we have continued Nucynta BID at preferred times, prn hydrocodone --> Attempted to arrange transport to [facility] today, however CM stated son stated unable to happen due to patient sleeping and NOT wanting to wake her for that. Will plan for tomorrow as long as remains stable (2) Anemia: Plan: Iron deficiency, on PO slow release daily outpatient Acute blood drop --> iron panel with low iron 15, trans % sat 6 --> s/p Venofer 200mg x 4 doses B12/folate checked --> B12 low 178, folate wnl --B12 IM injections inpatient, PO at d/c Hgb improved to 9, also further lows likely from volume overload. diuresis as below (3) Cardiac murmur: Plan: ECHO ordered -- LV systolic function is normal. Mild concentric LVH. Aortic valve sclerosis mild, without significant aortic valvular stenosis. RVSP elevated at 40-50mmHg (?underlying MELISSA) --> suspect murmur exacerbated by acute on chronic anemia, improving. Murmur not as loud on exam today EKG no afib , no palpitations reported (4) Hypothyroidism: Plan: TSH within normal limits in April 2021, repeated and upper end of normal at 4.1 Continue Synthroid 75mcg daily Rec repeating outpatient in 4-6 weeks to ensure stable (5) Hypomagnesemia: Plan: checked given O2 requirement/volume overload and prior low magnesium on admission at 1.6 Low 1.4, additional 4gm IV ordered. volume likely worsened pulmonary edema (present on admission) Mag 1.8 on repeat, monitor in AM (?2nd to PPI use) -- started PO mag oxide as well, continue at d/c (6) PSP (progressive supranuclear palsy): Plan: Uses a Rollator at home, no acute intervention for this --> son brought them in 07/10, in room Follows as outpatient with neurology. Continue sinemet QID PT.OT consulted as above, planning [facility] tomorrow Per son, easily fatigues, not to be out of bed for too long, working with PT/OT etc as this will completely wipe her out Noted Outpt f/u Poor use of incentive spirometer due to such as well (7) Laryngopharyngeal reflux: Plan: Continue pantoprazole 40 mg p.o. twice daily Prior speech eval during inpatient hospitalization for August 2020 for food bolus w/ sticky rice and struggle with difficulty swallowing and underwent EGD which showed torturous esophagus. bx w/ chronic gastritis aspiration precautions ordered diet changed to minced/moist, slippery No reflux reported (8) Fibromyalgia: Plan: Pregabalin 200 mg p.o. twice daily -- placed on hold due to increased somnolence as well as her nucynta changed to PRN for now and added PO hydrocodone to use as needed for breakthrough as uses at home --> resumed and resumed her nucynta but changed schedule of dosing Pain reported controlled, worse with movements IMPROVEMENT IN PAIN CONTROL 07/12-07/13 --> however, noted it does make her very sleepy through the afternoon and have had multiple discussions about prn, however son would like minimum 2 hydrocodone given and extra if needed in between --> patient reported all pain controlled on exam 07/13 (9) Depression: Plan: Continue Lexapro 20 mg daily. (10) B12 deficiency: Plan: low 178 -- placed on IM supplementation inpatient, continue PO at discharge (11) Hypoxia: Plan: 2nd to anemia/poor inspiratory effort/hypomagnesemia/volume overload with IVF post-op Have given Venofer IV to complete dosing, 1u PRBC for hgb <8 Hgb currently 9 on labs CXR with continued congestion Lasix 40mg IV x 1 this morning, titrated to room air this afternoon. Mag wnl Using forehead probe, SpO2 95% on room air sleeping laying flat in bed Monitor volume status in AM, however consider 20mg PO lasix daily vs prn weight gain Plan continued inpatient stay hopeful for d/c to [facility] tomorrow, CM following Admission and Anticipated Discharge Date Admission Date: July 06, 2022 Supervising Physician Co-Signing Physician Notes CARLOS Supervision Note: I did not personally see or examine the patient today, but I verified all garcia points of CARLOS Mcmahon's assessment and plan with the following exceptions/additions: None Subjective evaluated patient around 12:50pm. son was up to visit earlier, "tickled" about pain medications being given patient up to chair this morning, bedside commode, moved her bowels. just medicated for pain and sleeping. currently 95% on room air on forehead probe while sleeping denies cp/shortness of breath. no cough was planning for SNF later today but son stated unable to do so as patient sleepy. will need to re-eval tomorrow. continued discussions regarding pain control, however insistent on continued around the clock administrations as taking at home. will reach out to son tonight if any issues. just given dose of lasix/PO K. Added dose of diamox for diuresis with elevated CO2 levels. Review of Systems Review of Systems: All systems reviewed & are unremarkable except as noted in HPI & below Physical Exam Physical Exam: General: WD elderly female resting in bed, just medicated for pain, NAD reported TITRATED to ROOM AIR -- forehead probe with reading SpO2 95% Resp: wheezing posteriorly with bibasilar crackles, poor inspiratory effort, no tachypnea, on ROOM AIR CV: RRR,+systolic murmur, no calf tenderness MSK/Neuro: follows commands as able, no focal deficit, just medicated for pain and not able to participate as much as days past (reported up in chair all morning as well, +BM) dressing to hip c/d/i, compartment supple, appropriately tender to palpation, no evidence for hematoma Skin: cool, dry Psych: alert, oriented to person/knows in hospital, year 2021, cooperative and pleasant Results & Data Results & Data ([facility]) Vital Signs (Past 12 Hours) Vital Signs Temp Pulse Resp BP Pulse Ox O2 Del Method 07/12/22 22:24 37.3 C 90 20 101/64 93 Nasal Cannula Laboratory Results 07/13/22 07/13/22 Range/Units 05:20 05:20 WBC 8.44 (4.8-10.8) K/ul RBC 3.09 L (3.93-5.22) M/uL Hgb 9.0 L (12.0-16.0) g/dl Hct 27.5 L (34.1-44.9) % MCV 89.0 (80.0-100.0) fL MCH 29.1 (25.0-34.0) pg MCHC 32.7 (32.0-36.0) g/dL RDW Std Deviation 46.5 H (36.4-46.3) fL RDW Coeff of Arnaud 14.6 H (11.5-14.5) % Plt Count 183 (130-400) K/uL MPV 11.6 (9.4-12.3) fL Sodium 135 L (136-145) mmol/L Potassium 3.9 (3.5-5.1) mmol/L Chloride 94 L (98-107) mmol/L Carbon Dioxide 36 H (21-32) mmol/L Anion Gap 5 (3-11) BUN 18 (6-23) mg/dl Creatinine 0.54 L (0.6-1.2) mg/dl Est Cr Clr Drug Dosing 66.3 ml/min Est GFR ( Amer) 100.4 ml/min Est GFR (Non-Af Amer) 86.7 ml/min BUN/Creatinine Ratio 33.3 H (10-20) Glucose 90 (70-99(Fasting)) mg/dl Calcium 8.8 (8.5-10.1) mg/dl Magnesium 1.8 (1.7-2.4) mg/dl Diagnostic Findings Chest X-Ray 07/13/22 07:52 XR chest 1V portable CLINICAL HISTORY: f/u congestion COMPARISON STUDY: Chest radiograph July 12, 2022. FINDINGS: Severe osteoarthritis of the right glenohumeral joint is noted. There are old right-sided rib deformities. No pneumothorax or pleural effusion is present. Cardiomegaly is unchanged. Pulmonary vascular congestion persists. There is no lobar consolidation. IMPRESSION: No significant change in pulmonary vascular congestion. ACT 112: Negative or not required by law. Electronically signed by: Sergey Gunn M.D. 07/13/2022 8:09 AM PG Care Time/CCT Total # of Minutes Spent Total Time Spent with Patient: Total time spent is greater than 50% in coordination of care (as documented) at patient's floor/unit and/or counseling patient: Coding Level of Care Code 42632 Subseq Hosp Care Lvl 3 Diagnoses Closed left hip fracture S72.002A Anemia D64.9 Cardiac murmur R01.1 Hypothyroidism E03.9 Hypomagnesemia E83.42 PSP (progressive supranuclear palsy) G23.1 Laryngopharyngeal reflux K21.9 Fibromyalgia M79.7 Depression F32.A B12 deficiency E53.8 Hypoxia R09.02
--- NOTE | 2022-07-13 08:10 | XRay Report ---
XR chest 1V portable CLINICAL HISTORY: f/u congestion COMPARISON STUDY: Chest radiograph July 12, 2022. FINDINGS: Severe osteoarthritis of the right glenohumeral joint is noted. There are old right-sided r ib deformities. No pneumothorax or pleural effusion is present. Cardiomegaly is unchanged. Pulmonary vascular congestion persists. There is no lobar consolidation. IMPRESSION: No significant change in pulmonary vascular congestion. ACT 112: Negative or not required by law. Electronically signed by: Sergey Gunn M.D. 07/13/2022 8:09 AM
[2022-07-13] MEDS: PREGABALIN 100 MG CAP PO SCH ×2 (08:34→22:00)
[2022-07-13] MEDS: ASPIRIN 81 MG ECTAB PO SCH ×2 (08:34→21:55)
[2022-07-13] MEDS: TAPENTADOL HCL ER 50 MG TABCR PO SCH ×2 (08:35→22:00)
[2022-07-13] MEDS: POLYETHYLENE (MIRALAX) 17 GM PACK PO SCH (08:35)
[2022-07-13] MEDS: CARBIDOPA/LEVODOPA 25/100MG TAB PO SCH ×4 (08:36→21:55)
[2022-07-13] MEDS: BENZTROPINE MESYLATE 0.5 MG TAB PO SCH ×2 (08:36→21:55)
[2022-07-13] MEDS: ESCITALOPRAM OXALATE 20 MG TAB PO SCH (08:37)
[2022-07-13] MEDS: SENNA 8.6 MG TAB PO SCH ×2 (08:37→21:56)
[2022-07-13] MEDS: DULoxetine HCL 60 MG CAP PO SCH (08:37)
[2022-07-13] MEDS: CHOLECALCIFEROL 1,000 UNITS 25 MCG TAB PO SCH (08:37)
[2022-07-13] MEDS: CYANOCOBALAMIN 1000 MCG/ML VIAL IM SCH (08:37)
[2022-07-13] MEDS: PANTOprazole 40 MG TAB PO SCH ×2 (10:36→17:44)
[2022-07-13] MEDS: IRON SUCROSE 200 MG in 0.9 % SODIUM CHLORIDE 100 ML IV SCH (10:40)
--- NOTE | 2022-07-13 11:07 | Progress Notes ---
SUBJECTIVE: An 86-year-old female postoperative day #5 from a left cemented bipolar hip arthroplasty for fracture. She seems to be doing well this morning. Resting comfortably. No new complaints. PHYSICAL EXAMINATION: VITAL SIGNS: Temperature is 36.8. Vital signs are stable. GENERAL: Shows a pleasant elderly female. I did wake her this morning. She is a little bit confuse d. EXTREMITIES: Examination of the left hip reveals the leg lengths to be equal. Dressing is clean, dr y, and intact. No significant drainage. She is neurologically intact. LABORATORY DATA: Hemoglobin 9.0. Hematocrit 27.5. Electrolytes are stable. ASSESSMENT: An 86-year-old female with multiple medical comorbidities. Postoperative day #5 from a left cemented bipolar hip arthroplasty for fracture. She seems to be doing well from the orthopedic standpoint. PLAN: 1. DVT prophylaxis includes thigh-high TEDs, SCDs, and aspirin twice a day for 6 weeks. 2. PT/OT. She can fully weightbear as tolerated. Does need to obey hip precautions. 3. Pain control, seems to be doing okay with current pain regimen. 4. Medical management as per the Medicine Service. 5. Disposition: She is orthopedically okay for discharge any time, medically stable. I need to see her back two to three weeks out from surgery date. Any orthopedic questions can be directed to me kevin cruz [phone]. Job ID: [id number]
[2022-07-13] MEDS: HYDROCODONE/ACETAMINOPHEN 7.5/325MG TAB PO PRN ×2 (11:14→19:51)
[2022-07-13] MEDS ORDERED: FUROSEMIDE 40 MG/4 ML VIAL IV ONE (11:32)
[2022-07-13] MEDS ORDERED: POTASSIUM CHLORIDE 20 MEQ/15 ML UDC PO STA (11:32)
[2022-07-13] MEDS ORDERED: acetaZOLAMIDE 250 MG TAB PO ONE (12:00)
[2022-07-13] MEDS: MELATONIN 3 MG TAB PO SCH (21:56)
[2022-07-13] MEDS: SIMVASTATIN 20 MG TAB PO SCH (21:56)
[2022-07-14] MEDS: LEVOTHYROXINE SODIUM 75 MCG TABLET PO SCH (06:02)
[2022-07-14 07:43] LABS: Hematocrit (blood only) 26.9 % (34.1-44.9); Hemoglobin 8.8 g/dl (12.0-16.0); Mean Corpuscular Hemoglobin 29.1 pg (25.0-34.0); Mean Corpuscular Hgb Conc 32.7 g/dL (32.0-36.0); Mean Corpuscular Volume 89.1 fL (80.0-100.0); Mean Platelet Volume 11.9 fL (9.4-12.3); Platelet Count 224 K/uL (130-400); RDW Coefficient of Variation 14.6 % (11.5-14.5); RDW Standard Deviation 46.6 fL (36.4-46.3); Red Blood Count 3.02 M/uL (3.93-5.22); White Blood Count 8.41 K/ul (4.8-10.8)
--- NOTE | 2022-07-14 07:56 | Progress Notes ---
DATE OF NOTE: 07/14/2022. SUBJECTIVE: An 86-year-old female postoperative day 6 from a left cemented bipolar hip arthroplasty for fracture. She seems to be at baseline. She is in bed. She looks comfortable. I did not wake h er this morning. OBJECTIVE: Physical examination of left hip reveals the patient is sleeping comfortably. Leg length s were equal. Dressing is clean, dry and intact. Fairly mild swelling. No detectable drainage. LABORATORY DATA: No new labs. ASSESSMENT: An 86-year-old female with multiple medical comorbidities postoperative day 6 from a lef t cemented bipolar hip arthroplasty. She seems to be at baseline. Her pain seems to be controlled. Hip is located. PLAN: 1. DVT prophylaxis includes thigh-high TEDs, SCDs, and aspirin twice a day. 2. PT/OT. She can weight bear as tolerated. Needs to obey hip precautions. 3. Pain control, doing okay with current pain regimen. 4. Medical management as per the medicine service. 5. Disposition. I believe she is planning on going to the [facility] today. She is certainly acceptabl e for discharge any time medically stable. I need to see her back two to three weeks after her surge ry date. Any orthopedic questions can be directed to me at [phone]. Job ID: [id number]
[2022-07-14 08:05] LABS: BUN Creatinine Ratio 29.1 (10-20); Creatinine Clr Calc Pharmacy 65.1 ml/min; Est GFR (African American) 99.8 ml/min; Est GFR (Non-African American) 86.1 ml/min; Magnesium 1.8 mg/dl (1.7-2.4); Potassium 3.7 mmol/L (3.5-5.1)
--- NOTE | 2022-07-14 08:44 | Hospitalist Progress Note ---
Date of Service July 14, 2022 Assessment & Plan (1) Closed left hip fracture: Plan: POD# 5 s/p Left Hip Hemiarthroplasty, Cemented(Left) - Chavo Martinez MD. EBL 300cc WBC 8.4k. Afebrile (low grade temp 37.6C on 11, likely from volume overload/atelectasis) Hgb 9.0 -- acute blood loss anemia from surgery, but also dilutional in days past from signifcant volume overload have been giving diuresis, s/p Venofer IV inpatient. Improved from hgb 7.3 Lasix 40mg IV this morning for continued congestion. Mag now wnl --> titrated to ROOM AIR this afternoon, 95% when sleeping with forehead probe, occasional drops but rebounds Pain control -- see below Antiemetics prn. Bowel regimen -- continues to move bowels, +BM 07/13 DVT proph ASA 81mg BID PT/OT -- [facility] arranged, hopefully tomorrow F/u ortho outpatient 2 weeks Cognition --> patient son visited this morning, told RN that he was pleased with her pain control/administration times. At baseline. She was resting soundly on my encounter, however any attempts to limit pain control have been met with discussions from son regarding chronic pain control and specific regimen at home. --> Therefore, we have continued Nucynta BID at preferred times, prn hydrocodone --> Attempted to arrange transport to [facility] today, however CM stated son stated unable to happen due to patient sleeping and NOT wanting to wake her for that. Will plan for tomorrow as long as remains stable (2) Anemia: Plan: Iron deficiency, on PO slow release daily outpatient Acute blood drop --> iron panel with low iron 15, trans % sat 6 --> s/p Venofer 200mg x 4 doses B12/folate checked --> B12 low 178, folate wnl --B12 IM injections inpatient, PO at d/c Hgb improved to 9, also further lows likely from volume overload. diuresis as below (3) Cardiac murmur: Plan: ECHO ordered -- LV systolic function is normal. Mild concentric LVH. Aortic valve sclerosis mild, without significant aortic valvular stenosis. RVSP elevated at 40-50mmHg (?underlying MELISSA) --> suspect murmur exacerbated by acute on chronic anemia, improving. Murmur not as loud on exam today EKG no afib , no palpitations reported (4) Hypothyroidism: Plan: TSH within normal limits in April 2021, repeated and upper end of normal at 4.1 Continue Synthroid 75mcg daily Rec repeating outpatient in 4-6 weeks to ensure stable (5) Hypomagnesemia: Plan: checked given O2 requirement/volume overload and prior low magnesium on admission at 1.6 Low 1.4, additional 4gm IV ordered. volume likely worsened pulmonary edema (present on admission) Mag 1.8 on repeat, monitor in AM (?2nd to PPI use) -- started PO mag oxide as well, continue at d/c (6) PSP (progressive supranuclear palsy): Plan: Uses a Rollator at home, no acute intervention for this --> son brought them in 07/10, in room Follows as outpatient with neurology. Continue sinemet QID PT.OT consulted as above, planning [facility] tomorrow Per son, easily fatigues, not to be out of bed for too long, working with PT/OT etc as this will completely wipe her out Noted Outpt f/u Poor use of incentive spirometer due to such as well (7) Laryngopharyngeal reflux: Plan: Continue pantoprazole 40 mg p.o. twice daily Prior speech eval during inpatient hospitalization for August 2020 for food bolus w/ sticky rice and struggle with difficulty swallowing and underwent EGD which showed torturous esophagus. bx w/ chronic gastritis aspiration precautions ordered diet changed to minced/moist, slippery No reflux reported (8) Fibromyalgia: Plan: Pregabalin 200 mg p.o. twice daily -- placed on hold due to increased somnolence as well as her nucynta changed to PRN for now and added PO hydrocodone to use as needed for breakthrough as uses at home --> resumed and resumed her nucynta but changed schedule of dosing Pain reported controlled, worse with movements IMPROVEMENT IN PAIN CONTROL 07/12-07/13 --> however, noted it does make her very sleepy through the afternoon and have had multiple discussions about prn, however son would like minimum 2 hydrocodone given and extra if needed in between --> patient reported all pain controlled on exam 07/13 (9) Depression: Plan: Continue Lexapro 20 mg daily. (10) B12 deficiency: Plan: low 178 -- placed on IM supplementation inpatient, continue PO at discharge (11) Hypoxia: Plan: 2nd to anemia/poor inspiratory effort/hypomagnesemia/volume overload with IVF post-op Have given Venofer IV to complete dosing, 1u PRBC for hgb <8 Hgb currently 9 on labs CXR with continued congestion Lasix 40mg IV x 1 this morning, titrated to room air this afternoon. Mag wnl Using forehead probe, SpO2 95% on room air sleeping laying flat in bed Monitor volume status in AM, however consider 20mg PO lasix daily vs prn weight gain Plan continued inpatient stay hopeful for d/c to [facility] tomorrow, CM following Admission and Anticipated Discharge Date Admission Date: July 06, 2022 Results & Data Results & Data ([facility]) Vital Signs (Past 12 Hours) Vital Signs Temp Pulse Resp BP BP Pulse Ox O2 Del Method 07/14/22 07:19 36.6 C 74 18 114/70 07/13/22 22:35 37 C 86 16 124/69 90 Room Air Laboratory Results 07/14/22 07/14/22 07/13/22 Range/Units 06:01 06:01 22:20 WBC 8.41 (4.8-10.8) K/ul RBC 3.02 L (3.93-5.22) M/uL Hgb 8.8 L (12.0-16.0) g/dl Hct 26.9 L (34.1-44.9) % MCV 89.1 (80.0-100.0) fL MCH 29.1 (25.0-34.0) pg MCHC 32.7 (32.0-36.0) g/dL RDW Std Deviation 46.6 H (36.4-46.3) fL RDW Coeff of Arnaud 14.6 H (11.5-14.5) % Plt Count 224 (130-400) K/uL MPV 11.9 (9.4-12.3) fL Sodium 135 L (136-145) mmol/L Potassium 3.7 (3.5-5.1) mmol/L Chloride 99 (98-107) mmol/L Carbon Dioxide 30 (21-32) mmol/L Anion Gap 6 (3-11) BUN 16 (6-23) mg/dl Creatinine 0.55 L (0.6-1.2) mg/dl Est Cr Clr Drug Dosing 65.1 ml/min Est GFR ( Amer) 99.8 ml/min Est GFR (Non-Af Amer) 86.1 ml/min BUN/Creatinine Ratio 29.1 H (10-20) Glucose 88 (70-99(Fasting)) mg/dl Calcium 9.0 (8.5-10.1) mg/dl Magnesium 1.8 (1.7-2.4) mg/dl B-Natriuretic Peptide (0-100) pg/ml SARS-CoV-2, RNA, NAAT NEGATIVE (NEGATIVE) 07/13/22 Range/Units 11:47 WBC (4.8-10.8) K/ul RBC (3.93-5.22) M/uL Hgb (12.0-16.0) g/dl Hct (34.1-44.9) % MCV (80.0-100.0) fL MCH (25.0-34.0) pg MCHC (32.0-36.0) g/dL RDW Std Deviation (36.4-46.3) fL RDW Coeff of Arnaud (11.5-14.5) % Plt Count (130-400) K/uL MPV (9.4-12.3) fL Sodium (136-145) mmol/L Potassium (3.5-5.1) mmol/L Chloride (98-107) mmol/L Carbon Dioxide (21-32) mmol/L Anion Gap (3-11) BUN (6-23) mg/dl Creatinine (0.6-1.2) mg/dl Est Cr Clr Drug Dosing ml/min Est GFR ( Amer) ml/min Est GFR (Non-Af Amer) ml/min BUN/Creatinine Ratio (10-20) Glucose (70-99(Fasting)) mg/dl Calcium (8.5-10.1) mg/dl Magnesium (1.7-2.4) mg/dl B-Natriuretic Peptide 57 (0-100) pg/ml SARS-CoV-2, RNA, NAAT (NEGATIVE) PG Care Time/CCT Total # of Minutes Spent Total Time Spent with Patient: Total time spent is greater than 50% in coordination of care (as documented) at patient's floor/unit and/or counseling patient: Coding Diagnoses Closed left hip fracture S72.002A Anemia D64.9 Cardiac murmur R01.1 Hypothyroidism E03.9 Hypomagnesemia E83.42 PSP (progressive supranuclear palsy) G23.1 Laryngopharyngeal reflux K21.9 Fibromyalgia M79.7 Depression F32.A B12 deficiency E53.8 Hypoxia R09.02
[2022-07-14] MEDS: ESCITALOPRAM OXALATE 20 MG TAB PO SCH (09:47)
[2022-07-14] MEDS: CARBIDOPA/LEVODOPA 25/100MG TAB PO SCH (09:48)
[2022-07-14] MEDS: ASPIRIN 81 MG ECTAB PO SCH (09:48)
[2022-07-14] MEDS: BENZTROPINE MESYLATE 0.5 MG TAB PO SCH (09:48)
[2022-07-14] MEDS: DULoxetine HCL 60 MG CAP PO SCH (09:48)
[2022-07-14] MEDS: CHOLECALCIFEROL 1,000 UNITS 25 MCG TAB PO SCH (09:48)
[2022-07-14] MEDS: SENNA 8.6 MG TAB PO SCH (09:48)
[2022-07-14] MEDS: HYDROCODONE/ACETAMINOPHEN 7.5/325MG TAB PO PRN (09:55)
--- NOTE | 2022-07-14 10:02 | Discharge Summary ---
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 Reports that she tripped and fell the previous evening and landed when she fell on her hip. Does not use blood thinners. No chest pain/chest pressure/syncope/presyncope. X-ray of the hip and pelvis shows an acute displaced subcapital left femoral fracture 5 mm of displacement. Fell last night due to SNP. Takes hydrocodone-APAP 2x per day at home. Takes nucynta ER BID. Took hydrocodone at 11pm, slight hypoxia after. Pregabalin 200mg BID. Fibromyalgia. Benztropine for psyloria No heart problems. Uses nordictrak 4-5 days per week with no cp/sob No kidney problems No history of insulin use. No nausea/vomiting/diarrhea. No bleeding problems. Seen Dr. Borja in the past for back/lumbar stenosis and shoulder pain rotator cuff issues. No recent surgies. Medical History: Reviewed Medications: Reviewed Surgical History: Reviewed Allergies: Reviewed Social History: No tobacco use, no alcohol use, no substance Code Status: DNR/DNI discussed with son and patient at bedside Admission Exam Per Admitting Provider General: A&Ox3. NAD. Cooperative. HEENT: Atraumatic, normocephalic. Vision and hearing grossly intact. Poor dentition. Pulm: CTAB A&P. -wheezes, -rales, -rhonchi. Symmetrical chest rise. No increase in work of breathing. No respiratory distress. Cardiac: RRR, systolic murmur present. Radial pulses intact and symmetrical. Abdominal: Nontender, nondistended, soft. BS present. Extremities: Left hip tender to palpation from the greater trochanter to mid thigh. Able to wiggle toes without difficulty, sensation of soft touch intact in toes bilaterally. Cap refill in hallux brisk bibasilarly, PT intact bilaterally. Leg is resting slightly shortened but not externally rotated on exam. Principal Diagnosis Fall, Left Hip Hemiarthroplasty Discharge Exam General: WD elderly female sitting up in chair, wanting to put her makeup on, NAD and just medicated with oxycodone for pain Resp: improvement in air entry, diminished in bases, no w/c, on room air CV: RRR,+systolic murmur, no calf tenderness MSK/Neuro: follows commands as able, no focal deficit, just medicated for pain and appearing comfortable dressing to hip c/d/i, compartments supple, appropriately tender to palpation without hematoma, NVI, pulses palpable Skin: cool, dry Psych: alert, oriented to person/knows in hospital, year 2021, cooperative and pleasant Discharge Data Allergies Allergy/AdvReac Type Severity Reaction Status Date / Time cat dander Allergy Severe SHORTNESS Verified 07/06/22 15:54 OF BREATH mold Allergy Severe SHORTNESS Verified 07/06/22 15:54 OF BREATH nut - unspecified Allergy Severe Anaphylaxis Verified 07/06/22 15:54 peanut Allergy Severe Anaphylaxis Verified 07/06/22 15:54 pecan nut Allergy Severe Anaphylaxis Verified 07/06/22 15:54 walnut Allergy Severe Anaphylaxis Verified 07/06/22 15:54 Penicillins Allergy Intermediate HIVES Verified 07/06/22 15:54 Sulfa (Sulfonamide Allergy Intermediate "jaundiced Verified 07/06/22 15:54 Antibiotics) as child", HIVES codeine Allergy Mild GI SYMPTOMS Verified 07/06/22 15:54 soy Allergy Unknown Unknown Verified 07/06/22 15:54 Consultations 07/06/22 15:41 ED Decision to Admit Stat 07/06/22 19:38 Consult Anesthesiology Routine Consult Orthopedic Surgery Routine 07/07/22 15:25 Consult Orthopedic Surgery Routine Procedures Performed Operation Date: 07/07/22 07:00 <No data on this case meets the specified criteria> Operation Date: 07/08/22 08:30 Actual Procedures p Left Hip Hemiarthroplasty, Cemented(Left) - Chavo Martinez MD Ordered Studies Chest X-Ray 07/06/22 14:04 XR chest 1V portable CLINICAL HISTORY: fall, hypoxia, weakness COMPARISON STUDY: Chest CT January 30, 2022. Chest radiograph June 17, 2022. FINDINGS: Severe degenerative changes of the right shoulder are noted. There is no pneumothorax. There may be trace bilateral pleural effusions. Pulmonary vascular congestion is present. Cardiomegaly is unchanged. A hiatal hernia is again noted. There are multiple old right rib fractures. Lumbar spine vertebroplasty is incidentally noted. IMPRESSION: 1. No pneumothorax. Trace bilateral pleural effusions. 2. Cardiomegaly with pulmonary vascular congestion. ACT 112: Negative or not required by law. Electronically signed by: Sergey Gunn M.D. 07/06/2022 3:47 PM Hip/Pelvis X-Ray 07/06/22 14:04 XR hip LT 2V w pelvis CLINICAL HISTORY: Left hip pain following fall. COMPARISON: Left hip radiographs January 30, 2022. FINDINGS: Postoperative findings within the lumbosacral spine are partially imaged. Sacroiliac joints and symphysis pubis are intact. Note is made of an acute subcapital left femoral fracture. Fracture is displaced approximately 5 mm. No additional fractures are identified within the pelvis or hips. IMPRESSION: Acute displaced subcapital left femoral fracture. ACT 112: Negative or not required by law. Electronically signed by: Sergey Gunn M.D. 07/06/2022 3:32 PM Elbow X-Ray 07/06/22 16:08 XR elbow RT min 3V routine CLINICAL HISTORY: fall, elbow swelling COMPARISON: None FINDINGS: Irregularity of the lateral condyle is chronic. No acute fracture. There is no evidence for a joint effusion. Soft tissue swelling overlying the olecranon is noted. IMPRESSION: 1. No acute fracture or evidence for a right elbow joint effusion. 2. Significant soft tissue swelling overlying the olecranon. This favors a contusion however olecranon bursitis could appear similar. ACT 112: Negative or not required by law. Electronically signed by: Sergey Gunn M.D. 07/06/2022 5:[address] 07/06/22 17:07 CT hip LT wo con CLINICAL HISTORY: Left femoral neck fracture. COMPARISON STUDY: Pelvis and left hip radiographs performed earlier today. CT of the abdomen and pelvis January 30, 2022. TECHNIQUE: Axial images of the left hip were obtained without IV contrast. Sagittal and coronal reconstructions were viewed. Automated exposure control was utilized for the study. A dose lowering technique was utilized adhering to the principles of ALARA. FINDINGS: There is an acute impacted mildly displaced subcapital left femoral neck fracture. Fracture is displaced approximately 5 mm. No additional acute fractures are identified on this examination. Alignment of left hip is otherwise anatomic. There is subcutaneous stranding of the posterior and lateral left thigh. No large hematoma is identified. No suspicious osseous lesions are present. Moderate left hip osteophytosis present. IMPRESSION: Acute impacted mildly displaced subcapital left femoral neck fracture. ACT 112: Negative or not required by law. Electronically signed by: Sergey Gunn M.D. 07/06/2022 6:28 PM Hip X-Ray 07/08/22 16:24 XR hip LT min 2V CLINICAL HISTORY: Post-Operative implant position TECHNIQUE: 2 views of the left hip were obtained. Comparison: Comparison is made to left hip radiograph 07/06/2022 FINDINGS: Patient is status post total hip arthroplasty with expected postsurgical changes including soft tissue swelling and subcutaneous emphysema. IMPRESSION: Expected postoperative appearance status post placement of total hip arthroplasty. ACT 112: Negative or not required by law. Electronically signed by: Eric Coleman M.D. 07/08/2022 5:55 PM 07/08/2022 ECHOCARDIOGRAM Left ventricular systolic function is normal. There is mild concentric left ventricular hypertrophy. Aortic valve sclerosis mild, without significant aortic valvular stenosis. Right ventricular systolic pressure is elevated at 40-50mmHg. No significant valvular heart disease. Chest X-Ray 07/09/22 08:45 XR chest 1V portable CLINICAL HISTORY: hypoxia, eval chf/fluid overload COMPARISON STUDY: Chest CT January 30, 2022. Chest radiograph July 06, 2022. FINDINGS: Severe right shoulder osteoarthritis is incidentally noted. There are multiple old right-sided rib fractures. No pneumothorax or pleural effusion is present. Cardiomegaly is unchanged. There is a hiatal hernia. Pulmonary vascular congestion persists. No consolidation is identified to suggest pneumonia. IMPRESSION: Cardiomegaly with pulmonary vascular congestion, similar to prior exam. ACT 112: Negative or not required by law. Electronically signed by: Sergey Gunn M.D. 07/09/2022 2:46 PM Chest X-Ray 07/10/22 06:00 XR chest 1V portable HISTORY: Shortness of breath. follow up congestion COMPARISON: Chest 07/09/2022. FINDINGS: No pneumothorax. No pleural effusions. There are low lung volumes. Slightly rotated study. Old, healed right-sided rib fractures again noted. No new focal lung consolidations. The heart remains mildly enlarged. Mild central pulmonary vascular congestion again noted. This is similar to the prior study. Advanced degenerative changes within the right shoulder. IMPRESSION: No significant change in the cardiomegaly and mild central pulmonary vascular congestion without overt edema. ACT 112: Negative or not required by law. Electronically signed by: Eulogio Nguyễn M.D. 07/10/2022 9:23 AM Chest X-Ray 07/11/22 08:00 XR chest 2V PA/lateral HISTORY: Shortness of breath. follow up congestion COMPARISON: Chest 07/10/2022. FINDINGS: No pneumothorax. No pleural effusions. The heart remains enlarged. Rotated study. Advanced degenerative changes within the right shoulder again noted. There is progressive interstitial/vascular thickening consistent with mild pulmonary edema. No new focal lung consolidations identified. Postoperative changes within the lower lumbar spine. There is a moderate to large hiatus he rnia again noted. IMPRESSION: Cardiomegaly with progression of the mild interstitial pulmonary edema. ACT 112: Negative or not required by law. Electronically signed by: Eulogio Nguyễn M.D. 07/11/2022 8:55 AM Chest X-Ray 07/12/22 08:29 XR chest 2V PA/lateral CLINICAL HISTORY: f/u congestion TECHNIQUE: 2 views of the chest were obtained. Comparison: Comparison is made to chest radiograph 07/11/2022 FINDINGS: No lines and tubes are seen. Cardiomegaly is noted. Prominence and cephalization of the vasculature is seen. No evidence of pleural effusion or pneumothorax. A hiatal hernia is seen. Degenerative changes are seen in the right shoulder joint. Old healed rib fractures are seen. IMPRESSION: Mild pulmonary edema is again seen similar to prior exam. Cardiomegaly is noted. ACT 112: Negative or not required by law. Electronically signed by: Eric Coleman M.D. 07/13/2022 12:03 AM Chest X-Ray 07/13/22 07:52 XR chest 1V portable CLINICAL HISTORY: f/u congestion COMPARISON STUDY: Chest radiograph July 12, 2022. FINDINGS: Severe osteoarthritis of the right glenohumeral joint is noted. There are old right-sided rib deformities. No pneumothorax or pleural effusion is present. Cardiomegaly is unchanged. Pulmonary vascular congestion persists. There is no lobar consolidation. IMPRESSION: No significant change in pulmonary vascular congestion. ACT 112: Negative or not required by law. Electronically signed by: Sergey Gunn M.D. 07/13/2022 8:09 AM Chest X-Ray 07/14/22 08:45 SINGLE VIEW CHEST CLINICAL HISTORY: Chest congestion. FINDINGS: 2 AP, portable, upright chest radiographs are compared to study dated 07/13/2022. Correlation is made with chest CT dated 01/30/2022. The examination is degraded by portable technique and patient rotation. A hiatal hernia is noted. The heart is enlarged noting atherosclerotic calcification of the thoracic aorta. Pulmonary vascular congestion has resolved. Chronic interstitial thickening is similar to previous. There is bibasilar scarring/atelectasis. The lungs and pleural spaces are otherwise clear. No pneumothorax is seen. The skeletal structures are osteopenic. Degenerative change and scoliosis is noted in the spine. Fusion hardware is partially imaged in the lumbar spine. There is evidence of previous vertebroplasty in the upper lumbar region. There are healed right-sided rib fractures. IMPRESSION: 1. Cardiomegaly. Pulmonary vascular congestion has resolved from previous. 2. No airspace consolidation or large pleural effusion is identified. ACT 112: Negative or not required by law. Electronically signed by: Estuardo Lema M.D. 07/14/2022 11:23 AM Hospital Course (1) Closed left hip fracture: s/p Left Hip Hemiarthroplasty, Cemented(Left) - Chavo Martinez MD. on 07/08 EBL 300cc WBC wnl -- did have low grade temp 37.6C 07/11, nothing further, suspect from volume overload/atelectasis Hgb stable -- acute blood loss anemia/dilutional from surgery, as well as dilutional values w/ volume overload from IVF/multiple bags IV mag/etc following surgery in patient with congestion on CXR prior to surgery on admission 1u PRBC, multiple bags of IV Venofer Continue PO Fe at d/c IV/PO lasix given, repeat hgb stable, no increased bleeding noted/hematoma Instructed to continue lasix 20mg PO prn weight gain at d/c Pain control/antiemetics prn -- continued her usual regimen per multiple discussions with son. Takes Nucynta at 11am/11pm and sprinkled in prn (usually 2 doses in between, additional 3rd dose if needed of her Hydrocodone) Bowel regimen -- continued to move bowels without issue DVT proph -- ASA 81mg BID PT/OT consulted --> [facility] arranged at discharge F/u ortho 2 weeks (2) Anemia: Iron deficiency, on PO slow release daily outpatient Acute blood drop --> iron panel with low iron 15, trans % sat 6--> s/p Venofer 200mg x 4 doses, 1u PRBC for hgb <7 Continued PO Fe at discharge B12 low at 178 --> IM injections while inpatient and instructed to continue PO at discahrge 1000mcg daily prior lows suspected dilutional from IVF as above as well Hgb stable/no further bleeding reported (3) Cardiac murmur: ECHO ordered -- LV systolic function is normal. Mild concentric LVH. Aortic valve sclerosis mild, without significant aortic valvular stenosis. RVSP elevated at 40-50mmHg (?underlying MELISSA) --> suspect murmur exacerbated by acute on chronic anemia, improving. Murmur not as loud on exam prior to discharge EKG no afib , no palpitations reported F/u outpatient (4) Hypothyroidism: TSH within normal limits in April 2021, repeated and upper end of normal at 4.1 Continue Synthroid 75mcg daily Rec repeating outpatient in 4-6 weeks to ensure stable (5) Hypomagnesemia: checked given O2 requirement/volume overload and prior low magnesium on admission at 1.6 Low 1.4, additional 4gm IV ordered. worsened volume overload already present on admission CXR Started and continued PO mag oxide at d/c Repeat mag wnl (6) PSP (progressive supranuclear palsy): Uses a Rollator at home, no acute intervention for this --> son brought them in 07/10, in room Follows as outpatient with neurology. Continue sinemet QID PT.OT consulted as above, planning [facility] tomorrow Per son, easily fatigues, not to be out of bed for too long, working with PT/OT etc as this will completely wipe her out Outpt f/u Neurology outpatient, already follows Poor use of incentive spirometer due to such as well (7) Laryngopharyngeal reflux: Continue pantoprazole 40 mg p.o. twice daily Prior speech eval during inpatient hospitalization for August 2020 for food bolus w/ sticky rice and struggle with difficulty swallowing and underwent EGD which showed torturous esophagus. bx w/ chronic gastritis aspiration precautions ordered diet changed to minced/moist, slippery No reflux reported (8) Fibromyalgia: Pregabalin 200 mg p.o. twice daily -- placed on hold due to increased somnolence as well as her Nucynta changed to PRN for now and added PO hydrocodone to use as needed for breakthrough as uses at home --> resumed and resumed her nucynta but changed schedule of dosing to reflect what she was taking at home per multiple discussions with son Patient reported pain stable prior to discharge, at baseline cognitively Of note, son reported Nucynta chronic medication however does appear this was started over the summer. consider reducing dose if any issues at [facility]/follow up (9) Depression: Continued Lexapro 20 mg daily. (10) B12 deficiency: low 178 -- placed on IM supplementation inpatient, continued PO at discharge (11) Hypoxia: 2nd to anemia/poor inspiratory effort/hypomagnesemia/volume overload with IVF post-op titrated to RA w/ 1uPRBC/venofer IV/lasix for volume overload Remained stable (improved reading with forehead probe) Instructed to continue PO lasix prn weight gain at [facility]. Also sent rx PO kcl if needed for if/when taking the lasix Plan discharged to [facility] F/u Orthopedics in 1-2 weeks lasix prn weight gain Total Time Total Time Spent Total Time Spent (In Minutes): 60 Discharge Plan Discharge Items Patient Disposition: Transfer [facility] Reason For Visit: [facility] FXR Discharge Diagnosis: Left Hip Replacement for Fracture Goals: You have been hospitalized for an urgent problem which required surgery. During your stay at [facility], we have made an effort to correct the problem that brought you to the hospital while keeping you as comfortable as possible. Surgery and medications were used to bring your condition under control and your discharge instructions will include directions for any medications you should take after leaving the hospital. Please make sure to follow the advice of your surgeon regarding follow up with the surgeon and with your primary care provider. Activity: Per Instructions section Activity Comment: Obey hip precautions at all times. Weightbearing: Full weightbearing Weightbearing Comment: Weightbear as tolerated obeying hip precautions at all times. Non-emergency contact: Primary Care Provider and Surgeon Call non-emergency contact if: you have any medication questions, your symptoms worsen, your pain is not controlled and you have a fever Follow-up/Referrals: Kelly Bowman MD [Primary Care Provider] - hCavo Martinez MD [Physician] - (Orthopedic follow-up 2-3 weeks from surgery date.) Diet: Heart Healthy Addtl Attending Provider Instructions: You have been hospitalized for a fracture. This was fixed with surgery, Dr Martinez. You should continue Lasix 20mg daily and monitor weights at home. If gain >3lb in 24 hours or 5lb in a week, take additional dose of Lasix to prevent volume overload. Your thyroid level was normal but upper end of normal and I would recommend you having this repeated in 3-4 weeks to ensure normal and no adjustments of your Synthroid are needed. Please make sure you are taking this on an empty stomach 30 minutes prior to meals. Please continue aspirin 81mg twice daily for 6 weeks to prevent blood clots and follow up with orthopedics in 2-3 weeks from surgery. Maintain hip precautions. Follow up with primary care in 7-10 days to monitor your progress. Return to ER with any worsening pain, shortness of breath, chest pain or for any other symptoms concerning for you. Take care! ACTIVITY RECOMMENDATIONS: Physical Therapy: * Aggressive physical therapy is not usually needed. You will learn to take care of yourself safely and walk. * Follow the "Hip Precautions Instructions." * In some cases, the social media marketing analyst at the hospital will arrange to have a therapist come to your house for the first couple of weeks to help you learn these skills. * You need to practice on your own or with the help of a family member as needed. * When you learn these skills, most of the therapy can be done on your own. Home Exercise: * You were shown a series of exercises in the hospital. Do these exercises three to four times each day including the exercises you were shown in physical therapy. Walking: * Get up and walk several times each day. For the first four weeks, try not to stand or walk for more than one hour at a time. If you do stand or walk for more than one hour, you will not hurt anything, but your leg will likely swell. * As you feel comfortable, you may change from the walker or crutches to a cane and then to independent walking. MEDICATIONS: New Medicine: * You will likely be taking one or more of these medicines: 1. Tramadol - Take, as directed, when you need it, every six hours to control your pain. 2. Aspirin - Thins your blood to lessen the chance of forming a blood clot. * The most common side effects of pain medicine and iron are nausea and constipation. If nausea or constipation is too much of a problem or if you have any questions about your new medicines or doses, call [facility] at [phone]. We will try to help you manage these issues. "VERY IMPORTANT TO READ AND REVIEW" Pain: * The immediate post-operative period after hip replacement surgery is often quite painful. * You are given a prescription for pain medicine. You should take it, as directed, when you need it, especially before physical therapy and before going to bed. Pain that interferes with sleep is very common and can last several months. * You will likely need pain medicine for the first two to four weeks. It will not stop all of the pain. The pain will lessen and as you feel better, you may change to milder pain medicine such as Tylenol. * The most common side effects of pain medicine are nausea and constipation, so don't take more than you need. SPECIAL CARE INSTRUCTIONS: TEDs/Elastic Stockings: * The white elastic stockings help limit swelling and prevent blood clots from forming in your legs. The more you wear them, the more they work. * Wear them for six weeks. Incision Site Care: * Remove dressing postoperative day 2 and then shower. Keep direct shower pressure off the incision site. * After showering, cover rosie with dry gauze and change daily or more frequently if the dressing is getting saturated with drainage. * May completely stop using bandage if wound is dry and no drainage * [place] are removed between 2 and 3 weeks post-op. If your follow-up appointment is made before 2 weeks, please have your appointment re- scheduled. It is too early to remove the rosie. Prevention of Infection: * Take antibiotics one hour before any dental cleaning, dental work, urological procedure, gastrointestinal procedure or any invasive surgery in order to prevent your new joint from getting infected. * You may get the antibiotics from the doctor performing the procedure or you may call our office at before and we will call in a prescription to the pharmacy of your choice. Things to Watch For: * Drainage from the incision site that occurs more than one week after your surgery. * Severely increased leg pain or swelling. * Increased redness at the incision site. * Fever above 102 degrees Fahrenheit. * Unusual chest pain or shortness of breath. * Unusual pain or burning with urination. Call [facility] at with any of the above problems or if you have any questions about your medicines or recovery. FOLLOW UP VISIT: Make an appointment to see your doctor for approximately two weeks after surgery for a progress check and staple removal by calling the office at . Pending Studies at Discharge: No Stand-Alone Forms: My [facility] Skilled Items Patient informed of condition?: Yes DNR: Yes Discharge Level of Care: Skilled Communicable Disease: No Discharge Prognosis: Improving Lines: None Urinary Catheter: No Medications and DC Order Prescriptions: New aspirin 81 mg Tablet,Delayed Release (Dr/Ec) 81 mg PO BID 35 Days Qty: 72 0RF furosemide [Lasix] 20 mg tablet 20 mg PO DAILY PRN (Reason: edema or weight gain) Qty: 30 0RF potassium chloride 20 mEq tablet extended release 20 meq PO DAILY PRN (Reason: weight gain/edema with lasix) Qty: 30 0RF cyanocobalamin (vitamin B-12) 1,000 mcg capsule 1,000 mcg PO DAILY Qty: 30 0RF Continued benztropine 0.5 mg tablet 0.5 mg PO BID Qty: 180 1RF pantoprazole 40 mg tablet,delayed release (DR/EC) 40 mg PO BID 90 Days Qty: 180 1RF Rx Instructions: 1 HR PRIOR TO BRUNCH & DINNER levothyroxine [Synthroid] 75 mcg tablet 75 mcg PO QAM Qty: 90 1RF duloxetine [Cymbalta] 60 mg capsule,delayed release(DR/EC) 60 mg PO QAM 90 Days Qty: 90 1RF escitalopram oxalate 20 mg tablet 20 mg PO DAILY Qty: 90 0RF carbidopa-levodopa [Sinemet] 25-100 mg tablet 1 tab PO QID 90 Days Qty: 360 1RF Rx Instructions: 4 HRS BETWEEN DOSES. hydrocodone-acetaminophen 7.5-325 mg tablet 1 tab PO TID PRN (Reason: pain) Qty: 90 0RF simvastatin [Zocor] 20 mg tablet 20 mg PO HS Qty: 90 1RF cholecalciferol (vitamin D3) [Vitamin D3] 1,000 unit Capsule 1,000 unit PO DAILY sennosides [Senokot] 8.6 mg Tablet 17.2 mg PO BID Rx Instructions: TAKE PRIOR TO [facility] Premarin 0.625 mg tablet 0.625 mg PO DIRECTED PRN (Reason: NEEDED PER MED LIST) polyethylene glycol 3350 [Miralax] 17 gram/dose Powder 8.5 g PO DAILY Slow Release Iron 143 mg (45 mg iron) Tablet Extended Release 143 mg PO DAILY Nucynta ER 50 mg tablet extended release 12 hr 50 mg PO [facility] melatonin 10 mg Tablet 10 mg PO HS Rx Instructions: TAKE 1 HR PRIOR TO HS. pregabalin [Lyrica] 200 mg capsule 200 mg PO [facility] Discontinued zolpidem 6.25 mg Tablet,Ext Release Multiphase 6.25 mg PO HS Discharge Orders: Discharge Order (Routine); Ordered 07/14/22 Ordered By: Lacie Mcmahon Admission Data Admit Date/Time: 07/06/22 16:14 Attending Provider: Chelsea Silva Admit Provider: Saleem Garay Primary Care Provider: Kelly Bowman Other Providers: Saleem Garay ; Laverne Lopez ; Shirley Myrick ; Sara Aranda ; Elyse Barnes ; Cuca Arriola ; Dima Castañeda ; Fco Benitez ; Efra Gray ; Eulogio Chaudhari ; Florecita Chaudhari ; Macario Hanna ; Kimberli Harris ; Tylor Pozo ; Jeb Ambrosio ; Nayan Roe ; Carl Sales ; Loan Cartagena ; Yovani Rivas ; Pamela Adkins ; Lacie Rivas ; Yfn Pelayo ; Valeria Holt ; Elieser Gold ; Scarlett Méndez ; Sierra Sweet ; Carly Tirado ; Deric Cortez ; Rae Lindsey ; Marti Chirinos ; Karolina Frost ; Radha Lockhart ; Armani Lockhart V ; Cr Aguilar ; Shirley Olivier ; Oumar Wright ; Megan Holden ; Armani Joe ; Freddy Cartagena ; Eric Sorto ; Alfreda Moreira ; Ana Barriga ; Armani Almazan ; Chavo Sommer ; Chau Sales ; Amanda Casillas ; Hussain Parks ; Carmen Lyons ; Gilberto Chapin ; Hussain Mclain ; Dima Velasquez Jr ; Krissy Ahn ; Lisa Burger ; Shannon Moseley ; Deric Bauer ; Elyse Snyder ; Eulogio Live ; King Lau I. 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
[2022-07-14] MEDS: POLYETHYLENE (MIRALAX) 17 GM PACK PO SCH (10:03)
[2022-07-14] MEDS: PANTOprazole 40 MG TAB PO SCH (10:07)
[2022-07-14] MEDS: PREGABALIN 100 MG CAP PO SCH (10:07)
[2022-07-14] MEDS: TAPENTADOL HCL ER 50 MG TABCR PO SCH (10:07)
--- NOTE | 2022-07-14 11:24 | XRay Report ---
SINGLE VIEW CHEST CLINICAL HISTORY: Chest congestion. FINDINGS: 2 AP, portable, upright chest radiographs are compared to study dated 07/13/2022. Correlatio n is made with chest CT dated 01/30/2022. The examination is degraded by portable technique and patien t rotation. A hiatal hernia is noted. The heart is enlarged noting atherosclerotic calcification of t he thoracic aorta. Pulmonary vascular congestion has resolved. Chronic interstitial thickening is sim ilar to previous. There is bibasilar scarring/atelectasis. The lungs and pleural spaces are otherwise clear. No pneumothorax is seen. The skeletal structures are osteopenic. Degenerative change and scol iosis is noted in the spine. Fusion hardware is partially imaged in the lumbar spine. There is eviden ce of previous vertebroplasty in the upper lumbar region. There are healed right-sided rib fractures. IMPRESSION: 1. Cardiomegaly. Pulmonary vascular congestion has resolved from previous. 2. No airspace consolidation or large pleural effusion is identified. ACT 112: Negative or not required by law. Electronically signed by: Estuardo Lema M.D. 07/14/2022 11:23 AM
[2022-07-15] MEDS ORDERED: FUROSEMIDE 20 MG TAB PO SCH (09:00)
== END 2022-07-14 11:35 | DRG 522 ==
LOC: ED 13:47 → 3E 16:14 → SUATTDRO 16:14 → 3E 18:28

== ENCOUNTER 2023-07-26 09:16 | Inpatient (IN) ==
[2023-07-26] MEDS ORDERED: ACETAMINOPHEN 1,000 MG/100 ML VIAL IV STA (09:27)
[2023-07-26] MEDS ORDERED: SODIUM CHLORIDE 0.9% 500 ML IV SCH (09:30)
--- NOTE | 2023-07-26 09:31 | Emergency Department Note ---
Impression & Plan Rhinovirus infection, Hypoxia, Weakness ED Provider Note Name: ABDIRAHMAN GALLAGHER Age: 87 Sex: Female Arrives Via: Ambulance Informant: Patient, EMS, son ED Provider: Ned Montez MD Chief Complaint: Breathing difficulty Impression: As per impressions above Medical Decision Making: Pleasant 87-year-old female arrives for evaluation of worsening weakness, shortness of breath, fatigue over the last 24 hours. On arrival patient is quite somnolent and is not giving a great history. Fortunately son arrived to get further discussion. Patient is a bit hypoxic on room air and her lung exam is quite poor. Laboratory work-up is relatively benign including a normal procalcitonin and lactic acid. Her viral PCR is positive for rhinovirus. Chest x-ray does not show any lobar infiltrates. I do not feel there is clear evidence of bacterial infection at this time while she is SIRS I do not feel antibiotics are indicated. She does not have indication for IV antibiotics at this time. She was given some IV Tylenol with improvement in her temperature as well as her mental status along with the fluids. Given her history I discussed the findings with hospitalist to bring her in for further management. Son is on board with this plan. Triage/Nursing Notes reviewed by Me External Chart Review by me: 02/10/2023 PCP visit for review of patient's past medical history and medications. Differential:Infection, dehydration, metabolic abnormality, hypo/hyperglycemia, electrolyte disturbance, anemia, hypoxia, cardiac sources, intracerebral event, toxicologic, neurologic, as well as other pathologies. Vital Signs: reviewed and remarkable for hypoxia and fever Interventions: Normal saline bolus IV, Tylenol IV Labs:ED labs Reviewed by me and remarkable for positive rhinovirus PCR Imagin view chest x-ray as per my interpretation reveals some mild congestive findings throughout without lobar infiltrate appreciated EKG:As per my interpretation. Indication sepsis. Sinus rhythm at 90 bpm and a QTc of 401. Sinus arrhythmia noted. No overt ischemic findings. Poor baseline. When compared to May 02, 2023 EKG no significant change. Cardiac/Tele Monitoring: Cardiac Monitoring: An Order was placed for continuous cardiac monitoring. The monitor shows a rate of 90 with a normal sinus rhythm. Consults:[facility]. [facility] service Plan: Disposition:Hospitalization. Condition: Fair History of Present Illness: 87-year-old female arrives for evaluation of illness. Patient with worsening weakness, confusion, hypoxia, cough. She has a history of aspiration pneumonia with frequent hospitalizations. Worsening over the last 24 hours. Minimal further history available given patient is confused and somnolent. Past Medical History:See Below Home Medications:See Below Allergies:See Below Vitals:Blood Pressure: 120/60, Pulse 60, RR 22, T 38.4C, O2 88% on RA Physical Exam: GENERAL: Patient is chronically unwell appearing and in no acute distress. Somnolent, confused RESPIRATORY: Dyspnea/tachypnea with diffuse junky lung sounds periodic wet cough CARDIOVASCULAR: Regular rate and rhythm.No murmur appreciated. GASTROINTESTINAL: Abdomen soft, non-tender, no peritonitis. EXTREMITIES: Generalized weakness mild edema in legs NEUROLOGIC: Somnolent confused with no focal deficits moving extremities. SKIN: No rash, no jaundice, no diaphoresis. ED Course: Times/Reassessments: Multiple repeat evaluations. Patient did seem to perk up a bit with fluids and Tylenol. Ned Montez MD Past Med/Surg History Medical History Anxiety Avulsion fracture of middle phalanx of finger Bilateral lumbar radiculopathy Cardiac murmur CHI (closed head injury) Chronic back pain Depression Encounter for pre-operative examination Falls frequently Fibromyalgia Forehead laceration Fusion of lumbosacral spine GERD (gastroesophageal reflux disease) Hearing deficit Hx of breast cancer Hyperlipidemia Hyperlipidemia Hypothyroidism Hypoxia Lumbar canal stenosis Lumbosacral radiculopathy Maxillary sinus fracture Multiple facial bone fractures Multiple rib fractures Other abnormalities of gait and mobility Poor balance PSP (progressive supranuclear palsy) Risk for falls Sacroiliitis Scoliosis Spinal stenosis Surgical History History of colonoscopy History of dilation and curettage History of foot surgery History of tonsillectomy Hx of appendectomy Hx of bilateral breast reduction surgery Hx of cataract surgery Hx of kyphoplasty Hx of lumpectomy Hx of spinal fusion Hx of wisdom tooth extraction S/P epidural steroid injection S/P total left hip arthroplasty Status post left hip replacement Family History Sister Alzheimer disease Breast cancer Paget's disease Father Alzheimer disease Grandmother (Paternal) Alzheimer disease Mother Myocardial infarction Stroke syndrome Uncle Prostate cancer Denies family history of Ovarian cancer Adverse anesthesia outcome Bleeding disorder Colorectal cancer Social History Smoking Status: Never smoker Tobacco Type: Cigarettes Second Hand Exposure: No; Do You Dip or Chew Tobacco: No; Hx Alcohol Use: No Hx Substance Use: No Preferred Language: Croatian Communication Ability: Effective Visual Impairment: No Limitations Hearing Ability: Use of Hearing Aid 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 Beliefs That Will Affect Care: None marital status: / Current Living Situation: Halfway Current Living Situation Comment: resides at the [facility] current occupational status: retired How many Children do You have: 2 Other Information That Helps Us Care for You: No Feels Safe at Home: Yes Safety Concerns: Feels Safe At This Time Childhood Exposure to Second-Hand Smoke: No Diet: regular caffeine: Yes during the past year weight has: remained stable Dental Care, Regularly: Yes Physical Activity Frequency: Does not Exercise Seatbelt Use: always Sunscreen Use: Yes Assistive Devices: Walker Allergies Allergies Allergy/AdvReac Type Severity Reaction Status Date / Time cat dander Allergy Severe SHORTNESS Verified 04/05/23 18:48 OF BREATH mold Allergy Severe SHORTNESS Verified 04/05/23 18:48 OF BREATH nut - unspecified Allergy Severe Anaphylaxis Verified 04/05/23 18:48 peanut Allergy Severe Anaphylaxis Verified 04/05/23 18:48 pecan nut Allergy Severe Anaphylaxis Verified 04/05/23 18:48 walnut Allergy Severe Anaphylaxis Verified 04/05/23 18:48 Penicillins Allergy Intermediate HIVES Verified 04/05/23 18:48 Sulfa (Sulfonamide Allergy Intermediate "jaundiced Verified 04/05/23 18:48 Antibiotics) as child", HIVES codeine Allergy Mild GI SYMPTOMS Verified 04/05/23 18:48 shellfish derived Allergy Unknown Unknown Unverified 04/05/23 18:48 soy Allergy Unknown Unknown Verified 04/05/23 18:48 Home Meds Home Medications Medication Instructions Recorded Confirmed ferrous sulfate 143 mg (45 mg 143 mg PO DAILY 07/06/22 07/26/23 iron) tablet,extended release (Slow Release Iron) melatonin 10 mg tablet 10 mg PO HS 07/06/22 07/26/23 polyethylene glycol 3350 17 8.5 g PO DAILY 07/06/22 07/26/23 gram/dose oral powder (Miralax) pregabalin 200 mg capsule (Lyrica) 200 mg PO AMHS 07/06/22 07/26/23 sennosides 8.6 mg tablet (Senokot) 8.6 mg PO HS 07/06/22 07/26/23 tapentadol 50 mg tablet,extended 50 mg PO AMHS 07/06/22 07/26/23 release,12 hr (Nucynta ER) acetaminophen 325 mg tablet 650 mg PO Q4H PRN Pain 04/05/23 07/26/23 cholecalciferol (vitamin D3) 25 25 mcg PO DAILY 04/05/23 07/26/23 mcg (1,000 unit) tablet (Vitamin D3) diclofenac sodium 1 % topical gel 4 g topical QID PRN Pain 04/05/23 07/26/23 duloxetine 30 mg capsule,delayed See Rx Instructions .Route .COMPLEX 04/05/23 07/26/23 release duloxetine 60 mg capsule,delayed See Rx Instructions .Route .COMPLEX 04/05/23 07/26/23 release (Cymbalta) hydrocodone 7.5 mg-acetaminophen 1 tab PO Q6H PRN chronic pain 04/05/23 07/26/23 325 mg tablet potassium chloride 20 mEq 20 meq PO DAILY 04/05/23 07/26/23 tablet,extended release albuterol sulfate 1.25 mg/3 mL 1.25 mg inhalation Q4H PRN 07/26/23 07/26/23 solution for nebulization Shortness Of Breath furosemide 20 mg tablet 20 mg PO DAILY 07/26/23 07/26/23 lidocaine 4 % topical patch 1 patch topical QID PRN Shoulder 07/26/23 07/26/23 (Lidocaine Pain Relief) pain loteprednol etabonate 0.5 % eye 1 drp ophthalmic (eye) BID 07/26/23 07/26/23 drops,suspension (Lotemax) Previous Rx's Medication Instructions Recorded benztropine 0.5 mg tablet 0.5 mg PO BID #180 tabs 10/28/21 simvastatin 20 mg tablet (Zocor) 20 mg PO HS #90 tabs 10/29/21 pantoprazole 40 mg tablet,delayed 40 mg PO BID gastritis 90 days 01/08/22 release #180 tabs levothyroxine 75 mcg tablet 75 mcg PO QAM #90 tabs 01/20/22 (Synthroid) carbidopa 25 mg-levodopa 100 mg 1 tab PO QID 90 days #360 tabs 06/10/22 tablet (Sinemet) Results & Data (ED) Laboratory Data 07/27/23 05:32 07/27/23 05:32 Lab Results 07/26/23 07/26/23 07/26/23 Range/Units 09:34 09:38 10:10 WBC 10.45 (4.8-10.8) K/ul RBC 3.59 L (4.20-5.40) M/uL Hgb 10.7 L (12.0-16.0) g/dl Hct 33.7 L (37.0-47.0) % MCV 93.9 (80.0-100.0) fL MCH 29.8 (25.0-34.0) pg MCHC 31.8 L (32.0-36.0) g/dL RDW Std Deviation 47.2 H (36.4-46.3) fL RDW Coeff of Arnaud 13.6 (11.5-14.5) % Plt Count 185 (130-400) K/uL MPV 11.8 (9.4-12.4) fL Immature Gran % (Auto) 0.5 % Neut % (Auto) 86.2 % Lymph % (Auto) 3.9 % Hendricks % (Auto) 7.8 % Eos % (Auto) 1.3 % Baso % (Auto) 0.3 % Neut # (Auto) 9.00 H (1.40-6.50) K/uL Lymph # (Auto) 0.41 L (1.20-3.40) K/uL Hendricks # (Auto) 0.82 H (0.11-0.59) K/uL Eos # (Auto) 0.14 (0.00-0.50) K/uL Baso # (Auto) 0.03 (0.00-0.20) K/uL Immature Gran # (Auto) 0.05 (0.01-0.20) K/uL PT 10.4 (9.0-12.0) Seconds INR 0.9 (0.9-1.1) APTT 26.7 (21.0-31.0) Seconds PTT Ratio 0.9 VBG pH (7.36-7.41) VBG pCO2 (38-50) mmHg VBG pO2 mmHg VBG HCO3 mmol/L VBG O2 Saturation % VBG Base Excess mEq/L Sodium 140 (136-145) mmol/L Potassium 3.9 (3.5-5.1) mmol/L Chloride 103 (98-107) mmol/L Carbon Dioxide 31 (21-32) mmol/L Anion Gap 6 (3-11) BUN 21 (6-23) mg/dl Creatinine 0.47 L (0.6-1.2) mg/dl Est Cr Clr Drug Dosing 77.6 ml/min Est GFR ( Amer) 104.4 ml/min Est GFR (Non-Af Amer) 90.1 ml/min BUN/Creatinine Ratio 44.7 H (10-20) Glucose 107 H (70-99(Fasting)) mg/dl Lactate 0.7 (0.4-2.0) mmol/L Calcium 9.2 (8.6-10.3) mg/dl Magnesium 1.8 (1.7-2.4) mg/dl Total Bilirubin 0.8 (0.2-1.0) mg/dl Direct Bilirubin 0.2 (0-0.2) mg/dl AST 12 L (13-39) U/L ALT < 3 L (7-52) U/L Alkaline Phosphatase 59 (34-104) U/L Troponin I High Sens 9.1 (0-14) pg/ml C-Reactive Protein 11.90 H (0-0.5) mg/dl B-Natriuretic Peptide 92 (0-100) pg/ml Total Protein 6.6 (6.0-8.3) gm/dl Albumin 3.8 (3.4-5.0) gm/dl Procalcitonin < 0.05 (0-0.5) ng/ml Urine Color Dark Yellow Urine Appearance Clear (Clear) Urine pH 5.5 (4.5-7.5) Ur Specific Carlisle 1.024 (1.000-1.030) Urine Protein Trace H (Negative) Urine Glucose (UA) Negative (Negative) Urine Ketones 1+ H (Negative) Urine Blood Negative (Negative) Urine Nitrite Negative (Negative) Urine Bilirubin 1+ H (Negative) Urine Urobilinogen Negative (Negative) Ur Leukocyte Esterase Trace H (Negative) Urine WBC (Auto) 1-5 (0-5) /hpf Urine RBC (Auto) 5-10 H (0-4) /hpf U Hyaline Cast (Auto) 1-5 (0-5) /lpf U Epithel Cells (Auto) 20-30 H (0-5) /lpf Urine Bacteria (Auto) Negative (Negative) Adenovirus (PCR) Not Detected (NotDetected) B. pertussis DNA (PCR) Not Detected (NotDetected) B.parapertussis DNA PCR Not Detected (NotDetected) C. pneumoniae DNA (PCR) Not Detected (NotDetected) Coronavirus OC43 (PCR) Not Detected (NotDetected) Coronavirus HKU1 (PCR) Not Detected (NotDetected) Coronavirus 229E (PCR) Not Detected (NotDetected) SARS-CoV-2 (PCR) Not Detected (NotDetected) Coronavirus NL63 (PCR) Not Detected (NotDetected) Human Metapneumovir PCR Not Detected (NotDetected) Influenza Type A (PCR) Not Detected (NotDetected) Influenza Type B (PCR) Not Detected (NotDetected) M. pneumoniae (PCR) Not Detected (NotDetected) Parainfluenza 1 (PCR) Not Detected (NotDetected) Parainfluenza 2 (PCR) Not Detected (NotDetected) Parainfluenza 3 (PCR) Not Detected (NotDetected) Parainfluenza 4 (PCR) Not Detected (NotDetected) RSV (PCR) Not Detected (NotDetected) Entero/Rhino (PCR) DETECTED A* (NotDetected) 07/26/23 Range/Units 10:56 WBC (4.8-10.8) K/ul RBC (4.20-5.40) M/uL Hgb (12.0-16.0) g/dl Hct (37.0-47.0) % MCV (80.0-100.0) fL MCH (25.0-34.0) pg MCHC (32.0-36.0) g/dL RDW Std Deviation (36.4-46.3) fL RDW Coeff of Arnaud (11.5-14.5) % Plt Count (130-400) K/uL MPV (9.4-12.4) fL Immature Gran % (Auto) % Neut % (Auto) % Lymph % (Auto) % Hendricks % (Auto) % Eos % (Auto) % Baso % (Auto) % Neut # (Auto) (1.40-6.50) K/uL Lymph # (Auto) (1.20-3.40) K/uL Hendricks # (Auto) (0.11-0.59) K/uL Eos # (Auto) (0.00-0.50) K/uL Baso # (Auto) (0.00-0.20) K/uL Immature Gran # (Auto) (0.01-0.20) K/uL PT (9.0-12.0) Seconds INR (0.9-1.1) APTT (21.0-31.0) Seconds PTT Ratio VBG pH 7.41 (7.36-7.41) VBG pCO2 47 (38-50) mmHg VBG pO2 96 mmHg VBG HCO3 30 mmol/L VBG O2 Saturation 97.9 % VBG Base Excess 4.3 mEq/L Sodium (136-145) mmol/L Potassium (3.5-5.1) mmol/L Chloride (98-107) mmol/L Carbon Dioxide (21-32) mmol/L Anion Gap (3-11) BUN (6-23) mg/dl Creatinine (0.6-1.2) mg/dl Est Cr Clr Drug Dosing ml/min Est GFR ( Amer) ml/min Est GFR (Non-Af Amer) ml/min BUN/Creatinine Ratio (10-20) Glucose (70-99(Fasting)) mg/dl Lactate (0.4-2.0) mmol/L Calcium (8.6-10.3) mg/dl Magnesium (1.7-2.4) mg/dl Total Bilirubin (0.2-1.0) mg/dl Direct Bilirubin (0-0.2) mg/dl AST (13-39) U/L ALT (7-52) U/L Alkaline Phosphatase (34-104) U/L Troponin I High Sens (0-14) pg/ml C-Reactive Protein (0-0.5) mg/dl B-Natriuretic Peptide (0-100) pg/ml Total Protein (6.0-8.3) gm/dl Albumin (3.4-5.0) gm/dl Procalcitonin (0-0.5) ng/ml Urine Color Urine Appearance (Clear) Urine pH (4.5-7.5) Ur Specific Carlisle (1.000-1.030) Urine Protein (Negative) Urine Glucose (UA) (Negative) Urine Ketones (Negative) Urine Blood (Negative) Urine Nitrite (Negative) Urine Bilirubin (Negative) Urine Urobilinogen (Negative) Ur Leukocyte Esterase (Negative) Urine WBC (Auto) (0-5) /hpf Urine RBC (Auto) (0-4) /hpf U Hyaline Cast (Auto) (0-5) /lpf U Epithel Cells (Auto) (0-5) /lpf Urine Bacteria (Auto) (Negative) Adenovirus (PCR) (NotDetected) B. pertussis DNA (PCR) (NotDetected) B.parapertussis DNA PCR (NotDetected) C. pneumoniae DNA (PCR) (NotDetected) Coronavirus OC43 (PCR) (NotDetected) Coronavirus HKU1 (PCR) (NotDetected) Coronavirus 229E (PCR) (NotDetected) SARS-CoV-2 (PCR) (NotDetected) Coronavirus NL63 (PCR) (NotDetected) Human Metapneumovir PCR (NotDetected) Influenza Type A (PCR) (NotDetected) Influenza Type B (PCR) (NotDetected) M. pneumoniae (PCR) (NotDetected) Parainfluenza 1 (PCR) (NotDetected) Parainfluenza 2 (PCR) (NotDetected) Parainfluenza 3 (PCR) (NotDetected) Parainfluenza 4 (PCR) (NotDetected) RSV (PCR) (NotDetected) Entero/Rhino (PCR) (NotDetected) Administered Medications Hydrocodone Bitart/Acetaminophen (Hydrocodone/Acetaminophen 7.5/325mg Tab) 1 tab PO Q6H PRN PRN Reason: chronic pain Stop: 08/09/23 14:27 Last Admin: 07/27/23 01:20 Dose: 1 tab Documented By: WAYNE Albuterol (Albut/Ipratrop 3mg/0.5mg Neb 3 Ml Vial) 3 ml NEB Q4R [facility]; Protocol Stop: 08/25/23 14:59 Last Admin: 07/27/23 07:17 Dose: 3 ml Documented By: Admin: 07/27/23 02:17 Dose: 3 ml Documented By: Admin: 07/26/23 23:01 Dose: 3 ml Documented By: Admin: 07/26/23 18:16 Dose: 3 ml Documented By: Admin: 07/26/23 14:07 Dose: 3 ml Documented By: TELLY Benztropine Mesylate (Benztropine Mesylate 0.5 Mg Tab) 0.5 mg PO BID [facility] Stop: 08/25/23 20:59 Last Admin: 07/27/23 08:24 Dose: 0.5 mg Documented By: Admin: 07/26/23 20:27 Dose: 0.5 mg Documented By: WAYNE Carbidopa/Levodopa (Carbidopa/Levodopa 25/100mg Tab) 1 tab PO QID@0200,0800,1400,2000 [facility] Stop: 08/25/23 14:44 Last Admin: 07/27/23 08:22 Dose: 1 tab Documented By: Admin: 07/27/23 01:20 Dose: 1 tab Documented By: Admin: 07/26/23 20:27 Dose: 1 tab Documented By: Admin: 07/26/23 15:28 Dose: Not Given Documented By: ERICKSON Duloxetine HCl (Duloxetine Hcl 30 Mg Cap) 90 mg PO DAILY [facility] Stop: 08/25/23 14:59 Last Admin: 07/26/23 17:43 Dose: 90 mg Documented By: ERICKSON Enoxaparin Sodium (Enoxaparin Inj 40 Mg/0.4 Ml Syr) 40 mg SQ QAM [facility] Stop: 08/26/23 08:59 Last Admin: 07/27/23 08:23 Dose: 40 mg Documented By: OCTAVIANO Ferrous Sulfate (Ferrous Sulfate 325 Mg Tab) 325 mg PO DAILY [facility] Stop: 08/26/23 08:59 Last Admin: 07/27/23 08:23 Dose: 325 mg Documented By: OCTAVIANO Guaifenesin (Guaifenesin 600 Mg Tabcr) 600 mg PO BID [facility] Stop: 08/25/23 12:13 Last Admin: 07/27/23 08:23 Dose: 600 mg Documented By: Admin: 07/26/23 20:27 Dose: 600 mg Documented By: Admin: 07/26/23 13:08 Dose: 600 mg Documented By: ERICKSON Lactated Ringer's (Lr) 1,000 mls @ 80 mls/hr IV .[id number] [facility] Stop: 07/28/23 01:29 Last Admin: 07/27/23 01:21 Dose: 80 mls/hr Documented By: Infusion: 07/27/23 01:21 Dose: Infused Documented By: Admin: 07/26/23 13:08 Dose: 80 mls/hr Documented By: ERICKSON Levothyroxine Sodium (Levothyroxine Sodium 75 Mcg Tablet) 75 mcg PO DAILYBB [facility] Stop: 08/26/23 06:29 Last Admin: 07/27/23 06:45 Dose: 75 mcg Documented By: RADHA Melatonin (Melatonin 3 Mg Tab) 9 mg PO HS [facility] Stop: 08/25/23 20:59 Last Admin: 07/26/23 20:27 Dose: 9 mg Documented By: WAYNE Miscellaneous (Loteprednol Etabonate [Lotemax] 0.5 % Drops,Suspension- Order Awaiting Action) 1 each N/A QS [facility] Stop: 08/25/23 15:59 Last Admin: 07/27/23 07:36 Dose: Not Given Documented By: Admin: 07/27/23 03:00 Dose: Not Given Documented By: Admin: 07/26/23 17:43 Dose: Not Given Documented By: ERICKSON Miscellaneous (Remove Lidoderm Patch) 1 each N/A DAILY@2100 [facility] Stop: 08/25/23 20:59 Last Admin: 07/26/23 23:22 Dose: 1 each Documented By: WAYNE Pantoprazole Sodium (Pantoprazole 40 Mg Tab) 40 mg PO BID17 [facility] Stop: 08/25/23 16:59 Last Admin: 07/27/23 08:24 Dose: 40 mg Documented By: Admin: 07/26/23 17:43 Dose: 40 mg Documented By: ERICKSON Polyethylene Glycol (Polyethylene (Miralax) 17 Gm Pack) 8.5 gm PO DAILY [facility] Stop: 08/26/23 08:59 Last Admin: 07/27/23 08:23 Dose: Not Given Documented By: OCTAVIANO Potassium Chloride (Potassium Chloride Crtab 20 Meq Tabcr) 20 meq PO DAILY [facility] Stop: 08/26/23 08:59 Last Admin: 07/27/23 08:23 Dose: 20 meq Documented By: OCTAVIANO Pregabalin (Pregabalin 100 Mg Cap) 100 mg PO AMHS [facility] Stop: 08/25/23 20:59 Last Admin: 07/27/23 08:24 Dose: 100 mg Documented By: Admin: 07/26/23 20:27 Dose: 100 mg Documented By: WAYNE Sennosides (Senna 8.6 Mg Tab) 8.6 mg PO HS [facility] Stop: 08/25/23 20:59 Last Admin: 07/26/23 20:27 Dose: 8.6 mg Documented By: WAYNE Simvastatin (Simvastatin 20 Mg Tab) 20 mg PO HS [facility] Stop: 08/25/23 20:59 Last Admin: 07/26/23 20:27 Dose: 20 mg Documented By: WAYNE Sodium Chloride (Sodium Chlor 7% 4 Ml Neb) 4 ml NEB BIDR [facility] Stop: 08/25/23 18:59 Last Admin: 07/27/23 07:17 Dose: 4 ml Documented By: Admin: 07/26/23 18:16 Dose: 4 ml Documented By: Admin: 07/26/23 14:07 Dose: 4 ml Documented By: TELLY Tapentadol (Tapentadol Hcl Er 50 Mg Tabcr) 50 mg PO AMHS [facility] Stop: 08/09/23 20:59 Last Admin: 07/27/23 08:24 Dose: 50 mg Documented By: Admin: 07/26/23 23:22 Dose: Not Given Documented By: WAYNE Vitamin D (Cholecalciferol 1,000 Units 25 Mcg Tab) 1,000 units PO DAILY [facility] Stop: 08/26/23 08:59 Last Admin: 07/27/23 09:14 Dose: Not Given Documented By: OCTAVIANO Discontinued Medications Azithromycin (Azithromycin 250 Mg Tab) 250 mg PO QAM [facility] Stop: 07/31/23 08:59 Last Admin: 07/27/23 08:23 Dose: 250 mg Documented By: OCTAVIANO Carbidopa/Levodopa (Carbidopa/Levodopa 25/100mg Tab) 1 tab PO NOW STA Stop: 07/26/23 12:09 Last Admin: 07/26/23 13:08 Dose: 1 tab Documented By: ERICKSON Sodium Chloride (Nss) 500 mls @ 999 mls/hr IV .Q31M [facility] Stop: 07/26/23 10:00 Last Infusion: 07/26/23 10:19 Dose: Infused Documented By: Admin: 07/26/23 09:48 Dose: 999 mls/hr Documented By: KATELYNN Acetaminophen (Ofirmev) 1,000 mg in 100 mls @ 400 mls/hr IV NOW STA Stop: 07/26/23 09:41 Last Infusion: 07/26/23 10:14 Dose: Infused Documented By: Admin: 07/26/23 09:59 Dose: 400 mls/hr Documented By: KATELYNN Azithromycin 500 mg/ Dextrose 255 mls @ 127.5 mls/hr IV NOW ONE Stop: 07/26/23 13:59 Last Infusion: 07/26/23 15:27 Dose: Infused Documented By: Admin: 07/26/23 13:08 Dose: 127.5 mls/hr Documented By: ERICKSON Discharge Plan Visit Data Chief Complaint: Illness ED Provider: Ned Montez Discharge Problem: Rhinovirus infection, Hypoxia, Weakness Discharge Instructions Interventions: ED Discharge Assessment Last Done: 07/26/23 11:49
[2023-07-26 09:58] LABS: Basophils # (auto) 0.03 K/uL (0.00-0.20); Basophils % (auto) 0.3 %; Eosinophils # (auto) 0.14 K/uL (0.00-0.50); Eosinophils % (auto) 1.3 %; Hematocrit (blood only) 33.7 % (37.0-47.0); Hemoglobin 10.7 g/dl (12.0-16.0); Immature Granulocytes # (auto) 0.05 K/uL (0.01-0.20); Immature Granulocytes % (auto) 0.5 %; Lymphocytes # (auto) 0.41 K/uL (1.20-3.40); Lymphocytes % (auto) 3.9 %; Mean Corpuscular Hemoglobin 29.8 pg (25.0-34.0); Mean Corpuscular Hgb Conc 31.8 g/dL (32.0-36.0); Mean Corpuscular Volume 93.9 fL (80.0-100.0); Mean Platelet Volume 11.8 fL (9.4-12.4); Monocytes # (auto) 0.82 K/uL (0.11-0.59); Monocytes % (auto) 7.8 %; Neutrophils % (auto) 86.2 %; Platelet Count 185 K/uL (130-400); RDW Coefficient of Variation 13.6 % (11.5-14.5); RDW Standard Deviation 47.2 fL (36.4-46.3); Red Blood Count 3.59 M/uL (4.20-5.40); White Blood Count 10.45 K/ul (4.8-10.8)
[2023-07-26 10:15] LABS: Anion Gap 6 (3-11); BUN Creatinine Ratio 44.7 (10-20); Blood Urea Nitrogen 21 mg/dl (6-23); Calcium 9.2 mg/dl (8.6-10.3); Carbon Dioxide 31 mmol/L (21-32); Chloride 103 mmol/L (98-107); Creatinine Clr Calc Pharmacy 77.6 ml/min; Est GFR (African American) 104.4 ml/min; Est GFR (Non-African American) 90.1 ml/min; Glucose 107 mg/dl (70-99(Fasting)); Potassium 3.9 mmol/L (3.5-5.1); Sodium 140 mmol/L (136-145)
[2023-07-26 10:16] LABS: Alanine Aminotransferase < 3 U/L (7-52); Albumin Level 3.8 gm/dl (3.4-5.0); Alkaline Phosphatase 59 U/L (34-104); Aspartate Aminotransferase 12 U/L (13-39); Bilirubin Direct 0.2 mg/dl (0-0.2); Bilirubin,Total 0.8 mg/dl (0.2-1.0); Magnesium 1.8 mg/dl (1.7-2.4); Total Protein 6.6 gm/dl (6.0-8.3)
--- OUTSIDE RECORDS SUMMARY | 2023-07-26 10:17 | External Medical Summary | Summary of Care ---
Author Name Unknown Organization [facility] Address [address] [place] [address] Phone [phone] Care Team Providers Care Diesel Truck Mechanic Name Role Phone Kelly Bowman MD Primary Care Provider Reason for Visit * Reason Comments Botox Injection * Precert (Within 10 days (routine)) - Authorized Specialty Diagnoses / Procedures Referred By Tej cruz Referred To Contact Ophthalmology Diagnoses Blepharospasm Procedures OK INJECTION,ONABOTULINUMTOXIN A OK CHEMODNRVTJ MUSC MUSC INNERVATED FACIAL NRV UNIL Cuco Atkins, DO [address] [place] [address] Referral ID Status Reason Start Date Expiration Date V isits Requested Visits Authorized [id number] Authorized Precert 02/19/2021 02/20/2024 99 99 Encounter Details Date Type Department Care Team Description 05/25/2023 Office Visit Ophthalmology, [facility] [address] [place] [address] Cuco Atkins, DO [address] [place] [address] Blepharospasm of both eyes*; Blepharospasm Allergies Active Allergy Reactions Severity Noted Date Comments Cat Dander 01/17/2015 Itching, asthma attack Codeine Nausea/vomiting Low 06/18/2004 Cortisone 08/04/2022 Other reaction(s): ORAL Molds & Smuts 01/17/2015 Asthma like reactions Peanut-Containing Drug Products Anaphylaxis High 2015 All odin of nuts, walnuts Penicillins Rash Medium 06/18/2004 Sulfa Antibiotics Low 06/18/2004 Trichophyton 06/14/2014 documented as of this encounter (statuses as of 05/25/2023) Medications Medication Sig Dispensed Refills Start Date End Date Status TAMMY 180 MG OR TABSIndications:Jean Carlos rgic rhinitis one tab by mouth daily 30 5 06/18/2004 Active CALCIUM 500 MG PO CHEW one twice a day 0 Active LUTEIN 20 MG PO CAPS one two times a day 0 Active DAILY VITAMIN FORMULA PO TABS one daily 0 Active FISH OIL 1000 MG PO CAPS one a day 0 Active NORCO 5-325 MG PO TABSIndications:Inju ry 1 TABLET 4 TIMES DAILY NEEDED 12 Tab 0 11/14/2013 Active omeprazole (PRILOSEC) 40 MG Capsule One capsule daily 0 11/06/2014 Active Ipratropium [place] 0.06 % nasal spray One spray each nostril twice daily 0 11/25/2014 Active Pregabalin 200 MG Oral Capsule One tablet twice daily 0 Active Estrogens, Conjugated 0.625 MG/GM Vaginal Cream Twice weekly 0 Act susana NUCYNTA ER 100 MG TB12 Twice daily/pain management 0 02/17/2015 Active Aspirin 81 MG Tablet Take 81 mg by mouth 2 times a day. 0 Active SYNTHROID 75 MCG Tablet one a day 90 Tab 1 06/29/2015 Active simvastatin (ZOCOR) 20 MG Tablet Three tablets daily 270 Tab 1 06/29/2015 Active DULoxetine (CYMBALTA) 30 MG CPEP Take 30 mg by mouth daily. 0 06/07/2015 Active Escitalopram Oxalate 20 MG Oral Tablet (Lexapro) Take 1 Tablet (20 mg) by mouth in the morning. 0 06/19/2022 Active Cholecalciferol 25 MCG (1000 UT) Oral Capsule Take 1 Capsule (1,000 Units) by mouth in the morning. 0 Active cycloSPORINE 0.05 % Ophthalmic Emulsion (Restasis) Instill 1 Drop into both eyes in the morning. 0 04/29/2022 Active Carbidopa-Levodopa 25-100 MG Oral Tablet (Sinemet) Take 1 Tablet by mouth in the morning and 1 Tablet at noon and 1 Tablet in the evening and 1 Tablet before bedtime. 0 05/15/2021 Active Benztropine Mesylate 0.5 MG Oral Tablet (Cogentin) Take 1 Tablet (0.5 mg) by mouth in the morning. 0 Active Furosemide 20 MG Oral Tablet (Lasix) Take 1 Tablet by mouth in the morning. 0 10/21/2022 Active Hospital, Clinic, or Other Facility Administered Medication Ordered Dose Route Frequency Start Date End Date Status botulinum toxin type a (Botox) inj 30 UnitsIndications:Blepharosp asm of both eyes,Blepharospasm 30 Units SC ONCE 05/25/2023 05/25/2023 Ended botulinum toxin type a (Botox) inj 30 UnitsIndications:Blepharosp asm of both eyes,Blepharospasm 30 Units SC ONCE 05/25/2023 05/25/2023 Ended documented as of this encounter (statuses as of 05/25/2023) Active Problems Problem Noted Date Advanced directives, counseling/discussi on 05/31/2021 Dyslipidemia, goal LDL below 130 015 Acquired leg length discrepancy 12/16/19 15 SPONDYLOS NOS W-O MYELOP 10/31/2004 HX OF BREAST MALIGNANCY(aka BREAST) 06/07 Overview: 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, negative nodes Allergic rhinitis 06/18/2004 Lumbar spinal stenosis GERD (gastroesophageal reflux disease) Fibromyalgia Hypothyroidism Scoliosis Dry eyes documented as of this encounter (statuses as of 05/25/2023) Resolved Problems Problem Noted Date Resolved Date Asthma with severity to be determined 02/28/2010 12/15/2014 Overview: Per Asthma Taxonomy ICD-10 update of inactive term ASTHMA W STATUS ASTHMAT 06/18/2004 02/29/20 10 HYPERLIPIDEMIA NEC/NOS 06/18/2004 5 SENILE OSTEOPOROSIS(aka OSTEOPENIA) 06/18/2004 03/02/2015 documented as of this encounter (statuses as of 05/25/2023) Immunizations Name Administration Dates Next Due Seasonal Influenza, Split, IIV3, With Preserve, Inj 06/21/2015 documented as of this encounter Social History Tobacco Use Types Packs/Day Years Used Date Smoking Tobacco: Former Cigarettes 0.5 9 Q uit: 06/07/1967 Smokeless Tobacco: Never Alcohol Use Standard Drinks/Week Comments Yes 0 (1 standard drink = 0.6 oz pur e alcohol) One glass of wine weekly Sex Assigned at Date Recorded Not on file Job Start Date Occupation Industry Not on file Not on file Not on file documented as of this encounter Progress Notes * Cuco Atkins DO - 05/25/2023 1:12 PM EDT Kwame Falcon is a 87 year old female who returns for BOTOX injections. Pt with history of progressive supranuclear palsy with blepharospasms noted and agrees to Botox injections. 60 units used withgood response. Desires to continue. EXAM: See annotated facial image IMPRESSION: 1. Encounter Diagnoses Name Primary? Blepharospasm of both eyes Yes PLAN: 1. BOTOX today Type: Botox @ 5 units per 0.1ml Right eye Brakeshoe Repairer Muscle medial orbicularis: 5 units Orbicularis Oculi Orbital lateral 5 units upper eyelid: Medial - none Lateral - 10 units over 2 sites Lower eyelid Medial - none Lateral - 10 units over 2 sites Left eye Brakeshoe Repairer Muscle/ medial orbicularis: 5 units Orbicularis Oculi Orbital lateral 5 units upper eyelid: Medial - none Lateral - 10 units over 2 sites Lower eyelid Medial - none Lateral - 10 units over 2 sites Total Given- 60 units Wasted- 40 units Tolerated well No complications 2. F/u 3 months Cuco Atkins DO documented in this encounter Nursing Notes * Belinda Saleem LPN - 05/25/2023 1:11 PM EDT Kwame Falcon is a 87 year old female who presents for 3 month Botox injections. 60 units used last visit for blepharospasm. Ms. Falcon currently states pleased with past results. documented in this encounter Plan of Treatment Upcoming Encounters Date Type Specialty Care Team Description 08/24/2023 Office Visit Ophthalmology Cuco Atkins DO [address] [place] [id number] Scheduled Orders Name Type Priority Associated Diagnoses Orde r Schedule DESTRUCTION OF FACE MUSCLE NERVE Procedures Routine Blepharospasm of both eyes Blepharospasm Ordered: 05/25/2023 Health Maintenance Due Date Last Done Comments COVID-19 Vaccine (#1) 01/29/1936 Depression Screening 1947 DTaP,Tdap,and Td Vaccines (1 - Tdap) 1956 Zoster Vaccines (1 of 2) 1987 Pneumococcal Vaccine: 65+ Years (1 - PCV) 2002 DXA Scan 03/07/2007 03/07/2004 TSH 07/09/2016 07/09/2015 Influenza Vaccine (FLU shot) (#1) 2023 05/15/2020, 07/07/2019, 06/21/2015, Additional history exists GARDASIL-HPV IMMUNIZATION SERIES Aged Out No longer eligible based on patient's age to complete this topic Hepatitis B Aged Out No longer eligi ble based on patient's age to complete this topic MENINGOCOCCAL (MENACTRA/MENVEO) Aged Out No longer eligible based on patient's age to complete this topic documented as of this encounter Medical Devices Implanted Type Area Training Development Manager Device Identifier Shelf Expiration Date Model / Serial / Lot Lens Intraoc 21.0 - [id number] - [id number] Implanted:Qty: 1 on 07/07/2017 by Gio Rader MD at OR [facility] [address] Right: Eye [employer] 02/04/2022 [id number] / [id number] / [id number] Lens Intraoc 20.0 - [id number] - [id number] Implanted:Qty: 1 on 07/23/2017 by Gio Rader MD at OR [facility] [address] Left: Eye [employer] 02/04/2022 [id number] / [id number] / [id number] documented as of this encounter Visit Diagnoses Diagnosis Blepharospasm of both eyes- Primary Blepharospasm documented in this encounter Administered Medications Inactive Administered Medications - up to 3 most recent administrations Medication Order MAR Action Action Date Dose Rate Site botulinum toxin type a (Botox) inj 30 Units 30 Units, Subcutaneous, ONCE, On 05/25/23 at 1345, For 1 dose, Prior to injection, reconstitute botox vial with PF sodium chloride 0.9% to desired concentration. Given 05/25/2023 1:21 PM EDT 30 Units Eye Left botulinum toxin type a (Botox) inj 30 Units 30 Units, Subcutaneous, ONCE, On 05/25/23 at 1345, For 1 dose, Prior to injection, reconstitute botox vial with PF sodium chloride 0.9% to desired concentration. Given 05/25/2023 1:20 PM EDT 30 Units Eye Right documented in this encounter Advance Directives Latest Code Status on File Code Status Date Activated Date Inactivated Comments Full Code 07/23/2017 1:28 PM 07/23/2017 7:58 PM Thi s order reflects the patients wishes and were consensually agreed upon. Code Status History Code Status Date Activated Date Inactivated Comments Full Code 07/07/2017 9:51 AM 07/07/2017 4:20 PM Thi s order reflects the patients wishes and were consensually agreed upon. Care Teams Diesel Truck Mechanic Relationship Specialty Start Date End Date Kelly Bowman MD [address] [place] [address] PCP - General Family Medicine 06/19/17 documented as of this encounter
--- OUTSIDE RECORDS SUMMARY | 2023-07-26 10:17 | External Medical Summary | Continuity of Care Document ---
Author Name Unknown Organization [id number] Address [address] [place] [phone] Care Team Providers Care Marine Habitat Resource Specialist Name Role Phone Kelly Bowman Primary Care Physician [phone] Encounter [facility] [id number] Date(s): 06/02/23 - 06/02/23 [facility] [employer] [facility] [address]M [facility] [address] [place] [address] Encounter Diagnosis Chronic left lumbar radiculopathy(Discharge Diagnosis) - 06/02/23 Discharge Disposition: Home or Self Care Attending Physician: MD Jonh, Dao Fabian Allergies, Adverse Reactions, Alerts Substance Reaction Severity Status sulfa drugs Active Cats Active Mold Active tree nuts itching Active Medications acetaminophen-HYDROcodone 325 mg-5 mg oral tablet Start: 11/08/14 11:53:00 EST, See Instructions, Refills: 0, 1-3 tabs PO daily as needed Start Date: 11/08/14 Status: Ordered Aspir 81 oral delayed release tablet Start: 08/10/18 15:25:00 EST, 1 tab, PO, Daily Start Date: 08/10/18 Status: Ordered DULoxetine 60 mg oral delayed release capsule Start: 05/18/17 14:07:00, 1 cap, PO, Daily Start Date: 05/18/17 Status: Ordered escitalopram 5 mg oral tablet Start: 04/10/20 16:26:00 EDT, 1 tab, PO, Daily Start Date: 04/10/20 Status: Ordered ipratropium 42 mcg/inh (0.06%) nasal spray Start: 05/18/17 14:07:00, 2 spray, each nostril, tid, PRN: as needed for cold symptoms Start Date: 05/18/17 Status: Ordered Lyrica 100 mg oral capsule Start: 05/18/17 14:38:00, 1 cap, PO, tid, Disp# 21 cap, Refills: 0, Take with Neurontin 100mg PO TID for 7 days, Brand Medically Necessary Start Date: 05/18/17 Stop Date: 05/25/17 Status: Ordered Nucynta ER 50 mg oral tablet, extended release Start: 11/08/14 11:52:00 EST, 1 tab, PO, bid, Refills: 0 Start Date: 11/08/14 Status: Ordered pantoprazole 40 mg oral delayed release tablet Start: 05/27/22 14:01:00 EDT, 1 tab, PO, Daily Start Date: 05/27/22 Status: Ordered pramipexole 0.25 mg oral tablet Start: 09/18/20 14:20:00 EST, 1 tab, PO, Daily Start Date: 09/18/20 Status: Ordered simvastatin 20 mg oral tablet Start: 06/05/14 11:26:00, 1 tab, PO, qhs Start Date: 06/05/14 Status: Ordered Sinemet 25 mg-100 mg oral tablet Start: 11/05/20 12:07:00 EST, 2 tab, PO, qid, Disp# 720 tab, Refills: 1, Pharmacy: [facility] Start Date: 11/05/20 Status: Ordered Synthroid 75 mcg (0.075 mg) oral tablet Start: 05/18/17 14:07:00, 1 tab, PO, Daily Start Date: 05/18/17 Status: Ordered Voltaren 1% topical gel Start: 09/18/20 14:57:00 EST, 4 g =, topical, qid, Disp# 5,000 g, Refills: 3, PRN: Pain, Pharmacy: [facility] Start Date: 09/18/20 Stop Date: 09/13/21 Status: Ordered zolpidem 12.5 mg oral tablet, extended release Start: 06/05/14 11:27:00, 1 tab, PO, qhs, PRN: as needed for sleep Start Date: 06/05/14 Status: Ordered Mental Status 06/02/23 Barriers to Learning one year None evide nt Mandatory Health Literacy Documentation Yes Health Literacy Communication Barriers N ever Primary Language Kiswahili Problem List Condition Confirmation Course Effective Dates Status H ealth Status Informant Acquired unequal leg length Confirmed 12/15/14 Active Allergic rhinitis Confirmed 06/18/04 Active Back pain Confirmed Active Multiple nevi Confirmed Active Dry eyes Confirmed Active Fibromyalgia Confirmed Active Gastroesophageal reflux disease Confirmed Active History of lumbar surgery Confirmed Active History of dysplastic nevus Confirmed Active History of malignant neoplasm of breast Confirmed 06/18/04 Active Hyperlipidemia Confirmed 07/09/15 Active Hypothyroidism Confirmed Active Scoliosis Confirmed Active Chronic left lumbar radiculopathy Confirmed Active Chronic myofascial pain Confirmed Active Neck pain Confirmed Active DJD of right shoulder Confirmed Active Parkinsons disease Confirmed Active Progressive supranuclear palsy Confirmed Active Recurrent falls while walking Confirmed Active Scoliosis deformity of spine Confirmed Active Seborrheic keratoses Confirmed Active Right shoulder pain Confirmed Active Spinal stenosis of lumbar region Confirmed Active Spondylosis Confirmed 10/31/04 Active Trochanteric bursitis of right hip Confirmed Active Diagnosis Diagnosis Type Effective Dates Health Status Clinical Service Informant Chronic left lumbar radiculopathy Discharge Diagnosis 06/02/23 Procedures Procedure Date Related Diagnosis Body Site Status Plain X-ray of right hand 1 01/31/22 Completed Appendectomy Completed Breast cancer Completed Breast reduction Complete d Foot Completed Kyphoplasty of fracture of l umbar spine using computed tomography (CT) guidance Completed Steroid injection into later al epicondyle tendon of humerus Com pleted 1There is a small nondisplaced fracture at the volar base of the right middle finger middle phalanx Vital Signs Most recent to oldest [Reference Range]: 1 Blood Pressure 124/64mmHg (06/02/23 2:20 PM) Cuff Pulse Pressure 60 mmHg (06/02/23 2:20 PM) Social History Social History Type Response Smoking Status Never smoked cigaret ida Sex Female Ortho Outpt Note * MD Jonh, Dao Fabian: PERFORM Event Display: Ortho Outpt Note Authored Date: [id number] Name:ABDIRAHMAN GALLAGHER Patient Number:[id number] :1935 Date of Service:06/02/2023 Preoperative diagnosis:Postlaminectomy syndrome with chronic left lumbar radiculopathy Postoperative diagnosis: Same Procedure: Caudal epidural steroid injection under fluoroscopic guidance Indications: Patient is [id number] femalewho has history of receiving caudal epidurals in the past with great results last 1 was more than 3 years ago. She recently began having functionalimpairments from sciatica and presents today for an epidural injection via caudal approach to address her radicular pain. Physical examination patient is without any focal motor or sensory deficits and negative seated straight leg raises Consent: Verbal consent was obtained from the patient. Prior to the procedure a timeout was done for safety to identify patient's name date of and approach. Procedure: Patient was maintained in a prone position backside was cleansed with Betadine x3 fluoroscope was used to identify the sacral hiatus on lateral view. They underwent anesthetization of the overlying skin with 5 mL of lidocaine 1% with a 25-gauge 1/2 inch needle. A 3-1/2 inch 25-gauge spinal needle was then directed under fluoroscopic guidance into the canal and they then underwentinjection after negative aspiration 40 mg Depo-Medrol and 4 mL of preservative-free some chloride. Injection was well-tolerated images from the procedure were saved and downloaded to PACS. Disposition: Patient will be discharged home once discards criteria have been met. Electronic Signature on File CC: Kelly Bowman MD [address] [facility] [address] * Electronically Reviewed/Signed by: Dao Borja MD Author Signature Dt/Tm:06/02/2023 02:44 PM Head Housekeeper of Orthopaedics & Rehabilitation and Physical Medicine & Rehabilitation [facility]IL .Outpt Proc * MERCED Odom, Gaye Fay: PERFORM Event Display: .Outpt Proc Authored Date: [id number] OUTPATIENT PROCEDURE Name: ABDIRAHMAN GALLAGHER Patient Number: [id number] : 1935 Date of Service: 06/02/2023 OUTPATIENT PROCEDURE NOTE Is patient no Procedure performed_Caudal Epidural Steroid Injection [id number] byDr. Dao Borja MD Resuscitation equipment checkedyes Anticoagulants stoppedN/A Patient has a driveryes xray guidance usedyesConscious sedationnoTime out completedyes consent signedyes Allergies checkedyestree nuts; Mold; Cats; sulfa drugs Diabeticno PositionPronePre procedure pain level _6__/10 Skin PrepBetadineSterile drapes usedyes Skin Local Anesthetic: Needle ___25__ga ____1.5__in Lidocaile ___1__%___4__ml Other BP: 124/64 Block Needle _25_GA_3.5_InchesType - Epidural/spinal needle Procedure medication used Cortical Steroids __40_mg MethylprednisoloneLocal Anesthetic % ml _- NSS 4ml TimeDrug/Event/RemarkBPHRSPO2 Comments 1436 - Procedure complete 120/76 90 95% Status:Pain on discharge __5__/10ComplicationsNo Neurologically stableYes DispositionDischarged Home with aftercare instructions given Follow up __6___weeks Electronic Signature on File Electronically Reviewed/Signed by: Gaye Odom Author Signature Dt/Tm:06/02/2023 02:44 PM Electronically Reviewed/Signed by: Dao Borja MD Cosigner Signature Dt/Tm: 06/02/2023 03:29 PM Head Housekeeper of Orthopaedics & Rehabilitation and Physical Medicine & Rehabilitation [facility] Patient Care team information Care Team Personnel Name: MD Colby, Kelly Iglesias Position: Referring Member Role: Primary Care Provider Address: Address: [address] [place] [address], [place] [address] Care Team Related Persons Name: YOSELYN HOLLINGSWORTH Address: home [address] [place], [phone] Name: TARAS GALLAGHER Address: home [address] [facility], [phone] Name: ASUTIN GALLAGHER Address: home [address] [phone]
--- OUTSIDE RECORDS SUMMARY | 2023-07-26 10:17 | External Medical Summary | Continuity of Care Document ---
Author Name Unknown Organization [id number] Address [address] [place] [phone] Care Team Providers Care Trouble Lineman Name Role Phone Kelly Bowman Primary Care Physician [phone] Encounter [facility] [id number] Date(s): 03/09/23 - 03/09/[address] [facility] 0 [employer] [facility] [facility] [address] [place] [address] Encounter Diagnosis Chronic left lumbar radiculopathy(Discharge Diagnosis) - 03/09/23 History of lumbar surgery(Discharge Diagnosis) - 03/09/23 Spondylosis(Discharge Diagnosis) - 03/09/23 Discharge Disposition: Home or Self Care Attending Physician: MD Borja Gregory G Allergies, Adverse Reactions, Alerts Substance Reaction Severity Status sulfa drugs Active Cats Active Mold Active tree nuts itching Active Assessment and Plan Extracted from: Title:Follow Up Visit Author:MD Borja Gregory G Date:03/09/23 1.Chronic left lumbar radiculopathy Patient will be scheduled foraepidural injection via caudal approachto provide her with relief of radiculopathy 2.History of lumbar surgery Follow-up after the caudal epidural injection as needed 3.Spondylosis Ongoing low back pain 4. Living situationher son reported that he complied with the request that her current living situation to try to [id number] supervision. I feel that the patient is medically capable of living with 24-hour supervisionand that this plan that he had proposed certainly medically support above it. Medications acetaminophen-HYDROcodone 325 mg-5 mg oral tablet [...] qid, Disp# 720 tab, Refills: 1, Pharmacy: [facility] Start Date: 11/05/20 Status: Ordered Synthroid 75 mcg (0.075 mg) oral tablet Start: 05/18/17 14:07:00, 1 tab, PO, Daily Start Date: 05/18/17 Status: Ordered Voltaren 1% topical gel Start: 09/18/20 14:57:00 EST, 4 g =, topical, qid, Disp# 5,000 g, Refills: 3, PRN: Pain, Pharmacy: [facility] Start Date: 09/18/20 Stop Date: 09/13/21 Status: Ordered zolpidem 12.5 mg oral tablet, extended release Start: 06/05/14 11:27:00, 1 tab, PO, qhs, PRN: as needed for sleep Start Date: 06/05/14 Status: Ordered Mental Status 03/09/23 Barriers to Learning one year None evide nt Mandatory Health Literacy Documentation Yes Health Literacy Communication Barriers N ever Primary Language Divehi Problem List Condition Confirmation Course Effective Dates [...] Informant Chronic left lumbar radiculopathy Discharge Diagnosis 03/09/23 Spondylosis Discharge Diagnosis 03/09/23 History of lumbar surgery Discharge Diagnosis 03/09/23 Procedures Procedure Date Related Diagnosis Body Site [...] of the right middle finger middle phalanx Social History Social History Type Response Smoking Status Never smoked cigaret ida Sex Female Ortho Outpt Note * MD Jonh, Dao Fabian: PERFORM Event Display: Ortho Outpt Note Authored Date: Chief Complaint FOllow up back pain. Primary Care Provider MD Colby, Kelly Iglesias Subjective Patient is a 87-year-old female who is accompanied by burak. She reports she is having radicular pain. She responded favorably to a caudal epidural more than 3 years agowith 50% improvement she notes that some of that pain is back. She recently had a left-sided sacroiliac: Denervation toaddress sacroiliac pain feels that that is helpful. Her son and herbring up a concern about herliving situation that is currentlyand tied up in a legal matter. Objective Physical Exam Pleasant fellow female seated comfortably in no apparent distressshe is without anyfocal motor deficits of the lower extremities negative seated straight leg raises Assessment/Plan 1.Chronic left lumbar radiculopathy Patient will be scheduled foraepidural injection via caudal approachto provide her with relief of radiculopathy 2.History of lumbar surgery Follow-up after the caudal epidural injection as needed 3.Spondylosis Ongoing low back pain 4. Living situationher son reported that he complied with the request that her current living situation to try to [id number] supervision. I feel that the patient is medically capable of living with 24-hour supervisionand that this plan that he had proposed certainly medically support above it. Electronic Signature on File Electronically Reviewed/Signed by: Dao Borja MD Author Signature Dt/Tm:03/09/2023 02:03 PM Manager Investigations of Orthopaedics & Rehabilitation and Physical Medicine & Rehabilitation BRITTANYB Patient Care team information Care Team Personnel Name: MD Colby, Kelly Iglesias Position: Referring Member Role: Primary Care Provider Address: Address: [address] [place] [address] [place] [address] [place] Care Team Related Persons Name: YOSELYN HOLLINGSWORTH Address: home [address] [place], [phone] Name: TARAS GALLAGHER Address: home [address] [facility], [phone] Name: AUSTIN GALLAGHER Address: home [address] [phone]
--- OUTSIDE RECORDS SUMMARY | 2023-07-26 10:17 | External Medical Summary | Continuity of Care Document ---
Author Name Unknown Organization [facility] [id number] Address [address] [place] [id number] Care Team Providers Care Broadcast Traffic Coordinator Name Role Phone BowmanKelly garcia Primary Care Physician [phone] [id number] Date(s): 07/20/23 - 07/20/23 [facility] [address] [facility] [address] [facility] Medicine [address] [place] [address] Encounter Diagnosis Chronic left lumbar radiculopathy(Discharge Diagnosis) - 07/20/23 Spinal stenosis of lumbar region(Discharge Diagnosis) - 07/20/23 Discharge Disposition: Home or Self Care Attending Physician: MD Borja Gregory G Allergies, Adverse Reactions, Alerts Substance Reaction Severity Status sulfa drugs Active Cats Active Mold Active tree nuts itching Active Assessment and Plan Extracted from: Title:Follow Up Visit Author:MD Borja Gregory G Date:07/20/23 2.Spinal stenosis of lumbar region Patient showed a 80% improvement with the caudal epidural injection and these will be scheduled in a 4-month intervals as needed. Medications acetaminophen-HYDROcodone 325 mg-5 mg oral tablet [...] PO, Daily Start Date: 09/18/20 Status: Ordered Salonpas Maximum Strength 4% topical film Start: 07/20/23 15:00:00 EST, See Instructions, Disp# 30 each, Place topically on back in am and donot leave patch on for more than 12 hours at a time, Brand Medically Necessary, Pharmacy: [id number] Start Date: 07/20/23 Status: Ordered simvastatin 20 mg oral tablet Start: 06/05/14 11:26:00, 1 tab, PO, qhs Start Date: 06/05/14 Status: Ordered Sinemet 25 mg-100 mg oral tablet Start: 11/05/20 12:07:00 EST, 2 tab, PO, qid, Disp# 720 tab, Refills: 1, Pharmacy: [facility] Start Date: 11/05/20 Status: Ordered Synthroid 75 mcg (0.075 mg) oral tablet Start: 05/18/17 14:07:00, 1 tab, PO, Daily Start Date: 05/18/17 Status: Ordered Voltaren 1% topical gel Start: 09/18/20 14:57:00 EST, 4 g =, topical, qid, Disp# 5,000 g, Refills: 3, PRN: Pain, Pharmacy: [facility] Start Date: 09/18/20 Stop Date: 09/13/21 Status: Ordered zolpidem 12.5 mg oral tablet, extended release Start: 06/05/14 11:27:00, 1 tab, PO, qhs, PRN: as needed for sleep Start Date: 06/05/14 Status: Ordered Mental Status 07/20/23 Barriers to Learning one year None evide nt Mandatory Health Literacy Documentation Yes Health Literacy Communication Barriers N ever Primary Language Central African Problem List Condition Confirmation Course Effective Dates [...] Effective Dates Health Status Clinical Service Informant Spinal stenosis of lumbar region Discharge Diagnosis 07/20/23 Chronic left lumbar radiculopathy Discharge Diagnosis 07/20/23 Procedures Procedure Date Related Diagnosis Body Site [...] Event Display: Ortho Outpt Note Authored Date: [id number] Chief Complaint Followup injection. Pain Primary Care Provider MD Colby, Kelly Iglesias Subjective Patient is an 87-year-old female who returns today following a caudal epidural injection she reports that she is 80% better from the injection she quantifies pain today as a 6 out of 102 out of 10 at the least 6 out of 10 at the most. She is pleased with the fact that she has had in terms of the leg. She continues to have knee arthritic and shoulder arthritic complaints is accompanied by her son today. Objective Physical Exam Pleasant female seated comfortably lower extremities were examinedshe has no apparent focal weakness or negative seated straight leg raises she does have decreased subjective sensation consistentlyat the L4 dermatomal distributions bilaterally Assessment/Plan 2.Spinal stenosis of lumbar region Patient showed a 80% improvement with the caudal epidural injection and these will be scheduled in a 4-month intervals as needed. Electronic Signature on File CC: Kelly Bowman MD [address] [place] [phone] * Electronically Reviewed/Signed by: Dao Borja MD Author Signature Dt/Tm:07/20/2023 03:08 PM Travel Insurance Agent of Orthopaedics & Rehabilitation and Physical Medicine & Rehabilitation [facility] Patient Care team information Care Team Personnel Name: MD Bowman Tania S Position: Referring Member Role: Primary Care Provider Address: Address: [address] [place] [address] [place] Care Team Related Persons Name: YOSELYN HOLLINGSWORTH Address: home [address] [place], [id number] Name: TARAS GALLAGHER Address: home [address] [place], [id number] Name: AUSTIN GALLAGHER Address: [address] [id number]
--- OUTSIDE RECORDS SUMMARY | 2023-07-26 10:17 | External Medical Summary | Summary of Care ---
Author Name Unknown Organization [facility] Address [address] [place] [address] Phone [phone] Care Team Providers Care Nuclear Fuel Enrichment Technician Name Role Phone Kelly Bowman MD Primary Care Provider Reason for Visit * Reason Comments Botox Injection * Precert (Within 10 days (routine)) - Authorized Specialty Diagnoses / Procedures Referred By Tej cruz Referred To Contact Ophthalmology Diagnoses Blepharospasm Procedures AR INJECTION,ONABOTULINUMTOXIN A AR CHEMODNRVTJ MUSC MUSC INNERVATED FACIAL NRV UNIL Cuco Atkins, DO [address] [place] [address] Referral ID Status Reason Start Date Expiration Date V isits Requested Visits Authorized [id number] Authorized Precert 02/19/2021 02/20/2024 99 99 Encounter Details Date Type Department Care Team Description 05/25/2023 Office Visit Ophthalmology, [facility] [address] [place] [address] Cuco Atkins, DO [address] [place] [address] Blepharospasm of both eyes*; Blepharospasm Allergies Active [...] One capsule daily 0 11/06/2014 Active Ipratropium [place] 0.06 % nasal spray One spray each [...] @ 5 units per 0.1ml Right eye [employer] Gatherer Muscle medial orbicularis: 5 units Orbicularis Oculi Orbital lateral 5 units upper eyelid: Medial - none Lateral - 10 units over 2 sites Lower eyelid Medial - none Lateral - 10 units over 2 sites Left eye [employer] Gatherer Muscle/ medial orbicularis: 5 units Orbicularis Oculi [...] 08/24/2023 Office Visit Ophthalmology Cuco Atkins DO [address] [place] [address] Scheduled Orders Name Type Priority Associated Diagnoses [...] this encounter Medical Devices Implanted Type Area Entry Level Drafter Device Identifier Shelf Expiration Date Model / Serial / Lot Lens Intraoc 21.0 - [id number] - [id number] Implanted:Qty: 1 on 07/07/2017 by Gio Rader MD at OR [facility] Right: Eye BAUSCH & LOMB 02/04/2022 [id number] / [id number] / [id number] Lens Intraoc 20.0 - [id number] - [id number] Implanted:Qty: 1 on 07/23/2017 by Gio Rader MD at OR [facility] Left: Eye BAUSCH & LOMB 02/04/2022 [id number] / [id number] / [id number] documented as of this encounter Visit Diagnoses [...] and were consensually agreed upon. Care Teams Nuclear Fuel Enrichment Technician Relationship Specialty Start Date End Date Kelly Bowman MD [address] [place] [address] PCP - General Family Medicine 06/19/17 documented as of this encounter
--- OUTSIDE RECORDS SUMMARY | 2023-07-26 10:18 | External Medical Summary | Summary of Care ---
Author Name Unknown Organization [facility] Address [address] [place] [address] Phone [phone] Care Team Providers Care Solid Waste Analyst Name Role Phone Kelly Bowman MD Primary Care Provider Reason for Visit * Reason Comments Botox Injection * Precert (Within 10 days (routine)) - Authorized Specialty Diagnoses / Procedures Referred By Tej cruz Referred To Contact Ophthalmology Diagnoses Blepharospasm Procedures [place] INJECTION,ONABOTULINUMTOXIN A [place] CHEMODNRVTJ MUSC MUSC INNERVATED FACIAL NRV UNIL Cuco Atkins, DO [address] [place] [address] Referral ID Status Reason Start Date Expiration Date V isits Requested Visits Authorized [id number] Authorized Precert 02/19/2021 02/19/2023 99 99 Encounter Details Date Type Department Care Team Description 02/16/2023 Office Visit Ophthalmology, [facility] [address] [place] [address] Cuco Atkins, DO [address] [place] [address] Blepharospasm of both eyes*; Blepharospasm Allergies Active [...] as of this encounter (statuses as of 02/16/2023) Medications Medication Sig Dispensed Refills Start Date [...] One capsule daily 0 11/06/2014 Active Ipratropium Seth 0.06 % nasal spray One spray each [...] of both eyes,Blepharospasm 30 Units SC ONCE 02/16/2023 02/16/2023 Ended botulinum toxin type a (Botox) inj 30 UnitsIndications:Blepharosp asm of both eyes,Blepharospasm 30 Units SC ONCE 02/16/2023 02/16/2023 Ended documented as of this encounter (statuses as of 02/16/2023) Active Problems Problem Noted Date Advanced directives, [...] as of this encounter (statuses as of 02/16/2023) Resolved Problems Problem Noted Date Resolved Date Asthma with severity to be determined 02/28/2010 12/15/2014 Overview: Per Asthma Taxonomy ICD-10 update of inactive term ASTHMA W STATUS ASTHMAT 06/18/2004 02/29/20 10 HYPERLIPIDEMIA NEC/NOS 06/18/2004 5 SENILE OSTEOPOROSIS(aka OSTEOPENIA) 06/18/2004 03/02/2015 documented as of this encounter (statuses as of 02/16/2023) Immunizations Name Administration Dates Next Due Seasonal Influenza, Split, I IV3, With Preserve, Inj 06/21/2015,06/18/2005,06/18/2004 documented as of this encounter Social History [...] Progress Notes * Cuco Atkins DO - 02/16/2023 1:01 PM EDT Kwame Falcon is a 87 year old female who returns for BOTOX injections. Pt with history of progressive supranuclear palsy with blepharospasms noted and agrees to Botox injections. 60 units used withgood response. Desires to continue. Recent fall with hip fracture. EXAM: See annotated facial image IMPRESSION: 1. Encounter Diagnoses Name Primary? Blepharospasm of both eyes Yes Blepharospasm PLAN: 1. BOTOX today Type: Botox @ 5 units per 0.1ml Right eye Round Up Ring Hand Muscle medial orbicularis: 5 units Orbicularis Oculi Orbital lateral 5 units upper eyelid: Medial - none Lateral - 10 units over 2 sites Lower eyelid Medial - none Lateral - 10 units over 2 sites Left eye Round Up Ring Hand Muscle/ medial orbicularis: 5 units Orbicularis Oculi Orbital lateral 5 units upper eyelid: Medial - none Lateral - 10 units over 2 sites Lower eyelid Medial - none Lateral - 10 units over 2 sites Total Given- 60 units Wasted- 40 units Tolerated well No complications 2. F/u 3 months Cuco Atkins DO documented in this encounter Nursing Notes * Beilnda Saelem LPN - 02/16/2023 12:51 PM EDT Kwame Falcon is a 87 year old female who presents for 3 month Botox injections. 60 units used last visit for blepharospasm. Ms. Falcon currently states pleased with past results. documented in this encounter Plan of Treatment Scheduled Orders Name Type Priority Associated Diagnoses Orde r Schedule DESTRUCTION OF FACE MUSCLE NERVE Procedures Routine Blepharospasm of both eyes Blepharospasm Ordered: 02/16/2023 Health Maintenance Due Date Last Done Comments COVID-19 Vaccine (#1) 01/29/1936 Depression Screening, Annual for Pts 12 and Over 1947 DTaP,Tdap,and Td Vaccines (1 - Tdap) 1956 Zoster Vaccines (1 of 2) 1987 Pneumococcal Vaccine: 65+ Years (1 - PCV) 2002 DXA Scan 03/07/2007 03/07/2004 TSH 07/09/2016 07/09/2015 Influenza Vaccine (FLU shot) (Season Ended) 2023 05/15/2020, 07/07/2019, 06/21/2015, Additional history exists [...] this encounter Medical Devices Implanted Type Area Curve Cleaner Device Identifier Shelf Expiration Date Model / Serial / Lot Lens Intraoc 21.0 - [id number] - [id number] Implanted:Qty: 1 on 07/07/2017 by Gio Rader MD at OR [facility] Right: Eye BAUSCH [employer] LOMB 02/04/2022 [id number] / [id number] / [id number] Lens Intraoc 20.0 - [id number] - [id number] Implanted:Qty: 1 on 07/23/2017 by Gio Rader MD at OR [facility] Left: Eye BAUSCH & LOMB 02/04/2022 [id number] / [id number] / [id number] documented as of this encounter Visit Diagnoses Diagnosis Blepharospasm of both eyes- Primary Blepharospasm documented in this encounter Administered Medications Inactive Administered Medications - up to 3 most recent administrations Medication Order MAR Action Action Date Dose Rate Site botulinum toxin type a (Botox) inj 30 Units 30 Units, Subcutaneous, ONCE, On 02/16/23 at 1345, For 1 dose, Prior to injection, reconstitute botox vial with PF sodium chloride 0.9% to desired concentration. Given 02/16/2023 1:04 PM EDT 30 Units Eye Left botulinum toxin type a (Botox) inj 30 Units 30 Units, Subcutaneous, ONCE, On 02/16/23 at 1345, For 1 dose, Prior to injection, reconstitute botox vial with PF sodium chloride 0.9% to desired concentration. Given 02/16/2023 1:04 PM EDT 30 Units Eye Right documented [...] and were consensually agreed upon. Care Teams Solid Waste Analyst Relationship Specialty Start Date End Date Kelly Bowman MD [email or web address] [facility] [address] PCP - General Family Medicine 06/19/17 documented as of this encounter
--- OUTSIDE RECORDS SUMMARY | 2023-07-26 10:18 | External Medical Summary | Summary of Care ---
Author Name Unknown Organization [facility] Address [address] [place] [address] Phone [phone] Care Team Providers Care Field Contact Person Name Role Phone Kelly Bowman MD Primary Care Provider Reason for Visit * Reason Comments Botox Injection * Precert (Within 10 days (routine)) - Authorized Specialty Diagnoses / Procedures Referred By Tej cruz Referred To Contact Ophthalmology Diagnoses Blepharospasm Procedures [place] INJECTION,ONABOTULINUMTOXIN A [place] CHEMODNRVTJ MUSC MUSC INNERVATED FACIAL NRV UNIL Cuco Atkins, DO [address] [place] [address] Referral ID Status Reason Start Date Expiration Date V isits Requested Visits Authorized [id number] Authorized Precert 02/19/2021 02/19/2023 99 99 Encounter Details Date Type Department Care Team Description 02/16/2023 Office Visit Ophthalmology, [facility] [address] [place] [address] Cuco Atkins, DO [address] [place] [address] Blepharospasm of both eyes*; Blepharospasm Allergies Active [...] One capsule daily 0 11/06/2014 Active Ipratropium [place] 0.06 % nasal spray One spray each [...] @ 5 units per 0.1ml Right eye Commercial [employer] Analyst Muscle medial orbicularis: 5 units Orbicularis Oculi Orbital lateral 5 units upper eyelid: Medial - none Lateral - 10 units over 2 sites Lower eyelid Medial - none Lateral - 10 units over 2 sites Left eye [employer] Analyst Muscle/ medial orbicularis: 5 units Orbicularis Oculi [...] Nursing Notes * Belinda Saleem LPN - 02/16/2023 12:51 PM EDT Kwame Falcon is a 87 year old female who presents for 3 month Botox injections. 60 units used last visit for blepharospasm. Ms. Falcon currently states pleased with past results. documented in this encounter Plan of Treatment Upcoming Encounters Date Type Specialty Care Team Description 05/25/2023 Office Visit Ophthalmology Cuco Atkins DO [address] [place] [phone] Scheduled Orders Name Type Priority Associated Diagnoses [...] this encounter Medical Devices Implanted Type Area Stationary Engineer Device Identifier Shelf Expiration Date Model / Serial / Lot Lens Intraoc 21.0 - [id number] - [id number] Implanted:Qty: 1 on 07/07/2017 by Gio Rader MD at OR [facility] Right: Eye BAUSCH [employer] LOMB 02/04/2022 [id number] / [id number] / [id number] Lens Intraoc 20.0 - [id number] - [id number] Implanted:Qty: 1 on 07/23/2017 by Gio Rader MD at OR [facility] Left: Eye BAUSCH & LOMB 02/04/2022 [id number] / [id number] / [id number] documented as of this encounter Visit Diagnoses Diagnosis Blepharospasm of both eyes- Primary Blepharospasm documented in this encounter Administered Medications Inactive Administered Medications - up to 3 most recent administrations Medication Order MAR Action Action Date Dose Rate Site botulinum toxin type a (Botox) inj 30 Units 30 Units, Subcutaneous, ONCE, On Thu02/16/23 at 1345, For 1 dose, Prior to injection, reconstitute botox vial with PF sodium chloride 0.9% to desired concentration. Given 02/16/2023 1:04 PM EDT 30 Units Eye Left botulinum toxin type a (Botox) inj 30 Units 30 Units, Subcutaneous, ONCE, On Thu02/16/23 at 1345, For 1 dose, Prior to [...] and were consensually agreed upon. Care Teams Field Contact Person Relationship Specialty Start Date End Date Kelly Bowman MD [address] [address] PCP - General Family Medicine 06/19/17 documented as of this encounter
[2023-07-26 10:23] LABS: Troponin I High Sensitivity 9.1 pg/ml (0-14)
[2023-07-26 10:28] LABS: INR 0.9 (0.9-1.1); Partial Thromboplastin Ratio 0.9; Partial Thromboplastin Time 26.7 Seconds (21.0-31.0); Prothrombin Time 10.4 Seconds (9.0-12.0)
[2023-07-26 10:36] LABS: Appearance Urine Clear (Clear); Bacteria Urine Automated Negative (Negative); Blood Urine Negative (Negative); Color Urine Dark Yellow; Epithelial Cell Urine Auto 20-30 /lpf (0-5); Glucose Urine UA Negative (Negative); Ketones Urine 1+ (Negative); Leukocyte Esterase Urine Trace (Negative); Nitrite Urine Negative (Negative); Protein Urine Trace (Negative); Specific Gravity Urine 1.024 (1.000-1.030); Urobilinogen Urine Negative (Negative); pH Urine 5.5 (4.5-7.5)
--- NOTE | 2023-07-26 10:39 | XRay Report ---
XR chest 1V portable HISTORY: Sepsis COMPARISON: Chest 05/02/2023. FINDINGS: No pneumothorax. The heart remains enlarged. There is diffuse interstitial thickening which has progressed. This favors mild congestive change. No new focal lung consolidations identified. The re are old, healed right-sided rib fractures. S-shaped scoliosis again noted. Severe degenerative rafal nges within the right shoulder. IMPRESSION: Cardiomegaly and mild pulmonary vascular congestion. ACT 112: Negative or not required by law. Electronically signed by: Eulogio Nguyễn M.D. 07/26/2023 10:37 AM
[2023-07-26 10:40] LABS: Bilirubin Urine 1+ (Negative)
[2023-07-26 10:47] LABS: Adenovirus PCR Not Detected (NotDetected); Bordetella parapertussis PCR Not Detected (NotDetected); Bordetella pertussis PCR Not Detected (NotDetected); Chlamydia pneumoniae PCR Not Detected (NotDetected); Coronavirus 229E PCR Not Detected (NotDetected); Coronavirus CoV-2 (COVID19)PCR Not Detected (NotDetected); Coronavirus HKU1 PCR Not Detected (NotDetected); Coronavirus NL63 PCR Not Detected (NotDetected); Coronavirus OC43PCR Not Detected (NotDetected); Human Metapneumovirus PCR Not Detected (NotDetected); Influenza A PCR Not Detected (NotDetected); Influenza B PCR Not Detected (NotDetected); Mycoplasma pneumoniae PCR Not Detected (NotDetected); Parainfluenza Virus 1 PCR Not Detected (NotDetected); Parainfluenza Virus 2 PCR Not Detected (NotDetected); Parainfluenza Virus 3 PCR Not Detected (NotDetected); Parainfluenza Virus 4 PCR Not Detected (NotDetected); Respiratory Syncytial VirusPCR Not Detected (NotDetected)
[2023-07-26 11:03] LABS: Rhinovirus/Enterovirus PCR DETECTED (NotDetected)
[2023-07-26 11:08] LABS: Base Excess VBG 4.3 mEq/L; HCO3 VBG 30 mmol/L; Oxygen Saturation VBG 97.9 %; PCO2 VBG 47 mmHg (38-50); PO2 VBG 96 mmHg; pH VBG 7.41 (7.36-7.41)
--- NOTE | 2023-07-26 11:26 | History & Physical Report ---
Date of Service July 26, 2023 Assessment & Plan (1) Rhinovirus infection: Plan: Supportive care - mouth care, guaifenesin, hypertonic saline, duonebs to all help her cough although with her PSP she is having a poor cough reflex Isolation droplet precautions Will cover for atypical pneumonia with azithromycin however defer typical pneumonia coverage given lack of CXR findings, WBC or procalcitonin but high risk of developing this. 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 Continue Sinemet and benztropine (3) Hypothyroidism: Plan: TSH 4.023 [08/2022] Continue usual dose of levothyroxine (4) Laryngopharyngeal reflux: Plan: Continue pantoprazole (5) Chronic prescription opiate use: Plan: Spinal stenosis and scoliosis with chronic generalized pain Continue her usual Nucynta dosing, use [place] as needed although she notably gets this regularly at the [facility] Plan VTE Prophylaxis - Lovenox 40mg SQ daily Diet - low Na, easy to chew Disposition - admit to med/tele Admission and Anticipated Discharge Date Admission Date: July 25, 2023 History of Present Illness Chief Complaint: Shortness of breath Primary Care Provider: [facility] Kwame Falcon is an 87 year old female with progressive supranuclear palsy who presents to the ER via EMS with fever, confusion and shortness of breath. Unable to get any history from the patient. History taken from son at bedside. He reports she has been having 5 weeks of a cough with "nothing done". He does note she had a CXR about 10 days ago but is unclear on the results of this. Looking at the [facility] records she did have her Lasix increased from 20mg to 40mg for 5 days starting on the so suspect it was read as pulmonary edema but I do not have the results of that XR either by report or actual picture. About 10 days ago this cough became progressively worse and she has been on a general decline. Today she had a fever therefore the [facility] sent her to the ER. Allergies Allergy/AdvReac Type Severity Reaction Status Date / Time cat dander Allergy Severe SHORTNESS Verified 04/05/23 18:48 OF BREATH mold Allergy Severe SHORTNESS Verified 04/05/23 18:48 OF BREATH nut - unspecified Allergy Severe Anaphylaxis Verified 04/05/23 18:48 peanut Allergy Severe Anaphylaxis Verified 04/05/23 18:48 pecan nut Allergy Severe Anaphylaxis Verified 04/05/23 18:48 walnut Allergy Severe Anaphylaxis Verified 04/05/23 18:48 Penicillins Allergy Intermediate HIVES Verified 04/05/23 18:48 Sulfa (Sulfonamide Allergy Intermediate "jaundiced Verified 04/05/23 18:48 Antibiotics) as child", HIVES codeine Allergy Mild GI SYMPTOMS Verified 04/05/23 18:48 shellfish derived Allergy Unknown Unknown Unverified 04/05/23 18:48 soy Allergy Unknown Unknown Verified 04/05/23 18:48 Home Medications Medication Instructions Recorded Confirmed Type benztropine 0.5 mg tablet 0.5 mg PO BID #180 tabs 10/28/21 07/26/23 Rx simvastatin 20 mg tablet (Zocor) 20 mg PO HS #90 tabs 10/29/21 07/26/23 Rx pantoprazole 40 mg tablet,delayed 40 mg PO BID gastritis 90 days 01/08/22 07/26/23 Rx release #180 tabs levothyroxine 75 mcg tablet 75 mcg PO QAM #90 tabs 01/20/22 07/26/23 Rx (Synthroid) carbidopa 25 mg-levodopa 100 mg 1 tab PO QID 90 days #360 tabs 06/10/22 07/26/23 Rx tablet (Sinemet) ferrous sulfate 143 mg (45 mg 143 mg PO DAILY 07/06/22 07/26/23 History iron) tablet,extended release (Slow Release Iron) melatonin 10 mg tablet 10 mg PO HS 07/06/22 07/26/23 History polyethylene glycol 3350 17 8.5 g PO DAILY 07/06/22 07/26/23 History gram/dose oral powder (Miralax) pregabalin 200 mg capsule (Lyrica) 200 mg PO AMHS 07/06/22 07/26/23 History sennosides 8.6 mg tablet (Senokot) 8.6 mg PO HS 07/06/22 07/26/23 History tapentadol 50 mg tablet,extended 50 mg PO AMHS 07/06/22 07/26/23 History release,12 hr (Nucynta ER) acetaminophen 325 mg tablet 650 mg PO Q4H PRN Pain 04/05/23 07/26/23 History cholecalciferol (vitamin D3) 25 25 mcg PO DAILY 04/05/23 07/26/23 History mcg (1,000 unit) tablet (Vitamin D3) diclofenac sodium 1 % topical gel 4 g topical QID PRN Pain 04/05/23 07/26/23 History duloxetine 30 mg capsule,delayed See Rx Instructions .Route .COMPLEX 04/05/23 07/26/23 History release duloxetine 60 mg capsule,delayed See Rx Instructions .Route .COMPLEX 04/05/23 07/26/23 History release (Cymbalta) hydrocodone 7.5 mg-acetaminophen 1 tab PO Q6H PRN chronic pain 04/05/23 07/26/23 History 325 mg tablet potassium chloride 20 mEq 20 meq PO DAILY 04/05/23 07/26/23 History tablet,extended release albuterol sulfate 1.25 mg/3 mL 1.25 mg inhalation Q4H PRN 07/26/23 07/26/23 History solution for nebulization Shortness Of Breath furosemide 20 mg tablet 20 mg PO DAILY 07/26/23 07/26/23 History lidocaine 4 % topical patch 1 patch topical QID PRN Shoulder 07/26/23 07/26/23 History (Lidocaine Pain Relief) pain loteprednol etabonate 0.5 % eye 1 drp ophthalmic (eye) BID 07/26/23 07/26/23 History drops,suspension (Lotemax) Past Med/Surg History Medical History Anxiety Avulsion fracture of middle phalanx of finger Bilateral lumbar radiculopathy Cardiac murmur CHI (closed head injury) Chronic back pain Depression Encounter for pre-operative examination Falls frequently Fibromyalgia Forehead laceration Fusion of lumbosacral spine GERD (gastroesophageal reflux disease) Hearing deficit Hx of breast cancer Hyperlipidemia Hyperlipidemia Hypothyroidism Hypoxia Lumbar canal stenosis Lumbosacral radiculopathy Maxillary sinus fracture Multiple facial bone fractures Multiple rib fractures Other abnormalities of gait and mobility Poor balance PSP (progressive supranuclear palsy) Risk for falls Sacroiliitis Scoliosis Spinal stenosis Surgical History History of colonoscopy History of dilation and curettage History of foot surgery History of tonsillectomy Hx of appendectomy Hx of bilateral breast reduction surgery Hx of cataract surgery Hx of kyphoplasty Hx of lumpectomy Hx of spinal fusion Hx of wisdom tooth extraction S/P epidural steroid injection S/P total left hip arthroplasty Status post left hip replacement Family History Sister Alzheimer disease Breast cancer Paget's disease Father Alzheimer disease Grandmother (Paternal) Alzheimer disease Mother Myocardial infarction Stroke syndrome Uncle Prostate cancer Denies family history of Ovarian cancer Adverse anesthesia outcome Bleeding disorder Colorectal cancer Social History Smoking Status: Never smoker Tobacco Type: Cigarettes Second Hand Exposure: No; Do You Dip or Chew Tobacco: No; Hx Alcohol Use: No Hx Substance Use: No Preferred Language: Wolof Communication Ability: Effective Visual Impairment: No Limitations Hearing Ability: Use of Hearing Aid Splicing Technician Required: No Beliefs That Will Affect Care: None marital status: / Current Living Situation: [facility]dc Current Living Situation Comment: resides at the [facility] current occupational status: retired How many Children do You have: 2 Other Information That Helps Us Care for You: No Feels Safe at Home: Yes Safety Concerns: Feels Safe At This Time Childhood Exposure to Second-Hand Smoke: No Diet: regular caffeine: Yes during the past year weight has: remained stable Dental Care, Regularly: Yes Physical Activity Frequency: Does not Exercise Seatbelt Use: always Sunscreen Use: Yes Assistive Devices: Walker Review of Systems Review of Systems: Unobtainable due to cognitive status Physical Exam Constitutional: well developed; + not well nourished and no acute distress Eyes: PERRL, conjunctivae normal, anicteric sclerae ENMT: Mouth: + dry oral mucous membranes tongue tremor noted poor oral hygeine Respiratory: normal respiratory effort and + cough (poor cough effort); no respiratory distress Auscultation: + rhonchi (b/l anteriorly); no crackles, no rales and no wheezes Cardiovascular: RRR, no murmur, no edema Gastrointestinal (Abdomen): normal bowel sounds, soft, nontender, no hepato splenomegaly Musculoskeletal: no cyanosis or clubbing, extremities motor strength 5/5 Skin: no rashes, warm and dry Neurologic: moves all extremities and awake; not confused Psychiatric: Orientation: alert and oriented to person; + not oriented to place and + not oriented to time Genitourinary: no CVA tenderness Results & Data Results & Data Vital Signs (Past 12 Hours) Vital Signs Temp Pulse Resp BP Pulse Ox O2 Del Method O2 Flow Rate 07/26/23 09:56 92 H 07/26/23 09:40 38.6 C H 93 H 27 H 137/75 92 Nasal Cannula 2 Laboratory Results Abnormal lab results 07/26/23 07/26/23 07/26/23 Range/Units 09:34 09:38 10:10 RBC 3.59 L (4.20-5.40) M/uL Hgb 10.7 L (12.0-16.0) g/dl Hct 33.7 L (37.0-47.0) % MCHC 31.8 L (32.0-36.0) g/dL RDW Std Deviation 47.2 H (36.4-46.3) fL Neut # (Auto) 9.00 H (1.40-6.50) K/uL Lymph # (Auto) 0.41 L (1.20-3.40) K/uL [place] # (Auto) 0.82 H (0.11-0.59) K/uL Creatinine 0.47 L (0.6-1.2) mg/dl BUN/Creatinine Ratio 44.7 H (10-20) Glucose 107 H (70-99(Fasting)) mg/dl AST 12 L (13-39) U/L ALT < 3 L (7-52) U/L Urine Protein Trace H (Negative) Urine Ketones 1+ H (Negative) Urine Bilirubin 1+ H (Negative) Ur Leukocyte Esterase Trace H (Negative) Urine RBC (Auto) 5-10 H (0-4) /hpf U Epithel Cells (Auto) 20-30 H (0-5) /lpf Entero/Rhino (PCR) DETECTED A* (NotDetected) Diagnostic Findings XR chest 1V portable HISTORY: Sepsis COMPARISON: Chest 05/02/2023. FINDINGS: No pneumothorax. The heart remains enlarged. There is diffuse interstitial thickening which has progressed. This favors mild congestive change. No new focal lung consolidations identified. There are old, healed rig ht-sided rib fractures. S-shaped scoliosis again noted. Severe degenerative changes within the right shoulder. IMPRESSION: Cardiomegaly and mild pulmonary vascular congestion. Medications Administered ER Medications Given: Normal saline 500ml bolus Acetaminophen 1000mg IV ECG Rate (beats per minute): 90 Rhythm: sinus with SA Findings: no acute ischemic change Comparison ECG Date: from (May 02, 2023) Change: no significant change Code Status & VTE Plan Code Status DNR/DNI confirmed with POLST and patient son VTE Prophylaxis Plan VTE Prophylaxis will be ordered: Yes PG Care Time/CCT Total # of Minutes Spent Total Time Spent with Patient: Total time spent is greater than 50% in coordination of care (as documented) at patient's floor/unit and/or counseling patient: Coding Level of Care Code 68531 INT INP/OBS CARE 2/55MIN Diagnoses Rhinovirus infection B34.8 PSP (progressive supranuclear palsy) G23.1 Hypothyroidism E03.9 Laryngopharyngeal reflux K21.9 Chronic prescription opiate use Z79.891
[2023-07-26] MEDS ORDERED: AZITHROMYCIN 500 MG in DEXTROSE 5% 250 ML IV ONE (12:00)
[2023-07-26] MEDS ORDERED: CARBIDOPA/LEVODOPA 25/100MG TAB PO STA (12:08)
[2023-07-26] MEDS ORDERED: ACETAMINOPHEN 325 MG TAB PO PRN ×2 (12:14→14:28)
[2023-07-26] MEDS: guaiFENesin 600 MG TABCR PO SCH ×2 (13:08→20:27)
[2023-07-26] MEDS: LACTATED RINGER'S 1,000 ML IV SCH (13:08)
[2023-07-26] MEDS: ALBUT/IPRATROP 3MG/0.5MG NEB 3 ML VIAL NEB SCH ×3 (14:07→23:01)
[2023-07-26] MEDS: SODIUM CHLOR 7% 4 ML NEB NEB SCH ×2 (14:07→18:16)
[2023-07-26] MEDS ORDERED: HYDROCODONE/ACETAMINOPHEN 7.5/325MG TAB PO PRN (14:28)
[2023-07-26] MEDS ORDERED: DULoxetine HCL 60 MG CAP PO SCH (14:30)
[2023-07-26] MEDS ORDERED: LIDOCAINE 5% 1 PATCH TD PRN (15:00)
[2023-07-26] MEDS: CARBIDOPA/LEVODOPA 25/100MG TAB PO SCH ×2 (15:28→20:27)
[2023-07-26] MEDS: DULoxetine HCL 30 MG CAP PO SCH (17:43)
[2023-07-26] MEDS: PANTOprazole 40 MG TAB PO SCH (17:43)
[2023-07-26] MEDS: BENZTROPINE MESYLATE 0.5 MG TAB PO SCH (20:27)
[2023-07-26] MEDS: PREGABALIN 100 MG CAP PO SCH (20:27)
[2023-07-26] MEDS: SENNA 8.6 MG TAB PO SCH (20:27)
[2023-07-26] MEDS: SIMVASTATIN 20 MG TAB PO SCH (20:27)
[2023-07-26] MEDS ORDERED: MELATONIN 3 MG TAB PO SCH (21:00)
[2023-07-26] MEDS: TAPENTADOL HCL ER 50 MG TABCR PO SCH (23:22)
[2023-07-27] MEDS: CARBIDOPA/LEVODOPA 25/100MG TAB PO SCH ×5 (01:20→20:07)
[2023-07-27] MEDS: LACTATED RINGER'S 1,000 ML IV SCH ×2 (01:21→13:12)
[2023-07-27] MEDS: ALBUT/IPRATROP 3MG/0.5MG NEB 3 ML VIAL NEB SCH ×6 (02:17→23:27)
[2023-07-27 06:15] LABS: Basophils # (auto) 0.02 K/uL (0.00-0.20); Basophils % (auto) 0.2 %; Eosinophils # (auto) 0.04 K/uL (0.00-0.50); Eosinophils % (auto) 0.4 %; Hemoglobin 10.2 g/dl (12.0-16.0); Immature Granulocytes # (auto) 0.03 K/uL (0.01-0.20); Immature Granulocytes % (auto) 0.3 %; Lymphocytes # (auto) 0.68 K/uL (1.20-3.40); Lymphocytes % (auto) 6.3 %; Mean Corpuscular Hemoglobin 30.1 pg (25.0-34.0); Mean Corpuscular Hgb Conc 32.9 g/dL (32.0-36.0); Mean Corpuscular Volume 91.4 fL (80.0-100.0); Mean Platelet Volume 12.3 fL (9.4-12.4); Monocytes # (auto) 1.01 K/uL (0.11-0.59); Monocytes % (auto) 9.4 %; Neutrophils # (auto) 8.96 K/uL (1.40-6.50); Neutrophils % (auto) 83.4 %; Platelet Count 190 K/uL (130-400); RDW Coefficient of Variation 13.6 % (11.5-14.5); RDW Standard Deviation 45.8 fL (36.4-46.3); Red Blood Count 3.39 M/uL (4.20-5.40); White Blood Count 10.74 K/ul (4.8-10.8)
[2023-07-27 06:22] LABS: BUN Creatinine Ratio 35.9 (10-20); Calcium 9.4 mg/dl (8.6-10.3); Creatinine Clr Calc Pharmacy 93.5 ml/min; Est GFR (Non-African American) 95.8 ml/min; Potassium 3.7 mmol/L (3.5-5.1)
[2023-07-27] MEDS: LEVOTHYROXINE SODIUM 75 MCG TABLET PO SCH ×2 (06:45→20:07)
[2023-07-27] MEDS: SODIUM CHLOR 7% 4 ML NEB NEB SCH (07:17)
[2023-07-27] MEDS: POTASSIUM CHLORIDE CRTAB 20 MEQ TABCR PO SCH (08:23)
[2023-07-27] MEDS: guaiFENesin 600 MG TABCR PO SCH (08:23)
[2023-07-27] MEDS: POLYETHYLENE (MIRALAX) 17 GM PACK PO SCH (08:23)
[2023-07-27] MEDS: ENOXAPARIN INJ 40 MG/0.4 ML SYR SQ SCH (08:23)
[2023-07-27] MEDS: PANTOprazole 40 MG TAB PO SCH ×2 (08:24→17:36)
[2023-07-27] MEDS: BENZTROPINE MESYLATE 0.5 MG TAB PO SCH ×2 (08:24→20:05)
[2023-07-27] MEDS: TAPENTADOL HCL ER 50 MG TABCR PO SCH ×2 (08:24→20:06)
[2023-07-27] MEDS: PREGABALIN 100 MG CAP PO SCH ×2 (08:24→20:05)
[2023-07-27] MEDS ORDERED: AZITHROMYCIN 250 MG TAB PO SCH (09:00)
[2023-07-27] MEDS ORDERED: CHOLECALCIFEROL 1,000 UNITS 25 MCG TAB PO SCH (09:00)
[2023-07-27] MEDS ORDERED: FERROUS SULFATE 325 MG TAB PO SCH (09:00)
--- NOTE | 2023-07-27 09:53 | Hospitalist Progress Note ---
Date of Service July 27, 2023 Assessment & Plan (1) Angio-edema: Plan: -Intubated 07/27 by anesthesia -Sedation and ventilator per respiratory and manager poker -Unknown cause, azithromycin was stopped incase of allergic reaction. Not on RACHID or ARB. -Given Decadron and epinephrine prior to ICU transfer/intubation (2) Rhinovirus infection: Plan: -Supportive care - had difficulty clearing secretions due to PSP and poor cough reflex -Isolation droplet precautions -Atypical pneumonia coverage stopped due to angioedema -Continue LR -Blood cultures: no growth 24 hrs. 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 Continue Sinemet and benztropine (4) Hypothyroidism: Plan: TSH 4.023 [08/2022] Continue levothyroxine (5) Laryngopharyngeal reflux: Plan: Continue pantoprazole (6) Chronic prescription opiate use: Plan: Spinal stenosis and scoliosis with chronic generalized pain Continue her usual Nucynta dosing, use [place] as needed although she notably gets this regularly at the [facility] Plan VTE Prophylaxis - Lovenox 40mg SQ daily Disposition - transfered to ICU, continued hospital stay Admission and Anticipated Discharge Date Admission Date: July 26, 2023 Supervising Physician Co-Signing Physician Notes PA Supervision Note: I personally saw and examined the patient. I verified all garcia points and agree with CARLOS Baptiste with the following exceptions and/or additions: S-patient seen urgently at the bedside along with CARLOS Baptiste. Her tongue was noted to be swollen by her son. The patient had a muffled voice and was having shortness of breath and mild hypoxia. I discussed her care with the manager poker, the ER physician Dr. Machuca, and both recommended anesthesia to perform difficult intubation for airway protection. I spoke with anesthesia who came down to intubate the patient. O- Vitals reviewed Gen: AAOx2, mild distress, having trouble managing secretions, did have a coughing episode and turned briefly cyanotic HEENT: Very large swollen tongue, hard palate deformity, blackish camargo discharge on tongue and hard palate, could not visualize posterior oropharynx, CV: RRR no mgr nl S1S2 Pulm: Wheezing and rhonchi on exam throughout A/I-62-obmh-old female here with rhino enterovirus and bronchitis, now with se linnette tongue swelling possibly allergic reaction Give Decadron and epinephrine, intubation for airway protection Transfer to ICU Subjective 0920 - Patient seen in ED bed, son initially present at bedside, but stepped out during my visit. Patient oriented x2 (self, year), but could not tell me where she was. Does know that her birthday is [birth year] and is hoping to be out of here by then. Does report she is having trouble breathing, says she does not need O2 at the [facility] and she walks around with her walker. Discussion with son, Yovani. States Kwame has had a productive cough x5 weeks, about a week ago CXR was done at the [facility] showing bronchial pneumonia (I do not have images to review) and started on antibiotics. States that she does not tolerate the nebulizer well and has tried to do it a few time at the [facility]. He reports at baseline she is normally able to answer questions appropriately and participate in conversations, she has difficulty with swallowing due to her PSP but has had a good appetite up until yesterday and that she uses a walker for balance. No O2 needs at home. 1030 - Was notified by RN that son had noticed increased tongue swelling that had not gotten better. Patient difficulty speaking when I went to evaluate her. Discussion with patient and son at bedside about intubation in setting of acute anaphylaxis/angioedema and patient verbalized that she was okay with being intubated and wanted to reverse her DNI. Son reports that patient did not eat anything this morning, was trying to eat eggs but she could not swallow them and that is when he noticed that her tongue was swollen. ICU attending, ER doctor and anesthesia contacted in regards to getting patient intubated. Tele - PVCs, some tachycardia 110s overnight Review of Systems Review of Systems: All systems reviewed & are unremarkable except as noted in Subjective Physical Exam Constitutional: + ill appearing ENMT: Mouth: + poor dentition increase salvation, difficulty clearing sputum Respiratory: + labored breathing, + uses accessory mu scles and + audible wheezes; + not able to speak in complete sentence Auscultation: + wheezes Cardiovascular: RRR, no murmur, no edema Skin: no rashes, warm and dry Psychiatric: Orientation: alert, oriented to person and oriented to time Genitourinary: clemente catheter in place Results & Data Results & Data Vital Signs (Past 12 Hours) Vital Signs Temp Pulse Pulse Pulse Resp BP Pulse Ox 07/27/23 08:31 74 26 H 122/60 94 07/27/23 07:37 83 07/27/23 06:33 36.6 C 82 81 22 126/74 93 07/27/23 03:44 84 07/27/23 02:17 80 22 97 07/27/23 02:00 84 28 H 135/68 95 07/26/23 23:03 83 20 97 07/26/23 22:30 36.6 C 81 22 118/80 92 07/26/23 21:45 O2 Del Method O2 Flow Rate 07/27/23 08:31 Room Air 07/27/23 07:37 07/27/23 06:33 Room Air 07/27/23 03:44 07/27/23 02:17 Nasal Cannula 2 07/27/23 02:00 Nasal Cannula 2 07/26/23 23:03 Nasal Cannula 2 07/26/23 22:30 Nasal Cannula 2 07/26/23 21:45 Nasal Cannula 2 Laboratory Results Laboratory Results - last 24 hr 07/26/23 07/27/23 07/27/23 09:34 00:48 05:32 WBC 10.74 RBC 3.39 L Hgb 10.2 L Hct 31.0 L MCV 91.4 MCH 30.1 MCHC 32.9 RDW Std Deviation 45.8 RDW Coeff of Arnaud 13.6 Plt Count 190 MPV 12.3 Immature Gran % (Auto) 0.3 Neut % (Auto) 83.4 Lymph % (Auto) 6.3 [place] % (Auto) 9.4 Eos % (Auto) 0.4 Baso % (Auto) 0.2 Neut # (Auto) 8.96 H Lymph # (Auto) 0.68 L [place] # (Auto) 1.01 H Eos # (Auto) 0.04 Baso # (Auto) 0.02 Immature Gran # (Auto) 0.03 Sodium 138 Potassium 3.7 Chloride 102 Carbon Dioxide 29 Anion Gap 7 BUN 14 Creatinine 0.39 L Est Cr Clr Drug Dosing 93.5 Est GFR ( Amer) 111.0 Est GFR (Non-Af Amer) 95.8 BUN/Creatinine Ratio 35.9 H Glucose 109 H Calcium 9.4 C-Reactive Protein 11.90 H B-Natriuretic Peptide 92 Nasal Screen MRSA (PCR) Negative 11/20/23 Unknown B-Natriuretic Peptide Nasal Screen MRSA (PCR) Pending Diagnostic Findings Chest X-Ray 07/27/23 12:51 XR chest 1V portable HISTORY: post intubation COMPARISON: Chest 07/26/2023. FINDINGS: Endotracheal tube is at the level the jaime and coursing towards the right mainstem bronchus. This should be retracted by 2 to 3 cm. There are low lung volumes. The heart remains enlarged. There are old, healed right-sided rib fractures. Advanced degenerative changes within the right shoulder. Ve rtebroplasty within the lumbar spine is partially visualized. Mild interstitial pulmonary edema and patchy left basilar densities persist. IMPRESSION: 1. Endotracheal tube is at the level of jaime and coursing towards the right mainstem bronchus. This should be retracted by 2-3 cm. 2. Pulmonary edema and left basilar densities persist. 3. This was texted to Dr. Aguilar at the time of dictation. ACT 112: Negative or not required by law. Electronically signed by: Eulogio Nguyễn M.D. 07/27/2023 1:32 PM PG Care Time/CCT Total # of Minutes Spent Total Time Spent with Patient: Total time spent is greater than 50% in coordination of care (as documented) at patient's floor/unit and/or counseling patient: Coding Level of Care Code 85708 SUB INP/OBS CARE 3/50MIN Diagnoses Angioedema, initial encounter T78.3XXA Encounter type: initial encounter Rhinovirus infection B34.8 PSP (progressive supranuclear palsy) G23.1 Hypothyroidism E03.9 Laryngopharyngeal reflux K21.9 Chronic prescription opiate use Z79.891 (1) Angio-edema Encounter type: initial encounter Qualified Code(s): T78.3XXA - Angioneurotic edema, initial encounter
[2023-07-27] MEDS ORDERED: dexAMETHasone 10 MG in SYRINGE 0 ML IV STA (10:37)
[2023-07-27] MEDS ORDERED: EPINEPHrine INJ 1 MG/ML AMP IM STA (10:44)
[2023-07-27] MEDS: DULoxetine HCL 30 MG CAP PO SCH (11:04)
[2023-07-27] MEDS ORDERED: LIDOCAINE 4% MPF LOCAL INJ 5 ML AMP ONE (11:20)
[2023-07-27] MEDS ORDERED: SODIUM CHLORIDE 0.9% 250 ML IV PRN (11:37)
[2023-07-27] MEDS ORDERED: TRANEXAMIC ACID / 0.7% NACL 1,000 MG/100 ML BAG IV STA (11:39)
[2023-07-27] MEDS ORDERED: LIDOCAINE 4% INH SOLN 4 ML BTL ONE (11:40)
[2023-07-27] MEDS ORDERED: TRANEXAMIC ACID / 0.7% NACL 1000MG/100ML BAG IV ONE (11:44)
[2023-07-27] MEDS ORDERED: KETAMINE HCL 10MG/ML SYR ONE (11:55)
[2023-07-27] MEDS ORDERED: MIDAZOLAM HCL 1 MG/ML 2ML VIAL ONE (11:55)
--- NOTE | 2023-07-27 12:15 | Anesthesia Procedure Note ---
Anesthesia Procedure Note Intubation Note Date of procedure: 07/27/23 Indication for intubation: Respiratory distress and Unable to protect airway Consent: Risk / Benefits Reviewed With: PT / POA / Parent / Guardian, Accepts Plan, Informed Consent Obtained and All Questions Answered Monitors attached: Blood Pressure, CO2, EKG and Pulse Oximetry Time out completed: Yes Premedication: Midazolam (mg) (2mg), Ketamine (mg) (20mg) and Other (0.2mg glycopyrrolate ) Paralytic medication: None Intubation technique: Adequate preoxygenation, Mask ventilation, Easy mask and Airway suctioned Equipment: Glidescope (3) View: Grade 1 Endotracheal tube: Oral, 7.5, with Stylet, Tube secured @ cm (22) and Balloon inflated Attempts: 1 and Atraumatic Tube placement confirmation: auscultation and Positive CO2 detection Procedure Summary: Patient developed acute tongue swelling and voice changes this morning in the ER. Patient has known Rhinovirus and respiratory distress but she now is requiring oxygen and unable to speak in complete sentences. Patient's son stated she sounds worse now than this morning. Tongue is notably swollen and he is having trouble swallowing water. She appears to be short of breath and despite her DNI, patient and her son elects to suspend this order and be intubated for airway protection given the concern for upper airway angioedema. Risks/benefits of the procedure were discussed. Questions answered. Consent obtained. Patient to be intubated in ICU with respiratory present. Patient received nebulized lidocaine prior to intubating. She was placed on STD ASA monitors with respiratory present. IV in place and working. ICU nurses present. ICU physician aware of plan to intubate. After nebulizer, glidescope #3 gently inserted in patient's airway and given the topicalization, she tolerated this well. Large amounts of thick secretions/food were present in patient's pharynx and concern is that she has been aspirating on these in the short term. No active aspiration was seen during intubation after I suctioned her airway. 7.5 ETT was placed without difficulty and 100mg propofol was given for tube tolerance once placement was confirmed. Patient was placed on ventilator without incident. CXR ordered. Post-procedure: Pt hemodynamically stable, Pt tolerates well, No complication and Post placement CXR ordered
[2023-07-27] MEDS ORDERED: PROPOFOL IV EMULSION 10 MG/ML 20 ML VIAL IV ONE (12:53)
[2023-07-27] MEDS ORDERED: GLYCOPYRROLATE 0.2 MG/ML VIAL ONE (12:53)
[2023-07-27] MEDS ORDERED: LIDOCAINE 2% 2 ML VIAL/AMP(20MG/ML) INFIL ONE (12:53)
[2023-07-27] MEDS ORDERED: STAT IV Infusion **Titration per Protocol STA ×2 (12:56→19:38)
[2023-07-27] MEDS ORDERED: PROPOFOL BOLUS FROM BAG IV PRN (12:56)
[2023-07-27] MEDS ORDERED: fentaNYL citrate PF 100 MCG/2 ML VIAL IV PRN (12:56)
[2023-07-27] MEDS: propofoL 1,000 MG/100 ML VIAL IV SCH ×3 (13:06→22:50)
[2023-07-27] MEDS: ICU Protocol for HYPERglycemia SCH ×3 (13:10→20:05)
--- NOTE | 2023-07-27 13:33 | XRay Report ---
XR chest 1V portable HISTORY: post intubation COMPARISON: Chest 07/26/2023. FINDINGS: Endotracheal tube is at the level the jaime and coursing towards the right mainstem bronch us. This should be retracted by 2 to 3 cm. There are low lung volumes. The heart remains enlarged. Th ere are old, healed right-sided rib fractures. Advanced degenerative changes within the right shoulde r. Vertebroplasty within the lumbar spine is partially visualized. Mild interstitial pulmonary edema and patchy left basilar densities persist. IMPRESSION: 1. Endotracheal tube is at the level of jaime and coursing towards the right mainstem bronchus. This should be retracted by 2-3 cm. 2. Pulmonary edema and left basilar densities persist. 3. This was texted to Dr. Aguilar at the time of dictation. ACT 112: Negative or not required by law. Electronically signed by: Eulogio Nguyễn M.D. 07/27/2023 1:32 PM
--- NOTE | 2023-07-27 14:38 | Critical Care Consultation ---
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 Recommendations: 1. Neurologic: Continue sedation with propofol. Anticipate relatively short mechanical ventilation course. History of supranuclear palsy. Will need PT OT and speech therapy once extubated. Continue Cogentin and carbidopa levodopa as well as Cymbalta. Significant chronic pain issues. Continue Lyrica. On Nucynta as well and uses breakthrough Percocet. 2. Respiratory: Intubated due to concern about airway edema. Will reassess in the next 24 hours. If air leak is present with cuff deflated, can likely extubate. I suspect the patient likely has issues with chronic aspiration which may be fueled by her underlying neurodegenerative disorders. Patient received TXA and FFP was ordered but I did do not believe this was angioedema and at this point time cannot send the labs as they will be adversely affected by the administration of medications. This does not appear to be an allergic reaction so I do not think there is a role for steroids, H2 blockers, or other antihistamines. 3. ID: Rhinovirus infection: Supportive care indicated. No role for antibiotics given normal procalcitonin, lack of fever, and normal white blood cell count. 4. Cardiovascular: Echocardiogram from last year showed an EF of 55-60 with normal wall motion. Right ventricle showed normal size and function. Trace aortic insufficiency was present. Mild pulmonary hypertension with a right ventricular systolic pressure of 40-50. If hemodynamically unstable may consider repeat echocardiogram. Decrease IV fluids to try and keep intake and output even. 5. Endocrine: Glycemic control per protocol. Continue Synthroid. 6. Heme-onc: No current issues. Continue to follow at this point time. DVT prophylaxis with heparin. 7. GI: Continue PPI. Hold tube feedings in anticipation of early extubation. Will need speech therapy evaluation postextubation The above recommendations and plan were extensively discussed with the bedside critical care nurse as well as with patient's son at bedside. Total of 45 minutes in critical care time was spent in evaluation management stabilization of this patient with acute life-threatening illness. History of Present Illness Attending Physician: Chelsea Silva MD History of Present Illness Asked by hospitalist to assist in evaluation management this patient intubated for airway edema. History is obtained from review of electronic medical record as well as discussion with the son at bedside. The patient is now intubated and unable to provide any history. Patient is an 87-year-old female with a history of progressive super nuclear palsy. She resides at the [facility]. She presented to the emergency room with fever confusion and shortness of breath. She reportedly had been diagnosed with pneumonia there based on a chest x-ray about a week prior. Her Lasix was increased as well. In the emergency room she was admitted and found to be positive for rhinovirus. She was placed on azithromycin. This morning she was found to have difficulty with speech and nonproductive cough with inability to clear secretions and progressive tongue swelling. Anesthesia was consulted and brought the patient to the ICU where she was intubated. She is now sedated and has been hemodynamically stable. She has multiple allergies but no prior history of angioedema. Allergies Allergy/AdvReac Type Severity Reaction Status Date / Time cat dander Allergy Severe SHORTNESS Verified 04/05/23 18:48 OF BREATH mold Allergy Severe SHORTNESS Verified 04/05/23 18:48 OF BREATH nut - unspecified Allergy Severe Anaphylaxis Verified 04/05/23 18:48 peanut Allergy Severe Anaphylaxis Verified 04/05/23 18:48 pecan nut Allergy Severe Anaphylaxis Verified 04/05/23 18:48 walnut Allergy Severe Anaphylaxis Verified 04/05/23 18:48 Penicillins Allergy Intermediate HIVES Verified 04/05/23 18:48 Sulfa (Sulfonamide Allergy Intermediate "jaundiced Verified 04/05/23 18:48 Antibiotics) as child", HIVES codeine Allergy Mild GI SYMPTOMS Verified 04/05/23 18:48 shellfish derived Allergy Unknown Unknown Unverified 04/05/23 18:48 soy Allergy Unknown Unknown Verified 04/05/23 18:48 Home Medications Medication Instructions Recorded Confirmed Type benztropine 0.5 mg tablet 0.5 mg PO BID #180 tabs 10/28/21 07/26/23 Rx simvastatin 20 mg tablet (Zocor) 20 mg PO HS #90 tabs 10/29/21 07/26/23 Rx pantoprazole 40 mg tablet,delayed 40 mg PO BID gastritis 90 days 01/08/22 07/26/23 Rx release #180 tabs levothyroxine 75 mcg tablet 75 mcg PO QAM #90 tabs 01/20/22 07/26/23 Rx (Synthroid) carbidopa 25 mg-levodopa 100 mg 1 tab PO QID 90 days #360 tabs 06/10/22 07/26/23 Rx tablet (Sinemet) ferrous sulfate 143 mg (45 mg 143 mg PO DAILY 07/06/22 07/26/23 History iron) tablet,extended release (Slow Release Iron) melatonin 10 mg tablet 10 mg PO HS 07/06/22 07/26/23 History polyethylene glycol 3350 17 8.5 g PO DAILY 07/06/22 07/26/23 History gram/dose oral powder (Miralax) pregabalin 200 mg capsule (Lyrica) 200 mg PO AMHS 07/06/22 07/26/23 History sennosides 8.6 mg tablet (Senokot) 8.6 mg PO HS 07/06/22 07/26/23 History tapentadol 50 mg tablet,extended 50 mg PO AMHS 07/06/22 07/26/23 History release,12 hr (Nucynta ER) acetaminophen 325 mg tablet 650 mg PO Q4H PRN Pain 04/05/23 07/26/23 History cholecalciferol (vitamin D3) 25 25 mcg PO DAILY 04/05/23 07/26/23 History mcg (1,000 unit) tablet (Vitamin D3) diclofenac sodium 1 % topical gel 4 g topical QID PRN Pain 04/05/23 07/26/23 History duloxetine 30 mg capsule,delayed See Rx Instructions .Route .COMPLEX 04/05/23 07/26/23 History release duloxetine 60 mg capsule,delayed See Rx Instructions .Route .COMPLEX 04/05/23 07/26/23 History release (Cymbalta) hydrocodone 7.5 mg-acetaminophen 1 tab PO Q6H PRN chronic pain 04/05/23 07/26/23 History 325 mg tablet potassium chloride 20 mEq 20 meq PO DAILY 04/05/23 07/26/23 History tablet,extended release albuterol sulfate 1.25 mg/3 mL 1.25 mg inhalation Q4H PRN 07/26/23 07/26/23 History solution for nebulization Shortness Of Breath furosemide 20 mg tablet 20 mg PO DAILY 07/26/23 07/26/23 History lidocaine 4 % topical patch 1 patch topical QID PRN Shoulder 07/26/23 07/26/23 History (Lidocaine Pain Relief) pain loteprednol etabonate 0.5 % eye 1 drp ophthalmic (eye) BID 07/26/23 07/26/23 History drops,suspension (Lotemax) Patient History Medical History Anxiety Avulsion fracture of middle phalanx of finger Bilateral lumbar radiculopathy Cardiac murmur CHI (closed head injury) Chronic back pain Depression Encounter for pre-operative examination Falls frequently Fibromyalgia Forehead laceration Fusion of lumbosacral spine GERD (gastroesophageal reflux disease) Hearing deficit Hx of breast cancer Hyperlipidemia Hyperlipidemia Hypothyroidism Hypoxia Lumbar canal stenosis Lumbosacral radiculopathy Maxillary sinus fracture Multiple facial bone fractures Multiple rib fractures Other abnormalities of gait and mobility Poor balance PSP (progressive supranuclear palsy) Risk for falls Sacroiliitis Scoliosis Spinal stenosis Surgical History History of colonoscopy History of dilation and curettage History of foot surgery History of tonsillectomy Hx of appendectomy Hx of bilateral breast reduction surgery Hx of cataract surgery Hx of kyphoplasty Hx of lumpectomy Hx of spinal fusion Hx of wisdom tooth extraction S/P epidural steroid injection S/P total left hip arthroplasty Status post left hip replacement Family History Sister Alzheimer disease Breast cancer Paget's disease Father Alzheimer disease Grandmother (Paternal) Alzheimer disease Mother Myocardial infarction Stroke syndrome Uncle Prostate cancer Denies family history of Ovarian cancer Adverse anesthesia outcome Bleeding disorder Colorectal cancer Social History Smoking Status: Never smoker Tobacco Type: Cigarettes Second Hand Exposure: No; Do You Dip or Chew Tobacco: No; Hx Alcohol Use: No Hx Substance Use: No Preferred Language: Norwegian Communication Ability: Effective Visual Impairment: No Limitations Hearing Ability: Use of Hearing Aid Family Dentist Required: No Beliefs That Will Affect Care: None marital status: / Current Living Situation: Custodial Current Living Situation Comment: resides at the [facility] current occupational status: retired How many Children do You have: 2 Other Information That Helps Us Care for You: No Feels Safe at Home: Yes Safety Concerns: Feels Safe At This Time Childhood Exposure to Second-Hand Smoke: No Diet: regular caffeine: Yes during the past year weight has: remained stable Dental Care, Regularly: Yes Physical Activity Frequency: Does not Exercise Seatbelt Use: always Sunscreen Use: Yes Assistive Devices: Walker Review of Systems Review of Systems: Please refer to admission H&P. Unable to obtain any history from the patient due to being on the mechanical ventilator Physical Exam Constitutional: + mechanically ventilated Sedated on the ventilator Eyes: PERRL, conjunctivae normal, anicteric sclerae ENMT: Mouth: + dry oral mucous membranes Respiratory: normal respiratory effort Auscultation: + rhonchi (b/l ante riorly); no crackles, no rales and no wheezes Cardiovascular: RRR, no murmur, no edema Gastrointestinal (Abdomen): normal bowel sounds, soft, nontender, no hepatosplenomegaly Musculoskeletal: no cyanosis or clubbing, extremities motor strength 5/5 Skin: no rashes, warm and dry Neurologic: Sedated Genitourinary: no CVA tenderness Results & Data Results & Data Vital Signs (Past 12 Hours) Vital Signs Temp Pulse Pulse Pulse Resp BP BP 07/27/23 14:19 07/27/23 14:15 07/27/23 14:00 86 16 135/64 07/27/23 13:30 81 16 118/61 07/27/23 13:11 87 18 07/27/23 12:00 85 20 140/73 07/27/23 08:31 74 26 H 122/60 07/27/23 07:37 83 07/27/23 06:33 36.6 C 82 81 22 126/74 07/27/23 03:44 84 Pulse Ox O2 Del Method O2 Flow Rate FiO2 07/27/23 14:19 50 07/27/23 14:15 Mechanical Vent 50 07/27/23 14:00 92 Mechanical Vent 50 07/27/23 13:30 97 Mechanical Vent 50 07/27/23 13:11 98 80 07/27/23 12:00 97 Nasal Cannula 4 07/27/23 08:31 94 Room Air 07/27/23 07:37 07/27/23 06:33 93 Room Air 07/27/23 03:44 Critical Care Results & Data Vital Signs (Past 12 Hours) Vital Signs Temp Pulse Pulse Pulse Resp BP BP 07/27/23 14:19 07/27/23 14:15 07/27/23 14:00 86 16 135/64 07/27/23 13:30 81 16 118/61 07/27/23 13:11 87 18 07/27/23 12:00 85 20 140/73 07/27/23 08:31 74 26 H 122/60 07/27/23 07:37 83 07/27/23 06:33 36.6 C 82 81 22 126/74 07/27/23 03:44 84 Pulse Ox O2 Del Method O2 Flow Rate FiO2 07/27/23 14:19 50 07/27/23 14:15 Mechanical Vent 50 07/27/23 14:00 92 Mechanical Vent 50 07/27/23 13:30 97 Mechanical Vent 50 07/27/23 13:11 98 80 07/27/23 12:00 97 Nasal Cannula 4 07/27/23 08:31 94 Room Air 07/27/23 07:37 07/27/23 06:33 93 Room Air 07/27/23 03:44 Lab & Micro Results (Past 24 Hours) RBC 3.39 M/uL (4.20-5.40) L 07/27/23 WBC 10.74 K/ul (4.8-10.8) 07/27/23 Hgb 10.2 g/dl (12.0-16.0) L 07/27/23 Hct 31.0 % (37.0-47.0) L 07/27/23 MCV 91.4 fL (80.0-100.0) 07/27/23 MCH 30.1 pg (25.0-34.0) 07/27/23 MCHC 32.9 g/dL (32.0-36.0) 07/27/23 RDW Standard Deviation 45.8 fL (36.4-46.3) 07/27/23 RDW Coefficient of Variation 13.6 % (11.5-14.5) 07/27/23 Plt Count 190 K/uL (130-400) 07/27/23 MPV 12.3 fL (9.4-12.4) 07/27/23 Neutrophils (%) (Auto) 83.4 % 07/27/23 Lymphocytes (%) (Auto) 6.3 % 07/27/23 Monocytes # (Auto) 1.01 K/uL (0.11-0.59) H 07/27/23 Eosinophils # (Auto) 0.04 K/uL (0.00-0.50) 07/27/23 Immature Granulocyte % (Auto) 0.3 % 07/27/23 Neutrophils # (Auto) 8.96 K/uL (1.40-6.50) H 07/27/23 Lymphocytes # (Auto) 0.68 K/uL (1.20-3.40) L 07/27/23 Monocytes # (Auto) 1.01 K/uL (0.11-0.59) H 07/27/23 Eosinophils # (Auto) 0.04 K/uL (0.00-0.50) 07/27/23 Basophils # (Auto) 0.02 K/uL (0.00-0.20) 07/27/23 Immature Granulocyte # (Auto) 0.03 K/uL (0.01-0.20) 3 Na 138 mmol/L (136-145) 07/27/23 K 3.7 mmol/L (3.5-5.1) 07/27/23 Cl 102 mmol/L (98-107) 07/27/23 CO2 29 mmol/L (21-32) 07/27/23 Anion Gap 7 (3-11) 07/27/23 BUN 14 mg/dl (6-23) 07/27/23 Creatinine 0.39 mg/dl (0.6-1.2) L 07/27/23 Estimated GFR ( Amer) 111.0 ml/min 07/27/23 Estimated GFR (Non-Af Amer) 95.8 ml/min 07/27/23 BUN/Creatinine Ratio 35.9 (10-20) H 07/27/23 Glu 109 mg/dl (70-99(Fasting)) H 07/27/23 Ca 9.4 mg/dl (8.6-10.3) 07/27/23 Calcium Level 9.4 mg/dl (8.6-10.3) 07/27/23 05:32 Microbiology 07/26/23 20:19 Throat Culture - Preliminary Throat Moderate normal blossom present, final report to follow. 07/26/23 09:38 Aerobic Blood Culture - Preliminary Blood No growth in Aerobic bottle after 24 hours. Anaerobic Blood Culture - Preliminary No growth in Anaerobic bottle after 24 hours. 07/26/23 09:34 Aerobic Blood Culture - Preliminary Blood No growth in Aerobic bottle after 24 hours. Anaerobic Blood Culture - Preliminary No growth in Anaerobic bottle after 24 hours. Diagnostic Findings (Past 24 Hours) Chest X-Ray 07/27/23 12:51 XR chest 1V portable HISTORY: post intubation COMPARISON: Chest 07/26/2023. FINDINGS: Endotracheal tube is at the level the jaime and coursing towards the right mainstem bronchus. This should be retracted by 2 to 3 cm. There are low lung volumes. The heart remains enlarged. There are old, healed right-sided rib fractures. Advanced degenerative changes within the right shoulder. Vertebroplasty within the lumbar spine is partially visualized. Mild interstitial pulmonary edema and patchy left basilar densities persist. IMPRESSION: 1. Endotracheal tube is at the level of jaime and coursing towards the right mainstem bronchus. This should be retracted by 2-3 cm. 2. Pulmonary edema and left basilar densities persist. 3. This was texted to Dr. Aguilar at the time of dictation. ACT 112: Negative or not required by law. Electronically signed by: Eulogio Nguyễn M.D. 07/27/2023 1:32 PM I & O Totals 24 Hours 07/26/23 07/27/23 07/28/23 06:59 06:59 06:59 Intake Total 1832.333 / 1553.829 6901 / 1048 Output Total 604 / 604 Balance 1228.333 / 9918.790 2731 / 1047 Cumulative 07/26/23 09:12 thru 07/27/23 13:12 Intake Total 2880.333 Output Total 605 Balance 2275.333 RT Ventilator Mngmt (Last Documented) Ventilator Ordered Settings Ventilator Support Mode Assist Control 07/27/23 14:19 Respiratory Rate 16 07/27/23 14:00 Ventilator Tidal Volume 400 07/27/23 14:19 Setting Minute Ventilation 7.2 07/27/23 13:11 Positive End Expiratory 5 07/27/23 14:19 Pressure Fraction of Inspired Oxygen 50 07/27/23 14:19 Ventilator - PT Measurements Respiratory Rate 16 Exhaled Tidal Volume 400 Minute Ventilation 7.2 Peak Inspiratory Airway 23 Pressure Plateau Pressure 19 Respiratory Cycle Inspiratory: 1:2.8 Expiratory Ratio Inspiratory Phase Time 1 End-Tidal CO2 43 Static Lung Compliance 28.57 Dynamic Lung Compliance 22.22 Normal Static Lung Compliance 46.00 Coding Level of Care Code 88066 CRITICAL CARE 1ST 30-74M Diagnoses Severe tongue swelling R22.0 Weakness R53.1 Hypoxia R09.02 Rhinovirus infection B34.8
--- NOTE | 2023-07-27 15:15 | XRay Report ---
SINGLE VIEW CHEST CLINICAL HISTORY: Endotracheal tube repositioning FINDINGS: 2 AP, portable, upright chest radiographs are compared to study performed earlier the same day 07/27/2023. Correlation is made with chest CT dated 01/30/2022. The examination is degraded by por table technique and patient rotation. The endotracheal tube has been pulled back. The tip projects ap proximately 2 cm above the jaime. An enteric tube has been placed. The tip projects just above the d iaphragm, likely within a hiatal hernia. The heart is enlarged noting atherosclerotic calcification o f the thoracic aorta. There is pulmonary vascular congestion. There is left basilar consolidation. Sm all pleural effusions are noted. No pneumothorax is seen. The skeletal structures are osteopenic. The re are chronic/healed right-sided rib fractures. Advanced arthritic change is seen in the right shoul gisselle. Degenerative change and scoliosis is noted in the spine. IMPRESSION: 1. Endotracheal tube and an enteric tubes are in place as above. 2. The enteric tube it is coiled above the diaphragm, likely within a hiatal hernia. 3. Cardiomegaly with evidence of congestive failure. 4. Left basilar consolidation and small pleural effusions. ACT 112: Negative or not required by law. Electronically signed by: Estuardo Lema M.D. 07/27/2023 3:13 PM
[2023-07-27] MEDS ORDERED: ICU Protocol for HYPERglycemia SCH (16:30)
[2023-07-27] MEDS ORDERED: Nursing to Pharmacy Communication SCH (18:00)
[2023-07-27] MEDS ORDERED: PANTOprazole 40 MG in SYRINGE 0 ML IV ONE (18:21)
[2023-07-27] MEDS ORDERED: fentaNYL BOLUS from BAG IV PRN (19:38)
[2023-07-27] MEDS ORDERED: fentaNYL citrate 2,500 MCG/250 ML BAG IV SCH (19:45)
[2023-07-27] MEDS: PANTOprazole 40 MG in SYRINGE 0 ML IV SCH (20:02)
[2023-07-27] MEDS: SENNA 8.6 MG TAB PO SCH (20:06)
[2023-07-27] MEDS: SIMVASTATIN 20 MG TAB PO SCH (20:06)
[2023-07-28] MEDS: ALBUT/IPRATROP 3MG/0.5MG NEB 3 ML VIAL NEB SCH ×3 (04:22→12:11)
[2023-07-28 04:27] LABS: iSTAT Allen Test Pass; iSTAT Art Bld Gas pCO2 Correct 35 mmHg (35-46); iSTAT Art Bld Gas pH Corrected 7.455 (7.35-7.45); iSTAT Arterial Blood Gas HCO3 24 meg/L (19-24); iSTAT Arterial Blood Gas pCO2 34 mmHg (35-46); iSTAT Arterial Blood Gas pH 7.47 (7.35-7.45); iSTAT Arterial Blood Gas pO2 97 mmHg (80-95); iSTAT Arterial Blood Gas pO2 C 101; iSTAT Carbon Dioxide 25 mmol/L (24-31); iSTAT FiO2 50 %; iSTAT Hematocrit 26 % (37-47); iSTAT Hemoglobin 8.8 g/dl (12.0-16.0); iSTAT Potassium 3.7 mmol/L (3.3-5.0); iSTAT Site R Radial; iSTAT Sodium 137 mmol/L (135-144)
[2023-07-28] MEDS: propofoL 1,000 MG/100 ML VIAL IV SCH ×2 (04:30→10:03)
[2023-07-28 04:50] LABS: Basophils # (auto) 0.01 K/uL (0.00-0.20); Basophils % (auto) 0.1 %; Hemoglobin 9.2 g/dl (12.0-16.0); Immature Granulocytes # (auto) 0.09 K/uL (0.01-0.20); Lymphocytes % (auto) 4.5 %; Mean Corpuscular Hemoglobin 29.8 pg (25.0-34.0); Mean Corpuscular Hgb Conc 32.9 g/dL (32.0-36.0); Mean Corpuscular Volume 90.6 fL (80.0-100.0); Mean Platelet Volume 12.2 fL (9.4-12.4); Monocytes # (auto) 0.79 K/uL (0.11-0.59); Monocytes % (auto) 8.9 %; Neutrophils # (auto) 7.63 K/uL (1.40-6.50); Neutrophils % (auto) 85.5 %; Platelet Count 188 K/uL (130-400); RDW Coefficient of Variation 13.5 % (11.5-14.5); RDW Standard Deviation 44.9 fL (36.4-46.3); Red Blood Count 3.09 M/uL (4.20-5.40); White Blood Count 8.92 K/ul (4.8-10.8)
[2023-07-28 04:57] LABS: Calcium 8.9 mg/dl (8.6-10.3); Magnesium 1.8 mg/dl (1.7-2.4); Potassium 3.7 mmol/L (3.5-5.1)
[2023-07-28 05:03] LABS: BUN Creatinine Ratio 36.6 (10-20); Creatinine Clr Calc Pharmacy 88.9 ml/min; Est GFR (African American) 109.2 ml/min; Est GFR (Non-African American) 94.2 ml/min; Phosphorus 2.9 mg/dl (2.5-4.9)
[2023-07-28] MEDS: POTASSIUM CHLORIDE / WTR 10 MEQ/100 ML PLCT IV SCH ×2 (06:13→07:45)
[2023-07-28] MEDS: MAGNESIUM SULFATE / D5W 1 GM/100 ML BAG IV SCH ×2 (06:13→07:45)
[2023-07-28] MEDS: ICU Protocol for HYPERglycemia SCH ×3 (07:47→16:23)
--- NOTE | 2023-07-28 08:07 | XRay Report ---
XR chest 1V portable CLINICAL HISTORY: Resp failure TECHNIQUE: Single frontal radiograph of the chest was obtained. Comparison: Comparison is made to chest radiograph 07/27/2023 FINDINGS: Endotracheal tube is unchanged. Enteric tube has been removed in the interval. The cardiomediastinal silhouette is stable. Left basilar consolidation and right sided airspace opacities are noted. No pne umothorax is seen, pleural effusions cannot be excluded. IMPRESSION: Multifocal airspace opacities may represent atelectasis, pneumonia, and/or aspiration. ACT 112: Negative or not required by law. Electronically signed by: Eric Coleman M.D. 07/28/2023 8:05 AM
--- NOTE | 2023-07-28 09:17 | Hospitalist Progress Note ---
Date of Service July 28, 2023 Assessment & Plan (1) Rhinovirus infection: Plan: -Supportive care - nebs, IS, flutter valve, has difficulty clearing secretions due to PSP and poor cough reflex -Isolation droplet precautions -Atypical pneumonia coverage stopped due to angioedema -Blood cultures: no growth 48 hrs. -Throat culture: Madonna albicans/dubliniensis --> tx with IV fluconazole 400mg today, 200 mg x10 days, last day 08/06. (2) Angio-edema: Plan: -Intubated 07/27 by anesthesia, extubated 07/28 -Unknown cause, azithromycin was stopped incase of allergic reaction. Not on RACHID or ARB. 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 -Patient currently not complaining of pain. -Has PRN IV tylenol and lidocaine patch for pain Plan VTE Prophylaxis - Lovenox 40mg SQ daily Disposition - continued hospital stay, downgrade to PCU/tele Admission and Anticipated Discharge Date Admission Date: July 26, 2023 Supervising Physician Co-Signing Physician Notes PA Supervision Note: I did not personally see or examine the patient today, but I verified all garcia points of CARLOS Mcmahon's assessment and plan with the following exceptions/additions: None Subjective 0855 - Patient seen sitting up in bed. Per RN she was extubated about 30 minutes ago, but has not spoken yet. During my exam, Kwame was able to follow most commands and could nod her head yes and no in response to questions. Did report that her throat hurts, and she is not talking because of this. Denies pain anywhere. Review of Systems Review of Systems: Unobtainable due to cognitive status Physical Exam Constitutional: + ill appearing ENMT: Mouth: + poor dentition tongue significantly less swollen, back to normal size. Black/green secretions have decreased as well Respiratory: Auscultation: + crackles (bilaterally ) nasal cannula in place, pt not speaking Cardiovascular: RRR, no murmur, no edema Gastrointestinal (Abdomen): nontender to palpation Skin: no rashes, warm and dry Psychiatric: Orientation: alert Genitourinary: clemente catheter in place, draining clear-yellow urine Results & Data Results & Data Vital Signs (Past 12 Hours) Vital Signs Temp Pulse Pulse Resp BP Pulse Ox Pulse Ox 07/28/23 08:00 37.6 C H 118 H 32 H 94 07/28/23 08:00 136/74 07/28/23 08:00 07/28/23 08:00 95 07/28/23 08:00 07/28/23 07:30 102/44 L 07/28/23 07:30 37.6 C H 83 16 96 07/28/23 07:00 37.8 C H 78 16 97 07/28/23 07:00 102/48 L 07/28/23 06:59 79 16 96 07/28/23 04:40 37.8 C H 92 H 16 92 07/28/23 04:30 37.8 C H 82 16 91 07/28/23 04:20 37.8 C H 78 17 94 07/28/23 04:10 37.7 C H 76 16 95 07/28/23 04:00 07/28/23 04:00 115/69 07/28/23 04:00 37.7 C H 76 16 93 07/28/23 03:50 37.7 C H 80 16 95 07/28/23 03:40 37.7 C H 72 16 97 07/28/23 03:30 37.7 C H 72 16 95 07/28/23 03:30 99/49 L 07/28/23 03:20 37.7 C H 77 16 96 07/28/23 03:10 37.7 C H 78 16 96 07/28/23 03:00 37.6 C H 78 16 94 07/28/23 03:00 117/60 07/28/23 03:00 78 16 95 07/28/23 02:50 37.6 C H 78 17 95 07/28/23 02:40 37.6 C H 77 19 95 07/28/23 02:30 37.6 C H 76 17 94 07/28/23 02:30 112/66 07/28/23 02:20 37.6 C H 75 16 96 07/28/23 02:10 37.6 C H 76 16 96 07/28/23 02:00 37.6 C H 77 16 94 07/28/23 01:50 37.6 C H 78 16 96 07/28/23 01:50 78 07/28/23 01:40 37.7 C H 78 16 97 07/28/23 01:30 106/48 L 07/28/23 01:30 37.6 C H 79 16 95 07/28/23 01:20 37.6 C H 82 17 96 07/28/23 01:10 37.6 C H 80 16 96 07/28/23 01:00 37.7 C H 79 16 94 07/28/23 01:00 103/47 L 07/28/23 00:50 37.7 C H 81 16 97 07/28/23 00:40 37.7 C H 80 16 97 07/28/23 00:30 37.7 C H 80 16 96 07/28/23 00:20 37.7 C H 80 16 98 07/28/23 00:10 37.7 C H 81 16 96 07/28/23 00:10 70 16 96 07/28/23 00:10 70 16 96 07/28/23 00:00 37.6 C H 86 16 93 07/28/23 00:00 07/27/23 23:50 37.6 C H 84 16 90 07/27/23 23:40 37.6 C H 83 16 95 07/27/23 23:30 37.6 C H 70 16 95 07/27/23 23:20 37.7 C H 70 16 96 07/27/23 23:10 37.7 C H 68 16 96 07/27/23 23:00 37.8 C H 70 16 94 07/27/23 23:00 101/47 L 07/27/23 22:50 37.8 C H 75 16 96 07/27/23 22:40 37.9 C H 72 16 96 07/27/23 22:30 37.9 C H 73 16 94 07/27/23 22:30 100/50 L 07/27/23 22:20 37.9 C H 74 16 96 07/27/23 22:10 38.0 C H 75 16 96 07/27/23 22:00 38.0 C H 76 16 96 07/27/23 22:00 105/53 L 07/27/23 21:50 38.1 C H 72 16 96 07/27/23 21:40 38.1 C H 77 16 96 07/27/23 21:30 38.1 C H 78 16 07/27/23 21:20 38.1 C H 79 16 96 07/27/23 21:10 38.1 C H 93 H 17 95 O2 Del Method O2 Del Method FiO2 07/28/23 08:00 07/28/23 08:00 07/28/23 08:00 Mechanical Vent 40 07/28/23 08:00 Mechanical Vent 07/28/23 08:00 40 07/28/23 00:10 Mechanical Vent 40 Laboratory Results Laboratory Results - last 24 hr 07/27/23 07/27/23 07/28/23 17:17 Unknown 03:45 WBC 8.92 RBC 3.09 L Hgb 9.2 L POC Hgb Hct 28.0 L POC Hct MCV 90.6 MCH 29.8 MCHC 32.9 RDW Std Deviation 44.9 RDW Coeff of Arnaud 13.5 Plt Count 188 MPV 12.2 Immature Gran % (Auto) 1.0 Neut % (Auto) 85.5 Lymph % (Auto) 4.5 Shasta % (Auto) 8.9 Eos % (Auto) 0.0 Baso % (Auto) 0.1 Neut # (Auto) 7.63 H Lymph # (Auto) 0.40 L [place]asta # (Auto) 0.79 H Eos # (Auto) 0.00 Baso # (Auto) 0.01 Immature Gran # (Auto) 0.09 Sample Site Sodium 138 POC Potassium Potassium 3.7 Chloride 105 Carbon Dioxide 26 Anion Gap 7 BUN 15 Creatinine 0.41 L Est Cr Clr Drug Dosing 88.9 Est GFR ( Amer) 109.2 Est GFR (Non-Af Amer) 94.2 BUN/Creatinine Ratio 36.6 H Glucose 123 H POC Glucose 136 H Calcium 8.9 Phosphorus 2.9 Magnesium 1.8 Nasal Screen MRSA (PCR) Negative 11/21/23 11/21/23 03:49 04:14 WBC RBC Hgb POC Hgb 8.8 L Hct POC Hct 26 L MCV MCH MCHC RDW Std Deviation Sample Site R Radial POC pH 7.47 H POC pCO2 34 L POC pO2 97 H POC HCO3 24 POC Total CO2 25 POC Base Excess 0.0 ABG pH (Temp Correct) 7.455 H ABG pCO2 (Temp Corrct 35 POC ABG pO2 at Pt Temp 101 POC ABG O2 Sat 98.0 H Crispin Test Pass O2 Delivery Device Ventilator POC O2 Rate 16 POC FiO2 50 Tidal Volume 400 PEEP 5 POC Sodium 137 Sodium POC Potassium 3.7 Potassium POC Glucose 134 H Diagnostic Findings Chest X-Ray 07/27/23 12:51 XR chest 1V portable HISTORY: post intubation COMPARISON: Chest 07/26/2023. FINDINGS: Endotracheal tube is at the level the jaime and coursing towards the right mainstem bronchus. This should be retracted by 2 to 3 cm. There are low lung volumes. The heart remains enlarged. There are old, healed right-sided rib fractures. Advanced degenerative changes within the right shoulder. Verte broplasty within the lumbar spine is partially visualized. Mild interstitial pulmonary edema and patchy left basilar densities persist. IMPRESSION: 1. Endotracheal tube is at the level of jaime and coursing towards the right mainstem bronchus. This should be retracted by 2-3 cm. 2. Pulmonary edema and left basilar densities persist. 3. This was texted to Dr. Aguilar at the time of dictation. ACT 112: Negative or not required by law. Electronically signed by: Eulogio Nguyễn M.D. 07/27/2023 1:32 PM Chest X-Ray 07/27/23 14:29 SINGLE VIEW CHEST CLINICAL HISTORY: Endotracheal tube repositioning FINDINGS: 2 AP, portable, upright chest radiographs are compared to study performed earlier the same day 07/27/2023. Correlation is made with chest CT dated 01/30/2022. The examination is degraded by portable technique and patient rotation. The endotracheal tube has been pulled back. The tip projects approximately 2 cm above the jaime. An enteric tube has been placed. The tip projects just above the diaphragm, likely within a hiatal hernia. The heart is enlarged noting atherosclerotic calcification of the thoracic aorta. There is pulmonary vascular congestion. There is left basilar consolidation. Small pleural effusions are noted. No pneumothorax is seen. The skeletal structures are osteopenic. There are chronic/healed right-sided rib fractures. Advanced arthritic change is seen in the right shoulder. Degenerative change and scoliosis is noted in the spine. IMPRESSION: 1. Endotracheal tube and an enteric tubes are in place as above. 2. The enteric tube it is coiled above the diaphragm, likely within a hiatal hernia. 3. Cardiomegaly with evidence of congestive failure. 4. Left basilar consolidation and small pleural effusions. ACT 112: Negative or not required by law. Electronically signed by: Estuardo Lema M.D. 07/27/2023 3:13 PM Chest X-Ray 07/28/23 07:00 XR chest 1V portable CLINICAL HISTORY: Resp failure TECHNIQUE: Single frontal radiograph of the chest was obtained. Comparison: Comparison is made to chest radiograph 07/27/2023 FINDINGS: Endotracheal tube is unchanged. Enteric tube has been removed in the interval. The cardiomediastinal silhouette is stable. Left basilar consolidation and right sided airspace opacities are noted. No pneumothorax is seen, pleural effusions cannot be excluded. IMPRESSION: Multifocal airspace opacities may represent atelectasis, pneumonia, and/or aspiration. ACT 112: Negative or not required by law. Electronically signed by: Eric Coleman M.D. 07/28/2023 8:05 AM PG Care Time/CCT Total # of Minutes Spent Total Time Spent with Patient: Total time spent is greater than 50% in coordination of care (as documented) at patient's floor/unit and/or counseling patient: Coding Level of Care Code 70396 SUB INP/OBS CARE 2/35MIN Diagnoses Rhinovirus infection B34.8 Angioedema, initial encounter T78.3XXA Encounter type: initial encounter PSP (progressive supranuclear palsy) G23.1 Metabolic encephalopathy G93.41 Hypothyroidism E03.9 Laryngopharyngeal reflux K21.9 Chronic prescription opiate use Z79.891 (2) Angio-edema Encounter type: initial encounter Qualified Code(s): T78.3XXA - Angioneurotic edema, initial encounter
--- NOTE | 2023-07-28 09:27 | Critical Care Progress Note ---
Date of Service July 28, 2023 Assessment & Plan (1) Severe tongue swelling: (2) Weakness: (3) Hypoxia: (4) Rhinovirus infection: Plan Impression: 87-year-old female with progressive supranuclear palsy admitted with rhinovirus infection and developing tongue swelling requiring intubation to secure airway. Recommendations: 1. Neurologic: Will stop sedation and extubate the patient. History of supranuclear palsy. Will need PT OT and speech therapy once extubated. Con tinue Cogentin and carbidopa levodopa as well as Cymbalta. Significant chronic pain issues. Continue Lyrica. On Nucynta as well and uses breakthrough Percocet. 2. Respiratory: Good air leak this AM. Will proceed with extubation. I suspect the patient likely has issues with chronic aspiration which may be fueled by her underlying neurodegenerative disorders. Patient received TXA and FFP was ordered but I did do not believe this was angioedema and at this point time cannot send the labs as they will be adversely affected by the administration of medications. This does not appear to be an allergic reaction so I do not think there is a role for steroids, H2 blockers, or other antihistamines. 3. ID: Rhinovirus infection: Supportive care indicated. No role for antibiotics given normal procalcitonin, lack of fever, and normal white blood cell count. 4. Cardiovascular: Echocardiogram from last year showed an EF of 55-60 with normal wall motion. Right ventricle showed normal size and function. Trace aortic insufficiency was present. Mild pulmonary hypertension with a right ventricular systolic pressure of 40-50. If hemodynamically unstable may consider repeat echocardiogram. 5. Endocrine: Glycemic control per protocol. Continue Synthroid. 6. Heme-onc: No current issues. Continue to follow at this point time. DVT prophylaxis with heparin. 7. GI: Continue PPI. Will need speech therapy evaluation postextubation I have personally spent 35 minutes of critical care time in the direct management of this patient. This is a life/limb threatening event. This includes time spent evaluating patient, direct bedside care, chart review, placing orders, interpretation of diagnostic studies, discussion with consultants, patient, and family members, as well as other required patient management activities. This time is exclusive of all separately billable procedures, and teaching time and separate from and in addition to any other critical care service time. Admission and Anticipated Discharge Date Admission Date: July 26, 2023 Supervising Physician Co-Signing Physician Notes Patient seen and examined. EMR reviewed. Discussed with KAREN and on multidisciplinary rounds and with bedside critical care nurse. The patient had her cuff deflated this morning and had adequate cuff leak. She was extubated without difficulty. Swallow evaluation and PT OT evaluations will be conducted. The patient appears stable to transfer out of the intensive care unit. Will defer additional work-up and evaluation to her primary admitting service. Critical care services will sign off. Feel free to contact us with qu estions or concerns Subjective Patient was seen and evaluated at bedside. She had an uneventful night. She is on minimal vent settings at this time. Swelling has seemed to improve. We will try for extubation this morning. Review of Systems Review of Systems: Please refer to admission H&P. Unable to obtain any history from the patient due to being on the mechanical ventilator Physical Exam Physical Exam: VITAL SIGNS - Vital signs and nursing notes were reviewed. GENERAL - 87-year-old female appearing her stated age who is intubated and sedated. MOUTH/OROPHARYNX - ETT in place. No significant facial or tongue swelling appreciated. LUNGS - Diminished without adventitious breath sounds. CARDIAC - RRR with S1/S2. No murmur, rubs, or gallops appreciated. Results & Data Results & Data Vital Signs (Past 12 Hours) Vital Signs Temp Pulse Pulse Resp BP Pulse Ox Pulse Ox 07/28/23 08:00 37.6 C H 118 H 32 H 94 07/28/23 08:00 136/74 07/28/23 08:00 07/28/23 08:00 95 07/28/23 08:00 07/28/23 07:30 102/44 L 07/28/23 07:30 37.6 C H 83 16 96 07/28/23 07:00 37.8 C H 78 16 97 07/28/23 07:00 102/48 L 07/28/23 06:59 79 16 96 07/28/23 04:40 37.8 C H 92 H 16 92 07/28/23 04:30 37.8 C H 82 16 91 07/28/23 04:20 37.8 C H 78 17 94 07/28/23 04:10 37.7 C H 76 16 95 07/28/23 04:00 07/28/23 04:00 115/69 07/28/23 04:00 37.7 C H 76 16 93 07/28/23 03:50 37.7 C H 80 16 95 07/28/23 03:40 37.7 C H 72 16 97 07/28/23 03:30 37.7 C H 72 16 95 07/28/23 03:30 99/49 L 07/28/23 03:20 37.7 C H 77 16 96 07/28/23 03:10 37.7 C H 78 16 96 07/28/23 03:00 37.6 C H 78 16 94 07/28/23 03:00 117/60 07/28/23 03:00 78 16 95 07/28/23 02:50 37.6 C H 78 17 95 07/28/23 02:40 37.6 C H 77 19 95 07/28/23 02:30 37.6 C H 76 17 94 07/28/23 02:30 112/66 07/28/23 02:20 37.6 C H 75 16 96 07/28/23 02:10 37.6 C H 76 16 96 07/28/23 02:00 37.6 C H 77 16 94 07/28/23 01:50 37.6 C H 78 16 96 07/28/23 01:50 78 07/28/23 01:40 37.7 C H 78 16 97 07/28/23 01:30 106/48 L 07/28/23 01:30 37.6 C H 79 16 95 07/28/23 01:20 37.6 C H 82 17 96 07/28/23 01:10 37.6 C H 80 16 96 07/28/23 01:00 37.7 C H 79 16 94 07/28/23 01:00 103/47 L 07/28/23 00:50 37.7 C H 81 16 97 07/28/23 00:40 37.7 C H 80 16 97 07/28/23 00:30 37.7 C H 80 16 96 07/28/23 00:20 37.7 C H 80 16 98 07/28/23 00:10 37.7 C H 81 16 96 07/28/23 00:10 70 16 96 07/28/23 00:10 70 16 96 07/28/23 00:00 37.6 C H 86 16 93 07/28/23 00:00 07/27/23 23:50 37.6 C H 84 16 90 07/27/23 23:40 37.6 C H 83 16 95 07/27/23 23:30 37.6 C H 70 16 95 07/27/23 23:20 37.7 C H 70 16 96 07/27/23 23:10 37.7 C H 68 16 96 07/27/23 23:00 37.8 C H 70 16 94 07/27/23 23:00 101/47 L 07/27/23 22:50 37.8 C H 75 16 96 07/27/23 22:40 37.9 C H 72 16 96 07/27/23 22:30 37.9 C H 73 16 94 07/27/23 22:30 100/50 L 07/27/23 22:20 37.9 C H 74 16 96 07/27/23 22:10 38.0 C H 75 16 96 07/27/23 22:00 38.0 C H 76 16 96 07/27/23 22:00 105/53 L 07/27/23 21:50 38.1 C H 72 16 96 07/27/23 21:40 38.1 C H 77 16 96 07/27/23 21:30 38.1 C H 78 16 O2 Del Method O2 Del Method FiO2 07/28/23 08:00 07/28/23 08:00 07/28/23 08:00 Mechanical Vent 40 07/28/23 08:00 Mechanical Vent 07/28/23 08:00 40 07/28/23 07:30 07/28/23 07:30 07/28/23 07:00 07/28/23 07:00 07/28/23 06:59 40 07/28/23 04:40 07/28/23 04:30 07/28/23 04:20 07/28/23 04:10 07/28/23 04:00 40 07/28/23 04:00 07/28/23 04:00 07/28/23 03:50 07/28/23 03:40 07/28/23 03:30 07/28/23 03:30 07/28/23 03:20 07/28/23 03:10 07/28/23 03:00 07/28/23 03:00 07/28/23 03:00 40 07/28/23 02:50 07/28/23 02:40 07/28/23 02:30 07/28/23 02:30 07/28/23 02:20 07/28/23 02:10 07/28/23 02:00 07/28/23 01:50 07/28/23 01:50 07/28/23 01:40 07/28/23 01:30 07/28/23 01:30 07/28/23 01:20 07/28/23 01:10 07/28/23 01:00 07/28/23 01:00 07/28/23 00:50 07/28/23 00:40 07/28/23 00:30 07/28/23 00:20 07/28/23 00:10 07/28/23 00:10 40 07/28/23 00:10 Mechanical Vent 40 07/28/23 00:00 07/28/23 00:00 50 07/27/23 23:50 07/27/23 23:40 07/27/23 23:30 07/27/23 23:20 07/27/23 23:10 07/27/23 23:00 07/27/23 23:00 07/27/23 22:50 07/27/23 22:40 07/27/23 22:30 07/27/23 22:30 07/27/23 22:20 07/27/23 22:10 07/27/23 22:00 07/27/23 22:00 07/27/23 21:50 07/27/23 21:40 07/27/23 21:30 Coding Level of Care Code 58229 CRITICAL CARE 1ST 30-74M Diagnoses Severe tongue swelling R22.0 Weakness R53.1 Hypoxia R09.02 Rhinovirus infection B34.8
[2023-07-28] MEDS: TAPENTADOL HCL ER 50 MG TABCR PO SCH (10:04)
[2023-07-28] MEDS: PANTOprazole 40 MG in SYRINGE 0 ML IV SCH ×2 (10:07→20:11)
[2023-07-28] MEDS: ENOXAPARIN INJ 40 MG/0.4 ML SYR SQ SCH (10:07)
[2023-07-28] MEDS: CARBIDOPA/LEVODOPA 25/100MG TAB PO SCH ×2 (11:33→13:41)
[2023-07-28] MEDS: POTASSIUM CHLORIDE CRTAB 20 MEQ TABCR PO SCH (11:34)
[2023-07-28] MEDS: PREGABALIN 100 MG CAP PO SCH (11:34)
[2023-07-28] MEDS: POLYETHYLENE (MIRALAX) 17 GM PACK PO SCH (11:34)
[2023-07-28] MEDS ORDERED: ALBUT/IPRATROP 3MG/0.5MG NEB 3 ML VIAL NEB PRN (11:59)
[2023-07-28] MEDS: DULoxetine HCL 30 MG CAP PO SCH (12:11)
[2023-07-28] MEDS: BENZTROPINE MESYLATE 0.5 MG TAB PO SCH (13:17)
[2023-07-28] MEDS ORDERED: FLUCONAZOLE 400 MG/200 ML BAG IV ONE (14:00)
[2023-07-28] MEDS: PLASMA-LYTE A 1,000 ML IV SCH (14:48)
[2023-07-28] MEDS ORDERED: MoRPHine SULFATE 2 MG/ML CARP IV PRN (17:01)
[2023-07-28] MEDS: dexAMETHasone 6 MG in SYRINGE 0 ML IV SCH (18:30)
[2023-07-28] MEDS: ACETAMINOPHEN 1,000 MG/100 ML VIAL IV PRN (20:11)
[2023-07-29 04:13] LABS: Hematocrit (blood only) 33.7 % (37.0-47.0); Hemoglobin 11.2 g/dl (12.0-16.0); Mean Corpuscular Hemoglobin 29.9 pg (25.0-34.0); Mean Corpuscular Hgb Conc 33.2 g/dL (32.0-36.0); Mean Corpuscular Volume 89.9 fL (80.0-100.0); Mean Platelet Volume 11.7 fL (9.4-12.4); Platelet Count 245 K/uL (130-400); RDW Coefficient of Variation 13.6 % (11.5-14.5); RDW Standard Deviation 44.6 fL (36.4-46.3); Red Blood Count 3.75 M/uL (4.20-5.40)
[2023-07-29 04:35] LABS: Calcium 9.4 mg/dl (8.6-10.3); Creatinine Clr Calc Pharmacy 74.1 ml/min; Est GFR (African American) 102.3 ml/min; Est GFR (Non-African American) 88.3 ml/min; Magnesium 2.1 mg/dl (1.7-2.4); Phosphorus 3.1 mg/dl (2.5-4.9); Potassium 4.3 mmol/L (3.5-5.1)
[2023-07-29 04:40] LABS: Basophils # (auto) 0.01 K/uL (0.00-0.20); Basophils % (auto) 0.1 %; Immature Granulocytes # (auto) 0.13 K/uL (0.01-0.20); Lymphocytes # (auto) 0.53 K/uL (1.20-3.40); Monocytes # (auto) 0.38 K/uL (0.11-0.59); Monocytes % (auto) 2.9 %; Neutrophils # (auto) 12.25 K/uL (1.40-6.50); Polychromasia 1+
--- NOTE | 2023-07-29 06:11 | Electrocardiogram Report ---
Test Reason : Blood Pressure : / mmHG Vent. Rate : 090 BPM Atrial Rate : 090 BPM P-R Int : 144 ms QRS Dur : 080 ms QT Int : 328 ms P-R-T Axes : 046 -17 -11 degrees QTc Int : 401 ms Poor data quality, interpretation may be adversely affected Sinus rhythm with marked sinus arrhythmia Cannot rule out Anterior infarct , age undetermined Nonspecific T wave abnormality Abnormal ECG When compared with ECG of 02-MAY-2023 15:59, No significant change was found Confirmed by Luis A Pierre ([id number]) on 07/29/2023 6:11:19 AM Referred By: [facility] Confirmed By:Luis A Pierre
[2023-07-29] MEDS: PANTOprazole 40 MG in SYRINGE 0 ML IV SCH ×2 (07:58→20:40)
[2023-07-29] MEDS: ENOXAPARIN INJ 40 MG/0.4 ML SYR SQ SCH (07:59)
[2023-07-29] MEDS ORDERED: FLUCONAZOLE 200 MG/100 ML BAG IV SCH (09:00)
[2023-07-29] MEDS: ACETAMINOPHEN 1,000 MG/100 ML VIAL IV PRN (09:56)
--- NOTE | 2023-07-29 10:00 | Hospitalist Progress Note ---
Date of Service July 29, 2023 Assessment & Plan (1) Rhinovirus infection: Plan: -Supportive care - nebs q4. IS, flutter valve - not able to complete as pt can no follow directions well. -Isolation droplet precautions -Atypical pneumonia coverage stopped due to angioedema -Blood cultures: no growth 48 hrs. -Throat culture: Madonna albicans/dubliniensis --> tx with IV fluconazole 400mg today, 200 mg x10 days, last day 08/06. (2) Angio-edema: Plan: -Intubated 07/27 by anesthesia, extubated 07/28 -Unknown cause, azithromycin was stopped incase of allergic reaction. Not on RACHID or ARB. 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 -Will give IV morphine this morning as patient is chronic opioid user and reports pain this morning. Plan VTE Prophylaxis - Lovenox 40mg SQ daily Disposition - continued hospital stay Admission and Anticipated Discharge Date Admission Date: July 26, 2023 Supervising Physician Co-Signing Physician Notes PA Supervision Note: I did not personally see or examine the patient today, but I verified all garcia points of CARLOS Baptiste's assessment and plan with the following exceptions/ additions: None Subjective 0967 - Patient seen sitting in bed. Alert to self. Speaks few words, does respond yes to having pain but unable to point to where. Family not present at bedside. Per RN - Has spoken few words to him, just had large BM. Has not had any neb treatments. 1430 - Call to son Yovani, to discuss goals of care. He was present in room when Kwame aspirated on ice chips and failed her swallow study again. Discussed with Yovani, concerns for not getting oral intake - many of her medications do not have IV alternatives, most notably her Sinemet and risk of withdrawal with NMS with abrupt discontinuation. Explained the alternative to NPO would be placing an NG tube. We discussed what placement would entail and likely pain/discomfort. We discussed that her chronic pain could be controlled with IV medications. Also discussed if NG tube was placed we could provide nutrition that way. Yovani stated that they would not like any additional tubes place and are declining the NG tube at this time. But Yovani states he would like to continue discussion. Monitor - PVCs overnight, 80-90s Review of Systems Review of Systems: Unobtainable due to cognitive status Physical Exam Constitutional: WD/WN, vitals as above ENMT: tongue continues to be normal size. MMM Respiratory: + uses accessory muscles and + tachypnei c Auscultation: + rales and + wheezes Cardiovascular: RRR, no murmur, no edema Gastrointestinal (Abdomen): normal bowel sounds, soft, nontender, no hepatosplenomegaly Psychiatric: Orientation: oriented to person Results & Data Results & Data Vital Signs (Past 12 Hours) Vital Signs Temp Pulse Pulse Resp BP BP Pulse Ox 07/29/23 08:00 07/29/23 08:00 07/29/23 08:00 37 C 94 H 24 139/78 95 07/29/23 04:00 36.9 C 94 H 20 152/89 H 98 07/29/23 00:00 61 07/29/23 00:00 37.4 C 07/28/23 23:57 91 H 24 90 07/28/23 23:57 146/83 H O2 Del Method O2 Del Method O2 Flow Rate 07/29/23 08:00 Nasal Cannula 2 07/29/23 08:00 Nasal Cannula 07/29/23 08:00 Nasal Cannula 2 07/29/23 04:00 Nasal Cannula 2 07/29/23 00:00 07/29/23 00:00 07/28/23 23:57 Nasal Cannula 2 07/28/23 23:57 PG Care Time/CCT Total # of Minutes Spent Total Time Spent with Patient: Total time spent is greater than 50% in coordination of care (as documented) at patient's floor/unit and/or counseling patient: Coding Level of Care Code 25799 SUB INP/OBS CARE 3/50MIN Diagnoses Rhinovirus infection B34.8 Angioedema, initial encounter T78.3XXA Encounter type: initial encounter PSP (progressive supranuclear palsy) G23.1 Metabolic encephalopathy G93.41 Hypothyroidism E03.9 Laryngopharyngeal reflux K21.9 Chronic prescription opiate use Z79.891 (2) Angio-edema Encounter type: initial encounter Qualified Code(s): T78.3XXA - Angioneurotic edema, initial encounter
[2023-07-29] MEDS: PLASMA-LYTE A 1,000 ML IV SCH (10:08)
[2023-07-29] MEDS: ALBUT/IPRATROP 3MG/0.5MG NEB 3 ML VIAL NEB SCH ×3 (10:27→19:54)
[2023-07-29] MEDS: FLUCONAZOLE 200 MG/100 ML BAG IV SCH (15:12)
[2023-07-29] MEDS: dexAMETHasone 6 MG in SYRINGE 0 ML IV SCH (17:11)
[2023-07-29] MEDS ORDERED: MELATONIN 3 MG TAB PO PRN (20:14)
[2023-07-29] MEDS: MoRPHine SULFATE 2 MG/ML CARP IV SCH (20:40)
[2023-07-30] MEDS: PLASMA-LYTE A 1,000 ML IV SCH ×2 (00:34→13:02)
[2023-07-30] MEDS: MoRPHine SULFATE 2 MG/ML CARP IV SCH ×5 (00:34→23:49)
[2023-07-30 04:34] LABS: BUN Creatinine Ratio 47.1 (10-20); Est GFR (African American) 101.6 ml/min; Est GFR (Non-African American) 87.7 ml/min; Potassium 3.9 mmol/L (3.5-5.1)
[2023-07-30 04:48] LABS: Basophils # (auto) 0.03 K/uL (0.00-0.20); Basophils % (auto) 0.3 %; Hematocrit (blood only) 31.6 % (37.0-47.0); Hemoglobin 10.4 g/dl (12.0-16.0); Immature Granulocytes # (auto) 0.56 K/uL (0.01-0.20); Immature Granulocytes % (auto) 4.7 %; Lymphocytes # (auto) 0.72 K/uL (1.20-3.40); Lymphocytes % (auto) 6.1 %; Mean Corpuscular Hemoglobin 29.7 pg (25.0-34.0); Mean Corpuscular Hgb Conc 32.9 g/dL (32.0-36.0); Mean Corpuscular Volume 90.3 fL (80.0-100.0); Mean Platelet Volume 12.6 fL (9.4-12.4); Monocytes % (auto) 4.2 %; Neutrophils # (auto) 10.04 K/uL (1.40-6.50); Neutrophils % (auto) 84.7 %; Platelet Count 264 K/uL (130-400); RDW Coefficient of Variation 13.7 % (11.5-14.5); RDW Standard Deviation 45.1 fL (36.4-46.3); White Blood Count 11.85 K/ul (4.8-10.8)
[2023-07-30] MEDS: ENOXAPARIN INJ 40 MG/0.4 ML SYR SQ SCH (08:02)
[2023-07-30] MEDS: PANTOprazole 40 MG in SYRINGE 0 ML IV SCH ×2 (08:05→21:49)
--- NOTE | 2023-07-30 09:27 | Hospitalist Progress Note ---
Date of Service July 30, 2023 Assessment & Plan (1) Rhinovirus infection: Plan: -Supportive care - nebs q4. Percussion bed setting. IS, flutter valve - not able to complete as pt can no follow directions well. -Isolation droplet precautions -Atypical pneumonia coverage stopped due to angioedema -Blood cultures: no growth 48 hrs. -Throat culture: Madonna albicans/dubliniensis --> tx with IV fluconazole 400mg today, 200 mg x10 days, last day 08/06. (2) Angio-edema: Plan: -Intubated 07/27 by anesthesia, extubated 07/28 -Unknown cause, azithromycin was stopped incase of allergic reaction. Not on RACHID or ARB. 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 NPO except ice chips - Family has agreed to NG tube placement. If successful will restart oral medications that can be crushed. (5) Metabolic encephalopathy: Plan: Metabolic encephalopathy - possibly due to #2 (6) Hypothyroidism: Plan: TSH 4.023 [08/2022] levothyroxine on hold due to failed swallow study (7) Laryngopharyngeal reflux: Plan: Continue pantoprazole - switched to IV (8) Chronic prescription opiate use: Plan: -Spinal stenosis and scoliosis with chronic generalized pain -Hold Nucynta and norco due to failed swallow study - IV morphine q6 Plan VTE Prophylaxis - Lovenox 40mg SQ daily Disposition - continued hospital stay Admission and Anticipated Discharge Date Admission Date: July 26, 2023 Subjective 0915 - Patient resting in bed. Does open eyes to my voices, does not follow commands. Does not speak today. Less grunting with breathing than yesterday. RNNoelle updated. Will discuss next steps with son when he arrives. 1205 - Discussion with Son, Yovani. Updated on how PUPPY TRAINER evaluation today. He reports that she has not spoken at all for him today. He is very happy with the percussion feature of the bed being on. Discussed with him risk of continuing to monitor status without being able to give meds or nutrition. Discussed again using NG tube for meds and nutrition, IV nutrition without getting meds, or comfort measures. He is not at all intersted in comfort measures at this time, and would like to move forward with NG tube placement. RN, Noelle mcclure. Review of Systems Review of Systems: Unobtainable due to cognitive status Physical Exam Physical Exam: General: ill appearing, NAD, VS as above Resp: normal respiratory effort, no longer using accessory muscles, grunting had decreased, but still wheezes CV: RRR, no murmur, no edema Abd: normal bowel sounds, non tender, Extremities: no edema Neuro: not oriented to person, place or time. Does not respond to commands Skin: intact, no lesions noted Results & Data Results & Data Vital Signs (Past 12 Hours) Vital Signs Temp Pulse Pulse Resp BP Pulse Ox O2 Del Method 07/30/23 08:00 Nasal Cannula 07/30/23 08:00 36.8 C 94 H 26 H 146/75 H 93 Nasal Cannula 07/30/23 08:00 07/30/23 04:00 36.8 C 94 H 30 H 127/81 96 Nasal Cannula 07/30/23 00:00 101 H 07/30/23 00:00 37 C 93 H 26 H 116/64 92 Nasal Cannula O2 Del Method O2 Flow Rate O2 Flow Rate 07/30/23 08:00 2 07/30/23 08:00 2 07/30/23 08:00 Nasal Cannula 2 07/30/23 04:00 2 07/30/23 00:00 07/30/23 00:00 2 Laboratory Results reviewed CBC, BMP Blood cultures negative Diagnostic Findings none in last 24 hours PG Care Time/CCT Total # of Minutes Spent Total Time Spent with Patient: Total time spent is greater than 50% in coordination of care (as documented) at patient's floor/unit and/or counseling patient: Coding Level of Care Code 01923 SUB INP/OBS CARE 3/50MIN Diagnoses Rhinovirus infection B34.8 Angioedema, initial encounter T78.3XXA Encounter type: initial encounter PSP (progressive supranuclear palsy) G23.1 Swallowing dysfunction R13.10 Metabolic encephalopathy G93.41 Hypothyroidism E03.9 Laryngopharyngeal reflux K21.9 Chronic prescription opiate use Z79.891 (2) Angio-edema Encounter type: initial encounter Qualified Code(s): T78.3XXA - Angioneurotic edema, initial encounter
--- NOTE | 2023-07-30 13:55 | XRay Report ---
XR KUB/Abdomen 1 view CLINICAL HISTORY: coresafe placement TECHNIQUE: 1 view of the abdomen was obtained. Comparison: None available at the time of this dictation. FINDINGS: Enteric tube appears to terminate below the diaphragm. Prominent scoliosis is seen. Cement arthroplas ty and posterior fixation hardware is noted. The bowel gas pattern is nonobstructive. A moderate amou nt of stool is noted within the large bowel. IMPRESSION: Satisfactory position of enteric tube. ACT 112: Negative or not required by law. Electronically signed by: Eric Coleman M.D. 07/30/2023 1:53 PM
--- NOTE | 2023-07-30 14:50 | XRay Report ---
XR KUB/Abdomen 1 view CLINICAL HISTORY: NG replacement TECHNIQUE: 1 view of the abdomen was obtained. Comparison: Comparison is made to abdomen radiographs 07/30/2023 FINDINGS: After repositioning, the enteric tube tip is similar in position to prior exam. This is favored to li e within the lumen of the stomach within a hiatal hernia. Severe scoliosis and postsurgical changes a re again seen. The bowel gas pattern is nonobstructive. A moderate amount of stool is noted within th e large bowel. IMPRESSION: Essentially unchanged appearance of the enteric tube tip status post replacement. This is again favor ed to lie within the stomach within a hiatal hernia. ACT 112: Negative or not required by law. Electronically signed by: Eric Coleman M.D. 07/30/2023 2:49 PM
[2023-07-30] MEDS: FLUCONAZOLE 200 MG/100 ML BAG IV SCH (14:56)
--- NOTE | 2023-07-30 16:18 | XRay Report ---
XR KUB/Abdomen 1 view CLINICAL HISTORY: ngt placement TECHNIQUE: 1 view of the abdomen was obtained. Comparison: Comparison is made to abdomen radiograph 07/30/2023 FINDINGS: Enteric tube is again noted to terminate above the diaphragm, likely within a hiatal hernia. Scoliosi s and postsurgical changes are again seen. The bowel gas pattern is nonobstructive. Small stool burde n is seen. IMPRESSION: Unchanged appearance of enteric tube. ACT 112: Negative or not required by law. Electronically signed by: Eric Coleman M.D. 07/30/2023 4:16 PM
[2023-07-30] MEDS: dexAMETHasone 6 MG in SYRINGE 0 ML IV SCH (17:45)
[2023-07-30] MEDS: CARBIDOPA/LEVODOPA 25/100MG TAB PO SCH (21:49)
[2023-07-30] MEDS: BENZTROPINE MESYLATE 0.5 MG TAB PO SCH (21:49)
[2023-07-31] MEDS: PLASMA-LYTE A 1,000 ML IV SCH ×2 (01:08→13:53)
[2023-07-31] MEDS: CARBIDOPA/LEVODOPA 25/100MG TAB PO SCH ×4 (02:13→19:56)
[2023-07-31 04:46] LABS: Hematocrit (blood only) 32.4 % (37.0-47.0); Hemoglobin 10.6 g/dl (12.0-16.0); Mean Corpuscular Hemoglobin 29.7 pg (25.0-34.0); Mean Corpuscular Hgb Conc 32.7 g/dL (32.0-36.0); Mean Corpuscular Volume 90.8 fL (80.0-100.0); Mean Platelet Volume 11.8 fL (9.4-12.4); Platelet Count 260 K/uL (130-400); RDW Coefficient of Variation 13.7 % (11.5-14.5); RDW Standard Deviation 46.3 fL (36.4-46.3); Red Blood Count 3.57 M/uL (4.20-5.40); White Blood Count 13.33 K/ul (4.8-10.8)
[2023-07-31 05:00] LABS: BUN Creatinine Ratio 64.1 (10-20); Calcium 8.9 mg/dl (8.6-10.3); Creatinine Clr Calc Pharmacy 94.8 ml/min; Est GFR (Non-African American) 95.8 ml/min
[2023-07-31 05:08] LABS: Basophils # (auto) 0.07 K/uL (0.00-0.20); Basophils % (auto) 0.5 %; Immature Granulocytes # (auto) 1.26 K/uL (0.01-0.20); Immature Granulocytes % (auto) 9.5 %; Lymphocytes # (auto) 0.77 K/uL (1.20-3.40); Lymphocytes % (auto) 5.8 %; Monocytes # (auto) 0.58 K/uL (0.11-0.59); Monocytes % (auto) 4.4 %; Neutrophils # (auto) 10.65 K/uL (1.40-6.50); Neutrophils % (auto) 79.8 %; RBC Morphology Unremarkable
[2023-07-31] MEDS: MoRPHine SULFATE 2 MG/ML CARP IV SCH ×4 (05:46→22:41)
[2023-07-31] MEDS: LEVOTHYROXINE SODIUM 75 MCG TABLET PO SCH (05:48)
--- NOTE | 2023-07-31 06:58 | XRay Report ---
KUB CLINICAL HISTORY: Enteric tube placement. FINDINGS: AP, portable, supine abdominal radiograph is compared to study dated 07/30/2023 and correla prachi with abdominal CT dated 01/30/2022. An enteric tube is in place. This is coiled above the diaphrag m within a hiatal hernia. There is no bowel obstruction. No evidence of intraperitoneal free air is s een on this supine image. There are no abnormal abdominal calcifications. The skeletal structures are osteopenic. There is a lumbar compression deformity with evidence of previous vertebroplasty. There is lumbosacral spondylosis and scoliosis with previous spinal fusion. A left hip arthroplasty is in p lace. IMPRESSION: 1. The enteric tube is coiled above the diaphragm within a hiatal hernia. 2. No bowel obstruction. Electronically signed by: Estuardo Lema M.D. 07/31/2023 6:56 AM
[2023-07-31] MEDS: DULoxetine HCL 30 MG CAP PO SCH (07:19)
[2023-07-31] MEDS: ENOXAPARIN INJ 40 MG/0.4 ML SYR SQ SCH (07:29)
[2023-07-31] MEDS: BENZTROPINE MESYLATE 0.5 MG TAB PO SCH ×2 (07:29→19:58)
[2023-07-31] MEDS: ACETAMINOPHEN 1,000 MG/100 ML VIAL IV PRN (07:30)
[2023-07-31] MEDS: PANTOprazole 40 MG in SYRINGE 0 ML IV SCH ×2 (07:30→19:49)
--- NOTE | 2023-07-31 09:36 | XRay Report ---
XR chest 1V portable CLINICAL HISTORY: increase WBC and O2 demands, fever TECHNIQUE: Single frontal radiograph of the chest was obtained. Comparison: Comparison is made to chest radiograph 07/28/2023 FINDINGS: Enteric tube again appears to terminate within a hiatal hernia. Incidental note is made of a looped c atheter projecting over the neck, possibly outside the patient however correlation with physical exam is recommended. The cardiomediastinal silhouette is stable. Multifocal airspace opacities are seen. Pleural effusions cannot be excluded. IMPRESSION: Stable multifocal airspace opacities. ACT 112: Negative or not required by law. Electronically signed by: Eric Coleman M.D. 07/31/2023 9:34 AM
[2023-07-31] MEDS ORDERED: TPN/PPN CONSULT PHARMACY STA (11:56)
[2023-07-31] MEDS ORDERED: TPN/PPN CONSULT PHARMACY PRN (11:57)
[2023-07-31 12:54] LABS: Magnesium 2.2 mg/dl (1.7-2.4); Phosphorus 2.8 mg/dl (2.5-4.9)
--- NOTE | 2023-07-31 13:08 | Hospitalist Progress Note ---
Date of Service July 31, 2023 Assessment & Plan (1) Rhinovirus infection: Plan: -Supportive care - nebs q4. Percussion bed setting. IS, flutter valve - not able to complete as pt can no follow directions well. -Isolation droplet precautions -Atypical pneumonia coverage stopped due to angioedema -07/08 9Blood cultures: no growth 48 hrs. -Throat culture: Madonna albicans/dubliniensis --> tx with IV fluconazole 400mg today, 200 mg x10 days, last day 08/06. - 07/31 Blood cultures - for fever and increased WBC pending - Will treat with Ceftriaxone 1g QD (has had on 2 previous admissions) and Flagyl 500mg Q8 (2) Angio-edema: Plan: -Intubated 07/27 by anesthesia, extubated 07/28 -Unknown cause, azithromycin was stopped incase of allergic reaction. Not on RACHID or ARB. -Given Decadron x1 and epinephrine prior to ICU transfer/intubation -Tongue swelling has resolved -will continue Decadron 6mg IV q24 hrs for 10 days, last day 08/06 (3) Swallowing dysfunction: Plan: -worse after extubation, exacerbated by PSP and not receiving medications - HVAC CONTROLS TECHNICIAN consulted --> has failed swallow trial x3 days. NPO except ice chips - 07/30 NG tube placement --> within the hiatal hernia after multiple attempts. 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 Sinemet and benztropine restarted 07/31 via NG tube (5) Metabolic encephalopathy: Plan: Metabolic encephalopathy - possibly due to #2 (6) Hypothyroidism: Plan: TSH 4.023 [08/2022] levothyroxine restarted 07/30 with NG tube (7) Laryngopharyngeal reflux: Plan: Continue pantoprazole - switched to IV (8) Chronic prescription opiate use: Plan: -Spinal stenosis and scoliosis with chronic generalized pain -Hold Nucynta and norco due to failed swallow study - IV morphine q6 Plan VTE Prophylaxis - Lovenox 40mg SQ daily Disposition - continued hospital stay, would likely benefit from palliative consult, but not here today Admission and Anticipated Discharge Date Admission Date: July 26, 2023 Supervising Physician Co-Signing Physician Notes Attending Attestation - Chart reviewed, care plan d/w CARLOS Baptiste. I agree with the garcia components of her documentation. Patient continues to worsen despite supportive care measures for her suspected aspiration pneumonia. Remains severely altered. Not safe to take anything by mouth. Cont strict NPO status. Prognosis is guarded. Osmani Trujillo MD Subjective 1145 - Patient evaluated in bed. Not following commands. Not speaking. Does track me around the room with her eyes. Discussion with son Yovani, about mother's current status. Discussed still not able to safely swallow and NG tube is not in a position where it is safe to administer TPN. He would like to proceed with PPN. He is happy to see that she is closing her eyes and resting and appears more comfortable. Made him aware of CXR and blood cultures given increase in WBC and fever overnight Disucssion about further code status, now that we are past the tongue swelling event. He wishes for Kwame to return to DNR/DNI as she was on arrival. Review of Systems Review of Systems: Unobtainable due to cognitive status Physical Exam Physical Exam: General: ill appearing, NAD, VS as above Resp: normal respiratory effort, no longer using accessory muscles, no grunting. Tachypnea. Decreased breath sounds with crackles. CV: RRR, no murmur, no edema Abd: normal bowel sounds, non tender, Extremities: no edema Neuro: not oriented to person, place or time. Does not respond to commands Skin: intact, no lesions noted Results & Data Results & Data Vital Signs (Past 12 Hours) Vital Signs Temp Pulse Pulse Resp BP Pulse Ox Pulse Ox 07/31/23 12:49 80 07/31/23 12:31 37.0 C 84 133/76 95 07/31/23 11:54 36.8 C 64 20 159/91 H 98 07/31/23 08:00 07/31/23 08:00 36.8 C 80 24 155/76 H 96 07/31/23 08:00 94 07/31/23 04:00 37.5 C O2 Del Method O2 Del Method O2 Flow Rate O2 Flow Rate 07/31/23 12:49 07/31/23 12:31 Nasal Cannula 2 07/31/23 11:54 Nasal Cannula 2 07/31/23 08:00 Nasal Cannula 2 07/31/23 08:00 Nasal Cannula 2 07/31/23 08:00 Nasal Cannula 2 07/31/23 04:00 Laboratory Results Reviewed CBC and chemistry Diagnostic Findings reviewed KUB - NG tube remains in hiatal hernia reviewed CXR - stable, no signs of pneumonia PG Care Time/CCT Total # of Minutes Spent Total Time Spent with Patient: Total time spent is greater than 50% in coordination of care (as documented) at patient's floor/unit and/or counseling patient: Coding Level of Care Code 32449 SUB INP/OBS CARE 3/50MIN Diagnoses Rhinovirus infection B34.8 Angioedema, initial encounter T78.3XXA Encounter type: initial encounter Swallowing dysfunction R13.10 PSP (progressive supranuclear palsy) G23.1 Metabolic encephalopathy G93.41 Hypothyroidism E03.9 Laryngopharyngeal reflux K21.9 Chronic prescription opiate use Z79.891 (2) Angio-edema Encounter type: initial encounter Qualified Code(s): T78.3XXA - Angioneurotic edema, initial encounter
[2023-07-31] MEDS ORDERED: PHARMACY GLYCEMIC MGMT CONSULT PRN (13:17)
[2023-07-31] MEDS ORDERED: DEXTROSE 10% 1,000 ML IV PRN (13:21)
[2023-07-31] MEDS: FLUCONAZOLE 200 MG/100 ML BAG IV SCH (13:54)
[2023-07-31] MEDS ORDERED: [UNRECOGNIZED DRUG - OTHER] IV SCH (16:00)
[2023-07-31] MEDS ORDERED: PERIPHERAL TPN IV SCH (16:00)
[2023-07-31] MEDS ORDERED: INSULIN ASPART PER UNIT CHARGE SC SCH (16:00)
[2023-07-31] MEDS ORDERED: cefTRIAXone SODIUM 1,000 MG in DEXTROSE 5 % MINI-B 50 ML IV SCH (16:30)
[2023-07-31] MEDS: metroNIDAZOLE 500 MG/100 ML BAG IV SCH ×2 (16:40→22:37)
[2023-07-31] MEDS ORDERED: Nursing to Pharmacy Communication SCH (17:45)
[2023-07-31] MEDS: dexAMETHasone 6 MG in SYRINGE 0 ML IV SCH (17:52)
[2023-07-31] MEDS: INSULIN ASPART PER UNIT CHARGE SC SCH ×2 (17:53→23:51)
[2023-07-31] MEDS ORDERED: ACETAMINOPHEN 325 MG TAB PEG PRN (18:27)
[2023-07-31] MEDS: LANTUS PER UNIT CHARGE SC SCH (19:58)
[2023-08-01] MEDS: CARBIDOPA/LEVODOPA 25/100MG TAB PO SCH ×3 (01:24→14:32)
[2023-08-01] MEDS: LEVOTHYROXINE SODIUM 75 MCG TABLET PO SCH (01:25)
[2023-08-01] MEDS: MoRPHine SULFATE 2 MG/ML CARP IV SCH ×4 (04:31→20:51)
[2023-08-01] MEDS: INSULIN ASPART PER UNIT CHARGE SC SCH ×3 (05:27→18:25)
[2023-08-01 06:04] LABS: Hematocrit (blood only) 34.9 % (37.0-47.0); Hemoglobin 11.4 g/dl (12.0-16.0); Mean Corpuscular Hemoglobin 29.6 pg (25.0-34.0); Mean Corpuscular Hgb Conc 32.7 g/dL (32.0-36.0); Mean Corpuscular Volume 90.6 fL (80.0-100.0); Mean Platelet Volume 11.7 fL (9.4-12.4); Platelet Count 289 K/uL (130-400); RDW Coefficient of Variation 13.8 % (11.5-14.5); RDW Standard Deviation 45.2 fL (36.4-46.3); Red Blood Count 3.85 M/uL (4.20-5.40); White Blood Count 20.29 K/ul (4.8-10.8)
[2023-08-01 06:22] LABS: BUN Creatinine Ratio 55.3 (10-20); Est GFR (African American) 103.7 ml/min; Est GFR (Non-African American) 89.4 ml/min; Phosphorus 2.5 mg/dl (2.5-4.9); Potassium 3.8 mmol/L (3.5-5.1)
[2023-08-01 07:36] LABS: ALC (manual) 0.61 K/uL (1.2-3.4); ANC (manual) 16.84 K/uL (1.4-6.5); Lymphocytes # (manual) 0.61 K/uL (1.2-3.4); Lymphocytes % (manual) 3 %; Metamyelocytes # (manual) 0.61 K/uL (0-0); Metamyelocytes % (manual) 3 %; Monocytes # (manual) 1.83 K/uL (0.11-0.59); Monocytes % (manual) 9 %; Myelocytes % (manual) 1 %; Neutrophils # (manual) 16.84 K/uL (1.40-6.50); Neutrophils % (manual) 83 %; Promyelocytes % (manual) 1 %
[2023-08-01] MEDS: metroNIDAZOLE 500 MG/100 ML BAG IV SCH ×2 (07:55→15:33)
[2023-08-01] MEDS: DULoxetine HCL 30 MG CAP PO SCH (08:07)
[2023-08-01] MEDS: BENZTROPINE MESYLATE 0.5 MG TAB PO SCH (08:07)
[2023-08-01] MEDS: LANTUS PER UNIT CHARGE SC SCH ×2 (09:03→20:51)
[2023-08-01] MEDS: ENOXAPARIN INJ 40 MG/0.4 ML SYR SQ SCH (09:07)
[2023-08-01] MEDS: PANTOprazole 40 MG in SYRINGE 0 ML IV SCH ×2 (09:10→20:52)
--- NOTE | 2023-08-01 10:04 | XRay Report ---
XR chest 1V portable HISTORY: increased cough COMPARISON: Chest 07/31/2023. FINDINGS: Nasogastric tube is curled within the patient's large hiatus hernia. The proximal portion o f the nasogastric tube may be looped within the hypopharynx or external to the patient. Clinical sol elation recommended. This remains unchanged. There are low lung volumes. Old, healed right-sided rib fractures. No pneumothorax. Small left pleural effusion and left basilar densities persist. There is diffuse interstitial/vascular thickening suggestive of congestive change. The heart remains mildly en larged. IMPRESSION: 1. Cardiomegaly and mild congestive change. This has slightly progressed. 2. Small left pleural effusion and left basilar densities, unchanged. 3. Nasogastric tube terminates within the large hiatus hernia. The proximal portion of the nasogastri c tube may be looped within the hypopharynx or external to the patient. Clinical correlation recommen ded. ACT 112: Negative or not required by law. Electronically signed by: Eulogio Nguyễn M.D. 08/01/2023 10:02 AM
[2023-08-01] MEDS: ALBUT/IPRATROP 3MG/0.5MG NEB 3 ML VIAL NEB PRN (12:11)
--- NOTE | 2023-08-01 13:05 | Hospitalist Progress Note ---
Date of Service August 01, 2023 Assessment & Plan (1) Rhinovirus infection: Plan: -Supportive care - nebs q4. Percussion bed setting. IS, flutter valve - not able to complete as pt can no follow directions well. -Isolation droplet precautions -Atypical pneumonia coverage stopped due to angioedema -07/26 Blood cultures: no growth 48 hrs. -Throat culture: Madonna albicans/dubliniensis --> tx with IV fluconazole 400mg today, 200 mg x10 days, last day 08/06. - 07/31 Blood cultures - no growth 24 hours - Started Ceftriaxone 1g QD (has had on 2 previous admissions) and Flagyl 500mg Q8 - 08/01 Switched to Cefepime and Flagyl for broader coverage -08/01 CXR - slight progression congestive change, small left pleural effusion (2) Counseling regarding goals of care: Plan: 08/01 - Discussion with Dr. Trujillo, myself (Brittaney ILRA), son Yovani and Daughter (Lucille). Yovani has been the primary caregiver while she is has been living at the [facility], as Lucille lives about two hours away. Want to continue measures that we have in place to treat infection but are not wanting any other measures that will inflict anymore pain. Are not ready for full comfort care, but agreeable to discussion with palliative medicine. -NG tube to remain out -Continue PPN -Continue abx and antifungal treatment and Decadron -Neb treatments BLOW BY ONLY -Oral Care -Increase morphine to q4 -Palliative medicine consult Thursday -Ammonia, VBG and TSH added to AM labs for AMS workup - family declines CT head and UE doppler at this time (3) Angio-edema: Plan: -Intubated 07/27 by anesthesia, extubated 07/28 -Unknown cause, azithromycin was stopped incase of allergic reaction. Not on RACHID or ARB. -Given Decadron x1 and epinephrine prior to ICU transfer/intubation -Tongue swelling has resolved -will continue Decadron 6mg IV q24 hrs for 10 days, last day 08/06 (4) Swallowing dysfunction: Plan: -worse after extubation, exacerbated by PSP and not receiving medications - FOLDER STITCHER OPERATOR consulted --> has failed swallow trial x3 days. NPO except ice chips - 07/30 NG tube placement --> within the hiatal hernia after multiple attempts. Safe for meds, not safe for feeds - 07/31 continues to be less alert, unable to follow commands --> Will start PPN - Spoke with pharmacist, given her soy allergy unable to give patient lipids and will only be getting about 680 calories per day - Pharmacy consult for glycemic management 08/01 - NG tube coiled in oropharynx, will be removed today. Will not replace at this time. 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 Sinemet and benztropine restarted 07/31 via NG tube - ON HOLD 08/01 (6) Metabolic encephalopathy: Plan: Metabolic encephalopathy - possibly due to #2 (7) Hypothyroidism: Plan: TSH 4.023 [08/2022] levothyroxine restarted 07/30 with NG tube - on HOLD 08/01 (8) Laryngopharyngeal reflux: Plan: Continue pantoprazole - switched to IV (9) Chronic prescription opiate use: Plan: -Spinal stenosis and scoliosis with chronic generalized pain -Hold Nucynta and norco due to failed swallow study - IV morphine q4 Plan VTE Prophylaxis - Lovenox 40mg SQ daily Disposition - continued hospital stay Admission and Anticipated Discharge Date Admission Date: July 26, 2023 Supervising Physician Co-Signing Physician Notes Attending Attestation and Progress Note: Pt seen/examined, chart reviewed, care plan d/w CARLOS Baptiste. I agree with the garcia components of her documentation. During my visit Mrs Vigil eyes were open but was not following commands or responding verbally. She was moaning the entire time we were in the room. Daughter, son at bedside. Exam - gen - uncomfortable, altered, looks unwell/toxic mouth - severely dry MM skin - white beck on face - scarring ? neck - no JVD heart - RRR, s1 s2 lungs - course BS b/l, mild tachypnea, upper airway noise transmitted to lungs, scattered crackles abd - mildly distended, BS+ ext - right arm markedly bigger than left arm; 3+ edema of entire right arm; mild edema of other limbs neuro - increased tone x 4 extremities, worse right side vs left side psych - lethargic, altered, moaning labs reviewed imaging reviewed Myself, Brittaney Baptiste, and Mrs Falcon's 2 children - Yovani & Lucille - sat down and discussed her current status. We reviewed the events of this admission. We all acknowledged that she has done poorly despite supportive care. Yovani lives locally and commented that his mother had had a cough for 4-6 weeks prior to this admission. He also mentioned that the moaning we are hearing was also present before this hospitalization but to a lesser degree. He recounts how she had attended a [employer] match with him about 10 days ago. Discussed that she is aspirating her own secretions. Discussed that despite getting her sinemet via the NG tube over the last couple of days there was no overall improvement in her well-being with such. I told Yovani & Lucille that I suspect that Mrs Falcon was aspirating in the weeks leading up to this admission. Dysphagia is likely from her PSP condition. Discussed that NG tube would be removed due to malpositioning and attempts at replacing it will not be done (due to the difficulties prior nurses had had in placing the NG). Discussed limited PPN trial but that it is temporary and unlikely to provide significant benefit. Discussed that we would likely know by the end of the weekend if she would respond to the Rx we were giving her. We all agreed she seemed uncomfortable and that the IV morphine frequency would be increased to q4h (from q6h). Yovani confirmed she had been on nucynta ER for some time for chronic back pain, etc. We all agreed that we would NOT escalate her care in the event she declined overnight. She remains DNR/DNI. Total time of this family meeting - about 50 minutes Total care time activities between myself & Ms Baptiste today - likely about 90 minutes which includes the family meeting Osmani Trujillo MD Subjective 1140patient patient resting in bed. Does not respond to me walking in the room, nonverbal. Eyes are open today. Son, Yovani, at bedside. States that his sister is coming in today and when she is here will be able to continue more of the goals of care discussion. Discussed with son that Kwame is not progressing like we were hoping given that we have restarted Sinemet. Discussed the improper placement of NG tube, and needs for being removed today. Discussed decreased caloric value of PPN given her soy allergy, he states that he had no idea that she had this. Does report that she has a milk allergy but sometimes also eats ice cream. however there is no milk allergy on her allergy list. States that he does not trust the doctor from the [facility], But would trust [facility] records from her prior PCP. reviewed primary care notes with Dr. Bowman, prior PCP, from November and February 2023 both documented soy allergy We did discuss that if NG tube is removed and want further access for giving hervp.o. meds would need some sort of peg/G-tube That would likely have to be placed at a tertiary center given her anatomy and underlying conditions. 1600 - 60 minute conversation with Daughter Son, Dr. Jaramillo and myself regarding goals of care for Kwame. Lengthy discussion regarding what the next few days looks like in the setting of infection and underlying progressing PSP. Overall daughter is very on board with comfort care, but son tends to want more aggressive measures. The four of us agreed that comfort is the most important and they are willing to do intervention and workups that are unlikely to invoke more pain. telemetryNSR 80-90s Review of Systems Review of Systems: Unobtainable due to cognitive status Physical Exam Physical Exam: General: ill appearing, NAD, VS as above HEENT: increased oral secretions, NG tube coiled visualized in oropharynx Resp: wet cough, decreased breath sounds in based. increased wheezing CV: RRR, no murmur, no edema Abd: normal bowel sounds, non tender, Extremities: no edema Neuro: alert, not oriented. Does not respond to commands Skin: intact, no lesions noted Results & Data Results & Data Vital Signs (Past 12 Hours) Vital Signs Temp Pulse Pulse Resp BP Pulse Ox O2 Del Method 08/01/23 12:11 91 H 20 100 Nasal Cannula 08/01/23 11:26 37.1 C 91 H 18 162/91 H 97 Nasal Cannula 08/01/23 08:01 36.7 C 82 18 151/87 H 94 Room Air 08/01/23 08:00 79 08/01/23 03:38 37.4 C 90 20 163/89 H 94 Nasal Cannula O2 Flow Rate 08/01/23 12:11 2 08/01/23 11:26 2 08/01/23 08:01 08/01/23 08:00 08/01/23 03:38 2 Laboratory Results reviewed cbc, chemistry, blood cultures and urine. Diagnostic Findings CXR reviewed PG Care Time/CCT Total # of Minutes Spent Total Time Spent with Patient: Total time spent is greater than 50% in coordination of care (as documented) at patient's floor/unit and/or counseling patient: Prolonged Care Time Prolonged Care Time: Yes Total Prolonged Care Time: 90 Coding Level of Care Code 00702 SUB INP/OBS CARE 3/50MIN (25 - SIGNIFICANT, SEPARATELY IDENTIFIABLE ) Diagnoses Rhinovirus infection B34.8 Counseling regarding goals of care Z71.89 Angioedema, initial encounter T78.3XXA Encounter type: initial encounter Swallowing dysfunction R13.10 PSP (progressive supranuclear palsy) G23.1 Metabolic encephalopathy G93.41 Hypothyroidism E03.9 Laryngopharyngeal reflux K21.9 Chronic prescription opiate use Z79.891 Additional Codes Prolonged Care Time - Prolonged Care Time: Yes ([id number]) (3) Angio-edema Encounter type: initial encounter Qualified Code(s): T78.3XXA - Angioneurotic edema, initial encounter
[2023-08-01 13:35] LABS: Appearance Urine Clear (Clear); Bacteria Urine Automated 1+ (Negative); Bilirubin Urine Negative (Negative); Blood Urine 1+ (Negative); Color Urine Dark Yellow; Glucose Urine UA Trace (Negative); Ketones Urine 3+ (Negative); Leukocyte Esterase Urine Trace (Negative); Nitrite Urine Positive (Negative); Protein Urine 2+ (Negative); Specific Gravity Urine 1.033 (1.000-1.030); Urobilinogen Urine Negative (Negative); WBC Urine Automated >30 /hpf (0-5); pH Urine 6.5 (4.5-7.5)
[2023-08-01 13:57] LABS: Mucus Urine Present (None Prsent)
[2023-08-01 13:58] LABS: RBC Urine Automated 0-4 /hpf (0-4)
--- NOTE | 2023-08-01 14:32 | Pharmacy Report ---
Pharmacy Glycemic Short Note 2 - Date of Service August 01, 2023 - Glycemic Short BSG Results (Last 24 hours): 07/31/23 07/31/23 08/01/23 16:29 23:45 05:27 Glucose POC Glucose 109 H 168 H 152 H 08/01/23 08/01/23 08/01/23 05:42 08:59 12:08 Glucose 177 H POC Glucose 167 H 160 H OUTPATIENT ANTIDIABETIC REGIMEN: * None - Patient not diabetic so no recent A1c ASSESSMENT: * 88 yo F admitted on 07/26/23 secondary to respiratory failure. Pharmacy has been consulted to assist with inpatient glycemic management. Patient is not a diabetic but BSGs have been elevated during this admission. * Pharmacy was consulted yesterday when BSGs were slightly elevated and patient was started on PPN. Patient also on Dexamethasone 6 mg IV once daily. Received 1 unit of correctional insulin yesterday. Patient is on Ceftriaxone, Metronidazole, and Fluconazole. * Fasting BSG was 167 mg/dL this AM. Patient received 5 units of basal. Will continue with current basal scale BID while patient is receiving PPN. Of note, dextrose was advanced to 3/4 of goal today. Will not add insulin to PPN bag until basal needs are known. * Continue with Novolog correct only since patient is NPO (no need to cover car bs). Continue q4 checks for now. PLAN FOR INPATIENT GLYCEMIC CONTROL: * Basal insulin * Lantus 0-10 units SC BID per scale (see eMAR for more details) * Bolus insulin * NovoLog per scale ACHS or Q6hrs while NPO * Goal Range: Low 120 mg/dL - High 160 mg/dL * Correction Factor: 30 mg/dL/unit * No carb ratio
[2023-08-01] MEDS: CEFEPIME 2,000 MG in SYRINGE 0 ML IV SCH ×2 (14:38→20:51)
[2023-08-01] MEDS: FLUCONAZOLE 200 MG/100 ML BAG IV SCH (14:41)
[2023-08-01] MEDS ORDERED: [UNRECOGNIZED DRUG - OTHER] IV SCH (16:00)
[2023-08-01] MEDS ORDERED: [UNRECOGNIZED DRUG - OTHER] IV SCH (16:00)
[2023-08-01] MEDS ORDERED: PERIPHERAL TPN IV SCH ×2 (16:00)
[2023-08-01] MEDS: dexAMETHasone 6 MG in SYRINGE 0 ML IV SCH (17:53)
[2023-08-02] MEDS: metroNIDAZOLE 500 MG/100 ML BAG IV SCH ×4 (00:31→23:12)
[2023-08-02] MEDS: MoRPHine SULFATE 2 MG/ML CARP IV SCH ×4 (00:31→11:46)
[2023-08-02] MEDS: INSULIN ASPART PER UNIT CHARGE SC SCH ×5 (00:31→23:31)
[2023-08-02] MEDS: CEFEPIME 2,000 MG in SYRINGE 0 ML IV SCH ×3 (04:02→21:17)
[2023-08-02 05:40] LABS: Base Excess VBG 7.1 mEq/L; HCO3 VBG 32 mmol/L; Oxygen Saturation VBG 99.2 %; PCO2 VBG 45 mmHg (38-50); PO2 VBG 114 mmHg; pH VBG 7.46 (7.36-7.41)
[2023-08-02 05:51] LABS: Hematocrit (blood only) 32.6 % (37.0-47.0); Hemoglobin 10.6 g/dl (12.0-16.0); Mean Corpuscular Hemoglobin 29.5 pg (25.0-34.0); Mean Corpuscular Hgb Conc 32.5 g/dL (32.0-36.0); Mean Corpuscular Volume 90.8 fL (80.0-100.0); Mean Platelet Volume 11.8 fL (9.4-12.4); Nucleated RBC # (auto) 0.02 K/uL (0.00-0.12); Nucleated RBC % (auto) 0.1 %; Platelet Count 251 K/uL (130-400); RDW Coefficient of Variation 13.6 % (11.5-14.5); RDW Standard Deviation 45.2 fL (36.4-46.3); Red Blood Count 3.59 M/uL (4.20-5.40); White Blood Count 19.17 K/ul (4.8-10.8)
[2023-08-02 06:04] LABS: BUN Creatinine Ratio 94.7 (10-20); Bilirubin,Total 0.4 mg/dl (0.2-1.0); Calcium 8.5 mg/dl (8.6-10.3); Creatinine Clr Calc Pharmacy 102.6 ml/min; Est GFR (African American) 111.2 ml/min; Est GFR (Non-African American) 95.9 ml/min; Magnesium 2.1 mg/dl (1.7-2.4); Potassium 4.5 mmol/L (3.5-5.1)
[2023-08-02 06:20] LABS: Thyroid Stimulating Hormone 0.641 uIu/ml (0.300-4.500)
[2023-08-02 06:27] LABS: ALC (manual) 0.77 K/uL (1.2-3.4); ANC (manual) 15.72 K/uL (1.4-6.5); Lymphocytes # (manual) 0.77 K/uL (1.2-3.4); Lymphocytes % (manual) 4 %; Metamyelocytes # (manual) 0.77 K/uL (0-0); Metamyelocytes % (manual) 4 %; Monocytes # (manual) 1.73 K/uL (0.11-0.59); Monocytes % (manual) 9 %; Myelocytes # (manual) 0.19 K/uL (0-0); Myelocytes % (manual) 1 %; Neutrophils # (manual) 15.72 K/uL (1.40-6.50); Neutrophils % (manual) 82 %
[2023-08-02] MEDS: DULoxetine HCL 30 MG CAP PO SCH (08:07)
[2023-08-02] MEDS: ALBUT/IPRATROP 3MG/0.5MG NEB 3 ML VIAL NEB PRN (08:09)
[2023-08-02] MEDS: PANTOprazole 40 MG in SYRINGE 0 ML IV SCH (08:43)
[2023-08-02] MEDS ORDERED: LANTUS PER UNIT CHARGE SC SCH ×2 (09:00→21:00)
[2023-08-02] MEDS: ENOXAPARIN INJ 40 MG/0.4 ML SYR SQ SCH (10:06)
--- NOTE | 2023-08-02 11:05 | Pharmacy Report ---
Pharmacy Glycemic Short Note 2 - Date of Service August 02, 2023 - Glycemic Short BSG Results (Last 24 hours): 08/01/23 08/01/23 08/01/23 12:08 18:18 20:28 Glucose POC Glucose 160 H 175 H 172 H 08/02/23 08/02/23 08/02/23 00:09 05:31 05:33 Glucose 182 H POC Glucose 211 H 173 H OUTPATIENT ANTIDIABETIC REGIMEN: * None - Patient not diabetic so no recent A1c ASSESSMENT: 08/02: * Received 10 units of basal and 3 units bolus yesterday. BSGs were: [id number] mg/dL. * No history of T2DM noted but A1c is pending. Hyperglycemia may just be steroid-induced. Remains on Dexamethasone 6 mg IV every 24 hours as well as PPN. Comfort discussions have been taking place with family but continue PPN for now per attending. Ceftriaxone was escalated to Cefepime yesterday. Remains on Flagyl and Fluconazole as well. * AM BSG was 173 mg/dL today. Will increase basal by 40% today given dextrose will be advanced to goal. Tightening correction factor as well. No carb ratio as patient is NPO. Will hold off on adding insulin to PPN bag today but low threshold should hyperglycemia continue. 08/01: * 88 yo F admitted on 07/26/23 secondary to respiratory failure. Pharmacy has been consulted to assist with inpatient glycemic management. Patient is not a diabetic but BSGs have been elevated during this admission. * Pharmacy was consulted yesterday when BSGs were slightly elevated and patient was started on PPN. Patient also on Dexamethasone 6 mg IV once daily. Received 1 unit of correctional insulin yesterday. Patient is on Ceftriaxone, Metronidazole, and Fluconazole. * Fasting BSG was 167 mg/dL this AM. Patient received 5 units of basal. Will continue with current basal scale BID while patient is receiving PPN. Of note, dextrose was advanced to 3/4 of goal today. Will not add insulin to PPN bag until basal needs are known. * Continue with Novolog correct only since patient is NPO (no need to cover carbs). Continue q4 checks for now. PLAN FOR INPATIENT GLYCEMIC CONTROL: * Basal insulin * Lantus 7 units SC BID * Bolus insulin * NovoLog per scale ACHS or Q6hrs while NPO * Goal Range: Low 120 mg/dL - High 160 mg/dL * Correction Factor: 25 mg/dL/unit * No carb ratio
[2023-08-02] MEDS: GLYCOPYRROLATE 0.2 MG/ML VIAL IV SCH ×3 (11:39→23:08)
[2023-08-02] MEDS ORDERED: STAT IV Infusion **Titration per Protocol STA (13:12)
--- NOTE | 2023-08-02 13:22 | Hospitalist Progress Note ---
Date of Service August 02, 2023 Assessment & Plan (1) Counseling regarding goals of care: Plan: 08/01 - Discussion with Dr. Trujillo, myself (Brittaney LIRA), son Daniel and Daughter (Lucille). Daniel has been the primary caregiver while she is has been living at the [facility], as Lucille lives about two hours away. Want to continue measures that we have in place to treat infection but are not wanting any other measures that will inflict anymore pain. Are not ready for full comfort care, but agreeable to discussion with palliative medicine. -NG tube to remain out -Continue abx and antifungal treatment and Decadron -Neb treatments BLOW BY ONLY -Oral Care -Palliative medicine consult Thursday -Ammonia, VBG and TSH added to AM labs for AMS workup --> all WNL 08/02 - daughter, Lucille, fully on board for comfort/palliative care. Son, Daniel, is more apprehensive. he is agreeable to DC some interventions, but would still like to continue treatment as listed above. ultimate [facility]. However Daniel remains ap prehensive if she will be taking care of appropriately and was going to make some calls today. Further details regarding discussions can be found in HPI. -PT/OT/ST, tele discontinued. -Case Management following -Morphine drip started. -PPN discontinued - does not desire any pastoral care (2) Rhinovirus infection: Plan: -Supportive care - nebs q4 prn -Isolation droplet precautions -Atypical pneumonia coverage stopped due to angioedema -07/26 Blood cultures: no growth 48 hrs. -Throat culture: Madonna albicans/dubliniensis --> tx with IV fluconazole 400mg today, 200 mg x10 days, last day 08/06. - 07/31 Blood cultures - no growth 48 hours - Started Ceftriaxone 1g QD (has had on 2 previous admissions) and Flagyl 500mg Q8 - 08/01 Switched to Cefepime and Flagyl for broader coverage -08/01 CXR - slight progression congestive change, small left pleural effusion (3) Angio-edema: Plan: -Intubated 07/27 by anesthesia, extubated 07/28 -Unknown cause, azithromycin was stopped incase of allergic reaction. Not on RACHID or ARB. -Given Decadron x1 and epinephrine prior to ICU transfer/intubation -Tongue swelling has resolved -will continue Decadron 6mg IV q24 hrs for 10 days, last day 08/06 (4) Swallowing dysfunction: Plan: -worse after extubation, exacerbated by PSP and not receiving medications - SAP BUSINESS ANALYST consulted --> has failed swallow trial x3 days. NPO except ice chips - 07/30 NG tube placement --> within the hiatal hernia after multiple attempts. Safe for meds, not safe for feeds - 07/31 continues to be less alert, unable to follow commands --> Will start PPN - Spoke with pharmacist, given her soy allergy unable to give patient lipids and will only be getting about 680 calories per day - Pharmacy consult for glycemic management 08/01 - NG tube coiled in oropharynx, will be removed today. Will not replace at this time. 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 Sinemet and benztropine restarted 07/31 via NG tube - ON HOLD 08/01 (6) Metabolic encephalopathy: Plan: Metabolic encephalopathy - likely due to rhinovirus combined with PSP (7) Hypothyroidism: Plan: TSH 4.023 [08/2022] levothyroxine restarted 07/30 with NG tube - on HOLD 08/01 (8) Laryngopharyngeal reflux: Plan: -IV pantroprazole discontinued (9) Chronic prescription opiate use: Plan: -Spinal stenosis and scoliosis with chronic generalized pain -Hold Nucynta and norco due to failed swallow study - pain control as above, goal for comfort Plan VTE Prophylaxis - Lovenox 40mg SQ daily Disposition - continued hospital stay, possible transition to hospice tomorrow or Thursday Admission and Anticipated Discharge Date Admission Date: July 26, 2023 Supervising Physician Co-Signing Physician Notes Attending Attestation: Pt seen/examined, chart reviewed, care plan d/w CARLOS Baptiste. I agree with the garcia components of her documentation. Patient continues to decline. Despite use of scheduled morphine q4h IV she cont to remain uncomfortable. Ms Baptiste discussed transitioning to morphine infusion with her son Daniel and he was agreeable to such. PPN to be d/c due to lack of IV access for such. Further, PPN unlikely to provide any benefit in light of her declining status. Most interventions to be stopped today save for certain meds (see Ms Baptiste's documentation with details). Formal palliative care consult tomorrow. exam - several hours following institution of morphine drip - gen - patient MUCH more comfortable; no moaning; no increased work of breathing Osmani Trujillo MD Subjective 0900 - Patient lying in bed. Does appear to be in mild pain. Continues to be nonverbal, not responding to commands. Eyes open to stimuli. Daughter, Lucille, at bedside. overall wishes for her mother to be comfortable. if at all possible, would like for her [facility] to be surrounded by people that care about her and the place she calls home for the end of her life. 1240 - 30-minute discussion with son Daniel. Daughter, Lucille is not present, as she has gone home, but can return at any time. Daniel has concerns about his mother Returning to the [facility] and the level of care that she was received there even if she is on hospice status. further discussion regarding hospice care that would include discontinuing the other interventions like the antibiotics, steroids, PPN, etc and states that he is not at all ready for this. he would like to speak to the director of cardiology service line at the [facility], and hospice agencies to decide if this would be the best option for his mom. at this time, he is agreeable to starting the morphine pump for pain control. discussed with daniel that in order for his mother to return to the [facility], a special delivery of the pump and morphine would have to be made to the [facility], this typically occurs in the evenings. He stated that there was no chance that he was having his mother sent back to the [facility] tomorrow, so no arrangement for morphine COORDINATE MEASURING MACHINE OPERATOR at the [facility] has been arranged at this time. discussion with case managementcase management is aware of the current situation, and are willing to help with possible discharge planning and hospice agency once both Daniel and Lucille are in agreement on goals of care for Kwame. case management aware that I will not be calling [facility] to order the morphine COORDINATE MEASURING MACHINE OPERATOR today, can readdress tomorrow. 1320 - return for further discussion with son, Daniel, in regards to IV access for Kwame. Kwame has been a very difficult stick to obtain access and has limited options given her history of breast cancer. Also given everything going on and third spacing she has become quite swollen in her upper extremities and making access even more difficult. currently we have 2 usable IV sites And son is currently desiring to continue: 1) PPN, 2) Morphine drip and 3) antibiotics and antifungals. discussion with son that we are not going to be able to obtain another reliable IV site and we need to make decision about what needs is going to be discontinued. after much discussion, he has decided to stop the PPN. also discussed the utilization of a.m. labs and the pain that that will inflict given the current state of her veins - he is going to think about this and decide if he would like labs drawn in the morning. I asked him to notify the RN and the RN can make me aware via [place]. Tele - SR with PACs, in the s Review of Systems Review of Systems: Unobtainable due to cognitive status Physical Exam Physical Exam: General: ill appearing, NAD, VS as above HEENT: increased oral secretions Resp: wet cough, wheezing has decreased CV: RRR, no murmur, no edema Abd: normal bowel sounds, non tender, Extremities: edema to bilateral UE, R>L Neuro: alert, not oriented. Does not respond to commands Skin: intact, no lesions noted Results & Data Results & Data Vital Signs (Past 12 Hours) Vital Signs Temp Pulse Pulse Resp BP Pulse Ox O2 Del Method 08/02/23 11:57 37.1 C 116 H 22 146/99 H 93 Nasal Cannula 08/02/23 08:13 97 H 20 93 Nasal Cannula 08/02/23 07:21 65 08/02/23 07:02 36.4 C L 83 22 160/97 H 96 Nasal Cannula 08/02/23 04:27 115/69 08/02/23 04:07 151/100 H 08/02/23 03:57 37 C 87 20 161/102 H 96 Nasal Cannula O2 Flow Rate 08/02/23 11:57 2 08/02/23 08:13 2 08/02/23 07:21 08/02/23 07:02 2.0 08/02/23 04:27 08/02/23 04:07 08/02/23 03:57 2 Laboratory Results CBC reviewed. VBG, chemistry, mag, LFTs, TSH and ammonia reviewed PG Care Time/CCT Total # of Minutes Spent Total Time Spent with Patient: Total time spent is greater than 50% in coordination of care (as documented) at patient's floor/unit and/or counseling patient: 120 Coding Level of Care Code 39423 SUB INP/OBS CARE 50MIN Diagnoses Counseling regarding goals of care Z71.89 Rhinovirus infection B34.8 Angioedema, initial encounter T78.3XXA Encounter type: initial encounter Swallowing dysfunction R13.10 PSP (progressive supranuclear palsy) G23.1 Metabolic encephalopathy G93.41 Hypothyroidism E03.9 Laryngopharyngeal reflux K21.9 Chronic prescription opiate use Z79.891 (3) Angio-edema Encounter type: initial encounter Qualified Code(s): T78.3XXA - Angioneurotic edema, initial encounter
[2023-08-02] MEDS: FLUCONAZOLE 200 MG/100 ML BAG IV SCH ×2 (13:53→13:57)
[2023-08-02] MEDS: MoRPHine SULF/NSS 100 MG/100 ML BAG IV SCH (14:21)
[2023-08-02] MEDS ORDERED: [UNRECOGNIZED DRUG - OTHER] IV SCH (16:00)
[2023-08-02] MEDS ORDERED: PERIPHERAL TPN IV SCH (16:00)
[2023-08-02] MEDS: dexAMETHasone 6 MG in SYRINGE 0 ML IV SCH (17:56)
[2023-08-03] MEDS: CEFEPIME 2,000 MG in SYRINGE 0 ML IV SCH ×2 (05:04→13:34)
[2023-08-03] MEDS: GLYCOPYRROLATE 0.2 MG/ML VIAL IV SCH ×5 (05:04→22:38)
[2023-08-03] MEDS: INSULIN ASPART PER UNIT CHARGE SC SCH (05:56)
[2023-08-03 07:44] LABS: Estimated Average Glucose 126 mg/dl
[2023-08-03] MEDS: metroNIDAZOLE 500 MG/100 ML BAG IV SCH ×2 (09:25→16:48)
[2023-08-03] MEDS ORDERED: LORazepam 0.5 MG in SYRINGE 0.25 ML IV PRN (10:59)
[2023-08-03] MEDS ORDERED: MoRPHine BOLUS from BAG IV PRN (11:10)
--- NOTE | 2023-08-03 13:52 | Pharmacy Report ---
Pharmacy Initial PN Consult Nt - Date of Service July 31, 2023 - [facility] Pharmacy has been consulted on this date to manage parenteral nutrition orders and order appropriate labs. As part of the Nutrition Support Team Guidelines, pharmacy will work in conjunction with dietary when determining the patients caloric needs. - Subjective * The patient is a 87 year old Female admitted on 07/26/23 for ACUTE HYPOXIC RESPIRATORY FAILURE, RHINOVIRUS. * Patient is to receive parenteral nutrition for prolonged NPO status. 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 Height & Weight (Last Documented) Height 5 ft 2 in Weight 68.9 kg Diet Order(s) 07/27/23 14:28 NPO Intake & Ouput (24hrs) 07/30/23 07/31/23 08/01/23 06:59 06:59 06:59 Intake Total 1921.667 / 8417.954 7526.333 / 2065.333 1100 / 1100 Output Total 525 / 525 700 / 700 150 / 150 Balance 1396.667 / 5103.667 5516.333 / 1365.333 950 / 950 Selected Laboratory Results 07/31/23 04:17 Sodium 143 Potassium 4.0 Chloride 106 Carbon Dioxide 23 Anion Gap 14 H BUN 25 H Creatinine 0.39 L Est GFR ( Amer) 111.0 Est GFR (Non-Af Amer) 95.8 BUN/Creatinine Ratio 64.1 H Glucose 136 H Calcium 8.9 [address] - Follow Up Nutrition Assessment Start: 07/27/23 15:08 Freq: Status: Active Protocol: Document 07/31/23 11:53 WN (Rec: 07/31/23 12:17 WN [email or web address]) RD - Initial Nutrition Assessment Start: 07/27/23 14:44 Freq: Status: Active Protocol: Document 07/27/23 14:44 WN (Rec: 07/27/23 15:08 WN [email or web address]) - Assessment & Plan Assessment: * Appreciate dietitians recommendations for macronutrients. Plan: * For Day #1 of PPN administration, the following will be ordered: * Macronutrients: * Amino Acids: 43 grams/day * Dextrose: 50 grams/day * Lipids: -- grams/day * Micronutrients: * TPN electrolytes: -- mL/day - Contains 35 mEq Na, 20 mEq K, 4.5 mEq Ca, 5 mEq Mg, 35 mEq Cl, 29.5 mEq Acetate per 20 mL * Sodium phosphate: 21 mMol/day * Sodium chloride: 50 mEq/day * Sodium acetate: -- mEq/day * Potassium phosphate: -- mMol/day * Potassium chloride: -- mEq/day * Potassium acetate: 50 mEq/day * Magnesium sulfate: 8.12 mEq/day * Calcium gluconate: -- mEq/day * Multivitamins: 10 mL/day * Trace elements: 1 mL/day * Thiamine: -- mg/day * Folic Acid: -- mg/day * Total volume of 1065 mL will be infused over 24 hours and will provide 390 kcal/day * Patient is on PPN which has a maximum mOsm/L of 900. Final osmolarity of current solution is 875 mOsm/L. * Labs will be ordered per PN protocol. * Pharmacy will follow and adjust PN orders on a daily basis. Thank you!
[2023-08-03] MEDS: dexAMETHasone 6 MG in SYRINGE 0 ML IV SCH (18:20)
--- NOTE | 2023-08-03 18:23 | Palliative Care Consultation ---
Date of Consultation August 03, 2023 Assessment & Plan (1) Dyspnea and respiratory abnormalities: (2) Terminal respiratory secretions: Robinul ordered to assist with secretion management. This can be transitioned to Transderm scope patch showed numerous doses of Robinul be noted. Patient had some significant improvement in secretions with suctioning yesterday and has required 1 round of suctioning today. (3) Weakness generalized: (4) Discussion about advance care planning held with family member: A 90-minute [id number] advance care planning discussion was held with patient's son, primary team attending, patient's RN Carol, and her daughter was present by speaker phone. During this very lengthy, detailed discussion, the overall prognosis was reviewed and outlined as poor. Family in agreement that it is time to transition patient to a comfort focused plan of care. Patient's son, who is devoted his life to her complete care, is extremely concerned with how this care will be delivered. He specifically outlined numerous concerns and perceived obstacles of care with her current retirement facility. At one point, he decided that he was unhappy with the care she was receiving from the provider at the care home and states that he had to pursue legal action to have her care improved. [facility]. Both son and daughter note that patient chose to retire to the [place] area due to her love for [facility] and very specifically chose to live at the [facility]. She has now transitioned from independent living to assisted living and now requires skilled care. In the nearly 1 year timeframe she has been in the skilled care unit, she has come to enjoy and trust the staff and feels they are in many ways like the family to her. Her son notes that the care [facility] are very good looking after his mother but it is issues with the provider and sometimes there are lack of responsiveness and staffing that frustrates him. He notes that his mother was placed on the second floor which is also a dementia unit. He notes that she does not have dementia and questions if this is the appropriate place for her since the needs of the dementia patients can often be very high and limit the availability of staff to support his mother's care. He also had many questions about hospice.We discussed the goals of hospice as a patient service and the goals of care; we discussed EOL trajectories and transitions judah the emotional impact of realizing mortality as a concrete reality from prior abstract considerations. Pt was reassured that no matter where they are along this trajectory, they are not alone - their medical team will remain by their side through their journey. Discussed the pros/cons of accepting help when especially weakened and distressed by pain-which would also help provide relief/decrease caregiver burden/strain. I provided education about the hospice benefit: an interdisciplinary program offered by nurses, nurses aides, social workers, chaplains and a biomedical specialist for patients with a terminal condition and a life expectancy of less than 6 months. This is covered by Medicare at 100%/no out of pocket expense to patient and all meds/supplies needed by patient for the reason they are on hospice are paid for/covered by hospice. The goal is assure quality of life of the patient in their home setting (home, care home, inpatient hospice setting) by providing symptoms management, psychosocial and spiritual support. However, they cannot offer 24 hours care and if the family is unable to provide that care, they will have to consider personal care with out of pocket cost vs. care home placement. We discussed the goals of hospice as a patient service and the goals of care; we discussed EOL trajectories and transitions judah the emotional impact of realizing mortality as a concrete reality from prior abstract considerations. Pt was reassured that no matter where they are along this trajectory, they are not alone - their medical team will remain by their side through their journey. Discussed the pros/cons of accepting help when especially weakened and distressed by pain-which would also help provide relief/decrease caregiver burden/strain. Family decided to opt for transition to comfort care here in the hospital with a plan [facility]. Son states that he would like [facility] to his care as this was the agency recommended by a family friend. Case management was made aware of family's needs and preferences. Son also stated that he has not been happy with some of the care the patient is receiving and now has decided that he may install a surveillance system in her room. I very specifically and very clearly advised him that [place] is a 2 constitution party consent for recording and this was not allowed at care faciltiies in general. Advised him that it could certainly lead to potential legal actions as recording another citizen without their consent is illegal is the state of [place]. He verbalized understanding. I encouraged him to partner closely with the hospice team and to structure the hospice visits at times when staffing on the unit may be more limited such as mealtimes for the dementia patients. Also encouraged the family to build and maintain a strong rapport with the hospice team as ultimately, the hospice team is there to work for them, support their needs and preferences for their mother's care. I reviewed that while the hospice biomedical specialist would be the provider determining dose adjustments and medication modifications, it is the care home provider teams that ultimately write the orders in order for these to be administered in the facility. Patient son was not happy with this information but stated that he would have to just more closely be monitoring the situation and I encouraged him again to ally with the hospice team and partner with them. I also reviewed with them very specifically that should her symptoms become unmanageable at the care home or her distress becomes too intense, then the hospice team can admit her to a local hospital for respite care where that symptom management can be escalated and subsequently improved before possibly returning back to her preferred care site. Son and daughter in agreement to transition patient to comfort care. I have written orders and stopped all nonessential medications, labs, or interventions. She remains on 2 L nasal cannula oxygen and this will not be escalated. Son had many questions about the role of artificial nutrition and hydration especially a parenteral feeding tube or PEG. I reviewed that with her chronic aspiration which has been steadily progressing, a PEG will not cure, reverse or otherwise fix the situation. Advised that she would continue to have aspiration even with the PEG tube and that would continue to lead to the cycle of recurring and worsening respiratory failure due to chronic aspiration. Both children verbalized understanding and reiterated desire to assure that patient is comfortable and not suffering. They also agreed that trying to prolong dying with continued antibiotics, artificial hydration, artificial nutrition etc. was not warranted and not in alignment with what patient would want for herself. Extensive psychosocial support and reassurance was provided to patient's family. Her son shared several examples of how he had given up his work to become the full-time caregiver for patient. He is devoted very concerned about the perceived conflicts he has had with her care at current facility but also notes that the majority of her day-to-day caregivers are very kind and consistently go "above and beyond" to deliver her excellent care. He is aware that the likeliho od this would happen in another skilled facility at this junction is extremely low and does not wish for her to go anyplace else. (5) Palliative care by specialist: Met with family. Provided overview of Palliative Medicine, a subspecialty that provides specialized medical care for people living with a serious illness by offering a focus on quality of life. Palliative Medicine is often conflated with hospice: I advised patient/family that Palliative and hospice can be partners but we are not the same. It is important to understand the difference so that we may be informed, and not afraid. Palliative Medicine works to improve QOL through reduction of symptom burden/more control over their illness, for both the patient and family. Palliative medicine clinicians are board certified, specially-trained and another member of the patient's medical care team. We often provide an extra layer of support because our care is based on the needs of the patient, not the prognosis; as such, it's appropriate at any age/advancing stage of a serious illness and can be provided along with curative treatment. Palliative Medicine clinicians are also trained in advanced communic ation methodologies, to facilitate complex discussions about advanced illness planning, which are needed to help assure that the treatment choices match the patient's goals, aka delivering Goal Concordant care. Finally, we discussed that hospice is a visiting nurse service that focuses on care delivered at the very end of life for patients with terminal illness, with life expectancy less than 6 month. (6) Encounter for hospice care discussion: see above (7) Metabolic encephalopathy: (8) Rhinovirus infection: (9) PSP (progressive supranuclear palsy): Plan * Terminal PSP with chronic aspiration and progressive respiratory failure due to same. * Transition to comfort care with plan for discharge back to her retirement facility [facility] as requested by family. * Comfort care orders written. I have updated the primary team, nursing, care management and discharge planning is underway. * Updated by care management late this afternoon that [facility] will not [facility] patient [facility] on a morphine infusion. We will see how patient does overnight. If the hospice cannot accommodate a morphine infusion (we are awaiting their determination), then suggest beginning transdermal fentanyl 50 mcg patch every 72 hours as an equally analgesic conversion from her current 60 mg of IV morphine daily. (Patient is receiving morphine IV 2.5 mg/h for total of 60 mg per 24 hours. 60 mg of IV morphine is equivalent to 180 mg of p.o. morphine. 60 mg IV morphine and equally analgesic conversion to transdermal fentanyl is a 50 mcg patch. Upon application of the patch, it will take approximately 16 hours to determine if the 50 mcg dose is adequate. During this time oral Roxanol 15 to 20 mg every hour as needed for breakthrough pain, dyspnea or air hunger should be used in addition to Haldol Intensol liquid dripped into the buccal mucosa at a dose of 2 to 4 mg every 4 hours as needed for restlessness, agitation or anxiety.) Thank you for allowing us to participate in the ongoing care of this patient. Please don't hesitate to call or page with any additional concerns. Dr. Lisa Campbell DNP Director, Palliative Care Comfort Care Discharge Summary & Plan of Care For Intermediate/SNF/[facility] Patient Name: Kwame Falcon, 1935 Comfort plan of care agreed upon by: Patient's son and daughter in family meeting today with palliative medicine, hospitalist medicine bedside nursing. Discussed with Patient/Family on: 08/03/2023, see family meeting described above Comfort plan of care parameters: 1. Patient/Family want hospice added to their care with patient's return to the [facility] 2. NO rehab/PT/OT 3. Strictly End of Life care only 4. NO escalation of care: do not increase oxygen, escalate therapies, etc. The focus is on comfort through end of life, assure this is accomplished with aggressive symptom management (i.e. relief of dyspnea, pain, etc.) 5. NO return to hospital 6. NO labs, imaging, surgery 7. Oral intake as desired for comfort and pleasure: NO dietary restriction or artificial nutrition/hydration.++ Okay to allow permissive aspiration in the interest of comfort. 8. If difficulty urinating/commode/bedpan, ok to place Mcgee catheter for comfort/hygiene/skin protection AND/OR Continue Mcgee catheter for comfort/hygiene/skin protection 9. NO: calorie counts, artificial nutrition, feeding tubes or IV fluids Medications to continue are noted on discharge summary. Provider to contact if any questions about comfort plan of care: [facility] President And Chief Executive Officer or designee History of Present Illness Reason for Consultation: declining status, underlying PSP Attending Physician: Osmani Trujillo MD History of Present Illness Per 07/25/23 admitting note: "Kwame Falcon is an 87 year old female with progressive supranuclear palsy who presents to the ER via EMS with fever, confusion and shortness of breath. Unable to get any history from the patient. History taken from son at bedside. He reports she has been having 5 weeks of a cough with "nothing done". He does note she had a CXR about 10 days ago but is unclear on the results of this. Looking at the [facility] records she did have her Lasix increased from 20mg to 40mg for 5 days starting on the 7th so suspect it was read as pulmonary edema but I do not have the results of that XR either by report or actual picture. About 10 days ago this cough became progressively worse and she has been on a general decline. Today she had a fever therefore the [facility] sent her to the [facility]." Admission complicated by 07/27/23 intubation for angioedema Rhinovirus + on isolation for droplet precautions atypical PNA coverage PSP has been progressing with worsening neuro decline, parkinsonian features and weakness, declining mobility and marked / profound worsening of chronic aspiration. She has chronic pain d/t spinal stenosis and scoliosis for which she was taking scheduled nucynta and then norco for BTP this admission has needed a morphine infusion started as she could not take PO safely. Kwame is seen at the bedside together with her son, Yovani as well as Dr. Trujillo from the primary team. She is now on nasal cannula 2 L Allergies Allergy/AdvReac Type Severity Reaction Status Date / Time azithromycin Allergy Severe Angioedema Verified 08/03/23 09:20 cat dander Allergy Severe SHORTNESS Verified 04/05/23 18:48 OF BREATH mold Allergy Severe SHORTNESS Verified 04/05/23 18:48 OF BREATH nut - unspecified Allergy Severe Anaphylaxis Verified 04/05/23 18:48 peanut Allergy Severe Anaphylaxis Verified 04/05/23 18:48 pecan nut Allergy Severe Anaphylaxis Verified 04/05/23 18:48 walnut Allergy Severe Anaphylaxis Verified 04/05/23 18:48 Penicillins Allergy Intermediate HIVES Verified 04/05/23 18:48 Sulfa (Sulfonamide Allergy Intermediate "jaundiced Verified 04/05/23 18:48 Antibiotics) as child", HIVES codeine Allergy Mild GI SYMPTOMS Verified 04/05/23 18:48 shellfish derived Allergy Unknown Unknown Unverified 04/05/23 18:48 soy Allergy Unknown Unknown Verified 04/05/23 18:48 Home Medications Medication Instructions Recorded Confirmed Type benztropine 0.5 mg tablet 0.5 mg PO BID #180 tabs 10/28/21 07/26/23 Rx simvastatin 20 mg tablet (Zocor) 20 mg PO HS #90 tabs 10/29/21 07/26/23 Rx pantoprazole 40 mg tablet,delayed 40 mg PO BID gastritis 90 days 01/08/22 07/26/23 Rx release #180 tabs levothyroxine 75 mcg tablet 75 mcg PO QAM #90 tabs 01/20/22 07/26/23 Rx (Synthroid) carbidopa 25 mg-levodopa 100 mg 1 tab PO QID 90 days #360 tabs 06/10/22 07/26/23 Rx tablet (Sinemet) ferrous sulfate 143 mg (45 mg 143 mg PO DAILY 07/06/22 07/26/23 History iron) tablet,extended release (Slow Release Iron) melatonin 10 mg tablet 10 mg PO HS 07/06/22 07/26/23 History polyethylene glycol 3350 17 8.5 g PO DAILY 07/06/22 07/26/23 History gram/dose oral powder (Miralax) pregabalin 200 mg capsule (Lyrica) 200 mg PO AMHS 07/06/22 07/26/23 History sennosides 8.6 mg tablet (Senokot) 8.6 mg PO HS 07/06/22 07/26/23 History tapentadol 50 mg tablet,extended 50 mg PO AMHS 07/06/22 07/26/23 History release,12 hr (Nucynta ER) acetaminophen 325 mg tablet 650 mg PO Q4H PRN Pain 04/05/23 07/26/23 History cholecalciferol (vitamin D3) 25 25 mcg PO DAILY 04/05/23 07/26/23 History mcg (1,000 unit) tablet (Vitamin D3) diclofenac sodium 1 % topical gel 4 g topical QID PRN Pain 04/05/23 07/26/23 History duloxetine 30 mg capsule,delayed See Rx Instructions .Route .COMPLEX 04/05/23 07/26/23 History release duloxetine 60 mg capsule,delayed See Rx Instructions .Route .COMPLEX 04/05/23 07/26/23 History release (Cymbalta) hydrocodone 7.5 mg-acetaminophen 1 tab PO Q6H PRN chronic pain 04/05/23 07/26/23 History 325 mg tablet potassium chloride 20 mEq 20 meq PO DAILY 04/05/23 07/26/23 History tablet,extended release albuterol sulfate 1.25 mg/3 mL 1.25 mg inhalation Q4H PRN 07/26/23 07/26/23 History solution for nebulization Shortness Of Breath furosemide 20 mg tablet 20 mg PO DAILY 07/26/23 07/26/23 History lidocaine 4 % topical patch 1 patch topical QID PRN Shoulder 07/26/23 07/26/23 History (Lidocaine Pain Relief) pain loteprednol etabonate 0.5 % eye 1 drp ophthalmic (eye) BID 07/26/23 07/26/23 History drops,suspension (Lotemax) Patient History Medical History Anxiety Avulsion fracture of middle phalanx of finger Bilateral lumbar radiculopathy Cardiac murmur CHI (closed head injury) Chronic back pain Depression Encounter for pre-operative examination Falls frequently Fibromyalgia Forehead laceration Fusion of lumbosacral spine GERD (gastroesophageal reflux disease) Hearing deficit Hx of breast cancer Hyperlipidemia Hyperlipidemia Hypothyroidism Hypoxia Lumbar canal stenosis Lumbosacral radiculopathy Maxillary sinus fracture Multiple facial bone fractures Multiple rib fractures Other abnormalities of gait and mobility Poor balance PSP (progressive supranuclear palsy) Risk for falls Sacroiliitis Scoliosis Spinal stenosis Surgical History History of colonoscopy History of dilation and curettage History of foot surgery History of tonsillectomy Hx of appendectomy Hx of bilateral breast reduction surgery Hx of cataract surgery Hx of kyphoplasty Hx of lumpectomy Hx of spinal fusion Hx of wisdom tooth extraction S/P epidural steroid injection S/P total left hip arthroplasty Status post left hip replacement Family History Sister Alzheimer disease Breast cancer Paget's disease Father Alzheimer disease Grandmother (Paternal) Alzheimer disease Mother Myocardial infarction Stroke syndrome Uncle Prostate cancer Denies family history of Ovarian cancer Adverse anesthesia outcome Bleeding disorder Colorectal cancer Social History Smoking Status: Never smoker Tobacco Type: Cigarettes Second Hand Exposure: No; Do You Dip or Chew Tobacco: No; Hx Alcohol Use: No Hx Substance Use: No Preferred Language: Armenian Communication Ability: Effective Visual Impairment: No Limitations Hearing Ability: Use of Hearing Aid House Fellow Required: No Beliefs That Will Affect Care: None marital status: / Current Living Situation: Intermediate Current Living Situation Comment: resides at the [facility] current occupational status: retired How many Children do You have: 2 Other Information That Helps Us Care for You: No Feels Safe at Home: Yes Safety Concerns: Feels Safe At This Time Childhood Exposure to Second-Hand Smoke: No Diet: regular caffeine: Yes during the past year weight has: remained stable Dental Care, Regularly: Yes Physical Activity Frequency: Does not Exercise Seatbelt Use: always Sunscreen Use: Yes Assistive Devices: Walker Review of Systems Review of Systems: All systems reviewed & are unremarkable except as noted in Subjective and Unobtainable due to cognitive status Physical Exam Physical Exam: This is a frail and chronically ill-appearing elderly female, resting in bed, unable to follow commands. She appears confused. There is bitemporal wasting noted. There is significant contractures consistent with progressive and end- stage PSP. She has increased oral secretions with some gurgling noted. She has a wet and bronchitic cough. There is diffuse coarse wheezing and rhonchorous breath sounds bilaterally. Heart tones are S1-S2, mild JVD, no gross murmur noted. Abdomen is soft and does not appear tender to deep palpation. Bowel sounds are noted to be present. There is swelling noted to bilateral upper extremities right somewhat more than left. She will open her eyes to her name but she is unable to follow commands. Skin is pale, cool with some pallor noted. There is no overt cyanosis or mottling. Strength is markedly diminished. Overall exam is consistent with an end-stage or terminal PSP Results & Data Vital Signs (Past 12 Hours) Vital Signs Temp Pulse Resp BP Pulse Ox O2 Del Method O2 Flow Rate 08/03/23 16:00 83 22 08/03/23 14:56 36.9 C 82 18 135/80 96 Room Air 08/03/23 12:09 36.8 C 92 H 18 119/77 98 Room Air 08/03/23 08:08 37.0 C 80 20 158/90 H 98 Nasal Cannula 2 08/03/23 08:00 Nasal Cannula 2 Laboratory Results Labs and imaging reviewed Diagnostic Findings Labs and imaging reviewed PG Care Time/CCT Total # of Minutes Spent Total Time Spent: 165 Total Time Spent with Patient: Total time spent is greater than 50% in coordination of care (as documented) at patient's floor/unit and/or counseling patient: I spent 165 minutes overall addressing this VERY COMPLEX CASE: 20 min in medical data review/discussion with referring p rovider(s) and/or preparation for the visit 15 min in direct interaction with the patient/exam 90 min in Advance Care Planning/Goals of Care discussions as detailed above in note (must be >16min) 20 min in subsequent review and synthesis of assessment and plan 20 min communicating with other providers regarding the patient's case: Nursing, primary team, care management Prolonged Care Time Prolonged Care Time: Yes Advanced Care Planning 63365 Advanced Care Planning 30 Min 08938 Advanced Care Planning Additional 30 [place] [address] IN/OBS CONSULT LVL 5,80M Patient Type New Medical Decision Making High Complexity Diagnoses Dyspnea and respiratory abnormalities R06.00; R06.89 Terminal respiratory secretions R09.89 Weakness generalized R53.1 Discussion about advance care planning held with family member Z71.0 Palliative care by specialist Z51.5 Encounter for hospice care discussion Z71.89 Metabolic encephalopathy G93.41 Rhinovirus infection B34.8 PSP (progressive supranuclear palsy) G23.1 Additional Codes Prolonged Care Time - Prolonged Care Time: Yes ([id number]) Advanced Care Planning - 45783 Advanced Care Planning 30 Min: 33677 Advanced Care Planning 30 Min ([id number]) Advanced Care Planning - 47877 Advanced Care Planning Additional 30 Min: 92281 Advanced Care Planning Additional 30 Min ([id number])
--- NOTE | 2023-08-03 21:29 | Hospitalist Progress Note ---
Date of Service August 03, 2023 Assessment & Plan (1) Counseling regarding goals of care: Plan: since Thursday, 08/01, we have been discussing end of life care with the pt's son Yovani and her daughter Lucille in light of Mrs Falcon's rapidly declining status, severe dysphagia, aspiration pneumonia, etc On Thursday, 08/02, we began most comfort care measures including changing bolus morphine to infusion for optimal comfort. For some time Mrs Falcon had been taking nucynta ER and clearly had tolerance to narcotics making it difficult to get her comfortable. Family at that time requested we continue her IV antibiotics. Today, 08/03, we are now removing all medical therapies including the IV antibiotics. Yovani and Lucille understand that their mother is likely to pass in the next few days. Their wish is for Mrs Falcon to return to the [facility] for palliative care and hospice enrollment. Dr Campbell further discussed end of life care after I left the meeting. I informed Monse from case management of the plan to d/c her to the [facility] for ongoing end of life care. Monse to reach out to the [facility] to see if we can continue the morphine infusion there or if we needed to convert to Fentanyl patch with PO (or IV) boluses of morphine. Other comfort measures - robinul, ativan, etc - would of course be continued as well. Later found out that indeed [facility] will accept Mrs Falcon back but unfortunately they would be unable to utilize a morphine infusion. Will defer to Dr Campbell conversion of current IV morphine drip to fentanyl patch equivalents, etc. Late in the day I returned to Mrs Falcon's room. Son Yovani had additional questions. She continued to appear comfortable on the morphine drip. (2) Palliative care encounter: Plan: as above #1 (3) Encounter for hospice care discussion: Plan: pt will enroll in hospice program upon return to the [facility] (4) Terminal respiratory secretions: Plan: severe cont robinul scheduled (5) Chronic prescription opiate use: Plan: h/o Spinal stenosis and scoliosis with chronic generalized pain previously on nucynta ER and 3-4 tabs of norco each day cont morphine infusion for comfort/pain control see #1 above for further discussion (6) Rhinovirus infection: Plan: tested + for such upon admission son reported typical URI symptoms for 1-2 days prior to admission (7) Aspiration pneumonia: Plan: patient was intubated on hospital day #2 - 07/27/23 - due to the development of angioedema copious amounts of food product was found in the airway upon intubation despite successful extubation later in the stay she remained with NC O2 requirement and exam along with x-rays were concerning for pneumonia - likely aspiration she had overt signs/symptoms of aspiration (even with ice chips) on multiple speech therapy evals at the bedside she had been on broad-spectrum IV antibiotics much of this stay continued to decline despite the above leukocytosis had worsened prior to transitioning to comfort care son reports pt had had a cough for about 6 weeks prior to this admission I suspect she had been aspirating for quite some time prior to coming to [facility] likely her dysphagia has been from her PSP (8) Angio-edema: Plan: Intubated 07/27 by anesthesia, extubated 07/28 Unknown cause ?azithromycin - only 1 dose was given per the MAR Not on RACHID or ARB. 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): Plan: despite resuming Sinemet and benztropine via NG tube after her ICU stay she had no significant improvement in her increased tone/rigidity of her limbs (worse on right) nor any improvement globally in her neuropsych status (11) Metabolic encephalopathy: Plan: likely multifactorial mental status never improved while here despite supportive care (12) Hypothyroidism: Plan: synthroid stopped now on comfort care pathway (13) Laryngopharyngeal reflux: Plan: PPI stopped now on comfort care pathway Plan stopped chemical VTE Prophylaxis appreciate social work assistance appreciate Dr Campbell's assistance from palliative care plan -- d/c to [facility] for hospice care/ongoing comfort care measures when her pain med regimen has been finalized if she declines rapidly in the meantime would simply keep at [facility] for end-of-life care Admission and Anticipated Discharge Date Admission Date: July 26, 2023 Subjective pt remained on morphine infusion overnight by nursing report she was restless this am and uncomfortable morphine drip titrated by staff to 2.5mg/hr and also received ativan with these measures she was more comfortable a short time later I came to bedside pt's son was present Mrs Falcon's eyes were open but she could not answer questions she was borderline obtunded she appeared comfortable after examining her I exited the room with her son Yovani about the same time Dr Campbell from palliative care arrived myself, Dr Campbell, her son Yovani, her bedside nurse, and the pt's daughter Elissa (by phone) gathered in a conference room to talk about end-of-life care son/daughter desire for her to remain on comfort care but do so back at the [facility] I briefly gave medical status update to Mrs Falcon's children our meeting lasted for nearly 45 minutes Review of Systems Review of Systems: Unobtainable due to cognitive status and Unobtainable due to reduced consciousness Physical Exam Physical Exam: gen - eyes open but essentially obtunded/unresponsive; looks more comfortable than prior visits neck - no JVD mouth - MM very dry heart - tachy, s1 s2 lungs - diffuse rales b/l anteriorly & posteriorly with course BS b/l abd - nontender to palpation ext - diffuse edema of limbs - worst right arm; pulses feet 2+ b/l psych - not awake, not alert Results & Data Results & Data Vital Signs (Past 12 Hours) Vital Signs Temp Pulse Resp BP Pulse Ox O2 Del Method O2 Flow Rate 08/03/23 18:44 37.0 C 101 H 18 120/93 97 Nasal Cannula 2 08/03/23 16:00 83 22 08/03/23 14:56 36.9 C 82 18 135/80 96 Room Air 08/03/23 12:09 36.8 C 92 H 18 119/77 98 Room Air PG Care Time/CCT Total # of Minutes Spent Total Time Spent with Patient: Total time spent is greater than 50% in coordination of care (as documented) at patient's floor/unit and/or counseling patient: Coding Level of Care Code 65913 SUB INP/OBS CARE 3/50MIN Diagnoses Counseling regarding goals of care Z71.89 Palliative care encounter Z51.5 Encounter for hospice care discussion Z71.89 Terminal respiratory secretions R09.89 Chronic prescription opiate use Z79.891 Rhinovirus infection B34.8 Aspiration pneumonia J69.0 Angioedema, initial encounter T78.3XXA Encounter type: initial encounter Swallowing dysfunction R13.10 PSP (progressive supranuclear palsy) G23.1 Metabolic encephalopathy G93.41 Hypothyroidism E03.9 Laryngopharyngeal reflux K21.9 (8) Angio-edema Encounter type: initial encounter Qualified Code(s): T78.3XXA - Angioneurotic edema, initial encounter
[2023-08-04] MEDS: GLYCOPYRROLATE 0.2 MG/ML VIAL IV SCH ×5 (03:33→21:08)
[2023-08-04] MEDS: MoRPHine BOLUS from BAG IV PRN ×2 (08:12→11:47)
[2023-08-04] MEDS: MoRPHine SULF/NSS 100 MG/100 ML BAG IV SCH (11:10)
[2023-08-04] MEDS: LORazepam 1 MG in SYRINGE 0.5 ML IV PRN (11:59)
--- NOTE | 2023-08-04 12:12 | Palliative Care Progress Note ---
Date of Service August 04, 2023 Assessment & Plan (1) Palliative care by specialist: (2) Dyspnea and respiratory abnormalities: (3) Terminal respiratory secretions: (4) Weakness generalized: (5) Swallowing dysfunction: (6) PSP (progressive supranuclear palsy): Plan * MS infusion dose increased, now 3.5mg per hour * I do not feel a transition to TDF will be successful in face of her mounting comfort care needs and inability to safely/consistently swallow. Will be challenging to effectively titrate meds for comfort. * Recc formal GIP eval for inpatient hospice * I have d/w Primary attending + CM Thank you for allowing us to participate in the ongoing care of this patient. Please don't hesitate to call or page with any additional concerns. Dr. Lisa Campbell DNP Director, Palliative Care Admission and Anticipated Discharge Date Admission Date: July 26, 2023 Subjective MS infusion required uptitration to attempt to improve sx mgt Do not feel she is safe for dc back to SNF Would consider GIP eval for uncontrolled sx mgt Review of Systems Review of Systems: Unobtainable due to cognitive status PG Care Time/CCT Total # of Minutes Spent Total Time Spent: 45 Total Time Spent with Patient: Total time spent is greater than 50% in coordination of care (as documented) at patient's floor/unit and/or counseling patient: Coding [place] [address] SUB INP/OBS CARE 3/50MIN Patient Type Established History Comprehensive Medical Decision Making High Complexity Diagnoses Palliative care by specialist Z51.5 Dyspnea and respiratory abnormalities R06.00; R06.89 Terminal respiratory secretions R09.89 Weakness generalized R53.1 Swallowing dysfunction R13.10 PSP (progressive supranuclear palsy) G23.1
--- NOTE | 2023-08-04 17:42 | Hospitalist Progress Note ---
Date of Service August 04, 2023 Assessment & Plan (1) Counseling regarding goals of care: Plan: comfort oriented care since 08/02. Has required titration of morphine drip to maintain comfort regardless of that required boluses this morning as well as lorazepam IV. Discussed with palliative memory care program resident Dr. Rucker and her son at bedside. based on how she appears this morning I think it is unlikely that comfort could be maintained using non-IV medications, especially because she is not tolerating oral medications at this time and requiring significant doses of opioids - continue IV morphine, IV lorazepam as needed, Robinul as needed for secretions, added atropine drops SL as additional measure to help with secretions (2) Palliative care encounter: Plan: as above #1 (3) Encounter for hospice care discussion: Plan: exploring referral to inpatient hospice, previous plan was returned to [facility] SNF with hospice though unclear whether symptomatically she can be controlled (4) Terminal respiratory secretions: Plan: currently has a lot of secretions on Robinul added atropine (5) Chronic prescription opiate use: Plan: h/o Spinal stenosis and scoliosis with chronic generalized pain previously on nucynta ER and 3-4 tabs of norco each day cont morphine infusion for comfort/pain control see #1 above for further discussion (6) Rhinovirus infection: Plan: tested + for such upon admission son reported typical URI symptoms for 1-2 days prior to admission (7) Aspiration pneumonia: Plan: patient was intubated on hospital day #2 - 07/27/23 - due to the development of angioedema copious amounts of food product was found in the airway upon intubation despite successful extubation later in the stay she remained with NC O2 requirement and exam along with x-rays were concerning for pneumonia - likely aspiration she had overt signs/symptoms of aspiration (even with ice chips) on multiple speech therapy evals at the bedside she was on broad-spectrum IV antibiotics much of this stay continued to decline despite the above leukocytosis had worsened prior to transitioning to comfort care son reports pt had had a cough for about 6 weeks prior to this admission I suspect she had been aspirating for quite some time prior to coming to [facility] dysphagia is related to PSP (8) Angio-edema: Plan: Intubated 07/27 by anesthesia, extubated 07/28 Unknown cause ?azithromycin - only 1 dose was given per the MAR Not on RACHID or ARB. 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): Plan: despite resuming Sinemet and benztropine via NG tube after her ICU stay she had no significant improvement in her increased tone/rigidity of her limbs (worse on right) nor any improvement globally in her neuropsych status (11) Metabolic encephalopathy: Plan: likely multifactorial mental status never improved while here despite supportive care (12) Hypothyroidism: Plan: synthroid stopped now on comfort care pathway (13) Laryngopharyngeal reflux: Plan: PPI stopped now on comfort care pathway Plan stopped chemical VTE Prophylaxis appreciate social work assistance appreciate Dr Campbell's assistance from palliative care Admission and Anticipated Discharge Date Admission Date: July 26, 2023 Subjective seen midmorning nurses were working on changing her and her son was in the room, she is awake appears uncomfortable had just received morphine bolus planning on lorazepam bolus. Breath sounds are coarse and there are a lot of secretions. Morphine drip has been continuous since yesterday and was increased to 3.5 mg/h this morning Physical Exam Physical Exam: PHYSICAL EXAMINATION Last 24h vital signs reviewed, see documentation in flowsheet General: appears somewhat anxious and uncomfortable HEENT: PERRL, gaze directed upward, dry mucus membranes Lungs: increased respiratory effort. coarse to auscultation bilaterally. significant upper airway secretions Heart: Regular rate and rhythm, obscured by breath sounds Abdomen: Soft, nondistended. Bowel sounds present. Extremities: Warm, dry, well-perfused. No extremity edema. Neuro: Alert and nonverbal, upward deviated gaze, extremities are stiff and contracted Psych: unable to access Results & Data Results & Data Vital Signs (Past 12 Hours) Vital Signs Temp Pulse Resp Pulse Ox O2 Del Method O2 Flow Rate 08/04/23 16:00 85 22 84 L Nasal Cannula 2 08/04/23 12:00 37.0 C 72 16 96 Nasal Cannula 2 PG Care Time/CCT Total # of Minutes Spent Total Time Spent with Patient: Total time spent is greater than 50% in coordination of care (as documented) at patient's floor/unit and/or counseling patient: Coding Level of Care Code 34572 SUB INP/OBS CARE 2/35MIN Diagnoses Counseling regarding goals of care Z71.89 Palliative care encounter Z51.5 Encounter for hospice care discussion Z71.89 Terminal respiratory secretions R09.89 Chronic prescription opiate use Z79.891 Rhinovirus infection B34.8 Aspiration pneumonia J69.0 Angioedema, initial encounter T78.3XXA Encounter type: initial encounter Swallowing dysfunction R13.10 PSP (progressive supranuclear palsy) G23.1 Metabolic encephalopathy G93.41 Hypothyroidism E03.9 Laryngopharyngeal reflux K21.9 (8) Angio-edema Encounter type: initial encounter Qualified Code(s): T78.3XXA - Angioneurotic edema, initial encounter
[2023-08-05] MEDS: GLYCOPYRROLATE 0.2 MG/ML VIAL IV SCH ×4 (00:06→11:50)
[2023-08-05] MEDS: MoRPHine BOLUS from BAG IV PRN ×2 (00:20→16:55)
[2023-08-05] MEDS: LORazepam 1 MG in SYRINGE 0.5 ML IV PRN (00:47)
[2023-08-05] MEDS: MoRPHine SULF/NSS 100 MG/100 ML BAG IV SCH ×2 (09:40→17:50)
--- NOTE | 2023-08-05 11:34 | Palliative Care Progress Note ---
Date of Service August 05, 2023 Assessment & Plan (1) Dyspnea and respiratory abnormalities: Plan: MS infusion increased to 4mg per hour to continue efforts to improve comfort Continues to struggles with resp effort, grimacing at times MS infusion orders adjusted for higher hourly max, bolus increased to 2mg from 1mg and hourly rate adjustment increased from 1mg to 2mg for comfort. Patient is opioid tolerant and has been on [employer]aker long acting and PRN opioids for chronic pain mgt; her opioid needs may be higher than typically expected. (2) Terminal respiratory secretions: Plan: Will move Robinul to 0.4mg IV Q3h prn add Transderm Scop patch (1) q72h, begin today Use prn atropine as ordered elevate HOB, gentle oral suctioning, deeper prn if needed but would not do this routinely (3) Weakness generalized: Plan: terminal PSP (4) Palliative care by specialist: (5) Swallowing dysfunction: (6) PSP (progressive supranuclear palsy): Plan * MS infusion dose increased, now 4mg per hour, parameters for adjustment + bolus dosing options further modified to allow for optimizing her EOL pain and resp distress * GIP eval today: pt is too complex and cannot be safely moved to SNF care with oral or transdermal meds at this junction. * I have d/w Primary attending + CM Thank you for allowing us to participate in the ongoing care of this patient. Please don't hesitate to call or page with any additional concerns. Dr. Lisa Campbell DNP Director, Palliative Care Admission and Anticipated Discharge Date Admission Date: July 26, 2023 Subjective Steadily declining, inc secretions, resp effort increased at times' atropine prn added, remains on robinul IV MS infusion now at 4mg per hour to continue efforts to optimize comfort and relieve resp distress pt is not awake/interactive family remains at bedside GIP eval has been requested Review of Systems Review of Systems: Unobtainable due to reduced consciousness Physical Exam Physical Exam: This is a frail and chronically ill-appearing elderly female, lethargic, grimacing at times, unable to follow commands. +bitemporal wasting, +contractures consistent with progressive and end-stage PSP. +gurgling res piration; skin is pale, cool, +pallor noted. Results & Data Vital Signs (Past 12 Hours) Vital Signs O2 Del Method O2 Flow Rate 08/05/23 09:00 Nasal Cannula 2 08/05/23 00:53 Nasal Cannula 2 PG Care Time/CCT Total # of Minutes Spent Total Time Spent: 60 Total Time Spent with Patient: Total time spent is greater than 50% in coordination of care (as documented) at patient's floor/unit and/or counseling patient: Coding [place] [address] SUB INP/OBS CARE 3/50MIN Patient Type Established History Comprehensive Exam Comprehensive Medical Decision Making High Complexity Diagnoses Dyspnea and respiratory abnormalities R06.00; R06.89 Terminal respiratory secretions R09.89 Weakness generalized R53.1 Palliative care by specialist Z51.5 Swallowing dysfunction R13.10 PSP (progressive supranuclear palsy) G23.1
[2023-08-05] MEDS ORDERED: GLYCOPYRROLATE 0.2 MG/ML VIAL IV SCH (11:45)
[2023-08-05] MEDS ORDERED: SCOPOLAMINE 1 MG TDSY TD SCH (12:00)
[2023-08-05] MEDS: CHECK SCOPOLAMINE PATCH PLACEMENT SCH (16:54)
[2023-08-05] MEDS: ATROPINE SULFATE 1% OP SOLN 5 ML BTL SL PRN ×2 (16:55→22:54)
--- NOTE | 2023-08-05 17:04 | Hospitalist Progress Note ---
Date of Service August 05, 2023 Assessment & Plan (1) Counseling regarding goals of care: Plan: comfort oriented care since 08/02. Has required titration of morphine drip to maintain comfort, dose has been titrated up to at least 4 mg an hour, has also required IV lorazepam earlier this morning.. Discussed with Dr. Rucker and her son at bedside again today. also discussed with managed care manager - family preferred plan of discharge to her home facility with outpatient hospice, however, we have been unable to keep her comfortable without the use of intravenous medications and I think that attempting to transition would put her at significant risk of distress and uncontrolled dyspnea and pain. I think it is unlikely that she would able to be treated outside of the hospital setting at this time. I discussed this with her son today, he voices understanding of the realities of the situation and her medical care needs - continue IV morphine, IV lorazepam as needed - continue Robinul and atropine as needed for secretions, scopolamine patch added by Dr. Rucker (2) Palliative care encounter: Plan: as above #1 (3) Terminal respiratory secretions: Plan: currently has a lot of secretions on Robinul added atropine, scopolamine (4) Chronic prescription opiate use: Plan: h/o Spinal stenosis and scoliosis with chronic generalized pain previously on nucynta ER and 3-4 tabs of norco each day cont morphine infusion for comfort/pain control see #1 above for further discussion (5) Rhinovirus infection: Plan: tested + for such upon admission son reported typical URI symptoms for 1-2 days prior to admission (6) Aspiration pneumonia: Plan: patient was intubated on hospital day #2 - 07/27/23 - due to the development of angioedema copious amounts of food product was found in the airway upon intubation despite successful extubation later in the stay she remained with NC O2 requirement and exam along with x-rays were concerning for pneumonia - likely aspiration she had overt signs/symptoms of aspiration (even with ice chips) on multiple speech therapy evals at the bedside she was on broad-spectrum IV antibiotics much of this stay continued to decline despite the above leukocytosis had worsened prior to transitioning to comfort care son reports pt had had a cough for about 6 weeks prior to this admission I suspect she had been aspirating for quite some time prior to coming to [facility] dysphagia is related to PSP (7) Angio-edema: Plan: Intubated 07/27 by anesthesia, extubated 07/28 Unknown cause ?azithromycin - only 1 dose was given per the MAR Not on RACHID or ARB. Received decadron up until today (was being used for pulmonary infection/wheeze/etc) - now being discontinued - transitioning to comfort care measures (8) Swallowing dysfunction: Plan: see discussion above re: dysphagia SEVERE likely 2nd to PSP (9) PSP (progressive supranuclear palsy): Plan: despite resuming Sinemet and benztropine via NG tube after her ICU stay she had no significant improvement in her increased tone/rigidity of her limbs (worse on right) nor any improvement globally in her neuropsych status (10) Metabolic encephalopathy: Plan: likely multifactorial mental status never improved while here despite supportive care (11) Hypothyroidism: Plan: synthroid stopped now on comfort care pathway (12) Laryngopharyngeal reflux: Plan: PPI stopped now on comfort care pathway Plan stopped chemical VTE Prophylaxis appreciate social work assistance appreciate Dr Campbell's assistance from palliative care Admission and Anticipated Discharge Date Admission Date: July 26, 2023 Subjective I saw her midmorning and she does appear much more relaxed and less distressed than when I saw her yesterday. She continues to have her usual upward gaze. Her limbs are much less stiff and rigid today. She did not verbalize any responses and did not follow commands. Her respirations are infrequent but not apneic. She continues to have a lot of secretions. She continues to require high dose of intravenous opioids for comfort morphine drip is currently at 4 mg an hour and required 2 mg of intravenous lorazepam earlier this morning. Physical Exam Physical Exam: PHYSICAL EXAMINATION Last 24h vital signs reviewed, see documentation in flowsheet General: appears Much more relaxed and more comfortable currently HEENT: PERRL, gaze directed upward, dry mucus membranes Lungs: coarse bilaterally anteriorly and posteriorly with lots of secretions, infrequent nonlabored respirations without apnea Heart: Regular rate and rhythm, obscured by breath sounds Abdomen: Soft, nondistended. Bowel sounds present. Extremities: Warm, dry, well-perfused. anasarca of 4 extremities present Neuro: Alert and nonverbal, upward deviated gaze, extremities are not currently stiff like yesterday I am able to range her upper extremities Psych: unable to access Results & Data Results & Data Vital Signs (Past 12 Hours) Vital Signs O2 Del Method O2 Flow Rate 08/05/23 09:00 Nasal Cannula 2 PG Care Time/CCT Total # of Minutes Spent Total Time Spent with Patient: I spent 40 minutes today on clinical care activities Coding Level of Care Code 36895 SUB INP/OBS CARE 2/35MIN Diagnoses Counseling regarding goals of care Z71.89 Palliative care encounter Z51.5 Terminal respiratory secretions R09.89 Chronic prescription opiate use Z79.891 Rhinovirus infection B34.8 Aspiration pneumonia J69.0 Angioedema, initial encounter T78.3XXA Encounter type: initial encounter Swallowing dysfunction R13.10 PSP (progressive supranuclear palsy) G23.1 Metabolic encephalopathy G93.41 Hypothyroidism E03.9 Laryngopharyngeal reflux K21.9 (7) Angio-edema Encounter type: initial encounter Qualified Code(s): T78.3XXA - Angioneurotic edema, initial encounter
[2023-08-05] MEDS: GLYCOPYRROLATE 0.2 MG/ML VIAL IV PRN (23:07)
[2023-08-06] MEDS: ATROPINE SULFATE 1% OP SOLN 5 ML BTL SL PRN ×2 (05:01→12:50)
[2023-08-06] MEDS: GLYCOPYRROLATE 0.2 MG/ML VIAL IV PRN ×2 (05:22→12:45)
[2023-08-06] MEDS: CHECK SCOPOLAMINE PATCH PLACEMENT SCH ×2 (09:23)
[2023-08-06] MEDS: MoRPHine SULF/NSS 100 MG/100 ML BAG IV SCH (10:55)
[2023-08-06] MEDS: MoRPHine BOLUS from BAG IV PRN (12:40)
--- NOTE | 2023-08-06 15:16 | Discharge Summary ---
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 Unable to get any history from the patient. History taken from son at bedside. He reports she has been having 5 weeks of a cough with "nothing done". He does note she had a CXR about 10 days ago but is unclear on the results of this. Looking at the [facility] records she did have her Lasix increased from 20mg to 40mg for 5 days starting on the 7th so suspect it was read as pulmonary edema but I do not have the results of that XR either by report or actual picture. About 10 days ago this cough became progressively worse and she has been on a general decline. Today she had a fever therefore the [facility] sent her to the ER. Principal Diagnosis Aspiration pneumonia Discharge Exam PHYSICAL EXAMINATION Last 24h vital signs reviewed, see documentation in flowsheet General: appears comfortable, however lots of pulmonary secretions persist HEENT: PERRL, gaze directed upward, moist mucus membranes Lungs: coarse bilaterally with lots of upper airway secretions, nonlabored breathing RR around 8-10 Heart: obscured by airway sounds Abdomen: Soft, nondistended. Bowel sounds present. Extremities: Warm, dry, well-perfused. anasarca of 4 extremities present, e xtremities warm : small amt of light yellow urine in clemente Neuro: no longer alert, eyes closed, extremities are not currently stiff Psych: unable to access Discharge Data Allergies Allergy/AdvReac Type Severity Reaction Status Date / Time azithromycin Allergy Severe Angioedema Verified 08/03/23 09:20 cat dander Allergy Severe SHORTNESS Verified 04/05/23 18:48 OF BREATH mold Allergy Severe SHORTNESS Verified 04/05/23 18:48 OF BREATH nut - unspecified Allergy Severe Anaphylaxis Verified 04/05/23 18:48 peanut Allergy Severe Anaphylaxis Verified 04/05/23 18:48 pecan nut Allergy Severe Anaphylaxis Verified 04/05/23 18:48 walnut Allergy Severe Anaphylaxis Verified 04/05/23 18:48 Penicillins Allergy Intermediate HIVES Verified 04/05/23 18:48 Sulfa (Sulfonamide Allergy Intermediate "jaundiced Verified 04/05/23 18:48 Antibiotics) as child", HIVES codeine Allergy Mild GI SYMPTOMS Verified 04/05/23 18:48 shellfish derived Allergy Unknown Unknown Unverified 04/05/23 18:48 soy Allergy Unknown Unknown Verified 04/05/23 18:48 Consultations 07/26/23 11:17 ED Decision to Admit Stat 07/27/23 11:11 Consult Wagon Dr[employer] Operator Stat 08/01/23 17:12 Consult Palliative Care Routine Ordered Studies Chest X-Ray 07/26/23 09:27 XR chest 1V portable HISTORY: Sepsis COMPARISON: Chest 05/02/2023. FINDINGS: No pneumothorax. The heart remains enlarged. There is diffuse interstitial thickening which has progressed. This favors mild congestive change. No new focal lung consolidations identified. There are old, healed right-sided rib fractures. S-shaped scoliosis again noted. Severe degenerative changes within the right shoulder. IMPRESSION: Cardiomegaly and mild pulmonary vascular congestion. ACT 112: Negative or not required by law. Electronically signed by: Eulogio Nguyễn M.D. 07/26/2023 10:37 AM Chest X-Ray 07/27/23 12:51 XR chest 1V portable HISTORY: post intubation COMPARISON: Chest 07/26/2023. FINDINGS: Endotracheal tube is at the level the jaime and coursing towards the right mainstem bronchus. This should be retracted by 2 to 3 cm. There are low lung volumes. The heart remains enlarged. There are old, healed right-sided rib fractures. Advanced degenerative changes within the right shoulder. Vertebroplasty within the lumbar spine is partially visualized. Mild interstitial pulmonary edema and patchy left basilar densities persist. IMPRESSION: 1. Endotracheal tube is at the level of jaime and coursing towards the right mainstem bronchus. This should be retracted by 2-3 cm. 2. Pulmonary edema and left basilar densities persist. 3. This was texted to Dr. Aguilar at the time of dictation. ACT 112: Negative or not required by law. Electronically signed by: Eulogio Nguyễn M.D. 07/27/2023 1:32 PM Chest X-Ray 07/27/23 14:29 SINGLE VIEW CHEST CLINICAL HISTORY: Endotracheal tube repositioning FINDINGS: 2 AP, portable, upright chest radiographs are compared to study performed earlier the same day 07/27/2023. Correlation is made with chest CT dated 01/30/2022. The examination is degraded by portable technique and patient rotation. The endotracheal tube has been pulled back. The tip projects approximately 2 cm above the jaime. An enteric tube has been placed. The tip projects just above the diaphragm, likely within a hiatal hernia. The heart is enlarged noting atherosclerotic calcification of the thoracic aorta. There is pulmonary vascular congestion. There is left basilar consolidation. Small pleural effusions are noted. No pneumothorax is seen. The skeletal structures are osteopenic. There are chronic/healed right-sided rib fractures. Advanced arthritic change is seen in the right shoulder. Degenerative change and scoliosis is noted in the spine. IMPRESSION: 1. Endotracheal tube and an enteric tubes are in place as above. 2. The enteric tube it is coiled above the diaphragm, likely within a hiatal hernia. 3. Cardiomegaly with evidence of congestive failure. 4. Left basilar consolidation and small pleural effusions. ACT 112: Negative or not required by law. Electronically signed by: Estuardo Lema M.D. 07/27/2023 3:13 PM Chest X-Ray 07/28/23 07:00 XR chest 1V portable CLINICAL HISTORY: Resp failure TECHNIQUE: Single frontal radiograph of the chest was obtained. Comparison: Comparison is made to chest radiograph 07/27/2023 FINDINGS: Endotracheal tube is unchanged. Enteric tube has been removed in the interval. The cardiomediastinal silhouette is stable. Left basilar consolidation and right sided airspace opacities are noted. No pneumothorax is seen, pleural effusions cannot be excluded. IMPRESSION: Multifocal airspace opacities may represent atelectasis, pneumonia, and/or aspiration. ACT 112: Negative or not required by law. Electronically signed by: Eric Coleman M.D. 07/28/2023 8:05 AM KUB X-Ray 07/30/23 13:14 XR KUB/Abdomen 1 view CLINICAL HISTORY: coresafe placement TECHNIQUE: 1 view of the abdomen was obtained. Comparison: None available at the time of this dictation. FINDINGS: Enteric tube appears to terminate below the diaphragm. Prominent scoliosis is seen. Cement arthroplasty and posterior fixation hardware is noted. The bowel gas pattern is nonobstructive. A moderate amount of stool is noted within the large bowel. IMPRESSION: Satisfactory position of enteric tube. ACT 112: Negative or not required by law. Electronically signed by: Eric Coleman M.D. 07/30/2023 1:53 PM KUB X-Ray 07/30/23 14:18 XR KUB/Abdomen 1 view CLINICAL HISTORY: NG replacement TECHNIQUE: 1 view of the abdomen was obtained. Comparison: Comparison is made to abdomen radiographs 07/30/2023 FINDINGS: After repositioning, the enteric tube tip is similar in position to prior exam. This is favored to lie within the lumen of the stomach within a hiatal hernia. Severe scoliosis and postsurgical changes are again seen. The bowel gas pattern is nonobstructive. A moderate amount of stool is noted within the large bowel. IMPRESSION: Essentially unchanged appearance of the enteric tube tip status post replacement. This is again favored to lie within the stomach within a hiatal hernia. ACT 112: Negative or not required by law. Electronically signed by: Eric Coleman M.D. 07/30/2023 2:49 PM KUB X-Ray 07/30/23 15:44 XR KUB/Abdomen 1 view CLINICAL HISTORY: ngt placement TECHNIQUE: 1 view of the abdomen was obtained. Comparison: Comparison is made to abdomen radiograph 07/30/2023 FINDINGS: Enteric tube is again noted to terminate above the diaphragm, likely within a hiatal hernia. Scoliosis and postsurgical changes are again seen. The bowel gas pattern is nonobstructive. Small stool burden is seen. IMPRESSION: Unchanged appearance of enteric tube. ACT 112: Negative or not required by law. Electronically signed by: Eric Coleman M.D. 07/30/2023 4:16 PM KUB X-Ray 07/31/23 08:00 KUB CLINICAL HISTORY: Enteric tube placement. FINDINGS: AP, portable, supine abdominal radiograph is compared to study dated 07/30/2023 and correlated with abdominal CT dated 01/30/2022. An enteric tube is in place. This is coiled above the diaphragm within a hiatal hernia. There is no bowel obstruction. No evidence of intraperitoneal free air is seen on this supine image. There are no abnormal abdominal calcifications. The skeletal structures are osteopenic. There is a lumbar compression deformity with evidence of previous vertebroplasty. There is lumbosacral spondylosis and scoliosis with previous spinal fusion. A left hip arthroplasty is in place. IMPRESSION: 1. The enteric tube is coiled above the diaphragm within a hiatal hernia. 2. No bowel obstruction. Electronically signed by: Estuardo Lema M.D. 07/31/2023 6:56 AM Chest X-Ray 07/31/23 09:02 XR chest 1V portable CLINICAL HISTORY: increase WBC and O2 demands, fever TECHNIQUE: Single frontal radiograph of the chest was obtained. Comparison: Comparison is made to chest radiograph 07/28/2023 FINDINGS: Enteric tube again appears to terminate within a hiatal hernia. Incidental note is made of a looped catheter projecting over the neck, possibly outside the patient however correlation with physical exam is recommended. The cardiomediastinal silhouette is stable. Multifocal airspace opacities are seen. Pleural effusions cannot be excluded. IMPRESSION: Stable multifocal airspace opacities. ACT 112: Negative or not required by law. Electronically signed by: Eric Coleman M.D. 07/31/2023 9:34 AM Chest X-Ray 08/01/23 08:34 XR chest 1V portable HISTORY: increased cough COMPARISON: Chest 07/31/2023. FINDINGS: Nasogastric tube is curled within the patient's large hiatus hernia. The proximal portion of the nasogastric tube may be looped within the hypopharynx or external to the patient. Clinical correlation recommended. This remains unchanged. There are low lung volumes. Old, healed right-sided rib fractures. No pneumothorax. Small left pleural effusion and left basilar densities persist. There is diffuse interstitial/vascular thickening suggestive of congestive change. The heart remains mildly enlarged. IMPRESSION: 1. Cardiomegaly and mild congestive change. This has slightly progressed. 2. Small left pleural effusion and left basilar densities, unchanged. 3. Nasogastric tube terminates within the large hiatus hernia. The proximal portion of the nasogastric tube may be looped within the hypopharynx or external to the patient. Clinical correlation recommended. ACT 112: Negative or not required by law. Electronically signed by: Eulogio Nguyễn M.D. 08/01/2023 10:02 AM Hospital Course (1) Aspiration pneumonia: Ms. Falcon was intubated on hospital day #2 - 07/27/23 - due to the development of angioedema copious amounts of food product was found in the airway upon intubation despite successful extubation later in the stay she remained hypoxic and exam, x-rays were concerning for aspiration pneumonia she had overt signs/symptoms of aspiration (even with ice chips) on multiple speech therapy evals at the bedside son reports pt had had a cough for about 6 weeks prior to this admission I suspect she had been aspirating for quite some time prior to coming to [facility] dysphagia is related to her progressive supranuclear palsy she was on broad-spectrum IV antibiotics much of this stay continued to decline despite this and eventually decision was made to transition to comfort measures only her family was hoping for discharge back to her residence at [facility] with hospice, however, symptom control was difficult and she required significant dos es of IV morphine by continuous infusion currently at 4 mg/h, IV lorazepam, and multiple medications to control airway secretions. Thus she is discharged and will be readmitted under hospice for ongoing care. (2) Counseling regarding goals of care: (3) Palliative care encounter: (4) Terminal respiratory secretions: currently has a lot of secretions on Robinul added atropine, scopolamine patch, secretions remain heavy (5) Chronic prescription opiate use: h/o Spinal stenosis and scoliosis with chronic generalized pain previously on nucynta ER and 3-4 tabs of norco each day cont morphine infusion for comfort/pain control (6) Rhinovirus infection: tested + for such upon admission son reported typical URI symptoms for 1-2 days prior to admission (7) Angio-edema: Intubated 07/27 by anesthesia, extubated 07/28 Unknown cause ?azithromycin - only 1 dose was given per the MAR Not on RACHID or ARB. Treated with dexamethasone earlier in hospital stay (8) Swallowing dysfunction: severe dysphagia with aspiration due to PSP (9) PSP (progressive supranuclear palsy): despite resuming Sinemet and benztropine via NG tube after her ICU stay she had no significant improvement in her increased tone/rigidity of her limbs (worse on right) nor any improvement globally in her neuropsych status (10) Metabolic encephalopathy: (11) Hypothyroidism: (12) Laryngopharyngeal reflux: Total Time Total Time Spent Total Time Spent (In Minutes): 55 minutes spent today on clinical care activities Discharge Plan Discharge Items Reason For Visit: ACUTE HYPOXIC RESPIRATORY FAILURE, RHINOVIRUS Follow-up/Referrals: [facility] Reg Chowdhury [Primary Care Provider] - Medications and DC Order Prescriptions: No Action benztropine 0.5 mg tablet 0.5 mg PO BID Qty: 180 1RF pantoprazole 40 mg tablet,delayed release (DR/EC) 40 mg PO BID 90 Days Qty: 180 1RF Rx Instructions: 1 HR PRIOR TO [facility] levothyroxine [Synthroid] 75 mcg tablet 75 mcg PO QAM Qty: 90 1RF carbidopa-levodopa [Sinemet] 25-100 mg tablet 1 tab PO QID 90 Days Qty: 360 1RF Rx Instructions: 4 HRS BETWEEN DOSES. 2am, 8am, 2pm, 8pm simvastatin [Zocor] 20 mg tablet 20 mg PO HS Qty: 90 1RF sennosides [Senokot] 8.6 mg Tablet 8.6 mg PO HS polyethylene glycol 3350 [Miralax] 17 gram/dose Powder 8.5 g PO DAILY Slow Release Iron 143 mg (45 mg iron) Tablet Extended Release 143 mg PO DAILY Nucynta ER 50 mg tablet extended release 12 hr 50 mg PO [facility] melatonin 10 mg Tablet 10 mg PO HS Rx Instructions: TAKE 1 HR PRIOR TO HS. pregabalin [Lyrica] 200 mg capsule 200 mg PO [facility] duloxetine 30 mg capsule,delayed release(DR/EC) See Rx Instructions .ROUTE .COMPLEX Rx Instructions: Take 30mg with 60mg to equal 90 mg by mouth once daily cholecalciferol (vitamin D3) [Vitamin D3] 25 mcg (1,000 unit) Tablet 25 mcg PO DAILY acetaminophen 325 mg Tablet 650 mg PO Q4H PRN (Reason: Pain) diclofenac sodium 1 % gel 4 g TOPICAL QID PRN (Reason: Pain) hydrocodone-acetaminophen 7.5-325 mg tablet 1 tab PO Q6H PRN (Reason: chronic pain) duloxetine [Cymbalta] 60 mg capsule,delayed release(DR/EC) See Rx Instructions .ROUTE .COMPLEX Rx Instructions: Take 60mg with 30mg to equal 90 mg by mouth once daily potassium chloride 20 mEq tablet extended release 20 meq PO DAILY loteprednol etabonate [Lotemax] 0.5 % Drops,Suspension 1 drp OPHTHALMIC (EYE) BID lidocaine [Lidocaine Pain Relief] 4 % Adhesive Patch,Medicated 1 patch TOPICAL QID PRN (Reason: Shoulder pain) albuterol sulfate 1.25 mg/3 mL solution for nebulization 1.25 mg inhalation Q4H PRN (Reason: Shortness Of Breath) furosemide 20 mg tablet 20 mg PO DAILY Krames/Other Patient Handouts: A1C Admission Data Admit Date/Time: 07/26/23 11:22 Attending Provider: Carol Enriquez Admit Provider: Valeria,Osmani M. Primary Care Provider: Reg Tolentino Other Providers: [facility]; [facility]; Osmani Shaw; Dao Garibay; Lisa Campbell Coding Level of Care Code None Diagnoses Aspiration pneumonia J69.0 Counseling regarding goals of care Z71.89 Palliative care encounter Z51.5 Terminal respiratory secretions R09.89 Chronic prescription opiate use Z79.891 Rhinovirus infection B34.8 Angioedema, initial encounter T78.3XXA Encounter type: initial encounter Swallowing dysfunction R13.10 PSP (progressive supranuclear palsy) G23.1 Metabolic encephalopathy G93.41 Hypothyroidism E03.9 Laryngopharyngeal reflux K21.9
== END 2023-08-06 15:29 | disposition hospice, inpatient (51) | DRG 208 ==
LOC: ED 09:16 → SUATTDRO 11:22 → EDINP 11:22 → 1E 07-27 13:23 → 2E 07-31 12:26 → 3E 08-05 22:50

== ENCOUNTER 2023-08-06 15:29 | Inpatient (IN) ==
[2023-08-06] MEDS ORDERED: STAT IV Infusion **Titration per Protocol STA (15:48)
[2023-08-06] MEDS ORDERED: LORazepam 1 MG in SYRINGE 0.25 ML IV PRN (15:48)
[2023-08-06] MEDS ORDERED: ACETAMINOPHEN 650 MG SUPP PR PRN (15:48)
[2023-08-06] MEDS ORDERED: PROCHLORPERAZINE 5 MG in SYRINGE 4 ML IV PRN (15:48)
[2023-08-06] MEDS ORDERED: ONDANSETRON INJ 2 MG/ML 2 ML VIAL IV PRN (15:48)
[2023-08-06] MEDS ORDERED: SCOPOLAMINE 1 MG TDSY TD SCH (16:00)
[2023-08-06] MEDS: MoRPHine SULF/NSS 100 MG/100 ML BAG IV SCH (16:16)
--- NOTE | 2023-08-06 16:24 | History & Physical Report ---
Date of Service August 06, 2023 Assessment & Plan (1) Palliative care encounter: Plan: admitted to inpatient hospice because of challenging symptom control, end-of-life care, unable to tolerate oral medications and requiring intravenous medications for symptom control dyspnea, excessive respiratory secretions, chronic musculoskeletal pain from spinal stenosis, and rigidity related to her PSP are active issues reviewed recommendations made by [facility] hospice today and agree with suggested changes -continue morphine continuous infusion, increased rate to 5 mg/h and increased bolus frequency to 2 mg IV q 15 min -continue lorazepam IV PRN dyspnea, anxiety -continue robinul, atropine drops SL and scopolamine patch for respiratory secretions Updated her son Yovani at bedside this afternoon. (2) Terminal respiratory secretions: Plan: see above (3) Aspiration pneumonia: (4) PSP (progressive supranuclear palsy): Plan: currently unable to tolerate oral medications. no stiffness/rigidity on medications as outlined above (5) Rhinovirus infection: Admission and Anticipated Discharge Date Admission Date: August 06, 2023 History of Present Illness Chief Complaint: inpatient hospice admission, comfort care Primary Care Provider: [facility] Ms. Falcon is an 88 y/o woman with history of progressive supranuclear palsy who was admitted with fever, cough, shortness of breath and acute encephalopathy. She was found to have rhinovirus infection and was treated with supportive care and IV fluids. She was intubated on hospital day #2 - 07/27/23 - due to the development of angioedema with unknown precipitant. copious amounts of food product was found in the airway upon intubation despite successful extubation later in the stay she remained hypoxic and exam, x-rays were concerning for aspiration pneumonia she had overt signs/symptoms of aspiration (even with ice chips) on multiple speech therapy evals at the bedside son reports pt had had a cough for about 6 weeks prior to this admission I suspect she had been aspirating for quite some time prior to coming to [facility] dysphagia is related to her progressive supranuclear palsy she was on broad-spectrum IV antibiotics much of this stay for aspiration pneumonia. She continued to decline despite treatment and eventually the decision was made to transition to comfort measures only her family was hoping for discharge back to her residence at [facility] with hospice, however, symptom control has been difficult and she has required significant doses of IV morphine by continuous infusion currently at 4 mg/h, IV lorazepam, and multiple medications to control airway secretions. Thus she is discharged and will be readmitted under inpatient hospice for ongoing care. Allergies Allergy/AdvReac Type Severity Reaction Status Date / Time azithromycin Allergy Severe Angioedema Verified 08/03/23 09:20 cat dander Allergy Severe SHORTNESS Verified 04/05/23 18:48 OF BREATH mold Allergy Severe SHORTNESS Verified 04/05/23 18:48 OF BREATH nut - unspecified Allergy Severe Anaphylaxis Verified 04/05/23 18:48 peanut Allergy Severe Anaphylaxis Verified 04/05/23 18:48 pecan nut Allergy Severe Anaphylaxis Verified 04/05/23 18:48 walnut Allergy Severe Anaphylaxis Verified 04/05/23 18:48 Penicillins Allergy Intermediate HIVES Verified 04/05/23 18:48 Sulfa (Sulfonamide Allergy Intermediate "jaundiced Verified 04/05/23 18:48 Antibiotics) as child", HIVES codeine Allergy Mild GI SYMPTOMS Verified 04/05/23 18:48 shellfish derived Allergy Unknown Unknown Unverified 04/05/23 18:48 soy Allergy Unknown Unknown Verified 04/05/23 18:48 Home Medications Medication Instructions Recorded Confirmed Type benztropine 0.5 mg tablet 0.5 mg PO BID #180 tabs 10/28/21 07/26/23 Rx simvastatin 20 mg tablet (Zocor) 20 mg PO HS #90 tabs 10/29/21 07/26/23 Rx pantoprazole 40 mg tablet,delayed 40 mg PO BID gastritis 90 days 01/08/22 07/26/23 Rx release #180 tabs levothyroxine 75 mcg tablet 75 mcg PO QAM #90 tabs 01/20/22 07/26/23 Rx (Synthroid) carbidopa 25 mg-levodopa 100 mg 1 tab PO QID 90 days #360 tabs 06/10/22 07/26/23 Rx tablet (Sinemet) ferrous sulfate 143 mg (45 mg 143 mg PO DAILY 07/06/22 07/26/23 History iron) tablet,extended release (Slow Release Iron) melatonin 10 mg tablet 10 mg PO HS 07/06/22 07/26/23 History polyethylene glycol 3350 17 8.5 g PO DAILY 07/06/22 07/26/23 History gram/dose oral powder (Miralax) pregabalin 200 mg capsule (Lyrica) 200 mg PO AMHS 07/06/22 07/26/23 History sennosides 8.6 mg tablet (Senokot) 8.6 mg PO HS 07/06/22 07/26/23 History tapentadol 50 mg tablet,extended 50 mg PO AMHS 07/06/22 07/26/23 History release,12 hr (Nucynta ER) acetaminophen 325 mg tablet 650 mg PO Q4H PRN Pain 04/05/23 07/26/23 History cholecalciferol (vitamin D3) 25 25 mcg PO DAILY 04/05/23 07/26/23 History mcg (1,000 unit) tablet (Vitamin D3) diclofenac sodium 1 % topical gel 4 g topical QID PRN Pain 04/05/23 07/26/23 History duloxetine 30 mg capsule,delayed See Rx Instructions .Route .COMPLEX 04/05/23 07/26/23 History release duloxetine 60 mg capsule,delayed See Rx Instructions .Route .COMPLEX 04/05/23 07/26/23 History release (Cymbalta) hydrocodone 7.5 mg-acetaminophen 1 tab PO Q6H PRN chronic pain 04/05/23 07/26/23 History 325 mg tablet potassium chloride 20 mEq 20 meq PO DAILY 04/05/23 07/26/23 History tablet,extended release albuterol sulfate 1.25 mg/3 mL 1.25 mg inhalation Q4H PRN 07/26/23 07/26/23 History solution for nebulization Shortness Of Breath furosemide 20 mg tablet 20 mg PO DAILY 07/26/23 07/26/23 History lidocaine 4 % topical patch 1 patch topical QID PRN Shoulder 07/26/23 07/26/23 History (Lidocaine Pain Relief) pain loteprednol etabonate 0.5 % eye 1 drp ophthalmic (eye) BID 07/26/23 07/26/23 History drops,suspension (Lotemax) Past Med/Surg History Medical History Lumbosacral radiculopathy Fusion of lumbosacral spine L4-S1 Sacroiliitis Hypoxia Maxillary sinus fracture Avulsion fracture of middle phalanx of finger Forehead laceration CHI (closed head injury) Multiple facial bone fractures Multiple rib fractures Depression PSP (progressive supranuclear palsy) GERD (gastroesophageal reflux disease) Other abnormalities of gait and mobility Encounter for pre-operative examination Falls frequently Bilateral lumbar radiculopathy Anxiety Risk for falls LAST EVENT ARPIL 2019 Chronic back pain Cardiac murmur Fibromyalgia Hyperlipidemia Hypothyroidism Lumbar canal stenosis Poor balance Hx of breast cancer RADIATION 2000 Hearing deficit Spinal stenosis Scoliosis LUMBAR AND NERVE PAIN Hyperlipidemia Surgical History S/P total left hip arthroplasty Status post left hip replacement History of dilation and curettage S/P epidural steroid injection History of colonoscopy History of tonsillectomy Hx of lumpectomy WITH LYMPH NODE REMOVAL (LEFT) Hx of wisdom tooth extraction Hx of bilateral breast reduction surgery DUE TO CANCER 2006 Hx of cataract surgery RIGHT AND LEFT Hx of appendectomy Hx of kyphoplasty L2 Hx of spinal fusion L4-S1 History of foot surgery LEFT Family History Sister Alzheimer disease Breast cancer Paget's disease Father Alzheimer disease Grandmother (Paternal) Alzheimer disease Mother Myocardial infarction Stroke syndrome Uncle Prostate cancer Denies family history of Ovarian cancer Adverse anesthesia outcome Bleeding disorder Colorectal cancer Social History Smoking Status: Never smoker Tobacco Type: Cigarettes Second Hand Exposure: No; Do You Dip or Chew Tobacco: No; Hx Alcohol Use: No Hx Substance Use: No Preferred Language: Yakut Communication Ability: Effective Visual Impairment: No Limitations Hearing Ability: Use of Hearing Aid [employer] Consultant Required: No Beliefs That Will Affect Care: None marital status: / Current Living Situation: Detention Current Living Situation Comment: resides at the [facility] current occupational status: retired How many Children do You have: 2 Feels Safe at Home: Yes Childhood Exposure to Second-Hand Smoke: No Diet: regular caffeine: Yes during the past year weight has: remained stable Dental Care, Regularly: Yes Physical Activity Frequency: Does not Exercise Seatbelt Use: always Sunscreen Use: Yes Assistive Devices: Walker Review of Systems Review of Systems: Unobtainable due to cognitive status Physical Exam Physical Exam: Please see my discharge summary dated today for exam. On reexamination this aft ernoon she is not alert, respiratory secretions still prominent, breathing is nonlabored, appears comfortable. Results & Data Results & Data Vital Signs (Past 12 Hours) Vital Signs O2 Del Method O2 Flow Rate 11/30/23 16:04 Nasal Cannula 2 Code Status & VTE Plan Code Status DNR/DNI VTE Prophylaxis Plan VTE Prophylaxis will be ordered: No Reason for no VTE drug order: Treatment not indicated PG Care Time/CCT Total # of Minutes Spent Total Time Spent with Patient: Total time spent is greater than 50% in coordination of care (as documented) at patient's floor/unit and/or counseling patient: Coding Level of Care Code None Diagnoses Palliative care encounter Z51.5 Terminal respiratory secretions R09.89 Aspiration pneumonia J69.0 PSP (progressive supranuclear palsy) G23.1 Rhinovirus infection B34.8 CPT Codes SUBSEQUENT INP/OBS HOSP CARE LVL 3, 50 MIN - 78824 ([id number]) Time Spent (min) 55
[2023-08-06] MEDS: CHECK SCOPOLAMINE PATCH PLACEMENT SCH (17:15)
[2023-08-06] MEDS: GLYCOPYRROLATE 0.2 MG/ML VIAL IV PRN (20:55)
[2023-08-06] MEDS: ATROPINE SULFATE 1% OP SOLN 5 ML BTL SL PRN ×2 (21:00→22:09)
[2023-08-06] MEDS: MoRPHine BOLUS from BAG IV PRN (21:02)
[2023-08-07] MEDS: ATROPINE SULFATE 1% OP SOLN 5 ML BTL SL PRN ×7 (00:03→23:28)
[2023-08-07] MEDS: GLYCOPYRROLATE 0.2 MG/ML VIAL IV PRN ×3 (00:03→15:50)
[2023-08-07] MEDS: CHECK SCOPOLAMINE PATCH PLACEMENT SCH ×4 (00:03→23:28)
[2023-08-07] MEDS: MoRPHine SULF/NSS 100 MG/100 ML BAG IV SCH (08:33)
--- NOTE | 2023-08-07 17:25 | Hospitalist Progress Note ---
Date of Service August 07, 2023 Assessment & Plan (1) Palliative care encounter: Plan: admitted to inpatient hospice because of challenging symptom control, end-of-life care, unable to tolerate oral medications and requiring intravenous medications for symptom control dyspnea, excessive respiratory secretions, chronic musculoskeletal pain from spinal stenosis, and rigidity related to her PSP are active issues reviewed recommendations made by [facility] hospice 08/06 and made suggested changes, I did not find any hospice clinical notes today -continue morphine continuous infusion, rate at 5 mg/h and bolus frequency 2 mg IV q 15 min -continue lorazepam IV PRN dyspnea, anxiety -continue robinul, atropine drops SL and scopolamine patch for respiratory secretions Updated her son Yovani at bedside last 08/06 afternoon. (2) Terminal respiratory secretions: Plan: see above (3) Aspiration pneumonia: (4) PSP (progressive supranuclear palsy): Plan: currently unable to tolerate oral medications. no stiffness/rigidity on medications as outlined above (5) Rhinovirus infection: Admission and Anticipated Discharge Date Admission Date: August 06, 2023 Subjective nonverbal. family not in room. no events. morphine at 5 mg/h and bolus given overnight. secretions still prominent Physical Exam Physical Exam: PHYSICAL EXAMINATION Last 24h vital signs reviewed, see documentation in flowsheet General: comfortable appearing HEENT: eyes closed, dry mucus membranes Lungs: regular nonlabored respirations coarse with upper airway secretions Heart: obscured by airway sounds Abdomen: Soft, nondistended. Bowel sounds present. Extremities: Warm, dry, well-perfused. anasarca of 4 extremities present Neuro: comatose, didn't arouse to exam, extremities are not currently stiff : dark yellow urine in clemente Psych: unable to access Results & Data Results & Data Vital Signs (Past 12 Hours) Vital Signs O2 Del Method O2 Flow Rate 08/07/23 08:30 Nasal Cannula 2 PG Care Time/CCT Total # of Minutes Spent Total Time Spent with Patient: Total time spent is greater than 50% in coordination of care (as documented) at patient's floor/unit and/or counseling patient: Coding Level of Care Code 22520 SUB INP/OBS CARE 2/35MIN Diagnoses Palliative care encounter Z51.5 Terminal respiratory secretions R09.89 Aspiration pneumonia J69.0 PSP (progressive supranuclear palsy) G23.1 Rhinovirus infection B34.8
[2023-08-08] MEDS: GLYCOPYRROLATE 0.2 MG/ML VIAL IV PRN ×4 (00:29→12:20)
[2023-08-08] MEDS: ATROPINE SULFATE 1% OP SOLN 5 ML BTL SL PRN ×6 (02:16→12:21)
[2023-08-08] MEDS: MoRPHine BOLUS from BAG IV PRN ×4 (04:16→14:19)
[2023-08-08] MEDS: MoRPHine SULF/NSS 100 MG/100 ML BAG IV SCH (04:42)
[2023-08-08] MEDS: CHECK SCOPOLAMINE PATCH PLACEMENT SCH ×2 (08:03→15:40)
--- NOTE | 2023-08-08 10:14 | Hospitalist Progress Note ---
Date of Service August 08, 2023 Assessment & Plan (1) Palliative care encounter: Plan: admitted to inpatient hospice because of challenging symptom control, end-of-life care, unable to tolerate oral medications and requiring intravenous medications for symptom control dyspnea, excessive respiratory secretions, chronic musculoskeletal pain from spinal stenosis, and rigidity related to her PSP are active issues reviewed recommendations made by [facility] hospice 08/06 and made suggested changes, I did not find any hospice clinical notes today -continue morphine continuous infusion, rate at 5 mg/h and bolus frequency 2 mg IV q 15 min - tachypneic.tachycardic may be uncomfortable - paged nurse to assess for morphine bolus/increase drip -continue lorazepam IV PRN dyspnea, anxiety -continue robinul, atropine drops SL and scopolamine patch for respiratory secretions -appears that is immanent, would not be safe to transport her, discharge without IV medications highly likely to cause severe distress/discomfort Updated her son Yovani at bedside last 08/06 afternoon. (2) Terminal respiratory secretions: Plan: see above (3) Aspiration pneumonia: (4) PSP (progressive supranuclear palsy): Plan: currently unable to tolerate oral medications. no stiffness/rigidity on medications as outlined above (5) Rhinovirus infection: Admission and Anticipated Discharge Date Admission Date: August 06, 2023 Subjective Yovani is not in room. Tachypneic/tachycardic, not alert Physical Exam Physical Exam: PHYSICAL EXAMINATION Last 24h vital signs reviewed, see documentation in flowsheet General: ill appearing HEENT: eyes half open upward gaze, dry mucus membranes Lungs: tachypneic rapid and shallow breathing respirations coarse with upper airway secretions Heart: obscured by airway sounds but sounds tachycardic Abdomen: Soft, nondistended. Extremities: Warm, dry, well-perfused. anasarca of 4 extremities present Neuro: comatose eyes half open, didn't arouse to exam, extremities are not currently stiff : dark yellow urine in clemente Psych: unable to access PG Care Time/CCT Total # of Minutes Spent Total Time Spent with Patient: Total time spent is greater than 50% in coordination of care (as documented) at patient's floor/unit and/or counseling patient: Coding Level of Care Code 36284 SUB INP/OBS CARE 2/35MIN Diagnoses Palliative care encounter Z51.5 Terminal respiratory secretions R09.89 Aspiration pneumonia J69.0 PSP (progressive supranuclear palsy) G23.1 Rhinovirus infection B34.8
--- NOTE | 2023-08-09 00:51 | Death Pronouncement Note ---
Date of Service August 09, 2023 Pronouncement Note Admission Date August 06, 2023 Date and Time of Date of : 08/08/23 Time of : 23:27 Preliminary Cause of (1) Acute hypoxic respiratory failure: Contributing Factors Acute hypoxic respiratory failure 2/2 aspiration pneumonia w/ sepsis, s/p intubation. Was made LE[facility] PICKER promptly after admission.. Summary Informed by RN of pt ceasing to breathe. At bedside, pt was found to be in a terminal state. Examination revealed lack of peripheral pulses, no audible respirations, no audible heart sounds, pupils fixed and dilated. Pronounced at 11:27 PM. Additional Data Confirmation of : no pulse, no respirations, no heart sounds and pupils fixed and dilated Pronouncement Performed By: Resident Physician Family: not available Attending physician: Carol Enriquez MD Was code activated?: No Resident Activity Tracking Resident Involvement: Resident Care Provided Care Provided: Adult Hospital Medicine
--- NOTE | 2023-08-09 18:24 | Discharge Summary ---
Date of Service August 08, 2023 Admission HPI Per Admitting Provider Ms. Falcon is an 88 y/o woman with history of progressive supranuclear palsy who was admitted with fever, cough, shortness of breath and acute encephalopathy. She was found to have rhinovirus infection and was treated with supportive care and IV fluids. She was intubated on hospital day #2 - 07/27/23 - due to the development of angioedema with unknown precipitant. copious amounts of food product was found in the airway upon intubation despite successful extubation later in the stay she remained hypoxic and exam, x-rays were concerning for aspiration pneumonia she had overt signs/symptoms of aspiration (even with ice chips) on multiple speech therapy evals at the bedside son reports pt had had a cough for about 6 weeks prior to this admission I suspect she had been aspirating for quite some time prior to coming to [facility] dysphagia is related to her progressive supranuclear palsy she was on broad-spectrum IV antibiotics much of this stay for aspiration pneumonia. She continued to decline despite treatment and eventually the decision was made to transition to comfort measures only her family was hoping for discharge back to her residence at [facility] with hospice, however, symptom control has been difficult and she has required significant doses of IV morphine by continuous infusion currently at 4 mg/h, IV lorazepam, and multiple medications to control airway secretions. Thus she is discharged and will be readmitted under inpatient hospice for ongoing care. Principal Diagnosis Aspiration pneumonia Discharge Exam not applicable, see progress note 08/08 Discharge Data Allergies Allergy/AdvReac Type Severity Reaction Status Date / Time azithromycin Allergy Severe Angioedema Verified 08/03/23 09:20 cat dander Allergy Severe SHORTNESS Verified 04/05/23 18:48 OF BREATH mold Allergy Severe SHORTNESS Verified 04/05/23 18:48 OF BREATH nut - unspecified Allergy Severe Anaphylaxis Verified 04/05/23 18:48 peanut Allergy Severe Anaphylaxis Verified 04/05/23 18:48 pecan nut Allergy Severe Anaphylaxis Verified 04/05/23 18:48 walnut Allergy Severe Anaphylaxis Verified 04/05/23 18:48 Penicillins Allergy Intermediate HIVES Verified 04/05/23 18:48 Sulfa (Sulfonamide Allergy Intermediate "jaundiced Verified 04/05/23 18:48 Antibiotics) as child", HIVES codeine Allergy Mild GI SYMPTOMS Verified 04/05/23 18:48 shellfish derived Allergy Unknown Unknown Unverified 04/05/23 18:48 soy Allergy Unknown Unknown Verified 04/05/23 18:48 Hospital Course (1) Palliative care encounter: admitted to inpatient hospice because of challenging symptom control, end-of-life care, unable to tolerate oral medications and requiring intravenous medications for symptom control dyspnea, excessive respiratory secretions, chronic musculoskeletal pain from spinal stenosis, and rigidity related to her PSP are active issues reviewed recommendations made by [facility] hospice 08/06 and made suggested changes -treated with morphine continuous infusion, IV lorazepam PRN -required robinul, atropine drops SL and scopolamine patch for excessive respiratory secretions Ms. Falcon peacefully late evening 08/08. (2) Terminal respiratory secretions: see above (3) Aspiration pneumonia: (4) PSP (progressive supranuclear palsy): currently unable to tolerate oral medications. no stiffness/rigidity on medications as outlined above (5) Rhinovirus infection: Total Time Total Time Spent Total Time Spent (In Minutes): n/a Discharge Plan Discharge Items Patient Disposition: Other Date/Time: 08/08/23 23:27 Coding Level of Care Code None Diagnoses Palliative care encounter Z51.5 Terminal respiratory secretions R09.89 Aspiration pneumonia J69.0 PSP (progressive supranuclear palsy) G23.1 Rhinovirus infection B34.8
== END 2023-08-08 23:59 | disposition expired | DRG 951 ==
LOC: 3E 15:32